=== PATIENT | female | born 1985 | race Caucasian/White ===

== ENCOUNTER 2016-06-15 10:02 | Emergency (ER) | payer OTHER ==
[~2016-06-15] VITALS: Ht 157.5 cm; Wt 77.3 kg
[~2016-06-15 10:02] MED LIST: CIPR-255 PO
[2016-06-15 10:08] VITALS: TEMP 37.1; Ht 157.5 cm; Wt 77.3 kg
[2016-06-15] MEDS ORDERED: ACET-1256 PO (10:54)
--- NOTE | 2016-06-15 11:32 | DIAGNOSTIC IMAGING REPORT ---
LEFT KNEE 1 OR 2 VIEWS ROUTINE CLINICAL HISTORY: left knee pain eval for fx COMPARISON STUDY: None. FINDINGS: No fracture or dislocation. Soft tissues are unremarkable. No knee effusion. Cartilage spaces are maintained. IMPRESSION: No fracture or dislocation within the left knee. Electronically signed by: Willy Maldonado M.D. 06/15/2016 11:31 AM Dictated Date/Time: 06/15/2016 11:29 AM
--- NOTE | 2016-06-15 12:52 | DIAGNOSTIC IMAGING REPORT ---
Venous Doppler left leg LEFT VENOUS DOPP LOWER EXT UNILAT CLINICAL HISTORY: left leg pain eval for dv pain. Edema. TECHNIQUE: Venous Doppler COMPARISON STUDY: None FINDINGS: Normal study IMPRESSION: Normal study Electronically signed by: Adi Mario M.D. 06/15/2016 12:50 PM Dictated Date/Time: 06/15/2016 12:50 PM
[2016-06-15] MEDS ORDERED: IBUPROFEN 600 MG TAB PO STA (13:03)
--- NOTE | 2016-06-15 13:51 | DIAGNOSTIC IMAGING REPORT ---
L-SPINE MIN 4 VIEWS ROUTINE CLINICAL HISTORY: Low back pain. COMPARISON STUDY: No previous studies for comparison. FINDINGS: There are postsurgical changes of a presumed gastric bypass. There is no pathologic bowel dilatation. There are surgical clips in the right upper quadrant consistent with a prior cholecystectomy. There are 5 lumbar type vertebral bodies present. No fractures subluxations or destructive lesions are evident. There are mild degenerative changes. IMPRESSION: Mild degenerative change. No fractures, subluxations, or destructive lesions are visualized Electronically signed by: Ignacio Abdi M.D. 06/15/2016 1:50 PM Dictated Date/Time: 06/15/2016 1:49 PM
[2016-06-15] MEDS ORDERED: OXYC1TAB3 PO (14:01)
[2016-06-15 14:53] VITALS: BP 137/87; PULSE 81; O2SAT 97
--- NOTE | 2016-06-15 18:14 | EMERGENCY ROOM VISIT NOTE ---
History Report prepared by Jose Armando: Vishal Joshua Under the Supervision of: Dr. Sarkis Perez M.D. First contact with patient: 10:45 Chief Complaint: KNEEPAIN Stated Complaint: LEFT KNEE PAIN History of Present Illness The patient is a 30 year old female who presents to the Emergency Room with complaints of persistent left knee pain that worsened 3 days ago. The patient notes that 4 weeks ago she had a fall where she notes her left knee just seemed to give out and she hit her knee on the ground. The patient says that the discomfort has been on and off for the past 4 weeks since the fall; however, the past 3 days the discomfort has worsened and become constant. The patient had been cleaning and lifting little things three days ago when the pain worsened. She notes that the discomfort is behind her knee and radiates up and down her leg. She describes it as a sharp pain and as a burning sensation. The discomfort is worsened by movement and weight-bearing. Last night, the discomfort kept the patient awake and she took Tylenol at 4 AM. She denies swelling, fever, chest pain, or shortness of breath. Source of History: patient Onset: 3 days ago Position: knee (left) Quality: burning, sharp Timing: constant, worsening, other (persistent) Modifying Factors (Worsening): movement, other (weight-bearing) Associated Symptoms: No SOB, No chest pain, No fevers Note: Other associated symptoms: radiation up and down left leg, Denies: swelling Review of Systems See HPI for pertinent positives & negatives. A total of 10 systems reviewed and were otherwise negative. Past Medical & Surgical Medical Problems: (1) Ovarian cyst Surgical Problems: (1) History of cholecystectomy (2) History of oophorectomy (3) Hx of appendectomy (4) Hx of gastric bypass (5) Hx of tonsillectomy Family History Diabetes mellitus FH: heart disease FHx: cancer Hypertension Social History Smoking Status: Never Smoker Drug Use: none Marital Status: Housing Status: lives with family Occupation Status: employed Current/Historical Medications Scheduled PRN Acetaminophen (Tylenol), 1,000 MG PO Q8 PRN for Pain Oxycodone Ir (Roxicodone Ir), 5 MG PO Q4H PRN for Pain Allergies Coded Allergies: Cephalosporins (Verified Allergy, Mild, ., 06/15/16) Prochlorperazine (Verified Allergy, Mild, ., 06/15/16) Sulfa Drugs (Verified Allergy, Mild, ., 06/15/16) Latex (Verified Adverse Reaction, Mild, ., 06/15/16) Uncoded Allergies: CEPHALOSPORINS (Allergy, Unknown, 09/20/02) Physical Exam Vital Signs Date Time Temp Pulse Resp B/P Pulse Ox O2 Delivery O2 Flow Rate FiO2 06/15/16 14:53 81 16 137/87 97 06/15/16 12:23 71 17 129/87 100 Room Air 06/15/16 10:08 37.1 87 18 135/83 100 Room Air Physical Exam Constitutional: Vital signs reviewed. Eyes: Pupils are equal round reactive to light. Conjunctiva are noninjected. ENT: Pharynx is clear without erythema or exudate. Mucous membranes are moist. Neck supple without meningeal signs. Respiratory: Clear to auscultation bilaterally. Breath sounds are equal bilaterally. Cardiovascular: Regular rate and rhythm. No rubs or gallops. GI: Soft, nondistended and nontender. Bowel sounds are present. Musculoskeletal: No peripheral edema. Minimal tenderness to the medial joint- line of left knee without swelling or increased warmth. Full range of motion of the joint without pain. No joint effusion or laxity. Negative anterior or posterior drawer sign. Normal distal pulses. Integumentary: No cyanosis. Neurological: The patient is awake and alert. No focal deficits. Psychiatric: Normal affect. Medical Decision & Procedures ER Provider Diagnostic Interpretation: Radiology results as stated below per my review and the radiologist's interpretation: Venous Doppler left leg LEFT VENOUS DOPP LOWER EXT UNILAT CLINICAL HISTORY: left leg pain eval for dv pain. Edema. TECHNIQUE: Venous Doppler COMPARISON STUDY: None FINDINGS: Normal study IMPRESSION: Normal study Electronically signed by: Adi Mario M.D. 06/15/2016 12:50 PM Dictated Date/Time: 06/15/2016 12:50 PM LEFT KNEE 1 OR 2 VIEWS ROUTINE CLINICAL HISTORY: left knee pain eval for fx COMPARISON STUDY: None. FINDINGS: No fracture or dislocation. Soft tissues are unremarkable. No knee effusion. Cartilage spaces are maintained. IMPRESSION: No fracture or dislocation within the left knee. Electronically signed by: Willy Maldonado M.D. 06/15/2016 11:31 AM Dictated Date/Time: 06/15/2016 11:29 AM L-SPINE MIN 4 VIEWS ROUTINE CLINICAL HISTORY: Low back pain. COMPARISON STUDY: No previous studies for comparison. FINDINGS: There are postsurgical changes of a presumed gastric bypass. There is no pathologic bowel dilatation. There are surgical clips in the right upper quadrant consistent with a prior cholecystectomy. There are 5 lumbar type vertebral bodies present. No fractures subluxations or destructive lesions are evident. There are mild degenerative changes. IMPRESSION: Mild degenerative change. No fractures, subluxations, or destructive lesions are visualized Electronically signed by: Ignacio Abdi M.D. 06/15/2016 1:50 PM Dictated Date/Time: 06/15/2016 1:49 PM Medications Administered Medications (Trade) Dose Ordered Sig/Ricky Route Start Time Stop Time Status Last Admin Dose Admin Ibuprofen (Motrin Tab) 600 mg NOW STAT PO 06/15/16 13:03 06/15/16 13:04 DC 06/15/16 14:45 600 MG ED Course 1047: The patient was evaluated in room B12. A complete history and physical exam was performed. 1303: Ordered Ibuprofen 600 mg PO. 1322: At this time, I reevaluated the patient and talked about the test results. She has been having low back pain as well, but denies any numbness or weakness in her legs or incontinence. We discussed getting an x-ray of her back. She denied any chance of . 1404: Upon reevaluation, the patient appeared to have improvement of her symptoms. I discussed demi's findings with her. She verbalized agreement of the treatment plan. The patient was discharged home. Medical Decision This is a 30-year-old female who presents with leg pain. Differential diagnosis includes DVT, superficial thrombophlebitis, strain, internal derangement, fracture, lumbar radiculopathy. I did perform a limited focused review of portions of the patient's old chart on the electronic medical record. The patient has had no recent pertinent visits to this hospital. I did evaluate the patient as noted above. She is presenting with left knee pain after falling 4 weeks ago. She states recently has become a more steady pain. On examination she does not appear to have any signs of trauma to her knee. She has full range of motion without any joint laxity. There is minimal tenderness to the medial joint line but otherwise she has no tenderness to the knee. She does state the pain travels up into her thigh. I did treat her with ibuprofen. I did order and personally review the patient's left knee x-ray as described above. There is no fracture or dislocation. I did order a Doppler ultrasound of the left leg. I did review the images myself as well as the radiology report as described above. There is no evidence of DVT. I did reassess the patient. I did discuss the test results with her. She does state that she has been having low back pain. She is neurologically intact and has no incontinence or saddle anesthesia. I did suggest that perhaps her pain is coming from her lower back and so I do not see any acute abnormality to her knee or leg. I did obtain x-rays of her lumbar spine which demonstrated some degenerative changes. I did recommend close follow up with her doctor for further evaluation and referral to physical therapy. She was discharged in good condition with a prescription for OxyIR. She was given precautions regarding this medication. [place] Drug Monitoring Program Search Results: patient reviewed within database (no prescriptions found) Impression Primary Impression: Left leg pain Additional Impression: Low back pain Scribe Attestation The scribe's documentation has been prepared under my direct and personally reviewed by me in its entirety. I confirm that the note above accurately reflects all work, treatment, procedures, and medical decision making performed by me. Departure Information Dispostion Home / Self-Care Prescriptions Oxycodone Ir (Roxicodone Ir) 5 Mg Tab 5 MG PO Q4H Y for Pain, #20 TAB Prov: Sarkis Perez M.D. 06/15/16 Referrals No Doctor, Assigned (PCP) Forms HOME CARE DOCUMENTATION FORM, IMPORTANT VISIT INFORMATION Patient Instructions ED Back Pain Acute Chronic, My [facility] Additional Instructions You have been examined and treated today on an emergency basis only. This is not a substitute for, or an effort to provide, complete comprehensive medical care. It is impossible to recognize and treat all injuries or illnesses in a single emergency department visit. It is therefore important that you follow up closely with your physician. Call as soon as possible for an appointment. Return for worsening symptoms or if you develop fever, vomiting, abdominal pain , loss of control of your bowel or bladder, numbness or weakness to your legs, numbness to your private area, difficulty urinating, chest pain, shortness of breath, leg swelling or any other concerning symptoms. Problem Qualifiers
== END 2016-06-15 14:56 | disposition home or self-care (01) ==
LOC: C.EDB 10:03
DX: M79.605 Pain in left leg (principal); M54.5 Low back pain; W19.XXXA Unspecified fall, initial encounter; Z90.49 Acquired absence of other specified parts of digestive tract; Z90.89 Acquired absence of other organs; Z98.84 Bariatric surgery status; Z88.2 Allergy status to sulfonamides; Z91.040 Latex allergy status; Z83.3 Family history of diabetes mellitus; Z82.49 Family history of ischemic heart disease and other diseases of the circulatory system; Z80.9 Family history of malignant neoplasm, unspecified

== ENCOUNTER 2016-11-25 21:22 | Emergency (ER) | payer OTHER ==
[~2016-11-25] VITALS: Ht 157.5 cm; Wt 80.7 kg
[~2016-11-25 21:22] MED LIST changes: +ACET-1256 PO; -CIPR-255 PO; +OXYC1TAB3 PO
[2016-11-25 21:25] VITALS: BP 146/90; PULSE 73; TEMP 36.9; O2SAT 98; Ht 157.5 cm; Wt 80.7 kg
[2016-11-25] MEDS ORDERED: OXYCODONE IR HOME PACK PO ONE (21:45)
--- NOTE | 2016-11-25 21:46 | EMERGENCY ROOM VISIT NOTE ---
ED Visit Note First contact with patient: 21:32 CHIEF COMPLAINT: Toothache HISTORY OF PRESENT ILLNESS: This 31 old female patient presented to the emergency department ambulatory with a progressive toothache for past few wekks. The patient believes it is coming from right lower molar that cracked 1 month ago. The pain is now steady and severe and radiates to the face. The patient does a dentist appointment set up at the end of the month. They rate their pain a 10/10 and the ibuprofen and Tylenol they have been taking has not relieved the pain. Denies facial swelling or fever. The patient denies any discharge from the mouth. REVIEW OF SYSTEMS: A 6 system review of systems was completed with positives and pertinent negatives listed in the HPI. ALLERGIES: Penicillin, cephalosporin, latex, Phenergan, sulfa MEDICATIONS: Patient denies PMH: Patient denies SOCIAL HISTORY: The patient. She does not smoke PHYSICAL EXAM: Vitals are noted on the nurse's note and reviewed by myself. Vital signs stable. Temperature 36.9C orally. GENERAL: This is a 31-year-old female, in no acute distress, nondiaphoretic, well-developed well-nourished. Mouth: The right lower tooth is very carious and the gum is swollen and tender around it, without any discharge or signs of an abscess. The remainder of the pharynx and tonsils are without erythema, edema, or exudate. The airway is patent. There is no facial swelling, cervical or submandibular lymphadenopathy. The patient appears uncomfortable and in pain. The patient has overall fair dental hygiene. ED COURSE: The patient was seen and examined. Previous visits were reviewed. The patient is afebrile. She is nontoxic in appearance. She does not have any facial swelling. The patient just finished a course of clindamycin. She complains of pain in the right lower molar that has been cracked and she believes there is an exposed nerve. I'm not certain the patient has significant infection at this time. She is allergic to penicillins, cephalosporins and sulfa drugs. She states the clindamycin upset her stomach. The patient was given dental wax. She'll be given a prescription for OxyIR. She will be given a prescription for clindamycin to start if she develops swelling, fevers, drainage of pus. Otherwise, she should contact the oral surgeon for a sooner follow-up appointment. Problem List Medical Problems: (1) Ovarian cyst Status: Chronic Surgical Problems: (1) History of cholecystectomy Status: Chronic (2) History of oophorectomy Status: Chronic (3) Hx of appendectomy Status: Chronic (4) Hx of gastric bypass Status: Resolved (5) Hx of tonsillectomy Status: Chronic Current/Historical Medications Scheduled Clindamycin Hcl (Cleocin), 300 MG PO TID Scheduled PRN Acetaminophen (Tylenol), 1,000 MG PO Q8 PRN for Pain Oxycodone Ir (Roxicodone Ir), 1-2 TAB PO Q4H PRN for Pain Allergies Coded Allergies: Cephalosporins (Verified Allergy, Mild, ., 11/25/16) Prochlorperazine (Verified Allergy, Mild, ., 11/25/16) Sulfa Drugs (Verified Allergy, Mild, ., 11/25/16) Latex (Verified Adverse Reaction, Mild, ., 11/25/16) Vital Signs Date Time Temp Pulse Resp B/P (MAP) Pulse Ox O2 Delivery O2 Flow Rate FiO2 11/25/16 21:25 36.9 73 16 146/90 98 Room Air Medications Administered Medications (Trade) Dose Ordered Sig/Ricky Route Start Time Stop Time Status Last Admin Dose Admin Oxycodone HCl (Roxicodone Immediate Rel 5MG Home Pack) 1 homepack UD ONCE PO 11/25/16 21:45 11/25/16 21:47 DC 11/25/16 21:45 1 HOMEPACK Departure Information Impression Primary Impression: Dental caries Dispostion Home / Self-Care Condition GOOD Prescriptions Clindamycin Hcl (CLEOCIN) 300 Mg Cap 300 MG PO TID for 10 Days, #30 CAP Prov: Florina Anton PA-C 11/25/16 Oxycodone Ir (Roxicodone Ir) 5 Mg Tab 1-2 TAB PO Q4H Y for Pain, #36 TAB For Initial Treatment Prov: Florina Anton PA-C 11/25/16 Referrals No Doctor, Assigned (PCP) Emil Moss M.D. Patient Instructions [facility] Additional Instructions Clindamycin 3 times daily for 10 days. Motrin 600 mg every 6-8 hours for moderate pain. Oxy IR 1-2 tablets every 4-6 hrs as needed for worse pain. No driving or alcohol use with Oxy IR. Followup with a dentist for definitive management of your tooth. Return with high fevers, worsening pain or swelling.
[2016-11-25] MEDS ORDERED: OXYC1TAB3 PO (21:51)
[2016-11-25] MEDS ORDERED: CLIN300C2 PO (21:55)
== END 2016-11-25 22:00 | disposition home or self-care (01) ==
LOC: C.EDB 21:23 → C.EDD 22:00
DX: K02.9 Dental caries, unspecified (principal); Z98.84 Bariatric surgery status; Z90.721 Acquired absence of ovaries, unilateral; Z90.49 Acquired absence of other specified parts of digestive tract; Z90.89 Acquired absence of other organs

== ENCOUNTER 2016-12-05 18:42 | Emergency (ER) | payer OTHER ==
[~2016-12-05] VITALS: Ht 157.5 cm; Wt 80.8 kg
[~2016-12-05 18:42] MED LIST changes: +CLIN300C2 PO
[2016-12-05 18:44] VITALS: Ht 157.5 cm; Wt 80.8 kg
[2016-12-05] MEDS ORDERED: HYDR-5688 PO (19:23)
[2016-12-05] MEDS ORDERED: HYDROCODONE/ACETAMOPHEN 5/325MG TAB PO STA (19:32)
[2016-12-05] MEDS ORDERED: SODIUM CHLORIDE 0.9% 1000ML 1,000 ML IV STA (19:32)
[2016-12-05 19:45] LABS: BASO % 0.2 %; BASO ABS # 0.02 K/uL (0-0.2); COMPLETE YES; EOS % 2.5 %; HEMATOCRIT 36.2 % (37-47); IG% 0.6 %; LYMPH % 29.6 %; LYMPH ABS # 3.18 K/uL (1.2-3.4); MEAN CELL VOLUME 87.7 fL (80-100); MEAN CORPUSCULAR HEMOGLOBIN 29.1 pg (25-34); MEAN CORPUSCULAR HGB CONC 33.1 g/dl (32-36); MEAN PLATELET VOLUME 9.8 fL (7.4-10.4); MONO % 6.6 %; NEUT % 60.5 %; PLATELET COUNT 282 K/uL (130-400); RED BLOOD COUNT 4.13 M/uL (4.2-5.4); WHITE BLOOD COUNT 10.75 K/uL (4.8-10.8)
[2016-12-05 19:58] LABS: PARTIAL THROMBOPLASTIN RATIO 0.9; PROTHROMBIN TIME (PATIENT) 10.3 SECONDS (9.0-12.0)
--- NOTE | 2016-12-05 19:58 | DIAGNOSTIC IMAGING REPORT ---
HEAD WITHOUT CONTRAST (CT) CT DOSE: 537.48 mGy.cm HISTORY: Trauma. Mental status change. fall eval for bleed TECHNIQUE: Multiaxial CT images of the head were performed without the use of intravenous contrast. A dose lowering technique was utilized adhering to the principles of ALARA. Comparison: 04/27/2012 Findings: The paranasal sinuses and mastoid air cells are clear. The calvarium and skull base are intact. The ventricles and sulci are within normal limits. There is no mass, hematoma, midline shift, or acute infarct. Impression: No acute intracranial abnormality. The above report was generated using voice recognition software. It may contain grammatical, syntax or spelling errors. Electronically signed by: Adi Mario M.D. 12/05/2016 7:56 PM Dictated Date/Time: 12/05/2016 7:56 PM
[2016-12-05 20:01] LABS: ALT/SGPT 58 U/L (12-78); BLOOD UREA NITROGEN 24 mg/dl (7-18); BUN/CREATININE RATIO 29.4 (10-20); CALCIUM 8.5 mg/dl (8.5-10.1); CARBON DIOXIDE 28 mmol/L (21-32); CHLORIDE 108 mmol/L (98-107); GLUCOSE 85 mg/dl (70-99); POTASSIUM 3.6 mmol/L (3.5-5.1); SODIUM 141 mmol/L (136-145)
[2016-12-05 20:04] LABS: ALKALINE PHOSPHATASE 115 U/L (45-117); AST/SGOT 22 U/L (15-37)
[2016-12-05] MEDS ORDERED: ONDANSETRON INJ 2 MG/ML 2 ML VIAL IV STA (20:28)
[2016-12-05] MEDS ORDERED: ONDANSETRON HOME PACK 4MG OD TAB PO ONE (20:30)
[2016-12-05 20:59] LABS: POINT OF CARE TROPONIN I < 0.030 ng/ml (0-0.045)
[2016-12-05 21:09] VITALS: BP 146/84; PULSE 63; TEMP 36.7; O2SAT 99
--- NOTE | 2016-12-06 01:04 | EMERGENCY ROOM VISIT NOTE ---
History Report prepared by Jose Armando: Carmel Rowley Under the Supervision of: Dr. Sarkis Perez M.D. First contact with patient: 19:22 Chief Complaint: SYNCOPE Stated Complaint: PASSED OUT, LIGHTHEADED, SHARP PAIN IN HEAD Nursing Triage Summary: Pt states she passed out today, about 30 minutes ago. Pt reports she had 2 teeth pulled this am. Pt reports she is having pain. uknown injury when she fell. reports sharp head pains and some pain to right elbow History of Present Illness The patient is a 31 year old female who presents to the Emergency Room with complaints of an episode of syncope today. The patient had 2 teeth pulled today. She was at home eating soup when some of the food got stuck in her tooth sockets. She went to the bathroom and was trying to suck the pieces of food out. She had a lot of pain and started getting hot, diaphoretic, and dizzy. She passed out in the hallway after leaving the bathroom. She is unsure if she hit her head. She has some mild right elbow pain. When she regained consciousness and was trying to get up she felt weak like someone was holding her down. She reports some heaviness in her chest and sharp pain in her head. She denies any SOB, fever, back pain, or numbness. Her menstrual period started today. She denies any chance of . She denies any history of hypertension. Source of History: patient Onset: today Position: other (global) Quality: other (syncope) Timing: other (episodic) Associated Symptoms: + headache, + diaphoresis, + chest pain, + weakness, No fevers, No SOB, No back pain, No numbness Note: Pt reports feeling dizzy, hot, right elbow pain. Review of Systems See HPI for pertinent positives & negatives. A total of 10 systems reviewed and were otherwise negative. Past Medical & Surgical Medical Problems: (1) Ovarian cyst Surgical Problems: (1) History of cholecystectomy (2) History of oophorectomy (3) Hx of appendectomy (4) Hx of gastric bypass (5) Hx of tonsillectomy Family History Diabetes mellitus FH: heart disease FHx: cancer Hypertension Social History Smoking Status: Former Smoker Drug Use: none Marital Status: Housing Status: lives with family Occupation Status: employed Current/Historical Medications Scheduled PRN Hydrocodone/Acetaminophen 5MG/325MG ([place] 5MG/325MG), 1 TABLET PO Q4-6HRS PRN for Pain Allergies Coded Allergies: Cephalosporins (Verified Allergy, Mild, ., 11/25/16) Prochlorperazine (Verified Allergy, Mild, ., 11/25/16) Sulfa Drugs (Verified Allergy, Mild, ., 11/25/16) Latex (Verified Adverse Reaction, Mild, ., 11/25/16) Physical Exam Vital Signs Date Time Temp Pulse Resp B/P (MAP) Pulse Ox O2 Delivery O2 Flow Rate FiO2 12/05/16 21:09 36.7 63 18 146/84 99 12/05/16 20:00 64 18 123/84 98 Room Air 12/05/16 19:07 65 12/05/16 18:44 36.7 82 18 148/87 98 Room Air Physical Exam Constitutional: Vital signs reviewed. Eyes: Pupils are equal round reactive to light. Conjunctiva are noninjected. ENT: Pharynx is clear without erythema or exudate. Mucous membranes are moist. Neck supple without meningeal signs. No midline tenderness to the cervical spine. Extraction site in the right mandibular molar area shows no signs of bleeding, infection, or dry socket. Respiratory: Clear to auscultation bilaterally. Breath sounds are equal bilaterally. Cardiovascular: Regular rate and rhythm. No rubs or gallops. GI: Soft, nondistended and nontender. Bowel sounds are present. Musculoskeletal: No peripheral edema. No tenderness to the extremities except some mild tenderness to the olecranon process of the right elbow. Integumentary: No cyanosis. Neurological: The patient is awake and alert. Cranial nerves II-XII are intact. Motor is 5 out of 5 all extremities. Sensation is intact to light touch all extremities. Normal speech. No pronator drift. Psychiatric: Normal affect. Medical Decision & Procedures ER Provider Diagnostic Interpretation: Radiology results as stated below per my review and the radiologist's interpretation: HEAD WITHOUT CONTRAST (CT) CT DOSE: 537.48 mGy.cm HISTORY: Trauma. Mental status change. fall eval for bleed TECHNIQUE: Multiaxial CT images of the head were performed without the use of intravenous contrast. A dose lowering technique was utilized adhering to the principles of ALARA. Comparison: 04/27/2012 Findings: The paranasal sinuses and mastoid air cells are clear. The calvarium and skull base are intact. The ventricles and sulci are within normal limits. There is no mass, hematoma, midline shift, or acute infarct. Impression: No acute intracranial abnormality. The above report was generated using voice recognition software. It may contain grammatical, syntax or spelling errors. Electronically signed by: Adi Mario M.D. 12/05/2016 7:56 PM Dictated Date/Time: 12/05/2016 7:56 PM Laboratory Results 12/05/16 19:02 Red Blood Count 4.13, Mean Corpuscular Volume 87.7, Mean Corpuscular Hemoglobin 29.1, Mean Corpuscular Hemoglobin Concent 33.1, Mean Platelet Volume 9.8, Neutrophils (%) (Auto) 60.5, Lymphocytes (%) (Auto) 29.6, Monocytes (%) (Auto) 6.6, Eosinophils (%) (Auto) 2.5, Basophils (%) (Auto) 0.2, Neutrophils # (Auto) 6.51, Lymphocytes # (Auto) 3.18, Monocytes # (Auto) 0.71, Eosinophils # (Auto) 0.27, Basophils # (Auto) 0.02 12/05/16 19:02 Test 12/05/16 19:02 12/05/16 20:40 White Blood Count 10.75 K/uL (4.8-10.8) Red Blood Count 4.13 M/uL (4.2-5.4) Hemoglobin 12.0 g/dL (12.0-16.0) Hematocrit 36.2 % (37-47) Mean Corpuscular Volume 87.7 fL (80-100) Mean Corpuscular Hemoglobin 29.1 pg (25-34) Mean Corpuscular Hemoglobin Concent 33.1 g/dl (32-36) Platelet Count 282 K/uL (130-400) Mean Platelet Volume 9.8 fL (7.4-10.4) Neutrophils (%) (Auto) 60.5 % Lymphocytes (%) (Auto) 29.6 % Monocytes (%) (Auto) 6.6 % Eosinophils (%) (Auto) 2.5 % Basophils (%) (Auto) 0.2 % Neutrophils # (Auto) 6.51 K/uL (1.4-6.5) Lymphocytes # (Auto) 3.18 K/uL (1.2-3.4) Monocytes # (Auto) 0.71 K/uL (0.11-0.59) Eosinophils # (Auto) 0.27 K/uL (0-0.5) Basophils # (Auto) 0.02 K/uL (0-0.2) RDW Standard Deviation 43.4 fL (36.4-46.3) RDW Coefficient of Variation 13.5 % (11.5-14.5) Immature Granulocyte % (Auto) 0.6 % Immature Granulocyte # (Auto) 0.06 K/uL (0.00-0.02) Prothrombin Time 10.3 SECONDS (9.0-12.0) Prothromb Time International Ratio 1.0 (0.9-1.1) Activated Partial Thromboplast Time 23.3 SECONDS (21.0-31.0) Partial Thromboplastin Ratio 0.9 Anion Gap 5.0 mmol/L (3-11) Est Creatinine Clear Calc Drug Dose 99.4 ml/min Estimated GFR () 113.1 Estimated GFR (Non- 97.6 BUN/Creatinine Ratio 29.4 (10-20) Calcium Level 8.5 mg/dl (8.5-10.1) Total Bilirubin 0.3 mg/dl (0.2-1) Direct Bilirubin < 0.1 mg/dl (0-0.2) Aspartate Amino Transf (AST/SGOT) 22 U/L (15-37) Alanine Aminotransferase (ALT/SGPT) 58 U/L (12-78) Alkaline Phosphatase 115 U/L (45-117) Total Protein 6.8 gm/dl (6.4-8.2) Albumin 3.5 gm/dl (3.4-5.0) Bedside D-Dimer 229 ng/mlFEU (0-450) Bedside Troponin I < 0.030 ng/ml (0-0.045) Laboratory results as reviewed by me. Medications Administered Medications (Trade) Dose Ordered Sig/Ricky Route Start Time Stop Time Status Last Admin Dose Admin Sodium Chloride 1,000 ml @ 999 mls/hr Q1H1M STAT IV 12/05/16 19:32 12/05/16 20:32 DC 12/05/16 19:41 999 MLS/HR Acetaminophen/ Hydrocodone Bitart ([place] 5/325 Tab) 1 tab ONE STAT PO 12/05/16 19:32 12/05/16 19:34 DC 12/05/16 19:41 1 TAB Ondansetron HCl (ZOFRAN ODT 4MG Home Pack) 1 homepack UD ONCE PO 12/05/16 20:30 12/05/16 20:31 DC 12/05/16 21:05 1 HOMEPACK Ondansetron HCl (Zofran Inj) 4 mg NOW STAT IV 12/05/16 20:28 12/05/16 20:29 DC 12/05/16 21:05 4 MG ECG Indication: syncope Rate (beats per minute): 65 Rhythm: normal sinus Findings: no acute ischemic change, no ectopy, other (no preexcitation) ED Course 1925: The patient was evaluated in room A10. A complete history and physical exam was performed. 1931: [place] 5/325 Tab 1 tab PO, NSS 1000 ml @ 999 mls/hr IV. 2026: I reevaluated the patient. She denies chest pain and SOB. She is nauseous from the medications. I discussed the test results with her. She verbalized agreement of the treatment plan. She was discharged home. 2027: Zofran Inj 4 mg IV. 2029: Ondansetron HCl 1 homepack PO. Medical Decision This is a 31-year-old female presents with headache, syncope and chest pain. Differential diagnosis includes intracranial hemorrhage, concussion, vasovagal syncope, cardiac, pulmonary embolism, metabolic derangement. I did perform a limited focused review of portions of the patient's old chart on the electronic medical record. The patient was here November 25 for toothache and discharged with oxycodone and clindamycin. I did evaluate the patient as noted above. The patient is presenting with a syncopal episode. She states that she was having a lot of pain in her tooth and felt lightheaded and passed out. Subsequently she did develop some chest discomfort which is now resolved. Her symptoms seem most consistent with vasovagal syncope. IV access was established. The patient was placed on a continuous manager monitoring. I did order and personally review the patient's 12- lead EKG as described above. I did order and review the patient's blood work as noted in the electronic medical record. Troponin and d-dimer are negative. She declined testing for and states she was absolutely sure she is not . I did order a CT of the head. I did review the images myself as well as the radiology report as described above. There is no evidence of intracranial hemorrhage. I did discuss the test results with the patient. She was given normal saline IV. She was also given [place] for toothache. She was advised follow closely with her doctor. She was discharged in good condition. She was given return instructions as outlined below. Head Trauma GCS Score: 15 Medication Reconcilliation Current Medication List: was personally reviewed by me Blood Pressure Screening Patient's blood pressure: Elevated blood pressure Blood pressure disposition: Referred to PCP Impression Primary Impression: Vasovagal syncope Additional Impressions: Acute chest pain Acute head injury Scribe Attestation The scribe's documentation has been prepared under my direct and personally reviewed by me in its entirety. I confirm that the note above accurately reflects all work, treatment, procedures, and medical decision making performed by me. Departure Information Dispostion Home / Self-Care Referrals No Doctor, Assigned (PCP) Forms HOME CARE DOCUMENTATION FORM, IMPORTANT VISIT INFORMATION Patient Instructions ED Chest Pain Atypical Unkn Cause, ED Head Injury Closed, ED Syncope Vasovagal, My [facility] Additional Instructions You have been examined and treated today on an emergency basis only. This is not a substitute for, or an effort to provide, complete comprehensive medical care. It is impossible to recognize and treat all injuries or illnesses in a single emergency department visit. It is therefore important that you follow up closely with your physician. Call as soon as possible for an appointment. Return for worsening symptoms or if you develop fever, vomiting, or any other concerning symptoms. Problem Qualifiers Additional Impressions: Acute head injury Encounter type: initial encounter Qualified Codes: S09.90XA - Unspecified injury of head, initial encounter
== END 2016-12-05 21:10 | disposition home or self-care (01) ==
LOC: C.EDB 18:42 → C.EDA 21:10
DX: R55 Syncope and collapse (principal); R07.9 Chest pain, unspecified; S09.90XA Unspecified injury of head, initial encounter; W19.XXXA Unspecified fall, initial encounter; R42 Dizziness and giddiness; Z87.891 Personal history of nicotine dependence; Z90.49 Acquired absence of other specified parts of digestive tract; Z90.721 Acquired absence of ovaries, unilateral; Z98.84 Bariatric surgery status; Z90.89 Acquired absence of other organs; Z83.3 Family history of diabetes mellitus; Z82.49 Family history of ischemic heart disease and other diseases of the circulatory system

== ENCOUNTER 2017-05-27 21:21 | Emergency (ER) | payer OTHER ==
[~2017-05-27 21:21] MED LIST changes: -ACET-1256 PO; -CLIN300C2 PO; +HYDR-5688 PO; -OXYC1TAB3 PO
[2017-05-27 21:30] VITALS: TEMP 36.9
[2017-05-27 22:45] LABS: BASO % 0.2 %; BASO ABS # 0.02 K/uL (0-0.2); EOS % 1.1 %; EOS ABS # 0.14 K/uL (0-0.5); HEMATOCRIT 39.6 % (37-47); HEMOGLOBIN 13.6 g/dL (12.0-16.0); IG# 0.06 K/uL (0.00-0.02); LYMPH % 30.7 %; MEAN CELL VOLUME 86.1 fL (80-100); MEAN CORPUSCULAR HEMOGLOBIN 29.6 pg (25-34); MEAN CORPUSCULAR HGB CONC 34.3 g/dl (32-36); MEAN PLATELET VOLUME 9.9 fL (7.4-10.4); MONO % 4.7 %; MONO ABS # 0.58 K/uL (0.11-0.59); NEUT % 62.8 %; NEUT ABS # 7.76 K/uL (1.4-6.5); PLATELET COUNT 295 K/uL (130-400); RED CELL DISTRIBUTION WIDTH CV 13.8 % (11.5-14.5); RED CELL DISTRIBUTION WIDTH SD 43.6 fL (36.4-46.3); WHITE BLOOD COUNT 12.36 K/uL (4.8-10.8)
[2017-05-27 23:04] LABS: ALBUMIN 3.7 gm/dl (3.4-5.0); ALT/SGPT 71 U/L (12-78); BLOOD UREA NITROGEN 13 mg/dl (7-18); CALCIUM 8.2 mg/dl (8.5-10.1); CARBON DIOXIDE 24 mmol/L (21-32); CREATININE 0.88 mg/dl (0.60-1.20); GLUCOSE 101 mg/dl (70-99); POTASSIUM 3.2 mmol/L (3.5-5.1); SODIUM 141 mmol/L (136-145)
[2017-05-27 23:14] LABS: ALKALINE PHOSPHATASE 135 U/L (45-117); AST/SGOT 222 U/L (15-37); TOTAL PROTEIN 7.4 gm/dl (6.4-8.2)
[2017-05-28 03:15] VITALS: BP 134/90; PULSE 86; O2SAT 100
--- NOTE | 2017-05-28 03:19 | EMERGENCY ROOM VISIT NOTE ---
History Report prepared by Maria Luisaibwally: Anupam Baez Under the Supervision of: Dr. Garett Sotelo D.O. First contact with patient: 22:00 Chief Complaint: ALCOHOL OVERDOSE Stated Complaint: ETOH History of Present Illness The patient is a 31 year old female who presents to the Emergency Room with complaints of ETOH overdose that started just prior to arrival. The patient denies ETOH or drug use and states she was at her boyfriend's house earlier today. She states that her boyfriend was at hockey practice and that he took his daughter to softball practice She maintains that she is "as sober as they come". She states that she has been living in her boyfriend's grandmother's dream. She has also stated multiple times that she doesn't give "two shits" and has unclothed herself multiple times. 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 Review of Systems See HPI for pertinent positives & negatives. A total of 10 systems reviewed and were otherwise negative. Past Medical & Surgical Medical Problems: (1) Ovarian cyst Surgical Problems: (1) History of cholecystectomy (2) History of oophorectomy (3) Hx of appendectomy (4) Hx of gastric bypass (5) Hx of tonsillectomy Family History Diabetes mellitus FH: heart disease FHx: cancer Hypertension Social History Smoking Status: Former Smoker Drug Use: none Marital Status: Housing Status: lives with family Occupation Status: employed Current/Historical Medications Scheduled PRN Hydrocodone/Acetaminophen 5MG/325MG ([place] 5MG/325MG), 1 TABLET PO Q4-6HRS PRN for Pain Allergies Coded Allergies: Cephalosporins (Verified Allergy, Mild, ., 11/25/16) Prochlorperazine (Verified Allergy, Mild, ., 11/25/16) Sulfa Drugs (Verified Allergy, Mild, ., 11/25/16) Latex (Verified Adverse Reaction, Mild, ., 11/25/16) Physical Exam Vital Signs Date Time Temp Pulse Resp B/P (MAP) Pulse Ox O2 Delivery O2 Flow Rate FiO2 05/28/17 03:15 86 20 134/90 100 05/28/17 01:12 102 05/28/17 00:30 84 20 139/87 99 Room Air 05/27/17 21:30 36.9 88 22 148/100 98 Room Air Physical Exam CONSTITUTIONAL/VITAL SIGNS: Reviewed / noted above. GENERAL: Non-toxic in appearance. INTEGUMENTARY: Warm, dry, and [place]. HEAD: Normocephalic. EYES: without scleral icterus or trauma. ENT/OROPHARYNX: clear and moist. LYMPHADENOPATHY/NECK: Is supple without lymphadenopathy or meningismus. RESPIRATORY: Lungs clear and equal. CARDIOVASCULAR: Regular rate and rhythm. GI/ABDOMEN: Soft and nontender. No organomegaly or pulsatile mass. No rebound or guarding. Normal bowel sounds. EXTREMITIES: Warm and well perfused. BACK: No CVA tenderness. NEUROLOGICAL: Intact without focal deficits. Slurring speech. Obtuse thinking pattern. Unable to remain on topic of conversation. PSYCHIATRIC: normal affect. MUSCULOSKELETAL: Normally developed with good muscle tone. Medical Decision & Procedures Laboratory Results 05/27/17 22:15 Red Blood Count 4.60, Mean Corpuscular Volume 86.1, Mean Corpuscular Hemoglobin 29.6, Mean Corpuscular Hemoglobin Concent 34.3, Mean Platelet Volume 9.9, Neutrophils (%) (Auto) 62.8, Lymphocytes (%) (Auto) 30.7, Monocytes (%) (Auto) 4.7, Eosinophils (%) (Auto) 1.1, Basophils (%) (Auto) 0.2, Neutrophils # (Auto) 7.76, Lymphocytes # (Auto) 3.80, Monocytes # (Auto) 0.58, Eosinophils # (Auto) 0.14, Basophils # (Auto) 0.02 05/27/17 22:15 Test 05/27/17 22:00 05/27/17 22:15 Urine Opiates Screen NEG (NEG) Urine Methadone, Qualitative NEG (NEG) Urine Barbiturates NEG (NEG) Urine Phencyclidine (PCP) Level NEG (NEG) Ur Amphetamine/Methamphetamine NEG (NEG) MDMA (Ecstasy) Screen NEG (NEG) Urine Benzodiazepines Screen NEG (NEG) Urine Cocaine Metabolite NEG (NEG) Urine Marijuana (THC) NEG (NEG) White Blood Count 12.36 K/uL (4.8-10.8) Red Blood Count 4.60 M/uL (4.2-5.4) Hemoglobin 13.6 g/dL (12.0-16.0) Hematocrit 39.6 % (37-47) Mean Corpuscular Volume 86.1 fL (80-100) Mean Corpuscular Hemoglobin 29.6 pg (25-34) Mean Corpuscular Hemoglobin Concent 34.3 g/dl (32-36) Platelet Count 295 K/uL (130-400) Mean Platelet Volume 9.9 fL (7.4-10.4) Neutrophils (%) (Auto) 62.8 % Lymphocytes (%) (Auto) 30.7 % Monocytes (%) (Auto) 4.7 % Eosinophils (%) (Auto) 1.1 % Basophils (%) (Auto) 0.2 % Neutrophils # (Auto) 7.76 K/uL (1.4-6.5) Lymphocytes # (Auto) 3.80 K/uL (1.2-3.4) Monocytes # (Auto) 0.58 K/uL (0.11-0.59) Eosinophils # (Auto) 0.14 K/uL (0-0.5) Basophils # (Auto) 0.02 K/uL (0-0.2) RDW Standard Deviation 43.6 fL (36.4-46.3) RDW Coefficient of Variation 13.8 % (11.5-14.5) Immature Granulocyte % (Auto) 0.5 % Immature Granulocyte # (Auto) 0.06 K/uL (0.00-0.02) Anion Gap 9.0 mmol/L (3-11) Estimated GFR () 100.8 Estimated GFR (Non- 86.9 BUN/Creatinine Ratio 14.3 (10-20) Calcium Level 8.2 mg/dl (8.5-10.1) Total Bilirubin 0.3 mg/dl (0.2-1) Aspartate Amino Transf (AST/SGOT) 222 U/L (15-37) Alanine Aminotransferase (ALT/SGPT) 71 U/L (12-78) Alkaline Phosphatase 135 U/L (45-117) Total Protein 7.4 gm/dl (6.4-8.2) Albumin 3.7 gm/dl (3.4-5.0) Globulin 3.7 gm/dl (2.5-4.0) Albumin/Globulin Ratio 1.0 (0.9-2) Thyroid Stimulating Hormone (TSH) 4.430 uIu/ml (0.300-4.500) Salicylates Level < 1.7 mg/dl (2.8-20) Acetaminophen Level < 2 ug/ml (10-30) Ethyl Alcohol mg/dL 322.4 mg/dl (0-3) Laboratory results as stated above per my review. ED Course 2199: Previous medical records were reviewed. The patient was evaluated in room A7. A complete history and physical examination was performed. Medical Decision There is no evidence of other toxic ingestions, trauma, anemia, hypoglycemia, head injury or intracranial pathology, meningitis, encephalitis, acute intrathoracic or abdominal pathology or other metabolic condition. This is a 31-year-old female who presents to the ED with a chief complaint of intoxication. Details listed above. Patient's alcohol level was 322 despite her stating that she hadn't been drinking alcohol. Oxygen was negative. Complete metabolic panel was unremarkable and an AST was 222. The patient was awake, alert during her initial evaluation although seemed to have some dysfunction with regarding to holding a normal conversation. The patient was here for about 6 hours. She was able to find a sober ride. The patient was felt to be stable for discharge. Medication Reconcilliation Current Medication List: was personally reviewed by me Blood Pressure Screening Patient's blood pressure: Elevated blood pressure Blood pressure disposition: Elevated BP felt to be situational Impression Primary Impression: Alcoholic intoxication Scribe Attestation The scribe's documentation has been prepared under my direction and personally reviewed by me in its entirety. I confirm that the note above accurately reflects all work, treatment, procedures, and medical decision making performed by me. Departure Information Dispostion Home / Self-Care Referrals No Doctor, Assigned (PCP) Patient Instructions My [facility] [address] Additional Instructions Follow-up with your doctor for further care and evaluation in 1-2 days. Return to the emergency department for worsening or new symptoms or any concerns. You have been examined and treated today on an emergency basis only. This is not a substitute for, or an effort to provide, complete comprehensive medical care. It is impossible to recognize and treat all injuries or illnesses in a single emergency department visit. It is therefore important that you follow up closely with your doctor. Call as soon as possible for an appointment.
== END 2017-05-28 03:15 | disposition home or self-care (01) ==
LOC: EDBD 21:21 → C.EDA 21:23
DX: F10.129 Alcohol abuse with intoxication, unspecified (principal); Y90.8 Blood alcohol level of 240 mg/100 ml or more; Z87.891 Personal history of nicotine dependence; Z83.3 Family history of diabetes mellitus; Z82.49 Family history of ischemic heart disease and other diseases of the circulatory system; Z80.9 Family history of malignant neoplasm, unspecified

== ENCOUNTER → 2017-07-19 | Outpatient (CLI) | payer OTHER ==
--- NOTE | 2017-07-19 10:58 | DIAGNOSTIC IMAGING REPORT ---
UPPER GI SERIES CLINICAL HISTORY: Gastric bypass. Intestinal postoperative non absorption. COMPARISON STUDY: Abdominal series March 05, 2016. FLUOROSCOPY TIME: 0.9 minutes. FINDINGS: Esophageal motility is normal. No esophageal mass or stricture is identified. There are expected findings following gastric bypass. No contrast extravasation is identified. Gastric pouch is within normal limits. No mucosal abnormalities identified although mucosal detail is mildly diminished on this exam. IMPRESSION: Expected upper GI series following gastric bypass. Electronically signed by: Donny Pace M.D. 07/19/2017 10:56 AM Dictated Date/Time: 07/19/2017 10:54 AM
== END | disposition home or self-care (01) ==
LOC: C.RAD 10:24
PROVIDERS: ATTEND Physician Assistant
DX: K91.2 Postsurgical malabsorption, not elsewhere classified (principal)

== ENCOUNTER 2017-08-25 23:02 | Emergency (ER) | payer OTHER ==
[~2017-08-25] VITALS: Ht 157.5 cm; Wt 85.0 kg
[2017-08-25 23:18] VITALS: Ht 157.5 cm; Wt 85.0 kg
[2017-08-25] MEDS ORDERED: AMOXICIL/CLAVU 875MG HOME PACK PO ONE (23:45)
[2017-08-25 23:58] LABS: BASO % 0.2 %; BASO ABS # 0.02 K/uL (0-0.2); EOS % 1.4 %; EOS ABS # 0.15 K/uL (0-0.5); HEMOGLOBIN 13.5 g/dL (12.0-16.0); IG# 0.04 K/uL (0.00-0.02); LYMPH % 32.5 %; LYMPH ABS # 3.45 K/uL (1.2-3.4); MEAN CELL VOLUME 84.6 fL (80-100); MEAN CORPUSCULAR HEMOGLOBIN 28.5 pg (25-34); MEAN CORPUSCULAR HGB CONC 33.8 g/dl (32-36); MEAN PLATELET VOLUME 9.5 fL (7.4-10.4); MONO % 5.1 %; MONO ABS # 0.54 K/uL (0.11-0.59); NEUT % 60.4 %; NEUT ABS # 6.43 K/uL (1.4-6.5); PLATELET COUNT 292 K/uL (130-400); RED CELL DISTRIBUTION WIDTH CV 13.9 % (11.5-14.5); RED CELL DISTRIBUTION WIDTH SD 43.1 fL (36.4-46.3); WHITE BLOOD COUNT 10.63 K/uL (4.8-10.8)
[2017-08-26 00:16] LABS: ALBUMIN 4.1 gm/dl (3.4-5.0); CALCIUM 8.4 mg/dl (8.5-10.1); CREATININE 0.8 mg/dl (0.60-1.20); POTASSIUM 3.4 mmol/L (3.5-5.1)
[2017-08-26 00:19] LABS: TOTAL PROTEIN 8.2 gm/dl (6.4-8.2)
[2017-08-26] MEDS ORDERED: ERGO500037 PO (00:24)
[2017-08-26] MEDS ORDERED: ESCI10TA17 PO (00:24)
[2017-08-26] MEDS ORDERED: MULT-1019 PO (00:24)
[2017-08-26] MEDS ORDERED: ACET-1256 PO (00:24)
[2017-08-26] MEDS ORDERED: VITACAP38 PO (00:24)
[2017-08-26] MEDS ORDERED: POTASSIUM CHLORIDE 10 MEQ TABCR PO STA (01:31)
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
[2017-08-26] MEDS ORDERED: AMOX875T PO (01:33)
[2017-08-26 01:39] VITALS: BP 124/75; PULSE 69; TEMP 36.5; O2SAT 100
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
== END 2017-08-26 01:40 | disposition home or self-care (01) ==
LOC: C.EDB 23:03
DX: S09.90XA Unspecified injury of head, initial encounter (principal); S00.511A Abrasion of lip, initial encounter; S09.93XA Unspecified injury of face, initial encounter; F10.129 Alcohol abuse with intoxication, unspecified; V47.5XXA Car driver injured in collision with fixed or stationary object in traffic accident, initial encounter; Y92.410 Unspecified street and highway as the place of occurrence of the external cause; Z79.899 Other long term (current) drug therapy

== ENCOUNTER 2017-12-14 07:38 | Emergency (ER) | payer OTHER ==
[~2017-12-14] VITALS: Ht 157.5 cm; Wt 85.0 kg
[~2017-12-14 07:38] MED LIST changes: +ACET-1256 PO; +ERGO500037 PO; +ESCI10TA17 PO; -HYDR-5688 PO; +MULT-1019 PO; +VITACAP38 PO
[2017-12-14 07:41] VITALS: TEMP 36.9; Ht 157.5 cm; Wt 85.0 kg
[2017-12-14] MEDS ORDERED: SODIUM CHLORIDE 0.9% 1000ML 2,000 ML IV STA (08:03)
[2017-12-14] MEDS ORDERED: ONDANSETRON INJ 2 MG/ML 2 ML VIAL IV STA ×2 (08:03→09:34)
[2017-12-14] MEDS ORDERED: MoRPHine SULFATE 4 MG/ML 1 ML CARP\\VIAL IV STA ×2 (08:03→09:34)
[2017-12-14 08:36] LABS: BASO % 0.3 %; BASO ABS # 0.03 K/uL (0-0.2); EOS % 0.5 %; EOS ABS # 0.06 K/uL (0-0.5); HEMATOCRIT 41.3 % (37-47); HEMOGLOBIN 13.5 g/dL (12.0-16.0); IG# 0.03 K/uL (0.00-0.02); LYMPH % 17.3 %; LYMPH ABS # 1.91 K/uL (1.2-3.4); MEAN CELL VOLUME 82.4 fL (80-100); MEAN CORPUSCULAR HEMOGLOBIN 26.9 pg (25-34); MEAN CORPUSCULAR HGB CONC 32.7 g/dl (32-36); MEAN PLATELET VOLUME 9.5 fL (7.4-10.4); MONO % 6.1 %; MONO ABS # 0.67 K/uL (0.11-0.59); NEUT % 75.5 %; NEUT ABS # 8.33 K/uL (1.4-6.5); PLATELET COUNT 295 K/uL (130-400); RED CELL DISTRIBUTION WIDTH CV 15.1 % (11.5-14.5); RED CELL DISTRIBUTION WIDTH SD 45.4 fL (36.4-46.3); WHITE BLOOD COUNT 11.03 K/uL (4.8-10.8)
--- NOTE | 2017-12-14 08:59 | DIAGNOSTIC IMAGING REPORT ---
ABDOMEN 2VIEW W/PA CHEST RTN CLINICAL HISTORY: Abdominal pain, vomiting, diarrhea. COMPARISON STUDY: 03/05/2016 FINDINGS: The erect chest reveals no evidence of free air. There is no evidence of focal pulmonary consolidation.] Erect and supine views of the abdomen reveal no abnormally dilated loops of large or small bowel. There are no transition zone to indicate bowel obstruction. There are postsurgical changes of a prior cholecystectomy and gastric bypass. There are multiple nonspecific pelvic basin calcifications similar to the prior study and likely representing phleboliths. IMPRESSION: No evidence of bowel obstruction. No evidence of free air. Electronically signed by: Ignacio Abdi M.D. 12/14/2017 8:58 AM Dictated Date/Time: 12/14/2017 8:56 AM
[2017-12-14 09:00] LABS: ALBUMIN 3.9 gm/dl (3.4-5.0); CALCIUM 8.8 mg/dl (8.5-10.1); CREATININE 0.78 mg/dl (0.60-1.20); POTASSIUM 3.6 mmol/L (3.5-5.1); TOTAL PROTEIN 8.1 gm/dl (6.4-8.2)
[2017-12-14] MEDS ORDERED: DICYCLOMINE HCL 10 MG/ML 2 ML AMP IM ONE (09:45)
[2017-12-14] MEDS ORDERED: HYDROmorphone INJ 1 MG/ML SYR IV STA (10:36)
[2017-12-14] MEDS ORDERED: DiphenhydrAMINE HCL 50 MG/ML VIAL IV STA (10:36)
[2017-12-14] MEDS ORDERED: METOCLOPRAMIDE HCL INJ 5 MG/ML 2 ML VIAL IV. STA (10:36)
[2017-12-14] MEDS ORDERED: ONDA4TAB10 SL (12:51)
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
[2017-12-14] MEDS ORDERED: ONDANSETRON HOME PACK 4MG OD TAB PO ONE (13:00)
[2017-12-14 13:48] VITALS: BP 145/95; PULSE 75; O2SAT 99
--- NOTE | 2017-12-16 19:34 | Pharmacy Progress Note ---
ED Pharmacist Culture FollowUp Date of Service: Dec 16, 2017. Patient seen again in ED 12/16 for persistent vomiting, diarrhea. Denied urinary symptoms. A prescription for penicillin was sent to [facility]. Called patient regarding noe-sensitive E. coli isolated from urine culture this visit. She noted she has not yet picked up penicillin prescribed today. She noted persistent diarrhea since her visit here today. Prescription for amoxicillin 875 mg po BID x5 days 0 refill, notification to cancel penicillin prescription, and acknowledgement of OK to dispense amoxicillin with cephalosporin allergy (tolerated Augmentin August 2017) called to [facility] at the patient's request. Case discussed with Dr. Martin, who is the prescribing provider.
== END 2017-12-14 13:48 | disposition home or self-care (01) ==
LOC: C.EDB 07:39
DX: R11.2 Nausea with vomiting, unspecified (principal); R19.7 Diarrhea, unspecified; R03.0 Elevated blood-pressure reading, without diagnosis of hypertension; R10.84 Generalized abdominal pain; R82.4 Acetonuria; R82.99 Other abnormal findings in urine; R50.9 Fever, unspecified; F41.9 Anxiety disorder, unspecified; Z90.49 Acquired absence of other specified parts of digestive tract; Z98.84 Bariatric surgery status; Z87.891 Personal history of nicotine dependence; Z79.899 Other long term (current) drug therapy

== ENCOUNTER 2017-12-16 11:23 | Emergency (ER) | payer OTHER ==
[~2017-12-16] VITALS: Ht 157.5 cm; Wt 84.6 kg
[~2017-12-16 11:23] MED LIST changes: +ONDA4TAB10 SL
[2017-12-16 11:29] VITALS: Ht 157.5 cm; Wt 84.6 kg
[2017-12-16] MEDS ORDERED: KETOROLAC TROMETHAMINE 30 MG/ML VIAL IV STA (12:28)
[2017-12-16] MEDS ORDERED: ONDANSETRON 8 MG/54 ML D5W IV STA (12:28)
[2017-12-16] MEDS ORDERED: SODIUM CHLORIDE 0.9% 1000ML 2,000 ML IV STA (12:28)
[2017-12-16] MEDS ORDERED: SODIUM CHLORIDE 0.9% 1000ML 1,000 ML IV STA (12:28)
[2017-12-16 13:04] LABS: BASO % 0.3 %; BASO ABS # 0.02 K/uL (0-0.2); EOS % 1.2 %; EOS ABS # 0.09 K/uL (0-0.5); HEMATOCRIT 37.8 % (37-47); HEMOGLOBIN 12.1 g/dL (12.0-16.0); IG# 0.03 K/uL (0.00-0.02); LYMPH % 28.2 %; LYMPH ABS # 2.07 K/uL (1.2-3.4); MEAN CELL VOLUME 83.8 fL (80-100); MEAN CORPUSCULAR HEMOGLOBIN 26.8 pg (25-34); MEAN PLATELET VOLUME 9.4 fL (7.4-10.4); MONO ABS # 0.15 K/uL (0.11-0.59); NEUT % 67.9 %; NEUT ABS # 4.98 K/uL (1.4-6.5); PLATELET COUNT 253 K/uL (130-400); RED CELL DISTRIBUTION WIDTH CV 15.4 % (11.5-14.5); RED CELL DISTRIBUTION WIDTH SD 47.5 fL (36.4-46.3); WHITE BLOOD COUNT 7.34 K/uL (4.8-10.8)
[2017-12-16 13:22] LABS: ALBUMIN 3.4 gm/dl (3.4-5.0); CALCIUM 8.4 mg/dl (8.5-10.1); CREATININE 0.65 mg/dl (0.60-1.20); POTASSIUM 3.8 mmol/L (3.5-5.1); TOTAL PROTEIN 7.3 gm/dl (6.4-8.2)
--- NOTE | 2017-12-16 13:34 | DIAGNOSTIC IMAGING REPORT ---
ABDOMEN 2VIEW W/PA CHEST RTN CLINICAL HISTORY: Dominant pain, nausea, vomiting, diarrhea. COMPARISON STUDY: December 14, 2017 FINDINGS: The erect chest reveals no free air. There is no evidence of focal pulmonary consolidation. Erect and supine views of the abdomen reveal left upper quadrant sutures lines, consistent with a prior gastric bypass. There are surgical clips within the right upper quadrant consistent with a prior cholecystectomy. There are no abnormally dilated loops of large or small bowel. There are no transition zones indicate bowel obstruction. There are nonspecific pelvic basin calcifications. IMPRESSION: 1. Postsurgical changes 2. No evidence of bowel obstruction. No evidence of free air. Electronically signed by: Ignacio Abdi M.D. 12/16/2017 1:33 PM Dictated Date/Time: 12/16/2017 1:31 PM
[2017-12-16 13:40] VITALS: BP 115/76; PULSE 72; TEMP 37; O2SAT 96
[2017-12-16] MEDS ORDERED: ONDANSETRON INJ 8 MG in DEXTROSE 5% 50ML 50 ML IV STA (13:45)
[2017-12-16] MEDS ORDERED: PENI-82 PO (15:36)
[2017-12-16] MEDS ORDERED: PENICILLIN V POTASSIUM 250 MG TAB PO ONE (15:45)
[2017-12-16] MEDS ORDERED: METOCLOPRAMIDE HCL INJ 5 MG/ML 2 ML VIAL IV. SCH (15:45)
--- NOTE | 2017-12-16 15:57 | Pharmacy Progress Note ---
ED Pharmacist Progress Note Date of Service: Dec 16, 2017. Received call from [facility] - penicillin prescribed and patient has a listed cephaolosporin allergy. Patient received Augmentin home pack from [facility] in August 2017 and per [place] [facility], did fill 9 day supply at that time. No reaction noted. Spoke w Dr. Martin - LETTY'd dispensing of penicillin.
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
--- NOTE | 2017-12-18 12:36 | Pharmacy Progress Note ---
ED Pharmacist Culture FollowUp Date of Service: Dec 18, 2017. Patient was initially sent home with penicillin prescription which was switched to amoxicillin 875 mg BID x 5 days, which should cover the E. coli growing from the patient's urine culture.
== END 2017-12-16 15:40 | disposition home or self-care (01) ==
LOC: C.EDB 11:24 → C.EDC 15:40
DX: N39.0 Urinary tract infection, site not specified (principal); Z90.49 Acquired absence of other specified parts of digestive tract; Z90.722 Acquired absence of ovaries, bilateral; Z98.84 Bariatric surgery status; Z83.3 Family history of diabetes mellitus; Z80.9 Family history of malignant neoplasm, unspecified; Z82.49 Family history of ischemic heart disease and other diseases of the circulatory system; Z87.891 Personal history of nicotine dependence; Z79.899 Other long term (current) drug therapy; Z88.1 Allergy status to other antibiotic agents; Z88.2 Allergy status to sulfonamides; Z91.040 Latex allergy status

== ENCOUNTER 2018-10-21 12:47 | Inpatient (IN) ==
[2018-10-21] MEDS ORDERED: VANCOMYCIN HCL 2,000 MG in SODIUM CHLORIDE 0.9% 500 ML IV ONE (13:27)
[2018-10-21] MEDS ORDERED: VANCOMYCIN CONSULT ACTIVE PRN (13:27)
[2018-10-21] MEDS ORDERED: SODIUM CHLORIDE 0.9% 1000ML 1,000 ML IV ONE ×2 (13:28→14:53)
[2018-10-21] MEDS ORDERED: ONDANSETRON INJ 2 MG/ML 2 ML VIAL IV STA (13:28)
[2018-10-21] MEDS ORDERED: ACETAMINOPHEN 1,000 MG/100 ML VIAL IV STA (13:28)
--- NOTE | 2018-10-21 13:51 | XRay Report ---
XR chest 1V portable HISTORY: Sepsis COMPARISON: Chest 12/16/2018. FINDINGS: The lungs are clear. Cardiac silhouette is normal in size. No pleural effusions. No pneumot horax. Cervical spinal fusion hardware is noted. IMPRESSION: No acute process. Electronically signed by: Willy Maldonado M.D. 10/21/2018 1:50 PM
[2018-10-21 14:08] LABS: Hematocrit (blood only) 38.1 % (37-47); Hemoglobin 12.4 g/dL (12.0-16.0); Mean Corpuscular Hgb Conc 32.5 g/dL (32-36); Mean Corpuscular Volume 83.4 fL (80-100); Mean Platelet Volume 10.7 fL (7.4-10.4); Platelet Count 440 K/uL (130-400); RDW Coefficient of Variation 17.5 % (11.5-14.5); RDW Standard Deviation 53.5 fL (36.4-46.3); Red Blood Count 4.57 M/uL (4.2-5.4); White Blood Count 26.45 K/uL (4.8-10.8)
[2018-10-21] MEDS ORDERED: PIPERACILL/TAZOBAC CONSULT ACTIVE PRN (14:12)
[2018-10-21] MEDS ORDERED: PIPERACILLIN/TAZOBACTAM 4.5 GM/120 ML BAG IV ONE (14:12)
[2018-10-21 14:23] LABS: Albumin Level 2.9 gm/dl (3.4-5.0); BUN Creatinine Ratio 22.9 (10-20); Calcium 9.6 mg/dl (8.5-10.1); Creatinine Clr Calc Pharmacy 50.1 ml/min; Est GFR (African American) 49.7; Est GFR (Non-African American) 42.9; INR 1.2 (0.9-1.1); Partial Thromboplastin Ratio 1.2; Partial Thromboplastin Time 32.7 Seconds (21.0-31.0); Potassium 4.8 mmol/L (3.5-5.1); Prothrombin Time 11.8 Seconds (9.0-12.0)
[2018-10-21 14:26] LABS: Albumin Globulin Ratio 0.6 (0.9-2); Bilirubin,Total 0.5 mg/dl (0.2-1); Globulin 4.7 gm/dl (2.5-4.0); Total Protein 7.6 gm/dl (6.4-8.2)
[2018-10-21 14:29] LABS: Appearance Urine Turbid (Clear); Bacteria Urine Automated 1+ (Negative); Bilirubin Urine Negative (Negative); Blood Urine 3+ (Negative); Color Urine Yellow; Glucose Urine UA Negative (Negative); Ketones Urine Negative (Negative); Leukocyte Esterase Urine 2+ (Negative); Nitrite Urine Negative (Negative); RBC Urine Automated >30 /hpf (0-4); Specific Gravity Urine 1.017 (1.000-1.030); Urobilinogen Urine Negative (Negative); WBC Urine Automated >30 /hpf (0-5); pH Urine >= 9.0 (4.5-7.5)
[2018-10-21 14:33] LABS: Protein Urine 3+ (Negative)
[2018-10-21 14:54] LABS: Basophils # (auto) 0.02 K/uL (0-0.2); Basophils % (auto) 0.1 %; Eosinophils # (auto) 0.01 K/uL (0-0.5); Immature Granulocytes # (auto) 0.19 K/uL (0.00-0.02); Immature Granulocytes % (auto) 0.7 %; Lymphocytes # (auto) 2.02 K/uL (1.2-3.4); Lymphocytes % (auto) 7.6 %; Monocytes # (auto) 1.22 K/uL (0.11-0.59); Monocytes % (auto) 4.6 %; Neutrophils # (auto) 22.99 K/uL (1.4-6.5)
--- NOTE | 2018-10-21 15:58 | History & Physical Report ---
Date of Service October 21, 2018 Assessment & Plan (1) Sepsis: (2) UTI (urinary tract infection): This is a 32yo F with a PMH of C5-C7 spinal cord injury in July 2018 (s/p anterior cervical disc fusion at [facility]), neurogenic bladder and depression who presents from home after developing fever and chills overnight and was found to have sepsis with UTI and transaminitis. -Febrile at 39.2, leukocytosis of 26k, procalcitonin of 1.23, normal lactate -Grossly abnormal urinalysis in setting of indwelling constantino catheter -Blood, urine cultures obtained. Given Zosyn and vanc empirically in ED -Plan to continue Zosyn. Will hold off on vanc since new literature is showing higher incidence of BENEDICT when antibiotics are given simultaneously -Constantino management. Continue IV fluids -Keep NPO for now in setting of lethargy (3) BENEDICT (acute kidney injury): Cr elevated at 1.57 in setting of constantino dysfunction and retained urine -Expect improvement with IV fluids and antibiotics -Repeat BMP daily (4) Transaminitis: Has history of gastric bypass and intermittent elevated AST in the past, usually in the setting of alcohol use, but normal at baseline -Abdomen is soft on exam but endorses some discomfort -AST of 147, ALT of 108, alk phos of 203 -CT abd/pelvis with generalized ileus/enteritis of the colon as well as small bowel with a trace amount of reactive free fluid. No evidence for drainable abscess or collection. Prominent common bile duct at 2 cm. This may be secondary to postoperative dilatation, although correlation with hepatic enzymes status is suggested. -Will monitor liver function, consider GI consult (5) Spinal cord injury, C5-C7: S/p fall in July 2018. Underwent ACDF and PCDF at [facility] and recently returned from rehab at [facility] -Passive ROM Q4H, repositioning -Will order outside records from rehab -Continue pain regimen, midodrine when more alert (6) Second degree AV block: Noted during [facility] admission -Obtaining EKG, monitor on tele (7) Depression: Continue SSRI once more alert DVT Ppx: SQ lovenox Code status:FULL PCP: Dariusz Dispo: Admitted to telemetry. Discharge planning ordered. Patient seen in collaboration with Dr. Vang. Please see addendum. History of Present Illness Chief Complaint: fever, catheter malfunction Primary Care Provider: Ashley Arzola MD This is a 32yo F with a PMH of C5-C7 spinal cord injury in July 2018 (s/p anterior cervical disc fusion at [facility]), neurogenic bladder and depression who presents from home after developing fever and chills overnight. Patient suffered C6 and C7 cervical fractures after a fall downstairs in July 2018. Underwent surgery at [facility] and then went to [facility] in [place] until this past Lane evening, when she returned home under the care of her sister. At new baseline, patient is paralyzed from armpits down with limited mobility of arms. Has loss of sensation distal to nipple line and has an indwelling constantino catheter. Patient was doing well yesterday, at new baseline and able to eat on her own. During the night, around 0100, patient started to have chills and feel hot. Sister noted that catheter seemed to be leaking and not draining appropriately and tried to notify home health nursing. By 11am, patient had a fever of 102 F and EMS was called. Found to be febrile at 39.2 C with leukocytosis of 26k. AST of 147, ALT of 108, alk phos of 203. Urinalysis with gross abnormality. Lactate wnl. Procalcitonin of 1.23. Given Zosyn, vanc and 2 L NSS in ED. Patient more lethargic than when she first arrived but responding to verbal stimuli. ROS limited to fatigue but is oriented to self and situation. Endorsing abdominal pain. Denies lightheadedness, headache, chest pain, nausea or shortness of breath. Has been having bowel movements with nightly suppository. Allergies Allergy/AdvReac Type Severity Reaction Status Date / Time Cephalosporins Allergy Mild . Verified 10/21/18 14:20 prochlorperazine Allergy Mild . Verified 10/21/18 14:20 Sulfa (Sulfonamide Allergy Mild . Verified 10/21/18 14:20 Antibiotics) latex AdvReac Mild . Verified 10/21/18 14:20 Home Medications Home Medications Medication Instructions Recorded Confirmed Type acetaminophen [Tylenol] 975 mg PO TID 10/21/18 10/21/18 History albuterol sulfate 1.25 mg INHALATION QID PRN 10/21/18 10/21/18 History baclofen 10 mg PO HS 10/21/18 10/21/18 History bisacodyl 10 mg FL HS 10/21/18 10/21/18 History calcium carbonate-vitamin D3 1 tab PO BID 10/21/18 10/21/18 History [Calcium 600 + D(3)] diazepam 5 mg PO Q6 PRN 10/21/18 10/21/18 History diazepam 5 mg PO QAM 10/21/18 10/21/18 History enoxaparin 40 mg SUBCUT QAM 10/21/18 10/21/18 History escitalopram oxalate 10 mg PO QAM 10/21/18 10/21/18 History fluticasone propionate 1 spray INTRANASAL QAM 10/21/18 10/21/18 History folic acid 1 mg PO QAM 10/21/18 10/21/18 History gabapentin 1,200 mg PO TID 10/21/18 10/21/18 History methadone 5 mg PO BID 10/21/18 10/21/18 History methyl salicylate-menthol 1 applic TOPICAL HS 10/21/18 10/21/18 History [Thera-Gesic] midodrine 10 mg PO BID 10/21/18 10/21/18 History naloxone [Narcan] 1 - 2 spray INTRANASAL UD 10/21/18 10/21/18 History nystatin 1 applic TOPICAL BID 10/21/18 10/21/18 History ondansetron HCl 4 mg PO Q8H PRN 10/21/18 10/21/18 History oxycodone 5 mg PO Q4H PRN 10/21/18 10/21/18 History pantoprazole 40 mg PO QAM 10/21/18 10/21/18 History Past Med/Surg History Medical History Second degree AV block (Chronic) Neurogenic bladder (Chronic) Depression (Chronic) Spinal cord injury, C5-C7 (Chronic) Complicated UTI (urinary tract infection) (Acute) Sepsis (Acute) Transaminitis (Acute) C6 cervical fracture (Resolved) Fracture of cervical vertebra, C7 (Resolved) Spasm of bowel (Inactive) Surgical History H/O cervical spine surgery (Chronic) S/p anterior cervical disc fusion and posterior cervical disc fusion 08/16/18 at [facility] History of Abi-en-Y gastric bypass (Chronic) performed in 2009 at [facility] History of appendectomy (Chronic) History of cholecystectomy (Chronic) Family History Other Diabetes Social History Preferred Language: Malay Communication Ability: Effective 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: No Beliefs That Will Affect Care: None Current Living Situation: Family Current Living Situation Comment: lives with sister Myriam and nephew Other Information That Helps Us Care for You: No Feels Safe at Home: Yes Safety Concerns: Feels Safe At This Time Smoking Status: Former smoker Hx Alcohol Use: No Hx Substance Use: No Review of Systems Review of Systems: Unobtainable due to cognitive status Physical Exam Physical Exam: General Appearance: WD/WN, lethargic but responsive to painful stimuli, intermittently to verbal stimuli, appears ill Head: normocephalic, atraumatic Eyes: normal inspection, PERRL, EOMI ENT: hearing grossly normal, pharynx normal (dry mucous membranes), well healed scar on anterior neck Neck: supple, no JVD, no adenopathy Respiratory/Chest: lungs clear to auscultation. No wheezes, rales or rhonci. No respiratory distress or accessory muscle use Cardiovascular: regular rate, rhythm, no murmur, normal peripheral pulses Abdomen/GI: normal bowel sounds, soft, non-tender to palpation Extremities/Musculoskelatal: normal inspection, no calf tenderness, normal capillary refill, trace BLE edema Neurologic/Psych: lethargic, normal mood/affect, oriented x 3. Functionally a quadriplegic with limited use of hands. Skin: normal color, warm/dry Results & Data Vital Signs (Past 12 Hours) Vital Signs Temp Pulse Resp BP Pulse Ox 10/21/18 14:52 37.4 C 10/21/18 14:40 75 21 97 10/21/18 14:30 76 22 124/71 97 10/21/18 14:20 77 23 96 10/21/18 14:10 82 28 H 97 10/21/18 14:00 83 27 H 120/76 97 10/21/18 13:57 85 28 H 125/78 93 10/21/18 13:50 87 24 10/21/18 13:40 92 H 29 H 10/21/18 13:30 88 26 H 10/21/18 13:27 78 20 96 10/21/18 13:20 96 H 28 H 10/21/18 13:10 88 27 H 95 10/21/18 13:00 87 26 H 88 L 10/21/18 12:57 88 27 H 94 10/21/18 12:55 39.2 C H 96 H 20 108/70 98 10/21/18 12:52 90 25 H 108/70 94 Laboratory Results Short CBC 10/21/18 Range/Units 13:56 WBC 26.45 H (4.8-10.8) K/uL Hgb 12.4 (12.0-16.0) g/dL Hct 38.1 (37-47) % Plt Count 440 H (130-400) K/uL BMP 10/21/18 13:56 Sodium 135 L Potassium 4.8 Chloride 103 Carbon Dioxide 21 BUN 36 H Creatinine 1.57 H Glucose 114 H Calcium 9.6 Liver Function 10/21/18 Range/Units 13:56 Total Bilirubin 0.5 (0.2-1) mg/dl AST 147 H (15-37) U/L ALT 108 H (12-78) U/L Alkaline Phosphatase 203 H (45-117) U/L Albumin 2.9 L (3.4-5.0) gm/dl Urine 10/21/18 Range/Units 14:15 Urine Color Yellow Urine Appearance Turbid A (Clear) Urine pH >= 9.0 H (4.5-7.5) Ur Specific Perry 1.017 (1.000-1.030) Urine Protein 3+ H (Negative) Urine Glucose (UA) Negative (Negative) Diagnostic Findings CXR: IMPRESSION: No acute process. CT abd/pelvis: IMPRESSION: 1. Small bilateral pleural effusions with minimal dependent bibasilar atelectasis. 2. Generalized ileus/enteritis of the colon as well as small bowel with a trace amount of reactive free fluid. 3. No evidence for drainable abscess or collection. 4. Prior cholecystectomy and gastric bypass. Prominent common bile duct at 2 cm. This may be secondary to postoperative dilatation, although correlation with hepatic enzymes status is suggested. Supervising Physician Co-Signing Physician Notes I have seen and examined the patient and have discussed the case with the provider above. I agree with the assessment and plan as stated with the following exceptions. On my exam Marisol is lethargic. She is able to wake up and orient but she quickly falls back asleep. 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 Paralyzed from chest down and sensory testing is limited in sleepy state, however, prior reports state numbness from the nipple line down. Constantino is in place and draining well. Not taking good deep breaths, possibly 2/2 lethargy and this also may be her baseline. Sister states she cannot form a cough now. Abdomen is soft and nondistended, no tenderness is appreciated. BP is on the low side but is improving with fluids. She is on midodrine, which was started at the rehab center, but this is currently being held while patient is NPO. Presented with sepsis with presumed urinary source. Elevated LFTs prompted CT imaging of abdomen revealing a generalized ileus vs enteritis. She has had normal BMs daily per her sister who cares for her, and she has not had any other GI symptoms. Albumin is low at 2.9. Discussed this peripherally with GI provider paediatric surgeon who suggested that these findings can be seen because of fluid shifts in the setting of low albumin that makes the bowel wall swell. Will trend LFTs in am. Cont abx and plan as above. Of note, records requested from rehab center as sister reports that during the two months she was there, she had a PICC line and was getting IV antibiotics with an unclear infection. She is not sure when this course of abx ended. DO Taj (1) UTI (urinary tract infection) Hematuria presence: without hematuria Urinary tract infection type: site unspecified Qualified Code(s): N39.0 - Urinary tract infection, site not specified (2) Sepsis Sepsis type: sepsis due to unspecified organism Qualified Code(s): A41.9 - Sepsis, unspecified organism
[2018-10-21] MEDS ORDERED: IOVERSOL 100ml IV PRN (16:21)
--- NOTE | 2018-10-21 16:34 | CT Scan Report ---
CT abd pelvis IV con only CT DOSE: 644.79 mGy.cm HISTORY: Sepsis UTI related sepsis but quadriplegic, WBC 26, fever TECHNIQUE: Multiaxial CT images of the abdomen and pelvis were performed following the use of intrave nous contrast. A dose lowering technique was utilized adhering to the principles of ALARA. COMPARISON STUDY: None. FINDINGS: Trace pleural fluid both lung bases. Focal bibasilar dependent atelectasis. Operative casey es consistent with prior gastric bypass as well as cholecystectomy. Dilatation of the intrahepatic co mmon bile duct to 2 cm. No significant intrahepatic biliary distention. This may be postoperative. Co rrelation with liver enzymes is suggested. Kidneys are considered negative for hydronephrosis. Enhancement characteristics are uniform. Gallbladder is suggested generalized nonobstructive ileus. There is a trace amount of free fluid is i n the paracolic gutters and lower pelvic regions. Possibly reactive fluid secondary to generalized en teritis is considered. IMPRESSION: 1. Small bilateral pleural effusions with minimal dependent bibasilar atelectasis. 2. Generalized ileus/enteritis of the colon as well as small bowel with a trace amount of reactive fr ee fluid. 3. No evidence for drainable abscess or collection. 4. Prior cholecystectomy and gastric bypass. Prominent common bile duct at 2 cm. This may be secondar y to postoperative dilatation, although correlation with hepatic enzymes status is suggested. The above report was generated using voice recognition software. It may contain grammatical, syntax or spelling errors. Electronically signed by: Adi Mario M.D. 10/21/2018 4:32 PM
--- NOTE | 2018-10-21 17:26 | Emergency Department Note ---
Entered by Kimberlee Manzanares acting as a scribe for Deven Elizondo MD History of Present Illness General Chief complaint: Fever Stated complaint: Not feeling well Time Seen by Provider: 10/21/18 13:03 Source: patient and friends History of Present Illness Provider complaint: fever Onset (ago): hour(s) greater than 10 Location: head Pain Consistency: + constant Maximum Pain Intensity: 8 Relieved By: + none Exacerbated By: + none Associated symptoms: + fever/chills, + nausea/vomiting and + other (-sore throat ); no cough The patient is a 32 year old female w/ PMHx neck fracture and UTI who presents to the ED w/ CC of a constant fever beginning 13 hours ago. The patients friend states that the patient had fallen 4 months ago and suffered a neck fracture that caused immobilization in her lower extremities. She states that the patient can home Saturday from rehabilitation, and she noticed today at 0115 that the patients bed was wet. She states that the patients catheter bag was not filling. She states that the patient had a fever of 102.2 at 1115 today, and was experiencing nausea, vomiting, and chills. She states that the patient did not eat anything today and has not taken her afternoon medication. The patients friend states that she has a history of a UTI. The patient denies a cough and sore throat. Home Medications Home Medications Medication Instructions Recorded Confirmed Type acetaminophen [Tylenol] 975 mg PO TID 10/21/18 10/21/18 History albuterol sulfate 1.25 mg INHALATION QID PRN 10/21/18 10/21/18 History baclofen 10 mg PO HS 10/21/18 10/21/18 History bisacodyl 10 mg KS HS 10/21/18 10/21/18 History calcium carbonate-vitamin D3 1 tab PO BID 10/21/18 10/21/18 History [Calcium 600 + D(3)] diazepam 5 mg PO Q6 PRN 10/21/18 10/21/18 History diazepam 5 mg PO QAM 10/21/18 10/21/18 History enoxaparin 40 mg SUBCUT QAM 10/21/18 10/21/18 History escitalopram oxalate 10 mg PO QAM 10/21/18 10/21/18 History fluticasone propionate 1 spray INTRANASAL QAM 10/21/18 10/21/18 History folic acid 1 mg PO QAM 10/21/18 10/21/18 History gabapentin 1,200 mg PO TID 10/21/18 10/21/18 History methadone 5 mg PO BID 10/21/18 10/21/18 History methyl salicylate-menthol 1 applic TOPICAL HS 10/21/18 10/21/18 History [Thera-Gesic] midodrine 10 mg PO BID 10/21/18 10/21/18 History naloxone [Narcan] 1 - 2 spray INTRANASAL UD 10/21/18 10/21/18 History nystatin 1 applic TOPICAL BID 10/21/18 10/21/18 History ondansetron HCl 4 mg PO Q8H PRN 10/21/18 10/21/18 History oxycodone 5 mg PO Q4H PRN 10/21/18 10/21/18 History pantoprazole 40 mg PO QAM 10/21/18 10/21/18 History Allergies Allergy/AdvReac Type Severity Reaction Status Date / Time Cephalosporins Allergy Mild . Verified 10/21/18 14:20 prochlorperazine Allergy Mild . Verified 10/21/18 14:20 Sulfa (Sulfonamide Allergy Mild . Verified 10/21/18 14:20 Antibiotics) latex AdvReac Mild . Verified 10/21/18 14:20 Past Med/Surg History Medical History Second degree AV block (Chronic) Neurogenic bladder (Chronic) Depression (Chronic) Spinal cord injury, C5-C7 (Chronic) Complicated UTI (urinary tract infection) (Acute) Sepsis (Acute) Transaminitis (Acute) C6 cervical fracture (Resolved) Fracture of cervical vertebra, C7 (Resolved) Spasm of bowel (Inactive) Surgical History H/O cervical spine surgery (Chronic) [place] cervical disc [place] [facility] [place] Abi-en-Y gastric bypass (Chronic) [place] [facility] [place] of appendectomy (Chronic) History of cholecystectomy (Chronic) Family History Other Diabetes Social History Preferred Language: Malay Current Living Situation: Family Feels Safe at Home: Yes Smoking Status: Former smoker Hx Alcohol Use: Yes (heavy use in the past ) Review of Systems See HPI for pertinent positives & negatives. and A total of 10 systems reviewed and were otherwise negative Physical Exam Vital Signs Vital Signs - 24 hr 10/21/18 12:52 10/21/18 12:55 10/21/18 12:57 Temperature 39.2 C H Temperature Source Oral Sepsis Recent Fever Within 48 Hours Yes Sepsis New/Unexplained Change in Mental Status No Sepsis Action Taken by Nursing No Action Required Pulse Rate 90 96 H 88 Pulse Rate from SpO2 Sensor 89 88 Pulse Rhythm Regular Pulse Strength Normal Respiratory Rate 25 H 20 27 H Respiratory Effort / Characteristics Non-Labored Spontaneous Respiratory Depth Normal Respiratory Pattern Regular Blood Pressure 108/70 108/70 Blood Pressure Mean 82 82 Blood Pressure Position Sitting Pulse Oximetry 94 98 94 Oxygen Delivery Method Room Air 10/21/18 13:00 10/21/18 13:10 10/21/18 13:20 Temperature Temperature Source Sepsis Recent Fever Within 48 Hours Sepsis New/Unexplained Change in Mental Status Sepsis Action Taken by Nursing Pulse Rate 87 88 96 H Pulse Rate from SpO2 Sensor 86 88 Pulse Rhythm Pulse Strength Respiratory Rate 26 H 27 H 28 H Respiratory Effort / Characteristics Respiratory Depth Respiratory Pattern Blood Pressure Blood Pressure Mean Blood Pressure Position Pulse Oximetry 88 L 95 Oxygen Delivery Method 10/21/18 13:27 10/21/18 13:30 10/21/18 13:40 Temperature Temperature Source Sepsis Recent Fever Within 48 Hours Sepsis New/Unexplained Change in Mental Status Sepsis Action Taken by Nursing Pulse Rate 78 88 92 H Pulse Rate from SpO2 Sensor Pulse Rhythm Regular Pulse Strength Respiratory Rate 20 26 H 29 H Respiratory Effort / Characteristics Respiratory Depth Respiratory Pattern Blood Pressure Blood Pressure Mean Blood Pressure Position Pulse Oximetry 96 Oxygen Delivery Method Room Air 10/21/18 13:50 10/21/18 13:57 10/21/18 14:00 Temperature Temperature Source Sepsis Recent Fever Within 48 Hours Sepsis New/Unexplained Change in Mental Status Sepsis Action Taken by Nursing Pulse Rate 87 85 83 Pulse Rate from SpO2 Sensor 85 83 Pulse Rhythm Pulse Strength Respiratory Rate 24 28 H 27 H Respiratory Effort / Characteristics Respiratory Depth Respiratory Pattern Blood Pressure 125/78 120/76 Blood Pressure Mean 93 90 Blood Pressure Position Pulse Oximetry 93 97 Oxygen Delivery Method 10/21/18 14:10 10/21/18 14:20 10/21/18 14:30 Temperature Temperature Source Sepsis Recent Fever Within 48 Hours Sepsis New/Unexplained Change in Mental Status Sepsis Action Taken by Nursing Pulse Rate 82 77 76 Pulse Rate from SpO2 Sensor 81 77 76 Pulse Rhythm Pulse Strength Respiratory Rate 28 H 23 22 Respiratory Effort / Characteristics Respiratory Depth Respiratory Pattern Blood Pressure 124/71 Blood Pressure Mean 88 Blood Pressure Position Pulse Oximetry 97 96 97 Oxygen Delivery Method 10/21/18 14:40 10/21/18 14:50 10/21/18 14:52 Temperature 37.4 C Temperature Source Oral Sepsis Recent Fever Within 48 Hours Sepsis New/Unexplained Change in Mental Status Sepsis Action Taken by Nursing Pulse Rate 75 71 Pulse Rate from SpO2 Sensor 74 71 Pulse Rhythm Pulse Strength Respiratory Rate 21 21 Respiratory Effort / Characteristics Respiratory Depth Respiratory Pattern Blood Pressure Blood Pressure Mean Blood Pressure Position Pulse Oximetry 97 97 Oxygen Delivery Method 10/21/18 15:00 10/21/18 15:10 10/21/18 15:20 Temperature Temperature Source Sepsis Recent Fever Within 48 Hours Sepsis New/Unexplained Change in Mental Status Sepsis Action Taken by Nursing Pulse Rate 70 71 71 Pulse Rate from SpO2 Sensor 70 71 72 Pulse Rhythm Pulse Strength Respiratory Rate 19 19 20 Respiratory Effort / Characteristics Respiratory Depth Respiratory Pattern Blood Pressure 114/68 Blood Pressure Mean 83 Blood Pressure Position Pulse Oximetry 97 97 97 Oxygen Delivery Method 10/21/18 15:30 10/21/18 15:40 10/21/18 15:50 Temperature Temperature Source Sepsis Recent Fever Within 48 Hours Sepsis New/Unexplained Change in Mental Status Sepsis Action Taken by Nursing Pulse Rate 73 75 75 Pulse Rate from SpO2 Sensor 73 75 75 Pulse Rhythm Pulse Strength Respiratory Rate 19 21 19 Respiratory Effort / Characteristics Respiratory Depth Respiratory Pattern Blood Pressure 113/67 Blood Pressure Mean 82 Blood Pressure Position Pulse Oximetry 95 95 96 Oxygen Delivery Method GENERAL: Ill-appearing, well nourished. EYE EXAM: Normal conjunctiva. PERRL, no anisocoria and EOM's grossly intact w/o pain. OROPHARYNX: Dry mucous membranes. Grossly normal dentition. NECK: Supple, no nuchal rigidity, no adenopathy, non-tender. No signs of meningismus. Well healing scar over L lower neck, no stridulous. LUNGS: Clear to auscultation. Normal chest wall mechanics. HEART: NSR, no MRG. ABDOMEN: Abdomen soft, non-tender, normo-active bowel sounds, no masses, no rebound or guarding. : Castillo catheter in place w/ sediment and straw colored fluid draining. SKIN: No rashes and no bruising. UPPER EXTREMITIES: Upper extremities are grossly normal. LOWER EXTREMITIES: No pitting edema. No calf pain. NEURO EXAM: Opens eyes to voice, follows basic commands, virtual quadriplegic with limited use of upper extremities, spontaneous breaths noted. Course 1320: The patient was evaluated in room C8, and a complete history and physical examination were performed. 1439: I reviewed the patient's case with Yue Ruggiero. Dr. Sina Ruggiero Hospitalist, will evaluate the patient for further management. 1602: I discussed the patient's case with Yue Ruggiero, and they cancelled the CT scan of the chest. Consultations Consultation #1: Dr. Sina Ruggiero Hospitalist Time: 14:39 Administered Medications Ioversol (Optiray 320 100ml) 90 ml IV ONCE PRN PRN Reason: Interaction Checking Stop: 10/25/18 16:20 Last Admin: 10/21/18 16:21 Dose: 90 ml Documented by: [id number] Discontinued Medications Acetaminophen (Ofirmev) 1,000 mg in 100 mls @ 400 mls/hr IV NOW STA Stop: 10/21/18 13:42 Last Infusion: 10/21/18 14:15 Dose: 0 mls/hr Documented by: [id number] Admin: 10/21/18 13:57 Dose: 400 mls/hr Documented by: [id number] Sodium Chloride (Nss 1000ml) 1,000 mls @ 999 mls/hr IV .Q1H1M ONE Stop: 10/21/18 14:28 Last Infusion: 10/21/18 15:00 Dose: 0 mls/hr Documented by: [id number] Admin: 10/21/18 13:57 Dose: 999 mls/hr Documented by: [id number] Vancomycin HCl 2,000 mg/ (Sodium Chloride) 540 mls @ 200 mls/hr IV NOW ONE; Protocol Stop: 10/21/18 16:08 Last Admin: 10/21/18 14:21 Dose: 200 mls/hr Documented by: [id number] Piperacillin Sod/Tazobactam Sod (Zosyn) 4.5 gm in 120 mls @ 240 mls/hr IV NOW ONE Stop: 10/21/18 14:41 Last Infusion: 10/21/18 15:29 Dose: 0 mls/hr Documented by: [id number] Admin: 10/21/18 14:26 Dose: 240 mls/hr Documented by: [id number] Sodium Chloride (Nss 1000ml) 1,000 mls @ 999 mls/hr IV .Q1H1M ONE Stop: 10/21/18 15:53 Last Infusion: 10/21/18 16:30 Dose: 0 mls/hr Documented by: [id number] Admin: 10/21/18 15:28 Dose: 999 mls/hr Documented by: [id number] Ondansetron HCl (Zofran) 4 mg IV NOW STA Stop: 10/21/18 13:29 Last Admin: 10/21/18 13:58 Dose: 4 mg Documented by: [id number] Medical Decision Making Medical Records Attestation: I reviewed the patient's medical records. Home Medications Current Medication List: was personally reviewed by me Laboratory Data Attestation: I reviewed the patient's lab results. Result diagrams: 10/21/18 13:56 10/21/18 13:56 Lab Results 10/21/18 10/21/18 10/21/18 Range/Units 13:56 13:56 13:56 WBC 26.45 H (4.8-10.8) K/uL RBC 4.57 (4.2-5.4) M/uL Hgb 12.4 (12.0-16.0) g/dL Hct 38.1 (37-47) % MCV 83.4 (80-100) fL MCH 27.1 (25-34) pg MCHC 32.5 (32-36) g/dL RDW Std Deviation 53.5 H (36.4-46.3) fL RDW Coeff of Van 17.5 H (11.5-14.5) % Plt Count 440 H (130-400) K/uL MPV 10.7 H (7.4-10.4) fL Immature Gran % (Auto) 0.7 % Neut % (Auto) 87.0 % Lymph % (Auto) 7.6 % [place] % (Auto) 4.6 % Eos % (Auto) 0.0 % Baso % (Auto) 0.1 % Immature Gran # (Auto) 0.19 H (0.00-0.02) K/uL Neut # (Auto) 22.99 H (1.4-6.5) K/uL Lymph # (Auto) 2.02 (1.2-3.4) K/uL [place] # (Auto) 1.22 H (0.11-0.59) K/uL Eos # (Auto) 0.01 (0-0.5) K/uL Baso # (Auto) 0.02 (0-0.2) K/uL PT 11.8 (9.0-12.0) Seconds INR 1.2 H (0.9-1.1) APTT 32.7 H (21.0-31.0) Seconds PTT Ratio 1.2 Sodium 135 L (136-145) mmol/L Potassium 4.8 (3.5-5.1) mmol/L Chloride 103 (98-107) mmol/L Carbon Dioxide 21 (21-32) mmol/L Anion Gap 12.0 H (3-11) BUN 36 H (7-18) mg/dl Creatinine 1.57 H (0.6-1.2) mg/dl Est Cr Clr Drug Dosing 50.1 ml/min Est GFR ( Amer) 49.7 Est GFR (Non-Af Amer) 42.9 BUN/Creatinine Ratio 22.9 H (10-20) Glucose 114 H (70-99) mg/dl Lactate (0.4-2.0) mmol/L Calcium 9.6 (8.5-10.1) mg/dl Total Bilirubin 0.5 (0.2-1) mg/dl AST 147 H (15-37) U/L ALT 108 H (12-78) U/L Alkaline Phosphatase 203 H (45-117) U/L Total Protein 7.6 (6.4-8.2) gm/dl Albumin 2.9 L (3.4-5.0) gm/dl Globulin 4.7 H (2.5-4.0) gm/dl Albumin/Globulin Ratio 0.6 L (0.9-2) Procalcitonin (0-0.5) ng/ml Urine Color Urine Appearance (Clear) Urine pH (4.5-7.5) Ur Specific Holt (1.000-1.030) Urine Protein (Negative) Urine Glucose (UA) (Negative) Urine Ketones (Negative) Urine Blood (Negative) Urine Nitrite (Negative) Urine Bilirubin (Negative) Urine Urobilinogen (Negative) Ur Leukocyte Esterase (Negative) Urine WBC (Auto) (0-5) /hpf Urine RBC (Auto) (0-4) /hpf U Hyaline Cast (Auto) (0-5) /lpf U Epithel Cells (Auto) (0-5) /lpf Urine Bacteria (Auto) (Negative) 10/21/18 10/21/18 10/21/18 Range/Units 13:56 13:56 14:15 WBC (4.8-10.8) K/uL RBC (4.2-5.4) M/uL Hgb (12.0-16.0) g/dL Hct (37-47) % MCV (80-100) fL MCH (25-34) pg MCHC (32-36) g/dL RDW Std Deviation (36.4-46.3) fL RDW Coeff of Van (11.5-14.5) % Plt Count (130-400) K/uL MPV (7.4-10.4) fL Immature Gran % (Auto) % Neut % (Auto) % Lymph % (Auto) % [place] % (Auto) % Eos % (Auto) % Baso % (Auto) % Immature Gran # (Auto) (0.00-0.02) K/uL Neut # (Auto) (1.4-6.5) K/uL Lymph # (Auto) (1.2-3.4) K/uL [place] # (Auto) (0.11-0.59) K/uL Eos # (Auto) (0-0.5) K/uL Baso # (Auto) (0-0.2) K/uL PT (9.0-12.0) Seconds INR (0.9-1.1) APTT (21.0-31.0) Seconds PTT Ratio Sodium (136-145) mmol/L Potassium (3.5-5.1) mmol/L Chloride (98-107) mmol/L Carbon Dioxide (21-32) mmol/L Anion Gap (3-11) BUN (7-18) mg/dl Creatinine (0.6-1.2) mg/dl Est Cr Clr Drug Dosing ml/min Est GFR ( Amer) Est GFR (Non-Af Amer) BUN/Creatinine Ratio (10-20) Glucose (70-99) mg/dl Lactate 1.4 (0.4-2.0) mmol/L Calcium (8.5-10.1) mg/dl Total Bilirubin (0.2-1) mg/dl AST (15-37) U/L ALT (12-78) U/L Alkaline Phosphatase (45-117) U/L Total Protein (6.4-8.2) gm/dl Albumin (3.4-5.0) gm/dl Globulin (2.5-4.0) gm/dl Albumin/Globulin Ratio (0.9-2) Procalcitonin 1.23 H (0-0.5) ng/ml Urine Color Yellow Urine Appearance Turbid A (Clear) Urine pH >= 9.0 H (4.5-7.5) Ur Specific Holt 1.017 (1.000-1.030) Urine Protein 3+ H (Negative) Urine Glucose (UA) Negative (Negative) Urine Ketones Negative (Negative) Urine Blood 3+ H (Negative) Urine Nitrite Negative (Negative) Urine Bilirubin Negative (Negative) Urine Urobilinogen Negative (Negative) Ur Leukocyte Esterase 2+ H (Negative) Urine WBC (Auto) >30 H (0-5) /hpf Urine RBC (Auto) >30 H (0-4) /hpf U Hyaline Cast (Auto) 10-30 H (0-5) /lpf U Epithel Cells (Auto) 10-20 H (0-5) /lpf Urine Bacteria (Auto) 1+ H (Negative) Imaging Data Radiologist's Impression: Radiology results as stated below per my review and the radiologist's interpretation: XR chest 1V portable HISTORY: Sepsis COMPARISON: Chest 12/16/2018. FINDINGS: The lungs are clear. Cardiac silhouette is normal in size. No pleural effusions. No pneumothorax. Cervical spinal fusion hardware is noted. IMPRESSION: No acute process. Electronically signed by: Willy Maldonado M.D. 10/21/2018 1:[address] abd pelvis IV con only CT DOSE: 644.79 mGy.cm HISTORY: Sepsis UTI related sepsis but quadriplegic, WBC 26, fever TECHNIQUE: Multiaxial CT images of the abdomen and pelvis were performed fol lowing the use of intravenous contrast. A dose lowering technique was utilized adhering to the principles of ALARA. COMPARISON STUDY: None. FINDINGS: Trace pleural fluid both lung bases. Focal bibasilar dependent atelectasis. Operative changes consistent with prior gastric bypass as well as cholecystectomy. Dilatation of the intrahepatic common bile duct to 2 cm. No significant intrahepatic biliary distention. This may be postoperative. Correlation with liver enzymes is suggested. Kidneys are considered negative for hydronephrosis. Enhancement characteristics are uniform. Gallbladder is suggested generalized nonobstructive ileus. There is a trace amount of free fluid is in the paracolic gutters and lower pelvic regions. Possibly reactive fluid secondary to generalized enteritis is considered. IMPRESSION: 1. Small bilateral pleural effusions with minimal dependent bibasilar ate lectasis. 2. Generalized ileus/enteritis of the colon as well as small bowel with a trace amount of reactive free fluid. 3. No evidence for drainable abscess or collection. 4. Prior cholecystectomy and gastric bypass. Prominent common bile duct at 2 cm. This may be secondary to postoperative dilatation, although correlation with hepatic enzymes status is suggested. The above report was generated using voice recognition software. It may contain grammatical, syntax or spelling errors. Electronically signed by: Adi Mario M.D. 10/21/2018 4:32 PM Blood Pressure Blood Pressure Findings: Normal blood pressure Blood Pressure Disposition: did not require urgent referral MDM Narrative The patient is a 32 year old female w/ PMHx neck fracture and UTI who presents to the ED w/ CC of a constant fever beginning 13 hours ago. Differential diagnosis: Etiologies such as viral syndrome, otitis, pharyngitis, pneumonia, influenza, meningitis, urinary tract infection, sepsis, bacteremia, as well as others were entertained. Patient was seen and evaluated the bedside. The patient reportedly does have a known history of a cervical spine fracture which is resulted in the patient being virtually quadriplegic with only limited use of her bilateral upper extremities. Patient did have a stabilization surgery and was subsequently discharged to rehab in [place]. The patient reportedly had fever today. The patient sister at bedside who provides most of the history. The patient has had fever and does have a urine catheter in place. Patient did a blood work completed along with blood and urine cultures. No obvious rashes noted. The patient's urine was sent for culture along with blood cultures and the patient started on empiric antibiotics. The patient does have a white blood cell count of 26 with a bandemia. The patient also does have some mild kidney dysfunction and BENEDICT. The patient had been given IV fluids and was ordered additional per the inpatient team. The patient does have mild elevations in LFTs but this may be chronic as the alk phos has been elevated. The patient does have an elevated procalcitonin. The patient's urine does leona ear to be infected. I did discuss the case with the on-call hospitalist and to discuss additional imaging given the patient's essential quadriplegia and looking for other sources of infection initially a CT of the chest and abdomen pelvis were ordered but with a negative chest x-ray the inpatient team decided to obtain the abdomen pelvis only. The patient's abdomen pelvis CT shows a possible ileus. Patient also does have mild CBD dilatation at 2 cm. He did state that this could be postoperative in nature but also could be congestive. Patient's bilirubin is not elevated. Patient was admitted to the medicine service. Impression & Plan UTI (urinary tract infection), Sepsis, History of cervical fracture, BENEDICT (acute kidney injury) Critical Care Time Critical Care Time: Yes Total Critical Care Time: 63 I have personally spent greater than 63 minutes of critical care time in direct management of this patient. This includes bedside care, interpretation of diagnostic studies, and testing, discussion with consultants, patient, and famil y members, and other require inpatient management activities. This 63 minutes is in excess of all separately billable procedures. Discharge Plan Visit Data Chief Complaint: Fever Stated Complaint: Not feeling well ED Provider: Deven lEizondo Discharge Problem: UTI (urinary tract infection), Sepsis, History of cervical fracture, BENEDICT (acute kidney injury) Patient Disposition: Being Evaluated by Hospitalist Discharge Instructions Interventions: ED Discharge Assessment Last Done: 10/21/18 17:00 Discharge Problem: UTI (urinary tract infection) Qualifiers: Urinary tract infection type: site unspecified Hematuria presence: without hematuria Qualified Code(s): N39.0 - Urinary tract infection, site not specified Sepsis Qualifiers: Sepsis type: sepsis due to unspecified organism Qualified Code(s): A41.9 - Sepsis, unspecified organism The scribe's documentation has been prepared under my direction and personally reviewed by me in its entirety. I confirm that the note above accurately reflects all work, treatment, procedures, and medical decision making performed by me.
[2018-10-21] MEDS ORDERED: diazePAM 5 MG TABLET PO PRN (17:29)
[2018-10-21] MEDS ORDERED: ALBUTEROL 0.083% NEBU SOLN 3 ML VIAL INH PRN (17:29)
[2018-10-21] MEDS ORDERED: ONDANSETRON INJ 2 MG/ML 2 ML VIAL IV PRN (17:29)
[2018-10-21] MEDS: SODIUM CHLORIDE 0.9% 1000ML 1,000 ML IV SCH ×2 (18:02→22:55)
[2018-10-21] MEDS: GABAPENTIN 600 MG TAB PO SCH (18:26)
[2018-10-21] MEDS: PIPERACILLIN/TAZOBACTAM 3.375 GM in DEXTROSE 5% 100 ML IV SCH (20:00)
[2018-10-21] MEDS: NYSTATIN POWDER 15GM BTL EXT SCH (20:13)
[2018-10-21] MEDS: CALCIUM 600MG + VIT D 400 IU TAB PO SCH (20:32)
[2018-10-21] MEDS: ACETAMINOPHEN 325 MG TAB PO SCH (20:33)
[2018-10-21] MEDS: BISACODYL 10 MG SUPP PR SCH (20:33)
[2018-10-21] MEDS ORDERED: SODIUM CHLORIDE 0.9% 1000ML 500 ML IV ONE (20:39)
[2018-10-21] MEDS: METHADONE HCL 10 MG TAB PO SCH (20:53)
[2018-10-21] MEDS: OXYCODONE HCL IR 5 MG TAB (IMMEDIATE RELEASE) PO PRN (22:54)
[2018-10-22] MEDS: PIPERACILLIN/TAZOBACTAM 3.375 GM in DEXTROSE 5% 100 ML IV SCH ×3 (03:20→20:57)
[2018-10-22] MEDS: OXYCODONE HCL IR 5 MG TAB (IMMEDIATE RELEASE) PO PRN ×4 (03:26→22:51)
[2018-10-22 05:51] LABS: Basophils # (auto) 0.02 K/uL (0-0.2); Basophils % (auto) 0.1 %; Eosinophils % (auto) 1.9 %; Hematocrit (blood only) 27.9 % (37-47); Hemoglobin 8.8 g/dL (12.0-16.0); Immature Granulocytes # (auto) 0.09 K/uL (0.00-0.02); Immature Granulocytes % (auto) 0.6 %; Lymphocytes # (auto) 2.03 K/uL (1.2-3.4); Lymphocytes % (auto) 12.9 %; Mean Corpuscular Hgb Conc 31.5 g/dL (32-36); Mean Corpuscular Volume 85.8 fL (80-100); Monocytes % (auto) 4.5 %; Neutrophils # (auto) 12.54 K/uL (1.4-6.5); Platelet Count 258 K/uL (130-400); RDW Coefficient of Variation 17.6 % (11.5-14.5); RDW Standard Deviation 56.2 fL (36.4-46.3); Red Blood Count 3.25 M/uL (4.2-5.4); White Blood Count 15.68 K/uL (4.8-10.8)
[2018-10-22 06:01] LABS: Alanine Aminotransferase 55 U/L (12-78); Albumin Level 1.9 gm/dl (3.4-5.0); Alkaline Phosphatase 121 U/L (45-117); Aspartate Aminotransferase 36 U/L (15-37); BUN Creatinine Ratio 33.9 (10-20); Bilirubin Direct < 0.1 mg/dl (0-0.2); Bilirubin,Total 0.3 mg/dl (0.2-1); Blood Urea Nitrogen 17 mg/dl (7-18); Calcium 8.1 mg/dl (8.5-10.1); Carbon Dioxide 22 mmol/L (21-32); Chloride 113 mmol/L (98-107); Creatinine Clr Calc Pharmacy 157.5 ml/min; Est GFR (African American) 146.4; Est GFR (Non-African American) 126.3; Glucose 85 mg/dl (70-99); Magnesium 1.7 mg/dl (1.8-2.4); Potassium 3.3 mmol/L (3.5-5.1); Sodium 142 mmol/L (136-145); Total Protein 5.3 gm/dl (6.4-8.2)
[2018-10-22] MEDS: SODIUM CHLORIDE 0.9% 1000ML 1,000 ML IV SCH (06:20)
[2018-10-22] MEDS: FOLIC ACID 1 MG TAB PO SCH (07:53)
[2018-10-22] MEDS: ESCITALOPRAM OXALATE 10 MG TAB PO SCH (07:53)
[2018-10-22] MEDS: METHADONE HCL 10 MG TAB PO SCH ×2 (07:54→20:50)
[2018-10-22] MEDS: GABAPENTIN 600 MG TAB PO SCH ×3 (07:54→20:52)
[2018-10-22] MEDS: PANTOprazole 40 MG TAB PO SCH (07:54)
[2018-10-22] MEDS: CALCIUM 600MG + VIT D 400 IU TAB PO SCH ×2 (07:54→20:52)
[2018-10-22] MEDS: MIDODRINE HCL 10 MG TAB PO SCH ×2 (07:54→13:10)
[2018-10-22] MEDS: FLUTICASONE PROPIONATE NA SPR 16 GM BTL NAE SCH (07:56)
[2018-10-22] MEDS: diazePAM 5 MG TABLET PO SCH (07:56)
[2018-10-22] MEDS: ACETAMINOPHEN 325 MG TAB PO SCH ×3 (07:56→20:51)
[2018-10-22] MEDS: ENOXAPARIN INJ 40 MG/0.4 ML SYR SQ SCH (07:57)
[2018-10-22] MEDS: NYSTATIN POWDER 15GM BTL EXT SCH ×2 (07:57→20:59)
[2018-10-22] MEDS ORDERED: POTASSIUM CHLORIDE 20 MEQ TABCR PO STA (08:38)
[2018-10-22] MEDS: MAGNESIUM SULFATE / D5W 1 GM/100 ML BAG IV SCH ×3 (09:59→13:05)
[2018-10-22] MEDS ORDERED: BACLOFEN 10 MG TAB PO ONE (10:06)
--- NOTE | 2018-10-22 12:39 | Hospitalist Progress Note ---
Date of Service October 22, 2018 Assessment & Plan (1) Sepsis: Resuscitated. Cont Zosyn pending urine culture results. (2) UTI (urinary tract infection): CAUTI as patient presented with chronic indwelling Castillo. Castillo was changed at admission in the ER. Cont Zosyn pending culture results. (3) BENEDICT (acute kidney injury): Likely 2/2 dehydration in setting of sepsis. Resolved with IVF overnight. (4) Transaminitis: Resolved. Likely related to infection in setting of GLYNN. No further workup at this time. (5) Spinal cord injury, C5-C7: S/p fall in July 2018. Underwent ACDF and PCDF at [facility] and recently returned from rehab at [facility] in [place] -Passive ROM Q4H, repositioning -Will order outside records from rehab -Continue gabapentin, oxy IR PRN, methadone TARIQ, midodrine, bowel regimen, cont diazepam and baclofen with increase to BID for spasms. -PT formally to help with directed passive therapy. (6) Hypomagnesemia: Replace and recheck in am. (7) Anemia: Possibly 2/2 dilution in setting of sepsis resuscitation. No active bleeding present. (8) Second degree AV block: related to spinal cord injury, resolved. (9) Depression: Cont Lexapro per home regimen. (10) DVT prophylaxis: DVT Ppx: SQ lovenox Code status:FULL PCP: Dariusz Dispo: Transfer to Med/Surg. Poss DC in am to home with continued HH support. Minimal response by HH for patient issues; sister may want to change companies. Kiki Vang DO [facility] Hospitalist Subjective 32 yo F with recent traumatic C5 paralysis in July s/p prolonged rehabilitation stay presented with sepsis yesterday likely 2/2 a urinary source. She has an indwelilng Castillo, which is draining well. She is more alert today and feeling better with resolution of fever. Although she felt hot overnight, she had alot of blankets on and was better when these were removed. She is suffering from spasms in her GI tract that come on with movement such as PT. Baclofen has been very helpful for these and she is requesting these BID. Tolerating regular diet. Sister is at bedside and all questions were answered. Review of Systems Review of Systems: All systems reviewed & are unremarkable except as noted in HPI & below Physical Exam Physical Exam: CONSTITUTIONAL: WNWD, vitals as above, generally well- appearing, paralyzed from mid-chest down, moves arms somewhat EYES: normal conjunctivae, no scleral icterus ENT: MMM RESPIRATORY: clear to auscultation bilaterally, no crackles, rales or wheezes, normal respiratory effort CARDIOVASCULAR: regular rate and rhythm, S1 and 2 heard without murmurs, gallops or rubs, no JVD, no peripheral edema GASTROINTESTINAL: normal bowel sounds, soft, nontender (no sensation), nondistended MUSCULOSKELETAL: cannot form a fist but some strength 2/5 in upper extremities bilaterally, LE paralysis present, head is normocephalic and atraumatic SKIN: warm and dry, no rashes, no skin breakdown NEUROLOGIC: CN 2-12 grossly intact, sensation loss somewhat in hands R>L and from mid chest down, normal cognition, normal speech PSYCHIATRIC: alert cooperative and oriented to person, place and time. Euthymic mood, makes good eye contact, language grossly intact, recent and remote memory grossly intact. Results & Data Vital Signs (Past 12 Hours) Vital Signs Temp Pulse Pulse Resp BP BP Pulse Ox 10/22/18 10:57 36.8 C 74 21 115/55 L 95 10/22/18 07:30 37.1 C 84 14 115/63 95 10/22/18 02:43 36.9 C 75 17 99/52 L 96 Laboratory Results Short CBC 10/21/18 10/22/18 Range/Units 13:56 05:16 WBC 26.45 H 15.68 H D (4.8-10.8) K/uL Hgb 12.4 8.8 L D (12.0-16.0) g/dL Hct 38.1 27.9 L (37-47) % Plt Count 440 H 258 (130-400) K/uL BMP 10/21/18 10/22/18 13:56 05:16 Sodium 135 L 142 D Potassium 4.8 3.3 L D Chloride 103 113 H Carbon Dioxide 21 22 BUN 36 H 17 D Creatinine 1.57 H 0.51 L D Glucose 114 H 85 Calcium 9.6 8.1 L D Liver Function 10/21/18 10/22/18 10/22/18 Range/Units 13:56 05:16 05:16 Total Bilirubin 0.5 Cancelled 0.3 (0.2-1) mg/dl Direct Bilirubin Cancelled < 0.1 AST 147 H Cancelled 36 (15-37) U/L ALT 108 H Cancelled 55 (12-78) U/L Alkaline Phosphatase 203 H Cancelled 121 H (45-117) U/L Albumin 2.9 L Cancelled 1.9 L (3.4-5.0) gm/dl Urine 10/21/18 Range/Units 14:15 Urine Color Yellow Urine Appearance Turbid A (Clear) Urine pH >= 9.0 H (4.5-7.5) Ur Specific [place] 1.017 (1.000-1.030) Urine Protein 3+ H (Negative) Urine Glucose (UA) Negative (Negative) Medications Administered Current Inpatient Medications Acetaminophen (Tylenol) 975 mg PO TID [facility] Stop: 11/20/18 20:59 Last Admin: 10/22/18 07:56 Dose: 975 mg Documented by: Albuterol (Ventolin 0.083% 2.5mg/3ml) 1.25 mg INH QID PRN PRN Reason: Shortness Of Breath Stop: 11/20/18 17:28 Baclofen (Lioresal) 10 mg PO [facility] Stop: 11/21/18 20:59 Bisacodyl (Dulcolax) 10 mg OH [facility] Stop: 11/20/18 20:59 Last Admin: 10/21/18 20:33 Dose: 10 mg Documented by: Diazepam (Valium) 5 mg PO Q6 PRN PRN Reason: Muscle Spasm Stop: 11/20/18 17:28 Diazepam (Valium) 5 mg PO [facility] Stop: 11/21/18 08:59 Last Admin: 10/22/18 07:56 Dose: 5 mg Documented by: Enoxaparin Sodium (Lovenox) 40 mg SQ [facility] Stop: 11/21/18 08:59 Last Admin: 10/22/18 07:57 Dose: 40 mg Documented by: Escitalopram Oxalate (Lexapro Tab) 10 mg PO [facility] Stop: 11/21/18 08:59 Last Admin: 10/22/18 07:53 Dose: 10 mg Documented by: Fluticasone Propionate (Flonase) 1 sprays [facility] Stop: 11/21/18 08:59 Last Admin: 10/22/18 07:56 Dose: 1 sprays Documented by: Folic Acid (Folvite) 1 mg PO QAM [facility] Stop: 11/21/18 08:59 Last Admin: 10/22/18 07:53 Dose: 1 mg Documented by: Gabapentin (Neurontin) 1,200 mg PO TID@0800,1300,1999 [facility] Stop: 11/20/18 17:59 Last Admin: 10/22/18 07:54 Dose: 1,200 mg Documented by: Piperacillin Sod/Tazobactam (Sod 3.375 gm/ Dextrose) 115 mls @ 28.75 mls/hr IV Q8H [facility]; Protocol Stop: 10/31/18 19:59 Last Admin: 10/22/18 11:27 Dose: 30 mls/hr Documented by: Ioversol (Optiray 320 100ml) 90 ml IV ONCE PRN PRN Reason: Interaction Checking Stop: 10/25/18 16:20 Last Admin: 10/21/18 16:21 Dose: 90 ml Documented by: Methadone HCl (Dolophine) 5 mg PO BID@ [facility] Stop: 11/04/18 19:59 Last Admin: 10/22/18 07:54 Dose: 5 mg Documented by: Midodrine (Proamatine) 10 mg PO BID@0800,1300 [facility] Stop: 11/21/18 07:59 Last Admin: 10/22/18 07:54 Dose: 10 mg Documented by: Miscellaneous (Order Awaiting Action) 1 ea N/A QS [facility] Stop: 11/21/18 00:00 Last Admin: 10/22/18 10:02 Dose: 1 ea Documented by: Miscellaneous Information (Consult) 1 ea N/A UD PRN PRN Reason: Consult Stop: 11/20/18 14:11 Multivitamins/Minerals (Caltrate Plus) 1 tab PO BID [facility] Stop: 11/20/18 20:59 Last Admin: 10/22/18 07:54 Dose: 1 tab Documented by: Nystatin (Mycostatin) 1 appln EXT BID@799,1999 [facility] Stop: 11/20/18 19:59 Last Admin: 10/22/18 07:57 Dose: 1 appln Documented by: Ondansetron HCl (Zofran) 4 mg IV Q6H PRN PRN Reason: Nausea Stop: 11/20/18 17:28 Oxycodone HCl (Roxicodone Immediate Rel) 5 mg PO Q4H PRN PRN Reason: Pain Stop: 11/04/18 17:28 Last Admin: 10/22/18 10:07 Dose: 5 mg Documented by: Pantoprazole Sodium (Protonix) 40 mg PO QAM [facility] Stop: 11/21/18 08:59 Last Admin: 10/22/18 07:54 Dose: 40 mg Documented by: (1) UTI (urinary tract infection) Hematuria presence: without hematuria Urinary tract infection type: site unspecified Qualified Code(s): N39.0 - Urinary tract infection, site not specified (2) Sepsis Sepsis type: sepsis due to unspecified organism Qualified Code(s): A41.9 - Sepsis, unspecified organism
[2018-10-22] MEDS: BACLOFEN 10 MG TAB PO SCH (20:51)
[2018-10-22] MEDS ORDERED: BACLOFEN 10 MG TAB PO SCH (21:00)
[2018-10-22] MEDS: BISACODYL 10 MG SUPP PR SCH (21:54)
[2018-10-23] MEDS: PIPERACILLIN/TAZOBACTAM 3.375 GM in DEXTROSE 5% 100 ML IV SCH (03:56)
[2018-10-23] MEDS: OXYCODONE HCL IR 5 MG TAB (IMMEDIATE RELEASE) PO PRN (06:36)
[2018-10-23 07:04] LABS: Basophils # (auto) 0.02 K/uL (0-0.2); Basophils % (auto) 0.2 %; Eosinophils # (auto) 0.35 K/uL (0-0.5); Eosinophils % (auto) 3.4 %; Hematocrit (blood only) 26.9 % (37-47); Hemoglobin 8.5 g/dL (12.0-16.0); Immature Granulocytes # (auto) 0.03 K/uL (0.00-0.02); Immature Granulocytes % (auto) 0.3 %; Lymphocytes # (auto) 2.48 K/uL (1.2-3.4); Mean Corpuscular Hgb Conc 31.6 g/dL (32-36); Mean Corpuscular Volume 85.1 fL (80-100); Mean Platelet Volume 10.6 fL (7.4-10.4); Monocytes # (auto) 0.46 K/uL (0.11-0.59); Monocytes % (auto) 4.4 %; Neutrophils # (auto) 7.01 K/uL (1.4-6.5); Neutrophils % (auto) 67.7 %; Platelet Count 276 K/uL (130-400); RDW Coefficient of Variation 17.1 % (11.5-14.5); RDW Standard Deviation 53.7 fL (36.4-46.3); Red Blood Count 3.16 M/uL (4.2-5.4); White Blood Count 10.35 K/uL (4.8-10.8)
[2018-10-23 07:45] LABS: Alanine Aminotransferase 37 U/L (12-78); Albumin Globulin Ratio 0.5 (0.9-2); Alkaline Phosphatase 123 U/L (45-117); Aspartate Aminotransferase 23 U/L (15-37); BUN Creatinine Ratio 15.9 (10-20); Bilirubin,Total 0.1 mg/dl (0.2-1); Blood Urea Nitrogen 6 mg/dl (7-18); Calcium 8.3 mg/dl (8.5-10.1); Carbon Dioxide 24 mmol/L (21-32); Chloride 111 mmol/L (98-107); Creatinine Clr Calc Pharmacy 229.5 ml/min; Est GFR (African American) > 150.0; Globulin 3.8 gm/dl (2.5-4.0); Glucose 82 mg/dl (70-99); Magnesium 1.9 mg/dl (1.8-2.4); Potassium 3.7 mmol/L (3.5-5.1); Sodium 142 mmol/L (136-145); Total Protein 5.8 gm/dl (6.4-8.2)
[2018-10-23] MEDS: METHADONE HCL 10 MG TAB PO SCH (07:48)
[2018-10-23] MEDS: ESCITALOPRAM OXALATE 10 MG TAB PO SCH (07:49)
[2018-10-23] MEDS: diazePAM 5 MG TABLET PO SCH (07:49)
[2018-10-23] MEDS: CALCIUM 600MG + VIT D 400 IU TAB PO SCH (07:49)
[2018-10-23] MEDS: FOLIC ACID 1 MG TAB PO SCH (07:50)
[2018-10-23] MEDS: PANTOprazole 40 MG TAB PO SCH (07:50)
[2018-10-23] MEDS: BACLOFEN 10 MG TAB PO SCH (07:50)
[2018-10-23] MEDS: GABAPENTIN 600 MG TAB PO SCH ×2 (07:50→13:20)
[2018-10-23] MEDS: MIDODRINE HCL 10 MG TAB PO SCH ×2 (07:51→13:20)
[2018-10-23] MEDS: FLUTICASONE PROPIONATE NA SPR 16 GM BTL NAE SCH (07:51)
[2018-10-23] MEDS: ENOXAPARIN INJ 40 MG/0.4 ML SYR SQ SCH (07:51)
[2018-10-23] MEDS: NYSTATIN POWDER 15GM BTL EXT SCH (07:52)
[2018-10-23] MEDS ORDERED: CIPROFLOXACIN 500 MG TAB PO SCH ×2 (09:30)
[2018-10-23] MEDS: ACETAMINOPHEN 325 MG TAB PO SCH ×2 (09:41→13:19)
[2018-10-23 10:01] LABS: Ferritin 97.7 ng/ml (8-388)
--- NOTE | 2018-10-23 14:28 | Discharge Summary ---
Date of Service October 23, 2018 Admission HPI Per Admitting Provider This is a 32yo F with a PMH of C5-C7 spinal cord injury in July 2018 (s/p anterior cervical disc fusion at [facility]), neurogenic bladder and depression who presents from home after developing fever and chills overnight. Patient suffered C6 and C7 cervical fractures after a fall downstairs in July 2018. Underwent surgery at [place] and then went to [facility] in [place] until this past [address] evening, when she returned home under the care of her sister. At new baseline, patient is paralyzed from armpits down with limited mobility of arms. Has loss of sensation distal to nipple line and has an i ndwelling constantino catheter. Patient was doing well yesterday, at new baseline and able to eat on her own. During the night, around 0100, patient started to have chills and feel hot. Sister noted that catheter seemed to be leaking and not draining appropriately and tried to notify home health nursing. By 11am, patient had a fever of 102 F and EMS was called. Found to be febrile at 39.2 C with leukocytosis of 26k. AST of 147, ALT of 108, alk phos of 203. Urinalysis with gross abnormality. Lactate wnl. Procalcitonin of 1.23. Given Zosyn, vanc and 2 L NSS in ED. Patient more lethargic than when she first arrived but responding to verbal stimuli. ROS limited to fatigue but is oriented to self and situation. Endorsing abdominal pain. Denies lightheadedness, headache, chest pain, nausea or shortness of breath. Has been having bowel movements with nightly suppository. Admission Exam Per Admitting Provider General Appearance: WD/WN, lethargic but responsive to painful stimuli, intermittently to verbal stimuli, appears ill Head: normocephalic, atraumatic Eyes: normal inspection, PERRL, EOMI ENT: hearing grossly normal, pharynx normal (dry mucous membranes), well healed scar on anterior neck Neck: supple, no JVD, no adenopathy Respiratory/Chest: lungs clear to auscultation. No wheezes, rales or rhonci. No respiratory distress or accessory muscle use Cardiovascular: regular rate, rhythm, no murmur, normal peripheral pulses Abdomen/GI: normal bowel sounds, soft, non-tender to palpation Extremities/Musculoskelatal: normal inspection, no calf tenderness, normal capillary refill, trace BLE edema Neurologic/Psych: lethargic, normal mood/affect, oriented x 3. Functionally a quadriplegic with limited use of hands. Skin: normal color, warm/dry Principal Diagnosis sepsis 2/2 Proteus CAUTI Transaminitis-resolved Discharge Data Allergies Allergy/AdvReac Type Severity Reaction Status Date / Time Cephalosporins Allergy Mild . Verified 10/21/18 14:20 prochlorperazine Allergy Mild . Verified 10/21/18 14:20 Sulfa (Sulfonamide Allergy Mild . Verified 10/21/18 14:20 Antibiotics) latex AdvReac Mild . Verified 10/21/18 14:20 Consultations 10/21/18 14:54 ED Decision to Admit Stat 10/21/18 17:29 Consult Case Management - Discharge Planning Routine Ordered Studies 10/21/18 14:53 CT abd pelvis IV con only Stat Hospital Course (1) Sepsis: (2) UTI (urinary tract infection): (3) BENEDICT (acute kidney injury): (4) Transaminitis: (5) Spinal cord injury, C5-C7: (6) Hypomagnesemia: (7) Anemia: (8) Second degree AV block: (9) Depression: The patient is a 32-year-old female paraplegic as of 2 months ago who presents with an indwelling Constantino and sepsis secondary to Proteus UTI. Initial IV fluid resuscitation was started and she was placed on broad-spectrum antibiotics. She was admitted to the hospitalist service and was initially very fatigued but perked up on hospital day 1 towards the end of the day. IV Zosyn was continued and oral medications were able to be restarted at the end of her first day in the hospital. She remained hemodynamically stable and afebrile after initial resuscitation. She was unable to feel the bladder area or comment on malpositioning of the Constantino or dysuria secondary to her spinal cord injury, however, she clinically was improved tolerating p.o. and mentating well. At time of discharge a [id number] interview was conducted revealing a hemodynamically stable and afebrile patient who was clinically improved to baseline. Heart and lung exams were normal. Abdomen was soft and nondistended. Exam revealed paraplegia with some motor and sensory involvement with her upper extremities. A new Constantino was in place, changed in the ER on admission. It was working well. She was transitioned to ciprofloxacin and was sent home in stable condition with a short course of antibiotics. Close primary care follow-up was recommended. Of note she had an initial elevation in transaminases thought secondary to her sepsis which was but resolved the following day after resuscitation. She also had hypomagnesemia which was corrected with replacement. She was noted to have had second-degree AV block thought secondary to her spinal cord injury which was not present on baseline admission EKG. She was in sinus rhythm. Anemia was noted on hospital day 2 after aggressive IV fluid resuscitation (12.4/38-->8.8/20). This is thought secondary to a combination of phlebotomy, IV fluid resuscitation and anemia of chronic disease. Iron studies reflect anemia of chronic disease. Iron supplementation was not started as this may cause her additional constipation which is already an issue for her. She is also on calcium which can cause constipation so we will defer any of this to her primary care doctor. A repeat CBC was recommended in 1 week's time. Review of the records reveal an H/H in this range two months ago. Total Time Total Time Spent Total Time Spent (In Minutes): 60 Total Time Includes: Examination of the Patient, Discharge Planning, Medication Reconciliation and Communication With Other Providers Discharge Plan Discharge Items Patient Disposition: Home - Home Health Services Reason For Visit: SEPSIS 2/2 UTI,TRANSAMINITIS Discharge Diagnosis: sepsis 2/2 Proteus UTI Transminitis-resolved Condition: Good Discharge Goals: Improve disease control and Improve function Activity: Resume your previous activity Non-emergency contact: Primary Care Provider Call non-emergency contact if: you have any medication questions, your symptoms worsen, your pain is not controlled and you have a fever Follow-up/Referrals: Ashley Arzola MD [Primary Care Provider] - Diet: Regular Addtl Provider Instructions: Please take all medications as instructed on discharge list below. You will need 5 days of CIPROFLOXACIN, and were given one day to take home with you because of pharmacy closure on the holiday. A prescription for the remaining 4 days was electronically sent to your pharmacy on file. It is recommended that you follow-up with your primary care physician in the next week to ensure you are still doing well post-discharge from the hospital. Of note, you were found to have anemia. Please have your primary care physician get a repeat CBC (complete blood count, non-fasting) in one week. It was a pleasure taking care of you! Please call if you have any questions or problems. You can reach a [facility] hospitalist on duty at [facility] 24 hours a day by calling [phone]. Take care of yourself. Kiki aVng, DO [facility] Hospitalist Prescriptions: New ciprofloxacin HCl 500 mg Tablet 500 mg PO Q12 4 Days Qty: 8 RF: 0 baclofen 10 mg Tablet 10 mg PO BID Qty: 60 RF: 0 Continued acetaminophen [Tylenol] 325 mg Tablet 975 mg PO TID RF: 0 gabapentin 600 mg tablet 1,200 mg PO TID RF: 0 ondansetron HCl 4 mg tablet 4 mg PO Q8H PRN (Reason: Nausea And Vomiting) RF: 0 bisacodyl 10 mg Suppository 10 mg UT HS RF: 0 pantoprazole 40 mg tablet,delayed release (DR/EC) 40 mg PO QAM RF: 0 folic acid 1 mg Tablet 1 mg PO QAM RF: 0 nystatin 100,000 unit/gram powder 1 applic topical BID RF: 0 methadone 5 mg tablet 5 mg PO BID RF: 0 fluticasone propionate 50 mcg/actuation spray,suspension 1 spray intranasal QAM RF: 0 diazepam 5 mg tablet 5 mg PO QAM RF: 0 diazepam 5 mg tablet 5 mg PO Q6 PRN (Reason: Muscle Spasm) RF: 0 oxycodone 5 mg tablet 5 mg PO Q4H PRN (Reason: Pain) RF: 0 enoxaparin 40 mg/0.4 mL syringe 40 mg subcut QAM RF: 0 midodrine 10 mg tablet 10 mg PO BID RF: 0 escitalopram oxalate 10 mg tablet 10 mg PO QAM RF: 0 calcium carbonate-vitamin D3 [Calcium 600 + D(3)] 600 mg(1,500mg) -400 unit Tablet 1 tab PO BID RF: 0 Thera-Gesic 15-1 % Cream 1 applic TOPICAL HS RF: 0 Narcan 4 mg/actuation spray,non-aerosol 1 - 2 spray intranasal UD RF: 0 albuterol sulfate 2.5 mg /3 mL (0.083 %) Solution For Nebulization 1.25 mg INHALATION QID PRN (Reason: Shortness Of Breath) RF: 0 Discontinued baclofen 10 mg tablet 10 mg PO HS RF: 0 Stand-Alone Forms: [facility] Discharge Orders: Discharge Order (Routine); Ordered 10/23/18 Ordered By: Kiki Vang Admission Data Admit Date/Time: 10/21/18 15:58 Attending Provider: Kiki Vang Admit Provider: Kiki Vang Primary Care Provider: Ashley Arzola Other Providers: Kiki Vang Service: Medical Other Interventions: Discharge Summary Assessment (RN) Last Done: 10/23/18 14:05 DC Date/Time DO NOT enter until pt leaves facility: 10/23/18 15:09
== END 2018-10-23 15:09 | disposition home health service (06) | DRG 872 ==
LOC: ED 12:47 → 2E 15:58 → 4E 10-22 12:33

== ENCOUNTER 2019-03-19 07:00 | Inpatient (IN) ==
[2019-03-19] MEDS ORDERED: SODIUM CHLORIDE 0.9% 1000ML 2,000 ML IV ONE (07:10)
[2019-03-19 07:28] LABS: Hematocrit (blood only) 39.5 % (37-47); Hemoglobin 13.5 g/dL (12.0-16.0); Immature Granulocytes # (auto) 0.03 K/uL (0.00-0.02); Immature Granulocytes % (auto) 0.7 %; Lymphocytes # (auto) 1.22 K/uL (1.2-3.4); Lymphocytes % (auto) 26.6 %; Mean Corpuscular Hemoglobin 32.3 pg (25-34); Mean Corpuscular Hgb Conc 34.2 g/dL (32-36); Mean Corpuscular Volume 94.5 fL (80-100); Mean Platelet Volume 9.8 fL (7.4-10.4); Monocytes # (auto) 0.11 K/uL (0.11-0.59); Monocytes % (auto) 2.4 %; Neutrophils # (auto) 3.23 K/uL (1.4-6.5); Neutrophils % (auto) 70.3 %; Platelet Count 216 K/uL (130-400); RDW Standard Deviation 52.1 fL (36.4-46.3); Red Blood Count 4.18 M/uL (4.2-5.4); White Blood Count 4.59 K/uL (4.8-10.8)
[2019-03-19] MEDS ORDERED: LEVOFLOXACIN/D5W 750 MG/150 ML BAG IV SCH (07:30)
--- NOTE | 2019-03-19 07:35 | XRay Report ---
XR chest 1V portable CLINICAL HISTORY: 33 years-old Female presenting with weak abd pain. TECHNIQUE: Portable semiupright AP view of the chest was obtained. COMPARISON: 10/21/2018. FINDINGS: Cardiomediastinal silhouette normal. No focal opacity. No large effusion or pneumothorax. Anterior an d posterior cervical fusion hardware. Suture margin is may project over the epigastrium related to Ro ux-en-Y gastric bypass. IMPRESSION: 1. No acute cardiopulmonary disease. Electronically signed by: Josias Gorman M.D. 03/19/2019 7:33 AM
[2019-03-19 07:37] LABS: INR 1.2 (0.9-1.1); Prothrombin Time 11.9 Seconds (9.0-12.0)
[2019-03-19 07:42] LABS: Appearance Urine Cloudy (Clear); Bacteria Urine Automated Negative (Negative); Bilirubin Urine Negative (Negative); Blood Urine Trace (Negative); Color Urine Yellow; Epithelial Cell Urine Auto >30 /lpf (0-5); Glucose Urine UA Negative (Negative); Leukocyte Esterase Urine 2+ (Negative); Nitrite Urine Negative (Negative); Protein Urine Negative (Negative); RBC Urine Automated 0-4 /hpf (0-4); Specific Gravity Urine 1.022 (1.000-1.030); Urobilinogen Urine Negative (Negative); WBC Urine Automated >30 /hpf (0-5); pH Urine 5.5 (4.5-7.5)
[2019-03-19 07:49] LABS: Alanine Aminotransferase 11 U/L (12-78); Albumin Globulin Ratio 0.8 (0.9-2); Albumin Level 2.9 gm/dl (3.4-5.0); Alkaline Phosphatase 104 U/L (45-117); Aspartate Aminotransferase 12 U/L (15-37); BUN Creatinine Ratio 11.3 (10-20); Bilirubin,Total 0.5 mg/dl (0.2-1); Blood Urea Nitrogen 5 mg/dl (7-18); Calcium 8.7 mg/dl (8.5-10.1); Carbon Dioxide 20 mmol/L (21-32); Chloride 97 mmol/L (98-107); Creatinine Clr Calc Pharmacy 215.7 ml/min; Est GFR (African American) > 150.0; Est GFR (Non-African American) 135.9; Globulin 3.5 gm/dl (2.5-4.0); Glucose 89 mg/dl (70-99); Lipase 319 U/L (73-393); Potassium 3.6 mmol/L (3.5-5.1); Sodium 131 mmol/L (136-145); Total Protein 6.4 gm/dl (6.4-8.2)
[2019-03-19 07:51] LABS: Ketones Urine 4+ (Negative)
[2019-03-19 08:01] LABS: Mucus Urine Present (None Prsent)
--- NOTE | 2019-03-19 08:12 | Emergency Department Note ---
Entered by Rachel Hackett acting as a scribe for History of Present Illness General Chief complaint: Abdominal Pain Time Seen by Provider: 03/19/19 07:00 Source: patient Mode of arrival: EMS Limitations: no limitations History of Present Illness Onset (ago): hour(s) 8 Location: abdomen Radiation: non-radiation Pain Consistency: + constant Relieved By: + none Exacerbated By: + none Associated symptoms: + other (-rhinorrhea); no chest pain, no cough and no shortness of breath Treatments prior to arrival: none The patient is a 33 year old female who presents to the ED with complaints of abdominal pain that started at 2200 last night. She was nauseous earlier this morning but states she is not nauseous currently. She denies any recent trauma or falls. She is paralyzed from C5 down secondary to a previous fall. Her last BM was yesterday. She denies any recent cough, rhinorrhea, chest pain or difficulty breathing. She was taken off her Gabapentin 4 days ago, and report she last took Oxycodone yesterday at 1530. She states her max dose is 1 pill of Oxycodone a day. The patient was seen here in the ED on 03/17/2019 for a Castillo catheter malfunction. She had a CT of abdomen/pelvis, which showed likely questionable pyelonephritis. She is growing out e-coli greater than 100,000, and noe- sensitive. She was placed on Levaquin at that time and has been taking it. Home Medications Home Medications Medication Instructions Recorded Confirmed Type Narcan 1 - 2 spray INTRANASAL UD PRN 10/21/18 03/19/19 History acetaminophen [Tylenol] 975 mg PO TID 10/21/18 03/19/19 History diazepam 5 mg PO Q8H PRN 10/21/18 03/19/19 History escitalopram oxalate 10 mg PO QAM 10/21/18 03/19/19 History fluticasone propionate 1 spray INTRANASAL QAM 10/21/18 03/19/19 History folic acid 1 mg PO QAM 10/21/18 03/19/19 History methadone 5 mg PO BID 10/21/18 03/19/19 History midodrine 10 mg PO BID 10/21/18 03/19/19 History nystatin 1 applic TOPICAL BID PRN 10/21/18 03/19/19 History ondansetron HCl 4 mg PO Q8H PRN 10/21/18 03/19/19 History oxycodone 5 mg PO Q4H PRN 10/21/18 03/19/19 History bupropion HCl 150 mg PO BID 03/17/19 03/19/19 History levofloxacin [Levaquin] 500 mg PO DAILY 10 Days #10 tab 03/17/19 03/19/19 Rx oxybutynin chloride 10 mg PO DAILY 03/17/19 03/19/19 History pregabalin 50 mg PO TID 03/17/19 03/19/19 History sennosides [Senokot] 17.2 mg PO QAM 03/17/19 03/19/19 History tizanidine 4 mg PO BID 03/17/19 03/19/19 History Allergies Allergy/AdvReac Type Severity Reaction Status Date / Time Cephalosporins Allergy Mild . Verified 03/19/19 07:41 prochlorperazine Allergy Mild . Verified 03/19/19 07:41 Sulfa (Sulfonamide Allergy Mild . Verified 03/19/19 07:41 Antibiotics) latex AdvReac Mild . 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) Neurogenic bladder (Chronic) Neuropathic pain (Acute) Post-traumatic spasticity (Acute) Recurrent major depressive disorder (Acute) Second degree AV block (Chronic) Sepsis (Acute) Spasm of bowel (Inactive) Spinal cord injury, C5-C7 (Chronic) Tetraplegia (Acute) Transaminitis (Acute) Transaminitis (Acute) Wheelchair dependence (Acute) Surgical History (Updated 03/19/19 @ 07:43 by Rachel Hackett) H/O cervical spine surgery (Chronic) S/p anterior cervical disc fusion and posterior cervical disc fusion 08/16/18 at [facility] History of appendectomy (Chronic) History of cholecystectomy (Chronic) History of oophorectomy History of Abi-en-Y gastric bypass (Chronic) performed in 2009 at [facility] Family History Other Diabetes Social History Preferred Language: Guyanese Communication Ability: Effective 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 and A total of 10 systems reviewed and were otherwise negative Physical Exam Vital Signs Vital Signs - 24 hr 03/19/19 07:05 03/19/19 07:48 03/19/19 07:58 Temperature 37.9 C H Temperature Source Oral Pulse Rate 107 H Pulse Rate [Apical] 102 H Pulse Rhythm [Apical] Regular Respiratory Rate 24 20 Respiratory Effort / Characteristics Non-Labored Respiratory Depth Normal Normal Blood Pressure 107/80 Blood Pressure Mean 89 Blood Pressure Position Lying Pulse Oximetry 98 99 99 Oxygen Delivery Method Room Air Room Air Room Air Sepsis Recent Fever Within 48 Hours Yes Sepsis New/Unexplained Change in Mental Status No Sepsis Action Taken by Nursing No Action Required GENERAL: Patient is laying in bed, disheveled, chronic ill-appearing, unable to move legs EYE EXAM: normal conjunctiva, PERRL and EOM's intact OROPHARYNX: no exudate, no erythema, lips, buccal mucosa, and tongue normal and mucous membranes are dry NECK: supple, no nuchal rigidity, no adenopathy, non-tender LUNGS: Clear to auscultation. Normal chest wall mechanics HEART: Tachycardic heart rate, S1 normal and S2 normal ABDOMEN: abdomen soft, non-tender, normo-active bowel sounds, no masses, no rebound or guarding. BACK: Back is symmetrical on inspection and there is no deformity or skin breakdown. Large amount of ointment around the lower coccyx/sacrum SKIN: no rashes and no bruising UPPER EXTREMITIES: upper extremities are grossly normal. LOWER EXTREMITIES: No pitting edema. NEURO EXAM: Patient is awake, alert and oriented, following commands, minimal movement of upper extremities, no movement of lower extremities, at baseline. Course Course ED COURSE: Vital signs were reviewed and showed the patient is febrile and tachycardic The patients medical record was reviewed The above diagnostic studies were performed and reviewed. ED treatments and interventions as stated above. 0701: The patient was evaluated in room B2. A complete history and physical examination was performed. 0806: I discussed the patients case with Dr. Irvin, [facility] Hospitalist. The patient will be further evaluated. 0815: Upon reevaluation, the patient is resting comfortably. I discussed my findings with the patient and she understands and agrees with the treatment plan. Based on the patients age, coexisting illnesses, exam and lab findings the decision to treat as an inpatient was made. The patient remained stable while under my care. The patient will be evaluated for further management. Administered Medications Levofloxacin/Dextrose (Levaquin/D5w) 750 mg in 150 mls @ 100 mls/hr IV Q24H TARIQ Stop: 04/30/19 07:29 Last Admin: 03/19/19 07:52 Dose: 100 mls/hr Documented by: [id number] Discontinued Medications Sodium Chloride (Nss 1000ml) 2,000 mls @ 999 mls/hr IV .Q2H1M ONE Stop: 03/19/19 09:10 Last Admin: 03/19/19 07:52 Dose: 999 mls/hr Documented by: [id number] Medical Decision Making Differential Diagnosis Differential diagnosis includes etiologies such as sepsis, UTI, pneumonia, metabolic, electrolyte abnormalities, cardiac sources, intracerebral event, toxicologic, neurologic, as well as others were entertained. Medical Records Attestation: I reviewed the patient's medical records. Home Medications Current Medication List: was personally reviewed by me Laboratory Data Attestation: I reviewed the patient's lab results. Result diagrams: 03/19/19 07:18 03/19/19 07:18 Lab Results 03/19/19 03/19/19 03/19/19 Range/Units 07:18 07:18 07:18 WBC 4.59 L (4.8-10.8) K/uL RBC 4.18 L (4.2-5.4) M/uL Hgb 13.5 (12.0-16.0) g/dL Hct 39.5 (37-47) % MCV 94.5 (80-100) fL MCH 32.3 (25-34) pg MCHC 34.2 (32-36) g/dL RDW Std Deviation 52.1 H (36.4-46.3) fL RDW Coeff of Van 15.0 H (11.5-14.5) % Plt Count 216 (130-400) K/uL MPV 9.8 (7.4-10.4) fL Immature Gran % (Auto) 0.7 % Neut % (Auto) 70.3 % Lymph % (Auto) 26.6 % Cooper % (Auto) 2.4 % Eos % (Auto) 0.0 % Baso % (Auto) 0.0 % Immature Gran # (Auto) 0.03 H (0.00-0.02) K/uL Neut # (Auto) 3.23 (1.4-6.5) K/uL Lymph # (Auto) 1.22 (1.2-3.4) K/uL Cooper # (Auto) 0.11 (0.11-0.59) K/uL Eos # (Auto) 0.00 (0-0.5) K/uL Baso # (Auto) 0.00 (0-0.2) K/uL PT 11.9 (9.0-12.0) Seconds INR 1.2 H (0.9-1.1) Sodium 131 L (136-145) mmol/L Potassium 3.6 (3.5-5.1) mmol/L Chloride 97 L (98-107) mmol/L Carbon Dioxide 20 L (21-32) mmol/L Anion Gap 14.0 H (3-11) BUN 5 L D (7-18) mg/dl Creatinine 0.40 L (0.6-1.2) mg/dl Est Cr Clr Drug Dosing 215.7 ml/min Est GFR ( Amer) > 150.0 Est GFR (Non-Af Amer) 135.9 BUN/Creatinine Ratio 11.3 (10-20) Glucose 89 (70-99) mg/dl Lactate (0.4-2.0) mmol/L Calcium 8.7 (8.5-10.1) mg/dl Total Bilirubin 0.5 (0.2-1) mg/dl AST 12 L (15-37) U/L ALT 11 L (12-78) U/L Alkaline Phosphatase 104 (45-117) U/L Total Protein 6.4 (6.4-8.2) gm/dl Albumin 2.9 L (3.4-5.0) gm/dl Globulin 3.5 (2.5-4.0) gm/dl Albumin/Globulin Ratio 0.8 L (0.9-2) Lipase 319 (73-393) U/L Urine Color Urine Appearance (Clear) Urine pH (4.5-7.5) Ur Specific [place] (1.000-1.030) Urine Protein (Negative) Urine Glucose (UA) (Negative) Urine Ketones (Negative) Urine Blood (Negative) Urine Nitrite (Negative) Urine Bilirubin (Negative) Urine Urobilinogen (Negative) Ur Leukocyte Esterase (Negative) Urine WBC (Auto) (0-5) /hpf Urine RBC (Auto) (0-4) /hpf U Hyaline Cast (Auto) (0-5) /lpf U Epithel Cells (Auto) (0-5) /lpf Urine Bacteria (Auto) (Negative) Other Crystals (None Prsent) Urine Mucus (None Prsent) Urine Yeast Urine Opiates Screen (Neg) Ur Methadone, Qual (Neg) Urine Barbiturates (Neg) Ur Phencyclidine (PCP) (Neg) U Amphetamin/Meth Scrn (Neg) MDMA (Ecstasy) Screen (Neg) U Benzodiazepines Scrn (Neg) Ur Cocaine Metabolite (Neg) U Marijuana (THC) Screen (Neg) 03/19/19 03/19/19 03/19/19 Range/Units 07:18 07:30 07:30 WBC (4.8-10.8) K/uL RBC (4.2-5.4) M/uL Hgb (12.0-16.0) g/dL Hct (37-47) % MCV (80-100) fL MCH (25-34) pg MCHC (32-36) g/dL RDW Std Deviation (36.4-46.3) fL RDW Coeff of Van (11.5-14.5) % Plt Count (130-400) K/uL MPV (7.4-10.4) fL Immature Gran % (Auto) % Neut % (Auto) % Lymph % (Auto) % Cooper % (Auto) % Eos % (Auto) % Baso % (Auto) % Immature Gran # (Auto) (0.00-0.02) K/uL Neut # (Auto) (1.4-6.5) K/uL Lymph # (Auto) (1.2-3.4) K/uL Cooper # (Auto) (0.11-0.59) K/uL Eos # (Auto) (0-0.5) K/uL Baso # (Auto) (0-0.2) K/uL PT (9.0-12.0) Seconds INR (0.9-1.1) Sodium (136-145) mmol/L Potassium (3.5-5.1) mmol/L Chloride (98-107) mmol/L Carbon Dioxide (21-32) mmol/L Anion Gap (3-11) BUN (7-18) mg/dl Creatinine (0.6-1.2) mg/dl Est Cr Clr Drug Dosing ml/min Est GFR ( Amer) Est GFR (Non-Af Amer) BUN/Creatinine Ratio (10-20) Glucose (70-99) mg/dl Lactate 1.0 (0.4-2.0) mmol/L Calcium (8.5-10.1) mg/dl Total Bilirubin (0.2-1) mg/dl AST (15-37) U/L ALT (12-78) U/L Alkaline Phosphatase (45-117) U/L Total Protein (6.4-8.2) gm/dl Albumin (3.4-5.0) gm/dl Globulin (2.5-4.0) gm/dl Albumin/Globulin Ratio (0.9-2) Lipase (73-393) U/L Urine Color Yellow Urine Appearance Cloudy A (Clear) Urine pH 5.5 (4.5-7.5) Ur Specific [place] 1.022 (1.000-1.030) Urine Protein Negative (Negative) Urine Glucose (UA) Negative (Negative) Urine Ketones 4+ H (Negative) Urine Blood Trace H (Negative) Urine Nitrite Negative (Negative) Urine Bilirubin Negative (Negative) Urine Urobilinogen Negative (Negative) Ur Leukocyte Esterase 2+ H (Negative) Urine WBC (Auto) >30 H (0-5) /hpf Urine RBC (Auto) 0-4 (0-4) /hpf U Hyaline Cast (Auto) 5-10 H (0-5) /lpf U Epithel Cells (Auto) >30 H (0-5) /lpf Urine Bacteria (Auto) Negative (Negative) Other Crystals Tyrosine A (None Prsent) Urine Mucus Present A (None Prsent) Urine Yeast Not Reportable Urine Opiates Screen Pos H (Neg) Ur Methadone, Qual Pos H (Neg) Urine Barbiturates Neg (Neg) Ur Phencyclidine (PCP) Neg (Neg) U Amphetamin/Meth Scrn Neg (Neg) MDMA (Ecstasy) Screen Pos H (Neg) U Benzodiazepines Scrn Pos H (Neg) Ur Cocaine Metabolite Neg (Neg) U Marijuana (THC) Screen Neg (Neg) Imaging Data Radiologist's Impression: Radiology results as stated below per my review and the radiologist's interpretation: XR chest 1V portable CLINICAL HISTORY: 33 years-old Female presenting with weak abd pain. TECHNIQUE: Portable semiupright AP view of the chest was obtained. COMPARISON: 10/21/2018. FINDINGS: Cardiomediastinal silhouette normal. No focal opacity. No large effusion or pneumothorax. Anterior and posterior cervical fusion hardware. Suture margin is may project over the epigastrium related to Abi-en-Y gastric bypass. IMPRESSION: 1. No acute cardiopulmonary disease. Electronically signed by: Josias Gorman M.D. 03/19/2019 7:33 AM ECG Data Attestation: I personally reviewed and interpreted this ECG as follows: Indication: + abdominal pain Rate (beats per minute): 101 Rhythm: + sinus tachycardia ECG Intervals/blocks: + Normal QT ECG Findings: + Other (Non-specific ST wave changes inferior, anterior and lateral leads) Blood Pressure Blood Pressure Findings: Normal blood pressure Blood Pressure Disposition: did not require urgent referral MDM Narrative Patient is a 33-year-old female paraplegic status post fall down steps in July C6-C7 surgery at [facility] who presented here 2 days ago for abdominal pain and urinary symptoms per the chart. At that time she had blood work done and a CT of the abdomen pelvis. CT abdomen pelvis questioned a Bairon as there is some stranding around the kidney and UA eventually grew out greater than 100,000 E. coli which is pansensitive. She was sent home on Levaquin secondary to allergies. She presents today for worsening belly cramping. She has a history of appendectomy, cholecystectomy and oophorectomy. Last bowel movement was within the past 24 hours. Abdominal exam is fairly benign. Bladder scan was negative. She was found to be febrile and tachycardic. CBC with a leukopenia at 4. INR was unremarkable. BMP with mild hyponatremia at 131 chloride s lightly low along with a low CO2. Creatinine was 0.4. LFTs were unremarkable. Lipase normal. UA was improving but still had leukocytes. Urine tox was pending. Patient was given IV fluids and IV Levaquin. She was given a dose of IV narcotics. Belly had no distention. With the recent CT performed within the past 48 hours and a previous appendectomy, oophorectomy and cholecystectomy elected to perform an obstruction series instead of repeat imaging. Obstruction series was unremarkable as there is no clear areas of air-fluid levels to indicate obstruction per my interpretation. Case was discussed with the hospitalist patient will be observed for pyelonephritis and a UTI secondary to E. coli which is pansensitive as she is febrile and tachycardic Impression & Plan Sepsis, Pyelonephritis, Spinal cord injury, C5-C7, Neurogenic bladder, Abdominal pain Discharge Plan Visit Data Chief Complaint: Abdominal Pain ED Provider: Tres Martin Discharge Problem: Sepsis, Pyelonephritis, Spinal cord injury, C5-C7, Neurogenic bladder, Abdominal pain Patient Disposition: Being Evaluated by Hospitalist Forms Stand Alone Forms: Call Back Authorization, [facility] Prescriptions Prescriptions: No Action bupropion HCl 150 mg tablet sustained-release 12 hr 150 mg PO BID RF: 0 sennosides [Senokot] 8.6 mg Tablet 17.2 mg PO QAM RF: 0 oxybutynin chloride 10 mg tablet extended release 24hr 10 mg PO DAILY RF: 0 tizanidine 4 mg tablet 4 mg PO BID RF: 0 pregabalin 50 mg capsule 50 mg PO TID RF: 0 levofloxacin [Levaquin] 500 mg tablet 500 mg PO DAILY 10 Days Qty: 10 RF: 0 acetaminophen [Tylenol] 325 mg Tablet 975 mg PO TID RF: 0 ondansetron HCl 4 mg tablet 4 mg PO Q8H PRN (Reason: Nausea And Vomiting) RF: 0 folic acid 1 mg Tablet 1 mg PO QAM RF: 0 nystatin 100,000 unit/gram powder 1 applic topical BID PRN (Reason: Skin Irritation) RF: 0 methadone 5 mg tablet 5 mg PO BID RF: 0 fluticasone propionate 50 mcg/actuation spray,suspension 1 spray intranasal QAM RF: 0 diazepam 5 mg tablet 5 mg PO Q8H PRN (Reason: Anxiety) RF: 0 oxycodone 5 mg tablet 5 mg PO Q4H PRN (Reason: Pain) RF: 0 midodrine 10 mg tablet 10 mg PO BID RF: 0 escitalopram oxalate 10 mg tablet 10 mg PO QAM RF: 0 Narcan 4 mg/actuation spray,non-aerosol 1 - 2 spray intranasal UD PRN (Reason: Opioid Reversal) RF: 0 Referrals Referrals: Ashley Arzola MD [Primary Care Provider] - Discharge Problem: Sepsis Qualifiers: Sepsis type: sepsis due to unspecified organism Sepsis acute organ dysfunction status: unspecified Qualified Code(s): A41.9 - Sepsis, unspecified organism Spinal cord injury, C5-C7 Qualifiers: Encounter type: sequela Qualified Code(s): S14.105S - Unspecified injury at C5 level of cervical spinal cord, sequela Abdominal pain Qualifiers: Abdominal location: unspecified location Qualified Code(s): R10.9 - Unspecified abdominal pain The scribe's documentation has been prepared under my direction and personally reviewed by me in its entirety. I confirm that the note above accurately reflects all work, treatment, procedures, and medical decision making performed by me.
[2019-03-19 08:16] LABS: Amphetamines+Metham, Urine Neg (Neg); Barbiturates, Urine Neg (Neg); Benzodiazepine, Urine Pos (Neg); Cocaine, Urine Neg (Neg); MDMA (Ecstacy), Urine Pos (Neg); Methadone, Urine Pos (Neg); Opiate, Urine Pos (Neg); Phencyclidine, Urine Neg (Neg)
--- NOTE | 2019-03-19 08:30 | XRay Report ---
XR abdomen min 2V CLINICAL HISTORY: 33 years-old Female presenting with generalized abdominal pain, concern for obstruc tion. TECHNIQUE: Left lateral decubitus and supine views of the abdomen were obtained. COMPARISON: 12/16/[address] from 03/17/2019. FINDINGS: Cholecystectomy clips noted. A rectal tube may be in place. Nonobstructive bowel gas pattern. Mild ga seous distention of small and large bowel. Suture margin is projected over the epigastrium and left m id abdomen consistent with Abi-en-Y gastric bypass. No gross pneumoperitoneum. Allowing for bowel gas and stool, no calcifications to suggest nephrolithiasis. Osseous structures normal. Lung bases clear. IMPRESSION: 1. Mild gaseous distention of large and small bowel likely ileus. 2. No convincing evidence of obstruction. No free air. Electronically signed by: Josias Gorman M.D. 03/19/2019 8:27 AM
--- NOTE | 2019-03-19 09:22 | History & Physical Report ---
Date of Service March 19, 2019 Assessment & Plan (1) Complicated UTI (urinary tract infection): Has neurogenic bladder with Castillo catheter in situ Noted to have UTI secondary to E. coli on Saturday and has been on oral Levaquin Urine examination is seems to be improving We will continue Levaquin intravenously for now and await further culture and sensitivity We will continue cautious amount of intravenous fluid (2) Abdominal pain: Has been complaining of more abdominal pain for the last 2 days Questionable interaction with Zanaflex and quinolones No evidence of intestinal obstruction but has ileus We will hold Zanaflex Clears orally (3) Spinal cord injury, C5-C7: History of spinal cord injury following a fall in July of this year Quadriplegic since then Requires help in ADL S (4) Tetraplegia: As above (5) Depression: Has significant depression Has been on multiple medications for that Possible gabapentin withdrawal She was on high-dose of gabapentin before which was discontinued recently and was started with light Lyrica 50 mg 3 times daily We will continue Lyrica for now She was on baclofen 10 mg 3 times daily before which has been changed to Zanaflex 4 mg twice daily Zanaflex has an interaction with quinolones Will hold Zanaflex as long as she will be on quinolones for UTI Continue with benzodiazepines as muscle relaxant DVT prophylaxis Subcu heparin CODE STATUS Full History of Present Illness Chief Complaint: Increasing abdominal pain with nausea and fever Primary Care Provider: Ashley Arzola MD She is a 33-year-old female with significant past medical history of spinal cord injury, C5-C7 following a fall in July of this year and having quadriplegia since then, history of mitral valve prolapse and depression, neurogenic bladder with in situ Castillo, hypothyroidism and history of migraine apparently was in the ER on Saturday last with abdominal discomfort and noted to have UTI. She was given oral Levaquin and was sent home. Apparently she was seen by the neurologist and was given Zanaflex in place of baclofen and Lyrica in place of gabapentin for her chronic condition requiring those medications. She has recently started taking these medications and feels that she has been having more abdominal discomfort and pain with nausea since she has been taking the new medications. She denies any vomiting and she feels feverish with chills at times. She denies any distention of the abdomen. She denies any new symptoms regarding her quadriplegia and/or any new neurological symptoms. CT scan of the abdomen and pelvis on Saturday showed possible cystitis and UA was suggestive of infection which grew E. coli which is pansensitive. Chest x-ray negative and x-ray of the abdomen did show possible ileus but no obstruction. She was noted to be tachycardic with fever in the emergency room. She has started with intravenous Levaquin and she will be admitted to medical floor for continuation of care. Allergies Allergy/AdvReac Type Severity Reaction Status Date / Time Cephalosporins Allergy Mild . Verified 03/19/19 07:41 prochlorperazine Allergy Mild . Verified 03/19/19 07:41 Sulfa (Sulfonamide Allergy Mild . Verified 03/19/19 07:41 Antibiotics) latex AdvReac Mild . Verified 03/19/19 07:41 Home Medications Home Medications Medication Instructions Recorded Confirmed Type Narcan 1 - 2 spray INTRANASAL UD PRN 10/21/18 03/19/19 History acetaminophen [Tylenol] 975 mg PO TID 10/21/18 03/19/19 History diazepam 5 mg PO Q8H PRN 10/21/18 03/19/19 History escitalopram oxalate 10 mg PO QAM 10/21/18 03/19/19 History fluticasone propionate 1 spray INTRANASAL QAM 10/21/18 03/19/19 History folic acid 1 mg PO QAM 10/21/18 03/19/19 History methadone 5 mg PO BID 10/21/18 03/19/19 History midodrine 10 mg PO BID 10/21/18 03/19/19 History nystatin 1 applic TOPICAL BID PRN 10/21/18 03/19/19 History ondansetron HCl 4 mg PO Q8H PRN 10/21/18 03/19/19 History oxycodone 5 mg PO Q4H PRN 10/21/18 03/19/19 History bupropion HCl 150 mg PO BID 03/17/19 03/19/19 History levofloxacin [Levaquin] 500 mg PO DAILY 10 Days #10 tab 03/17/19 03/19/19 Rx oxybutynin chloride 10 mg PO DAILY 03/17/19 03/19/19 History pregabalin 50 mg PO TID 03/17/19 03/19/19 History sennosides [Senokot] 17.2 mg PO QAM 03/17/19 03/19/19 History tizanidine 4 mg PO BID 03/17/19 03/19/19 History Past Med/Surg History Medical History (Updated 03/19/19 @ 09:16 by Kim Irvin MD) Adjustment disorder with depressed mood (Acute) BENEDICT (acute kidney injury) (Acute) Anemia C6 cervical fracture (Resolved) Complicated UTI (urinary tract infection) (Acute) Depression (Chronic) DVT prophylaxis Castillo catheter in place (Acute) Fracture of cervical vertebra, C7 (Resolved) Hypomagnesemia Multi-system degeneration of autonomic nervous system (Acute) Neurogenic bladder (Chronic) Neuropathic pain (Acute) Post-traumatic spasticity (Acute) Recurrent major depressive disorder (Acute) Second degree AV block (Chronic) Sepsis (Acute) Spasm of bowel (Inactive) Spinal cord injury, C5-C7 (Chronic) Tetraplegia (Acute) Transaminitis (Acute) Transaminitis (Acute) Wheelchair dependence (Acute) Surgical History (Updated 03/19/19 @ 07:43 by Rachel Hackett) H/O cervical spine surgery (Chronic) S/p anterior cervical disc fusion and posterior cervical disc fusion 08/16/18 at [facility] History of appendectomy (Chronic) History of cholecystectomy (Chronic) History of oophorectomy History of Abi-en-Y gastric bypass (Chronic) performed in 2009 at [facility] Family History Other Diabetes Social History Preferred Language: Burkinan Communication Ability: Effective Media Liaison Officer Required: No Beliefs That Will Affect Care: None Current Living Situation: Family Current Living Situation Comment: lives with sister Myriam and nephew Feels Safe at Home: Yes Smoking Status: Never smoker Hx Alcohol Use: No Hx Substance Use: No Review of Systems Review of Systems: All systems reviewed & are unremarkable except as noted in HPI & below Gastrointestinal: + abdominal pain, + bloating and + nausea; no vomiting Genitourinary: + pelvic pain Physical Exam Physical Exam: Lying in bed with distress due to abdominal discomfort Constitutional: + acute distress, + ill appearing and + thin Eyes: PERRL, conjunctivae normal, anicteric sclerae ENMT: external ear and nose normal, oropharynx normal Neck: trachea midline, no thyromegaly Respiratory: normal respiratory effort; no respiratory distress Auscultation: lungs clear to auscultation bilaterally Cardiovascular: Rate/Rhythm: regular rate and regular rhythm Heart Sounds: + murmur (2/6 systolic murmur in precordium) Gastrointestinal (Abdomen): Inspection/Auscultation: abdomen normal to inspection and normal bowel sounds; abdomen not distended Percussion/Palpation: + abdomen tender (Mildly tender) and abdomen soft; no guarding and abdomen not rigid Musculoskeletal: No acute arthritis in any of the joints Neurologic: Alert, awake and oriented x3. She is quadriplegic. No sensation and/or power in lower extremities. Minimal power in the upper extremities no problem with swallowing. And her speech Lymphatic: no cervical or axillary lymphadenopathy Results & Data Vital Signs (Past 12 Hours) Vital Signs Temp Pulse Pulse Resp BP Pulse Ox 03/19/19 07:58 102 H 20 99 03/19/19 07:48 99 03/19/19 07:05 37.9 C H 107 H 24 107/80 98 Laboratory Results Short CBC 03/19/19 Range/Units 07:18 WBC 4.59 L (4.8-10.8) K/uL Hgb 13.5 (12.0-16.0) g/dL Hct 39.5 (37-47) % Plt Count 216 (130-400) K/uL BMP 03/19/19 07:18 Sodium 131 L Potassium 3.6 Chloride 97 L Carbon Dioxide 20 L BUN 5 L D Creatinine 0.40 L Glucose 89 Calcium 8.7 Liver Function 03/19/19 Range/Units 07:18 Total Bilirubin 0.5 (0.2-1) mg/dl AST 12 L (15-37) U/L ALT 11 L (12-78) U/L Alkaline Phosphatase 104 (45-117) U/L Albumin 2.9 L (3.4-5.0) gm/dl Urine 03/19/19 Range/Units 07:30 Urine Color Yellow Urine Appearance Cloudy A (Clear) Urine pH 5.5 (4.5-7.5) Ur Specific Peel 1.022 (1.000-1.030) Urine Protein Negative (Negative) Urine Glucose (UA) Negative (Negative) Medications Administered Current Inpatient Medications Heparin Sodium (Porcine) (Heparin Sodium (Porcine)) 5,000 units SQ Q12 [facility] Stop: 04/18/19 08:59 Levofloxacin/Dextrose (Levaquin/D5w) 750 mg in 150 mls @ 100 mls/hr IV Q24H [facility] Stop: 04/30/19 07:29 Last Admin: 03/19/19 07:52 Dose: 100 mls/hr Documented by: Code Status & VTE Plan VTE Prophylaxis Plan VTE Prophylaxis will be ordered: Yes (1) Abdominal pain Abdominal location: unspecified location Qualified Code(s): R10.9 - Unspecified abdominal pain (2) Spinal cord injury, C5-C7 Encounter type: sequela Qualified Code(s): S14.105S - Unspecified injury at C5 level of cervical spinal cord, sequela
[2019-03-19] MEDS ORDERED: SENNA 8.6 MG TAB PO SCH (10:44)
[2019-03-19] MEDS ORDERED: NYSTATIN POWDER 15GM BTL EXT PRN (10:44)
[2019-03-19] MEDS ORDERED: NALOXONE INTNAS PRN (10:44)
[2019-03-19] MEDS: HYDROmorphone INJ 0.5 MG/0.5 ML SYR IV PRN (11:06)
[2019-03-19] MEDS ORDERED: NALOXONE HCL 0.4 MG/1 ML VIAL/CARP IV PRN (11:11)
[2019-03-19] MEDS: FLUTICASONE PROPIONATE NA SPR 16 GM BTL SCH (11:27)
[2019-03-19] MEDS: PREGABALIN 50 MG CAP PO SCH ×3 (11:31→21:14)
[2019-03-19] MEDS: diazePAM 5 MG TABLET PO PRN ×2 (11:32→20:07)
[2019-03-19] MEDS: NSS + 20MEQ KCL 20 MEQ/1,000 ML BAG IV SCH ×2 (11:36→23:42)
[2019-03-19] MEDS: OXYCODONE HCL IR 5 MG TAB (IMMEDIATE RELEASE) PO PRN ×2 (11:38→15:45)
[2019-03-19] MEDS: HEPARIN SOD 5,000 UNIT/0.5 ML VIAL SQ SCH ×2 (13:07→21:14)
[2019-03-19] MEDS: OXYBUTYNIN CHLORIDE XL 5 MG TABCR PO SCH (13:07)
[2019-03-19] MEDS: FOLIC ACID 1 MG TAB PO SCH (13:07)
[2019-03-19] MEDS: BuPROPion SR 150 MG TABCR PO SCH ×2 (13:08→21:14)
[2019-03-19] MEDS: MIDODRINE HCL 10 MG TAB PO SCH ×2 (13:08→21:14)
[2019-03-19] MEDS: ESCITALOPRAM OXALATE 10 MG TAB PO SCH (13:08)
[2019-03-19] MEDS: PHENAZOPYRIDINE HCL 100 MG TAB PO PRN (15:49)
[2019-03-19] MEDS: METHADONE HCL 10 MG TAB PO SCH (21:13)
[2019-03-19] MEDS: ACETAMINOPHEN 325 MG TAB PO PRN (21:59)
[2019-03-19] MEDS: PROMETHAZINE HCL 12.5 MG in SODIUM CHLORIDE 0.9% 50 ML IV PRN (22:29)
[2019-03-20] MEDS ORDERED: SODIUM CHLORIDE 0.9% 500 ML IV ONE (00:14)
[2019-03-20] MEDS ORDERED: AZTREONAM 2,000 MG in DEXTROSE 5% 100 ML IV STA (00:14)
[2019-03-20] MEDS ORDERED: ACETAMINOPHEN 325 MG TAB PO STA (00:16)
--- NOTE | 2019-03-20 00:18 | Communication Note ---
Date of Service: March 20, 2019 Made aware by RN of recurrent fever spikes on Levaquin Rx. AP Sepsis secondary to complicated UTI Change Levaquin to Azactam for broader gram-negative coverage. Will relay to AM provider.
[2019-03-20] MEDS ORDERED: AZTREONAM CONSULT ACTIVE PRN (00:22)
[2019-03-20 02:46] LABS: Basophils # (auto) 0.01 K/uL (0-0.2); Basophils % (auto) 0.2 %; Eosinophils # (auto) 0.01 K/uL (0-0.5); Eosinophils % (auto) 0.2 %; Hemoglobin 10.9 g/dL (12.0-16.0); Immature Granulocytes # (auto) 0.05 K/uL (0.00-0.02); Immature Granulocytes % (auto) 0.8 %; Lymphocytes # (auto) 2.33 K/uL (1.2-3.4); Lymphocytes % (auto) 38.5 %; Mean Corpuscular Hemoglobin 32.4 pg (25-34); Mean Corpuscular Hgb Conc 34.1 g/dL (32-36); Mean Corpuscular Volume 95.2 fL (80-100); Mean Platelet Volume 9.1 fL (7.4-10.4); Monocytes # (auto) 0.59 K/uL (0.11-0.59); Monocytes % (auto) 9.8 %; Neutrophils # (auto) 3.06 K/uL (1.4-6.5); Neutrophils % (auto) 50.5 %; Platelet Count 212 K/uL (130-400); RDW Coefficient of Variation 15.1 % (11.5-14.5); Red Blood Count 3.36 M/uL (4.2-5.4); White Blood Count 6.05 K/uL (4.8-10.8)
[2019-03-20 03:16] LABS: Alanine Aminotransferase 9 U/L (12-78); Albumin Level 2.5 gm/dl (3.4-5.0); Aspartate Aminotransferase 13 U/L (15-37); BUN Creatinine Ratio 10.6 (10-20); Blood Urea Nitrogen 4 mg/dl (7-18); Calcium 7.4 mg/dl (8.5-10.1); Carbon Dioxide 22 mmol/L (21-32); Chloride 107 mmol/L (98-107); Creatinine Clr Calc Pharmacy 239.6 ml/min; Est GFR (African American) > 150.0; Est GFR (Non-African American) 140.7; Glucose 104 mg/dl (70-99); Magnesium 1.4 mg/dl (1.8-2.4); Potassium 3.6 mmol/L (3.5-5.1); Sodium 137 mmol/L (136-145)
[2019-03-20] MEDS ORDERED: POLYETHYLENE (MIRALAX) 17 GM PACK PO PRN (03:25)
[2019-03-20 03:27] LABS: Albumin Globulin Ratio 0.9 (0.9-2); Alkaline Phosphatase 75 U/L (45-117); Bilirubin,Total 0.3 mg/dl (0.2-1); Globulin 2.9 gm/dl (2.5-4.0); Phosphorus 2.3 mg/dl (2.5-4.9); Total Protein 5.4 gm/dl (6.4-8.2)
[2019-03-20] MEDS: MAGNESIUM SULFATE / D5W 1 GM/100 ML BAG IV SCH ×3 (04:01→05:52)
[2019-03-20] MEDS ORDERED: LEVOFLOXACIN/D5W 750 MG/150 ML BAG IV SCH (07:00)
[2019-03-20] MEDS ORDERED: AZTREONAM 2,000 MG in DEXTROSE 5% 100 ML IV SCH (08:00)
[2019-03-20] MEDS: OXYBUTYNIN CHLORIDE XL 5 MG TABCR PO SCH (09:06)
[2019-03-20] MEDS: METHADONE HCL 10 MG TAB PO SCH ×2 (09:06→20:30)
[2019-03-20] MEDS: FOLIC ACID 1 MG TAB PO SCH (09:07)
[2019-03-20] MEDS: HEPARIN SOD 5,000 UNIT/0.5 ML VIAL SQ SCH ×2 (09:08→20:35)
[2019-03-20] MEDS: PREGABALIN 50 MG CAP PO SCH ×3 (09:08→20:31)
[2019-03-20] MEDS: BuPROPion SR 150 MG TABCR PO SCH ×2 (09:08→20:30)
[2019-03-20] MEDS: ESCITALOPRAM OXALATE 10 MG TAB PO SCH (09:08)
[2019-03-20] MEDS: DOCUSATE SODIUM/SENNA 50/8.6MG TAB PO SCH (09:08)
[2019-03-20] MEDS: MIDODRINE HCL 10 MG TAB PO SCH ×2 (09:08→20:29)
[2019-03-20] MEDS: FLUTICASONE PROPIONATE NA SPR 16 GM BTL SCH (10:59)
[2019-03-20] MEDS: LEVOFLOXACIN/D5W 750 MG/150 ML BAG IV SCH (11:00)
[2019-03-20] MEDS: PROMETHAZINE HCL 12.5 MG in SODIUM CHLORIDE 0.9% 50 ML IV PRN (11:53)
[2019-03-20] MEDS: PHENAZOPYRIDINE HCL 100 MG TAB PO PRN (12:01)
[2019-03-20] MEDS: NSS + 20MEQ KCL 20 MEQ/1,000 ML BAG IV SCH (12:17)
--- NOTE | 2019-03-20 13:42 | Hospitalist Progress Note ---
Date of Service March 20, 2019 Assessment & Plan (1) Complicated UTI (urinary tract infection): Has neurogenic bladder with Castillo catheter in situ Noted to have UTI secondary to E. coli on Saturday and has been on oral Levaquin Urine examination is seems to be improving We will continue Levaquin intravenously for now and await further culture and sensitivity We will continue cautious amount of intravenous fluid Blood cultures have been negative Urine culture is growing pansensitive E. coli We will continue Levaquin intravenously and on discharge oral Levaquin to continue for about 7 to 10 days in total (2) Abdominal pain: Has been complaining of more abdominal pain for the last 2 days Questionable interaction with Zanaflex and quinolones No evidence of intestinal obstruction but has ileus We will hold Zanaflex Clears orally Denies any more abdominal pain and will advance the diet as tolerated (3) Spinal cord injury, C5-C7: History of spinal cord injury following a fall in July of this year Quadriplegic since then Requires help in ADL S (4) Tetraplegia: As above (5) Depression: Has significant depression Has been on multiple medications for that Possible gabapentin withdrawal She was on high-dose of gabapentin before which was discontinued recently and was started with light Lyrica 50 mg 3 times daily We will continue Lyrica for now She was on baclofen 10 mg 3 times daily before which has been changed to Zanaflex 4 mg twice daily Zanaflex has an interaction with quinolones Will hold Zanaflex as long as she will be on quinolones for UTI Continue with benzodiazepines as muscle relaxant DVT prophylaxis Subcu heparin CODE STATUS Full Clinically much better today We will continue current medications and physical therapy Subjective 03/20 The patient was seen and examined in medical telemetry unit She has had some fever last night but since then remains afebrile She has been feeling little bit better Denies any significant symptoms this morning Review of Systems Gastrointestinal: + abdominal pain, + bloating and + nausea; no vomiting Genitourinary: + pelvic pain Physical Exam Physical Exam: Lying in bed comfortably Constitutional: + ill appearing and + thin; no acute distress Eyes: PERRL, conjunctivae normal, anicteric sclerae ENMT: external ear and nose normal, oropharynx normal Neck: trachea midline, no thyromegaly Respiratory: normal respiratory effort; no respiratory distress Auscultation: lungs clear to auscultation bilaterally Cardiovascular: Rate/Rhythm: regular rate and regular rhythm Heart Sounds: + murmur (2/6 systolic murmur in precordium) Gastrointestinal (Abdomen): Inspection/Auscultation: abdomen normal to inspection and normal bowel sounds; abdomen not distended Percussion/Palpation: + abdomen tender (Mildly tender) and abdomen soft; no gua rding and abdomen not rigid Neurologic: Has quadriplegia secondary to cervical cord injury in July of last this year Lymphatic: no cervical or axillary lymphadenopathy Results & Data Vital Signs (Past 12 Hours) Vital Signs Temp Pulse Pulse Pulse Resp BP BP 03/20/19 11:18 36.6 C 66 18 133/83 03/20/19 08:17 36.6 C 74 16 81/53 L 03/20/19 08:00 72 03/20/19 04:20 37.3 C 82 22 99/63 L 03/20/19 03:25 37.7 C H Pulse Ox 03/20/19 11:18 98 03/20/19 08:17 98 03/20/19 08:00 03/20/19 04:20 99 03/20/19 03:25 Laboratory Results Short CBC 03/20/19 Range/Units 02:34 WBC 6.05 (4.8-10.8) K/uL Hgb 10.9 L (12.0-16.0) g/dL Hct 32.0 L (37-47) % Plt Count 212 (130-400) K/uL BMP 03/20/19 02:34 Sodium 137 Potassium 3.6 Chloride 107 Carbon Dioxide 22 BUN 4 L Creatinine 0.36 L Glucose 104 H Calcium 7.4 L Liver Function 03/20/19 Range/Units 02:34 Total Bilirubin 0.3 (0.2-1) mg/dl AST 13 L (15-37) U/L ALT 9 L (12-78) U/L Alkaline Phosphatase 75 (45-117) U/L Albumin 2.5 L (3.4-5.0) gm/dl Medications Administered Current Inpatient Medications Acetaminophen (Tylenol) 650 mg PO Q6H PRN PRN Reason: Fever Stop: 04/18/19 21:40 Last Admin: 03/19/19 21:59 Dose: 650 mg Documented by: Bupropion HCl (Wellbutrin-Sr) 150 mg PO BID [facility] Stop: 04/18/19 10:43 Last Admin: 03/20/19 09:08 Dose: 150 mg Documented by: Diazepam (Valium) 5 mg PO Q8H PRN PRN Reason: Anxiety Stop: 04/18/19 10:43 Last Admin: 03/19/19 20:07 Dose: 5 mg Documented by: Escitalopram Oxalate (Lexapro Tab) 10 mg PO [facility] Stop: 04/18/19 10:43 Last Admin: 03/20/19 09:08 Dose: 10 mg Documented by: Fluticasone Propionate (Flonase) 1 sprays NA [facility] Stop: 04/18/19 10:43 Last Admin: 03/20/19 10:59 Dose: 1 sprays Documented by: Folic Acid (Folvite) 1 mg PO [facility] Stop: 04/18/19 10:43 Last Admin: 03/20/19 09:07 Dose: 1 mg Documented by: Heparin Sodium (Porcine) (Heparin Sodium (Porcine)) 5,000 units SQ Q12 [facility] Stop: 04/18/19 11:59 Last Admin: 03/20/19 09:08 Dose: 5,000 units Documented by: Hydromorphone HCl (Dilaudid) 0.5 mg IV Q6H PRN PRN Reason: Pain Stop: 04/02/19 09:32 Last Admin: 03/19/19 11:06 Dose: 0.5 mg Documented by: Potassium Chloride/Sodium Chloride (Normal Saline W/20 Meq Kcl) 20 meq in 1,000 mls @ 80 mls/hr IV .[id number] [facility] Stop: 03/21/19 00:14 Last Admin: 03/20/19 12:17 Dose: 80 mls/hr Documented by: Promethazine HCl 12.5 mg/ (Sodium Chloride) 50.5 mls @ 202 mls/hr IV Q6H PRN PRN Reason: Nausea And Vomiting Stop: 04/18/19 22:10 Last Infusion: 03/20/19 12:15 Dose: Infused Documented by: Levofloxacin/Dextrose (Levaquin/D5w) 750 mg in 150 mls @ 100 mls/hr IV Q24H [facility]; Protocol Stop: 03/28/19 10:29 Last Infusion: 03/20/19 12:58 Dose: Infused Documented by: Methadone HCl (Dolophine) 10 mg PO BID [facility] Stop: 04/02/19 20:59 Last Admin: 03/20/19 09:06 Dose: 10 mg Documented by: Midodrine (Proamatine) 10 mg PO BID [facility] Stop: 04/18/19 10:43 Last Admin: 03/20/19 09:08 Dose: 10 mg Documented by: Naloxone HCl (Narcan) 0.1 mg IV Q5M PRN; Protocol PRN Reason: Oversedation/Resp Depression Stop: 04/02/19 11:10 Nystatin (Mycostatin) 1 appln EXT BID PRN PRN Reason: Skin Irritation Stop: 04/18/19 10:43 Oxybutynin Chloride (Ditropan Xl) 10 mg PO DAILY [facility] Stop: 04/18/19 10:43 Last Admin: 03/20/19 09:06 Dose: 10 mg Documented by: Oxycodone HCl (Roxicodone Immediate Rel) 5 mg PO Q4H PRN PRN Reason: Pain Stop: 04/02/19 11:16 Last Admin: 03/19/19 15:45 Dose: 5 mg Documented by: Phenazopyridine HCl (Pyridium) 100 mg PO TID PRN PRN Reason: Bladder pain Stop: 04/18/19 14:28 Last Admin: 03/20/19 12:01 Dose: 100 mg Documented by: Polyethylene Glycol (Miralax Powder Packet) 17 gm PO DAILY PRN PRN Reason: Constipation Stop: 04/19/19 03:24 Last Admin: 03/20/19 04:34 Dose: 17 gm Documented by: Pregabalin (Lyrica) 50 mg PO TID [facility] Stop: 04/18/19 10:43 Last Admin: 03/20/19 09:08 Dose: 50 mg Documented by: Senna/Docusate Sodium (Senokot S) 1 tab PO QAM [facility] Stop: 04/19/19 08:59 Last Admin: 03/20/19 09:08 Dose: 1 tab Documented by: (1) Abdominal pain Abdominal location: unspecified location Qualified Code(s): R10.9 - Unspecified abdominal pain (2) Spinal cord injury, C5-C7 Encounter type: sequela Qualified Code(s): S14.105S - Unspecified injury at C5 level of cervical spinal cord, sequela
[2019-03-20] MEDS ORDERED: SODIUM CHLORIDE 0.9% 500 ML IV SCH ×2 (16:30→20:30)
[2019-03-20] MEDS: OXYCODONE HCL IR 5 MG TAB (IMMEDIATE RELEASE) PO PRN (20:30)
[2019-03-20] MEDS ORDERED: SOD PHOSPHATE/SOD BIPHOSPHATE ENEMA 132 ML BTL PR ONE (20:36)
[2019-03-21] MEDS: BuPROPion SR 150 MG TABCR PO SCH ×2 (08:25→21:10)
[2019-03-21] MEDS: FOLIC ACID 1 MG TAB PO SCH (08:25)
[2019-03-21] MEDS: MIDODRINE HCL 10 MG TAB PO SCH ×2 (08:25→21:10)
[2019-03-21] MEDS: DOCUSATE SODIUM/SENNA 50/8.6MG TAB PO SCH (08:26)
[2019-03-21] MEDS: FLUTICASONE PROPIONATE NA SPR 16 GM BTL SCH (08:26)
[2019-03-21] MEDS: OXYBUTYNIN CHLORIDE XL 5 MG TABCR PO SCH (08:26)
[2019-03-21] MEDS: ESCITALOPRAM OXALATE 10 MG TAB PO SCH (08:26)
[2019-03-21] MEDS: METHADONE HCL 10 MG TAB PO SCH ×2 (08:28→21:07)
[2019-03-21] MEDS: HEPARIN SOD 5,000 UNIT/0.5 ML VIAL SQ SCH ×2 (08:28→21:07)
[2019-03-21] MEDS: PREGABALIN 50 MG CAP PO SCH ×3 (08:29→21:09)
[2019-03-21] MEDS: LEVOFLOXACIN/D5W 750 MG/150 ML BAG IV SCH (08:35)
[2019-03-21] MEDS: HYDROmorphone INJ 0.5 MG/0.5 ML SYR IV PRN ×2 (08:46→22:04)
[2019-03-21] MEDS: PROMETHAZINE HCL 12.5 MG in SODIUM CHLORIDE 0.9% 50 ML IV PRN ×2 (09:04)
[2019-03-21] MEDS: OXYCODONE HCL IR 5 MG TAB (IMMEDIATE RELEASE) PO PRN ×2 (09:53→17:28)
[2019-03-21] MEDS: diazePAM 5 MG TABLET PO PRN (10:31)
--- NOTE | 2019-03-21 15:59 | Hospitalist Progress Note ---
Date of Service March 21, 2019 Assessment & Plan (1) Complicated UTI (urinary tract infection): Has neurogenic bladder with Castillo catheter in situ Noted to have UTI secondary to E. coli on Saturday and has been on oral Levaquin Urine examination is seems to be improving We will continue Levaquin intravenously for now and await further culture and sensitivity We will continue cautious amount of intravenous fluid Blood cultures have been negative Urine culture is growing pansensitive E. coli We will continue Levaquin intravenously and on discharge oral Levaquin to continue for about 7 to 10 days in total No more symptoms of infection Remains afebrile and white count remains normal We will continue current antibiotic (2) Abdominal pain: Has been complaining of more abdominal pain for the last 2 days Questionable interaction with Zanaflex and quinolones No evidence of intestinal obstruction but has ileus We will hold Zanaflex Clears orally Denies any more abdominal pain and will advance the diet as tolerated No acute tenderness/rebound tenderness or guarding (3) Spinal cord injury, C5-C7: History of spinal cord injury following a fall in July of this year Quadriplegic since then Requires help in ADL S (4) Tetraplegia: As above (5) Depression: Has significant depression Has been on multiple medications for that Possible gabapentin withdrawal She was on high-dose of gabapentin before which was discontinued recently and was started with light Lyrica 50 mg 3 times daily We will continue Lyrica for now She was on baclofen 10 mg 3 times daily before which has been changed to Zanaflex 4 mg twice daily Zanaflex has an interaction with quinolones Will hold Zanaflex as long as she will be on quinolones for UTI Continue with benzodiazepines as muscle relaxant DVT prophylaxis Subcu heparin CODE STATUS Full Clinically much better today We will continue current medications and physical therapy Likely be discharged on Saturday Physical therapy is not going to be helpful Subjective 03/20 The patient was seen and examined in medical telemetry unit She has had some fever last night but since then remains afebrile She has been feeling little bit better Denies any significant symptoms this morning 03/21 The patient was seen and examined in the medical telemetry unit She has been stable without any acute symptoms She has quadriplegia Any acute distress Review of Systems Gastrointestinal: + abdominal pain (Lower quadrant and hypogastrium), + bloating and + nausea; no vomiting Genitourinary: + pelvic pain Physical Exam Physical Exam: Lying in bed comfortably Constitutional: + ill appearing and + thin; no acute distress Eyes: PERRL, conjunctivae normal, anicteric sclerae ENMT: external ear and nose normal, oropharynx normal Neck: trachea midline, no thyromegaly Respiratory: normal respiratory effort; no respiratory distress Auscultation: lungs clear to auscultation bilaterally Cardiovascular: Rate/Rhythm: regular rate and regular rhythm Heart Sounds: + murmur (2/6 systolic murmur in precordium) Gastrointestinal (Abdomen): Inspection/Auscultation: abdomen normal to inspection and normal bowel sounds; abdomen not distended Percussion/Palpation: + abdomen tender (Mildly tender) and abdomen soft; no guarding and abdomen not rigid Neurologic: Has quadriplegia. Some movement of the upper extremities especially the forearm but no movement at [place] in the lower extremities. Bedbound Lymphatic: no cervical or axillary lymphadenopathy Results & Data Vital Signs (Past 12 Hours) Vital Signs Temp Pulse Pulse Resp BP Pulse Ox 03/21/19 15:34 36.9 C 79 18 89/60 L 97 03/21/19 15:08 77 03/21/19 11:37 36.4 C L 77 16 96/66 L 97 03/21/19 09:00 67 03/21/19 07:16 36.4 C L 71 16 104/69 98 Medications Administered Current Inpatient Medications Acetaminophen (Tylenol) 650 mg PO Q6H PRN PRN Reason: Fever Stop: 04/18/19 21:40 Last Admin: 03/19/19 21:59 Dose: 650 mg Documented by: Bupropion HCl (Wellbutrin-Sr) 150 mg PO BID [facility] Stop: 04/18/19 10:43 Last Admin: 03/21/19 08:25 Dose: 150 mg Documented by: Diazepam (Valium) 5 mg PO Q8H PRN PRN Reason: Anxiety Stop: 04/18/19 10:43 Last Admin: 03/21/19 10:31 Dose: 5 mg Documented by: Escitalopram Oxalate (Lexapro Tab) 10 mg PO QAM [facility] Stop: 04/18/19 10:43 Last Admin: 03/21/19 08:26 Dose: 10 mg Documented by: Fluticasone Propionate (Flonase) 1 sprays NA QAM [facility] Stop: 04/18/19 10:43 Last Admin: 03/21/19 08:26 Dose: 1 sprays Documented by: Folic Acid (Folvite) 1 mg PO QAM [facility] Stop: 04/18/19 10:43 Last Admin: 03/21/19 08:25 Dose: 1 mg Documented by: Heparin Sodium (Porcine) (Heparin Sodium (Porcine)) 5,000 units SQ Q12 [facility] Stop: 04/18/19 11:59 Last Admin: 03/21/19 08:28 Dose: 5,000 units Documented by: Hydromorphone HCl (Dilaudid) 0.5 mg IV Q6H PRN PRN Reason: Pain Stop: 04/02/19 09:32 Last Admin: 03/21/19 08:46 Dose: 0.5 mg Documented by: Promethazine HCl 12.5 mg/ (Sodium Chloride) 50.5 mls @ 202 mls/hr IV Q6H PRN PRN Reason: Nausea And Vomiting Stop: 04/18/19 22:10 Last Infusion: 03/21/19 09:35 Dose: Infused Documented by: Levofloxacin/Dextrose (Levaquin/D5w) 750 mg in 150 mls @ 100 mls/hr IV Q24H [facility]; Protocol Stop: 03/28/19 10:29 Last Infusion: 03/21/19 10:07 Dose: Infused Documented by: Methadone HCl (Dolophine) 10 mg PO BID [facility] Stop: 04/02/19 20:59 Last Admin: 03/21/19 08:28 Dose: 10 mg Documented by: Midodrine (Proamatine) 10 mg PO BID [facility] Stop: 04/18/19 10:43 Last Admin: 03/21/19 08:25 Dose: 10 mg Documented by: Naloxone HCl (Narcan) 0.1 mg IV Q5M PRN; Protocol PRN Reason: Oversedation/Resp Depression Stop: 04/02/19 11:10 Nystatin (Mycostatin) 1 appln EXT BID PRN PRN Reason: Skin Irritation Stop: 04/18/19 10:43 Oxybutynin Chloride (Ditropan Xl) 10 mg PO DAILY [facility] Stop: 04/18/19 10:43 Last Admin: 03/21/19 08:26 Dose: 10 mg Documented by: Oxycodone HCl (Roxicodone Immediate Rel) 5 mg PO Q4H PRN PRN Reason: Pain Stop: 04/02/19 11:16 Last Admin: 03/21/19 09:53 Dose: 5 mg Documented by: Phenazopyridine HCl (Pyridium) 100 mg PO TID PRN PRN Reason: Bladder pain Stop: 04/18/19 14:28 Last Admin: 03/20/19 12:01 Dose: 100 mg Documented by: Polyethylene Glycol (Miralax Powder Packet) 17 gm PO DAILY PRN PRN Reason: Constipation Stop: 04/19/19 03:24 Last Admin: 03/20/19 04:34 Dose: 17 gm Documented by: Pregabalin (Lyrica) 50 mg PO TID [facility] Stop: 04/18/19 10:43 Last Admin: 03/21/19 13:07 Dose: 50 mg Documented by: Senna/Docusate Sodium (Senokot S) 1 tab PO QAM [facility] Stop: 04/19/19 08:59 Last Admin: 03/21/19 08:26 Dose: 1 tab Documented by: (1) Abdominal pain Abdominal location: unspecified location Qualified Code(s): R10.9 - Unspecified abdominal pain (2) Spinal cord injury, C5-C7 Encounter type: sequela Qualified Code(s): S14.105S - Unspecified injury at C5 level of cervical spinal cord, sequela
[2019-03-21] MEDS: DICYCLOMINE HCL 10 MG CAP PO PRN (17:43)
[2019-03-22] MEDS ORDERED: SOD PHOSPHATE/SOD BIPHOSPHATE ENEMA 132 ML BTL PR STA (00:02)
[2019-03-22] MEDS: DICYCLOMINE HCL 10 MG CAP PO PRN ×2 (01:05→07:52)
[2019-03-22] MEDS: PROMETHAZINE HCL 12.5 MG in SODIUM CHLORIDE 0.9% 50 ML IV PRN ×2 (01:05→19:25)
[2019-03-22] MEDS: OXYCODONE HCL IR 5 MG TAB (IMMEDIATE RELEASE) PO PRN (02:53)
[2019-03-22 07:42] LABS: Hematocrit (blood only) 29.8 % (37-47); Hemoglobin 9.7 g/dL (12.0-16.0); Mean Corpuscular Hemoglobin 32.4 pg (25-34); Mean Corpuscular Hgb Conc 32.6 g/dL (32-36); Mean Corpuscular Volume 99.7 fL (80-100); Mean Platelet Volume 9.8 fL (7.4-10.4); Platelet Count 174 K/uL (130-400); RDW Coefficient of Variation 15.6 % (11.5-14.5); RDW Standard Deviation 57.1 fL (36.4-46.3); Red Blood Count 2.99 M/uL (4.2-5.4); White Blood Count 6.88 K/uL (4.8-10.8)
[2019-03-22] MEDS: FOLIC ACID 1 MG TAB PO SCH (07:49)
[2019-03-22] MEDS: BuPROPion SR 150 MG TABCR PO SCH ×2 (07:49→20:57)
[2019-03-22] MEDS: OXYBUTYNIN CHLORIDE XL 5 MG TABCR PO SCH (07:50)
[2019-03-22] MEDS: ESCITALOPRAM OXALATE 10 MG TAB PO SCH (07:50)
[2019-03-22] MEDS: HEPARIN SOD 5,000 UNIT/0.5 ML VIAL SQ SCH ×2 (07:50→21:00)
[2019-03-22] MEDS: PREGABALIN 50 MG CAP PO SCH ×3 (07:50→20:57)
[2019-03-22] MEDS: MIDODRINE HCL 10 MG TAB PO SCH ×2 (07:51→20:57)
[2019-03-22] MEDS: DOCUSATE SODIUM/SENNA 50/8.6MG TAB PO SCH (07:51)
[2019-03-22] MEDS: ACETAMINOPHEN 325 MG TAB PO PRN (07:52)
[2019-03-22] MEDS: FLUTICASONE PROPIONATE NA SPR 16 GM BTL SCH (07:52)
[2019-03-22] MEDS: HYDROmorphone INJ 0.5 MG/0.5 ML SYR IV PRN ×2 (07:57→18:00)
[2019-03-22] MEDS: METHADONE HCL 10 MG TAB PO SCH ×2 (07:57→20:57)
[2019-03-22] MEDS: LEVOFLOXACIN/D5W 750 MG/150 ML BAG IV SCH (08:02)
--- NOTE | 2019-03-22 11:58 | Hospitalist Progress Note ---
Date of Service March 22, 2019 Assessment & Plan (1) Complicated UTI (urinary tract infection): Has neurogenic bladder with Castillo catheter in situ Noted to have UTI secondary to E. coli on Saturday and has been on oral Levaquin Urine examination is seems to be improving We will continue Levaquin intravenously for now and await further culture and sensitivity We will continue cautious amount of intravenous fluid Blood cultures have been negative Urine culture is growing pansensitive E. coli We will continue Levaquin intravenously and on discharge oral Levaquin to continue for about 7 to 10 days in total No more symptoms of infection Remains afebrile and white count remains normal Back to her baseline without any symptoms (2) Abdominal pain: Has been complaining of more abdominal pain for the last 2 days Questionable interaction with Zanaflex and quinolones No evidence of intestinal obstruction but has ileus We will hold Zanaflex Clears orally Denies any more abdominal pain and will advance the diet as tolerated No acute tenderness/rebound tenderness or guarding Abdominal pain is reasonably controlled with use of pain tail (3) Spinal cord injury, C5-C7: History of spinal cord injury following a fall in July of this year Quadriplegic since then Requires help in ADL S (4) Tetraplegia: As above (5) Depression: Has significant depression Has been on multiple medications for that Possible gabapentin withdrawal She was on high-dose of gabapentin before which was discontinued recently and was started with light Lyrica 50 mg 3 times daily We will continue Lyrica for now She was on baclofen 10 mg 3 times daily before which has been changed to Zanaflex 4 mg twice daily Zanaflex has an interaction with quinolones Will hold Zanaflex as long as she will be on quinolones for UTI Continue with benzodiazepines as muscle relaxant DVT prophylaxis Subcu heparin CODE STATUS Full Clinically much better today We will continue current medications and physical therapy Likely be discharged on Saturday Physical therapy is not going to be helpful Likely discharge tomorrow Subjective 03/20 The patient was seen and examined in medical telemetry unit She has had some fever last night but since then remains afebrile She has been feeling little bit better Denies any significant symptoms this morning 03/21 The patient was seen and examined in the medical telemetry unit She has been stable without any acute symptoms She has quadriplegia Any acute distress 03/22 The patient was seen and examined in medical telemetry unit Her abdominal pain is much better with the use of Bentyl She is quadriplegic and denies any other symptoms No fever and/or chills Review of Systems Review of Systems: All systems reviewed and are unremarkable except as noted below Gastrointestinal: no abdominal pain, no bloating, no nausea and no vomiting Genitourinary: + pelvic pain Physical Exam Physical Exam: Lying in bed comfortably Constitutional: + thin; no acute distress Eyes: PERRL, conjunctivae normal, anicteric sclerae ENMT: external ear and nose normal, oropharynx normal Neck: trachea midline, no thyromegaly Respiratory: normal respiratory effort; no respiratory distress Auscultation: lungs clear to auscultation bilaterally Cardiovascular: Rate/Rhythm: regular rate and regular rhythm Heart Sounds: + murmur (2/6 systolic murmur in precordium) Gastrointestinal (Abdomen): Inspection/Auscultation: abdomen normal to inspection and normal bowel sounds; abdomen not distended Percussion/Palpation: + abdomen tender (Mildly tender) and abdomen soft; no guarding and abdomen not rigid Musculoskeletal: No acute arthritis involving any of the joints Neurologic: She is quadriplegic. No movements at all in the lower extremities and soft movement in the upper extremities Lymphatic: no cervical or axillary lymphadenopathy Results & Data Vital Signs (Past 12 Hours) Vital Signs Temp Pulse Pulse Resp BP BP Pulse Ox 03/22/19 09:48 37.3 C 86 03/22/19 07:47 38.5 C H 90 18 96/62 L 96 03/22/19 03:20 37.2 C 90 19 91/58 L 96 03/22/19 01:34 77 Laboratory Results Short CBC 03/22/19 Range/Units 07:17 WBC 6.88 (4.8-10.8) K/uL Hgb 9.7 L (12.0-16.0) g/dL Hct 29.8 L (37-47) % Plt Count 174 (130-400) K/uL Medications Administered Current Inpatient Medications Acetaminophen (Tylenol) 650 mg PO Q6H PRN PRN Reason: Fever Stop: 04/18/19 21:40 Last Admin: 03/22/19 07:52 Dose: 650 mg Documented by: Bupropion HCl (Wellbutrin-Sr) 150 mg PO BID [facility]AR[facility] Stop: 04/18/19 10:43 Last Admin: 03/22/19 07:49 Dose: 150 mg Documented by: Diazepam (Valium) 5 mg PO Q8H PRN PRN Reason: Anxiety Stop: 04/18/19 10:43 Last Admin: 03/21/19 10:31 Dose: 5 mg Documented by: Dicyclomine HCl (Bentyl) 10 mg PO Q6H PRN PRN Reason: Cramping Stop: 04/20/19 17:29 Last Admin: 03/22/19 07:52 Dose: 10 mg Documented by: Escitalopram Oxalate (Lexapro Tab) 10 mg PO [facility] Stop: 04/18/19 10:43 Last Admin: 03/22/19 07:50 Dose: 10 mg Documented by: Fluticasone Propionate (Flonase) 1 sprays NA [facility] Stop: 04/18/19 10:43 Last Admin: 03/22/19 07:52 Dose: 1 sprays Documented by: Folic Acid (Folvite) 1 mg PO [facility] Stop: 04/18/19 10:43 Last Admin: 03/22/19 07:49 Dose: 1 mg Documented by: Heparin Sodium (Porcine) (Heparin Sodium (Porcine)) 5,000 units SQ Q12 [facility] Stop: 04/18/19 11:59 Last Admin: 03/22/19 07:50 Dose: 5,000 units Documented by: Hydromorphone HCl (Dilaudid) 0.5 mg IV Q6H PRN PRN Reason: Pain Stop: 04/02/19 09:32 Last Admin: 03/22/19 07:57 Dose: 0.5 mg Documented by: Promethazine HCl 12.5 mg/ (Sodium Chloride) 50.5 mls @ 202 mls/hr IV Q6H PRN PRN Reason: Nausea And Vomiting Stop: 04/18/19 22:10 Last Infusion: 03/22/19 01:27 Dose: Infused Documented by: Levofloxacin/Dextrose (Levaquin/D5w) 750 mg in 150 mls @ 100 mls/hr IV Q24H [facility]; Protocol Stop: 03/28/19 10:29 Last Infusion: 03/22/19 09:45 Dose: Infused Documented by: Methadone HCl (Dolophine) 10 mg PO BID [facility] Stop: 04/02/19 20:59 Last Admin: 03/22/19 07:57 Dose: 10 mg Documented by: Midodrine (Proamatine) 10 mg PO BID [facility] Stop: 04/18/19 10:43 Last Admin: 03/22/19 07:51 Dose: 10 mg Documented by: Naloxone HCl (Narcan) 0.1 mg IV Q5M PRN; Protocol PRN Reason: Oversedation/Resp Depression Stop: 04/02/19 11:10 Nystatin (Mycostatin) 1 appln EXT BID PRN PRN Reason: Skin Irritation Stop: 04/18/19 10:43 Oxybutynin Chloride (Ditropan Xl) 10 mg PO DAILY [facility] Stop: 04/18/19 10:43 Last Admin: 03/22/19 07:50 Dose: 10 mg Documented by: Oxycodone HCl (Roxicodone Immediate Rel) 5 mg PO Q4H PRN PRN Reason: Pain Stop: 04/02/19 11:16 Last Admin: 03/22/19 02:53 Dose: 5 mg Documented by: Phenazopyridine HCl (Pyridium) 100 mg PO TID PRN PRN Reason: Bladder pain Stop: 04/18/19 14:28 Last Admin: 03/20/19 12:01 Dose: 100 mg Documented by: Polyethylene Glycol (Miralax Powder Packet) 17 gm PO DAILY PRN PRN Reason: Constipation Stop: 04/19/19 03:24 Last Admin: 03/20/19 04:34 Dose: 17 gm Documented by: Pregabalin (Lyrica) 50 mg PO TID [facility] Stop: 04/18/19 10:43 Last Admin: 03/22/19 07:50 Dose: 50 mg Documented by: Senna/Docusate Sodium (Senokot S) 1 tab PO QAM [facility] Stop: 04/19/19 08:59 Last Admin: 03/22/19 07:51 Dose: 1 tab Documented by: (1) Abdominal pain Abdominal location: unspecified location Qualified Code(s): R10.9 - Unspecified abdominal pain (2) Spinal cord injury, C5-C7 Encounter type: sequela Qualified Code(s): S14.105S - Unspecified injury at C5 level of cervical spinal cord, sequela
[2019-03-23] MEDS: HYDROmorphone INJ 0.5 MG/0.5 ML SYR IV PRN (06:49)
[2019-03-23 06:59] LABS: Basophils # (auto) 0.01 K/uL (0-0.2); Basophils % (auto) 0.2 %; Eosinophils # (auto) 0.12 K/uL (0-0.5); Eosinophils % (auto) 2.1 %; Hematocrit (blood only) 30.7 % (37-47); Hemoglobin 10.1 g/dL (12.0-16.0); Immature Granulocytes # (auto) 0.03 K/uL (0.00-0.02); Immature Granulocytes % (auto) 0.5 %; Lymphocytes % (auto) 49.5 %; Mean Corpuscular Hemoglobin 32.5 pg (25-34); Mean Corpuscular Hgb Conc 32.9 g/dL (32-36); Mean Corpuscular Volume 98.7 fL (80-100); Mean Platelet Volume 9.8 fL (7.4-10.4); Monocytes # (auto) 0.29 K/uL (0.11-0.59); Monocytes % (auto) 5.1 %; Neutrophils # (auto) 2.41 K/uL (1.4-6.5); Neutrophils % (auto) 42.6 %; Platelet Count 158 K/uL (130-400); RDW Coefficient of Variation 15.4 % (11.5-14.5); RDW Standard Deviation 55.5 fL (36.4-46.3); Red Blood Count 3.11 M/uL (4.2-5.4); White Blood Count 5.66 K/uL (4.8-10.8)
[2019-03-23 07:44] LABS: BUN Creatinine Ratio 15.9 (10-20); Blood Urea Nitrogen 4 mg/dl (7-18); Calcium 7.9 mg/dl (8.5-10.1); Carbon Dioxide 26 mmol/L (21-32); Chloride 110 mmol/L (98-107); Creatinine Clr Calc Pharmacy 309.2 ml/min; Est GFR (African American) > 150.0; Est GFR (Non-African American) > 150.0; Glucose 81 mg/dl (70-99); Potassium 3.1 mmol/L (3.5-5.1); Sodium 140 mmol/L (136-145)
[2019-03-23] MEDS ORDERED: POTASSIUM CHLORIDE 20 MEQ TABCR PO STA (08:10)
[2019-03-23] MEDS: PREGABALIN 50 MG CAP PO SCH ×2 (08:50→14:19)
[2019-03-23] MEDS: FOLIC ACID 1 MG TAB PO SCH (08:51)
[2019-03-23] MEDS: DOCUSATE SODIUM/SENNA 50/8.6MG TAB PO SCH (08:51)
[2019-03-23] MEDS: OXYBUTYNIN CHLORIDE XL 5 MG TABCR PO SCH (08:51)
[2019-03-23] MEDS: ESCITALOPRAM OXALATE 10 MG TAB PO SCH (08:51)
[2019-03-23] MEDS: MIDODRINE HCL 10 MG TAB PO SCH (08:51)
[2019-03-23] MEDS: BuPROPion SR 150 MG TABCR PO SCH (08:51)
[2019-03-23] MEDS: DICYCLOMINE HCL 10 MG CAP PO PRN ×2 (08:52→15:46)
[2019-03-23] MEDS: HEPARIN SOD 5,000 UNIT/0.5 ML VIAL SQ SCH (08:52)
[2019-03-23] MEDS: FLUTICASONE PROPIONATE NA SPR 16 GM BTL SCH (08:53)
[2019-03-23] MEDS: LEVOFLOXACIN/D5W 750 MG/150 ML BAG IV SCH (08:53)
[2019-03-23] MEDS: METHADONE HCL 10 MG TAB PO SCH (08:58)
--- NOTE | 2019-03-23 11:48 | Hospitalist Progress Note ---
Date of Service March 23, 2019 Assessment & Plan (1) Complicated UTI (urinary tract infection): Has neurogenic bladder with Castillo catheter in situ Noted to have UTI secondary to E. coli on Saturday and has been on oral Levaquin Urine examination is seems to be improving We will continue Levaquin intravenously for now and await further culture and sensitivity We will continue cautious amount of intravenous fluid Blood cultures have been negative Urine culture is growing pansensitive E. coli We will continue Levaquin intravenously and on discharge oral Levaquin to continue for about 7 to 10 days in total No more symptoms of infection Remains afebrile and white count remains normal Back to her baseline without any symptoms Presented with the suspected sepsis and noted to have UTI secondary to indwelling Castillo catheter POA Blood cultures were negative Urine culture grew E. coli which was pansensitive Patient will be discharged home on oral Levaquin. (2) Abdominal pain: Has been complaining of more abdominal pain for the last 2 days Questionable interaction with Zanaflex and quinolones No evidence of intestinal obstruction but has ileus We will hold Zanaflex Clears orally Denies any more abdominal pain and will advance the diet as tolerated No acute tenderness/rebound tenderness or guarding Abdominal pain is reasonably controlled with use of pain Abdominal pain is controlled with oral Bentyl (3) Spinal cord injury, C5-C7: History of spinal cord injury following a fall in July of this year Quadriplegic since then Requires help in ADL S (4) Tetraplegia: As above (5) Depression: Has significant depression Has been on multiple medications for that Possible gabapentin withdrawal She was on high-dose of gabapentin before which was discontinued recently and was started with light Lyrica 50 mg 3 times daily We will continue Lyrica for now She was on baclofen 10 mg 3 times daily before which has been changed to Zanaflex 4 mg twice daily Zanaflex has an interaction with quinolones Will hold Zanaflex as long as she will be on quinolones for UTI Continue with benzodiazepines as muscle relaxant Zanaflex will be discontinued DVT prophylaxis Subcu heparin CODE STATUS Full Clinically much better today Discussed with sister Patient has been stable Will be discharged home this afternoon Review of Systems Review of Systems: All systems reviewed and are unremarkable except as noted below Genitourinary: + pelvic pain Physical Exam Constitutional: + thin; no acute distress Eyes: PERRL, conjunctivae normal, anicteric sclerae ENMT: external ear and nose normal, oropharynx normal Neck: trachea midline, no thyromegaly Respiratory: normal respiratory effort; no respiratory distress Auscultation: lungs clear to auscultation bilaterally Cardiovascular: Rate/Rhythm: regular rate and regular rhythm Heart Sounds: + murmur (2/6 systolic murmur in precordium) Gastrointestinal (Abdomen): Inspection/Auscultation: abdomen normal to inspection and normal bowel sounds; abdomen not distended Percussion/Palpation: + abdomen tender (Mildly tender) and abdomen soft; no guarding and abdomen not rigid Lymphatic: no cervical or axillary lymphadenopathy Results & Data Vital Signs (Past 12 Hours) Vital Signs Temp Pulse Pulse Resp BP BP Pulse Ox 03/23/19 07:40 36.5 C 69 18 93/61 L 95 03/23/19 07:27 64 03/23/19 03:22 36.8 C 80 18 120/83 97 03/22/19 23:58 67 (1) Abdominal pain Abdominal location: unspecified location Qualified Code(s): R10.9 - Unspecified abdominal pain (2) Spinal cord injury, C5-C7 Encounter type: sequela Qualified Code(s): S14.105S - Unspecified injury at C5 level of cervical spinal cord, sequela
[2019-03-23] MEDS: OXYCODONE HCL IR 5 MG TAB (IMMEDIATE RELEASE) PO PRN (12:22)
[2019-03-23] MEDS: diazePAM 5 MG TABLET PO PRN (15:46)
[2019-03-23 15:52] LABS: 7-Aminoclonaz, Confirm NEGATIVE NG/ML (CUTOFF=25); Codeine Urine NEGATIVE NG/ML (CUTOFF=50); Hydro-Alp Ur, GC/MS NEGATIVE NG/ML (CUTOFF=25); Hydrocodone Urine NEGATIVE NG/ML (CUTOFF=50); Hydromor Urine 79 NG/ML (CUTOFF=50); Hydroxyethylflurazepam, Conf NEGATIVE NG/ML (CUTOFF=50); Hydroxytriazolam NEGATIVE NG/ML (CUTOFF=50); Lorazepam, Ur GC/MS NEGATIVE NG/ML (CUTOFF=50); Methadone, Ur Metabolite 801 NG/ML (CUTOFF=100); Morphine Urine NEGATIVE NG/ML (CUTOFF=50); Nordiazepam, Confirm 427 NG/ML (CUTOFF=50); Norhydrocodone Conf Ur NEGATIVE NG/ML (CUTOFF=50); Noroxycodone Urine 1540 NG/ML (CUTOFF=50); Oxazepam Ur, GC/MS 267 NG/ML (CUTOFF=50); Oxycodone Urine 377 NG/ML (CUTOFF=50); Oxymorph Urine NEGATIVE NG/ML (CUTOFF=50); Temazepam, Confirm 371 NG/ML (CUTOFF=50)
--- NOTE | 2019-03-23 18:28 | Discharge Summary ---
Date of Service March 23, 2019 Admission HPI Per Admitting Provider She is a 33-year-old female with significant past medical history of spinal cord injury, C5-C7 following a fall in July of this year and having quadriplegia since then, history of mitral valve prolapse and depression, neurogenic bladder with in situ Castillo, hypothyroidism and history of migraine apparently was in the ER on Saturday last with abdominal discomfort and noted to have UTI. She was given oral Levaquin and was sent home. Apparently she was seen by the neurologist and was given Zanaflex in place of baclofen and Lyrica in place of gabapentin for her chronic condition requiring those medications. She has recently started taking these medications and feels that she has been having more abdominal discomfort and pain with nausea since she has been taking the new medications. She denies any vomiting and she feels feverish with chills at times. She denies any distention of the abdomen. She denies any new symptoms regarding her quadriplegia and/or any new neurological symptoms. CT scan of the abdomen and pelvis on Saturday showed possible cystitis and UA was suggestive of infection which grew E. coli which is pansensitive. Chest x-ray negative and x-ray of the abdomen did show possible ileus but no obstruction. She was noted to be tachycardic with fever in the emergency room. She has started with intravenous Levaquin and she will be admitted to medical floor for continuation of care. Admission Exam Per Admitting Provider Physical Exam: Lying in bed with distress due to abdominal discomfort Constitutional: + acute distress, + ill appearing and + thin Eyes: PERRL, conjunctivae normal, anicteric sclerae ENMT: external ear and nose normal, oropharynx normal Neck: trachea midline, no thyromegaly Respiratory: normal respiratory effort; no respiratory distress Auscultation: lungs clear to auscultation bilaterally Cardiovascular: Rate/Rhythm: regular rate and regular rhythm Heart Sounds: + murmur (2/6 systolic murmur in precordium) Gastrointestinal (Abdomen): Inspection/Auscultation: abdomen normal to inspection and normal bowel sounds; abdomen not distended Percussion/Palpation: + abdomen tender (Mildly tender) and abdomen soft; no guarding and abdomen not rigid Musculoskeletal: No acute arthritis in any of the joints Neurologic: Alert, awake and oriented x3. She is quadriplegic. No sensation and/or power in lower extremities. Minimal power in the upper extremities no problem with swallowing. And her speech Lymphatic: no cervical or axillary lymphadenopathy Principal Diagnosis Complicated UTI, quadriplegia secondary to spinal cord injury C5-C7 Discharge Exam Constitutional + thin; no acute distress Eyes PERRL, conjunctivae normal, anicteric sclerae ENMT external ear and nose normal, oropharynx normal Neck trachea midline, no thyromegaly Respiratory normal respiratory effort; no respiratory distress Auscultation: lungs clear to auscultation bilaterally Cardiovascular Rate/Rhythm: regular rate and regular rhythm Heart Sounds: + murmur (2/6 systolic murmur in precordium) Gastrointestinal (Abdomen) Inspection/Auscultation: abdomen normal to inspection and normal bowel sounds; abdomen not distended Percussion/Palpation: + abdomen tender (Mildly tender) and abdomen soft; no guarding and abdomen not rigid Lymphatic no cervical or axillary lymphadenopathy Discharge Data Allergies Allergy/AdvReac Type Severity Reaction Status Date / Time Cephalosporins Allergy Mild . Verified 03/19/19 07:41 prochlorperazine Allergy Mild . Verified 03/19/19 07:41 Sulfa (Sulfonamide Allergy Mild . Verified 03/19/19 07:41 Antibiotics) latex AdvReac Mild . Verified 03/19/19 07:41 Hospital Course (1) Complicated UTI (urinary tract infection): Has neurogenic bladder with Castillo catheter in situ Noted to have UTI secondary to E. coli on Saturday and has been on oral Levaquin Urine examination is seems to be improving We will continue Levaquin intravenously for now and await further culture and sensitivity We will continue cautious amount of intravenous fluid Blood cultures have been negative Urine culture is growing pansensitive E. coli We will continue Levaquin intravenously and on discharge oral Levaquin to continue for about 7 to 10 days in total No more symptoms of infection Remains afebrile and white count remains normal Back to her baseline without any symptoms Presented with the suspected sepsis and noted to have UTI secondary to indwelling Castillo catheter POA Blood cultures were negative Urine culture grew E. coli which was pansensitive Patient will be discharged home on oral Levaquin. (2) Abdominal pain: Has been complaining of more abdominal pain for the last 2 days Questionable interaction with Zanaflex and quinolones No evidence of intestinal obstruction but has ileus We will hold Zanaflex Clears orally Denies any more abdominal pain and will advance the diet as tolerated No acute tenderness/rebound tenderness or guarding Abdominal pain is reasonably controlled with use of pain Abdominal pain is controlled with oral Bentyl (3) Spinal cord injury, C5-C7: History of spinal cord injury following a fall in July of this year Quadriplegic since then Requires help in ADL S (4) Tetraplegia: As above (5) Depression: Has significant depression Has been on multiple medications for that Possible gabapentin withdrawal She was on high-dose of gabapentin before which was discontinued recently and was started with light Lyrica 50 mg 3 times daily We will continue Lyrica for now She was on baclofen 10 mg 3 times daily before which has been changed to Zanaflex 4 mg twice daily Zanaflex has an interaction with quinolones Will hold Zanaflex as long as she will be on quinolones for UTI Continue with benzodiazepines as muscle relaxant Zanaflex will be discontinued DVT prophylaxis Subcu heparin CODE STATUS Full Clinically much better today Discussed with sister Patient has been stable Will be discharged home this afternoon Total Time Total Time Spent Total Time Spent (In Minutes): 40 minutes Total Time Includes: Examination of the Patient, Discharge Planning, Medication Reconciliation and Communication With Other Providers Discharge Plan Discharge Items Patient Disposition: Home - Home Health Services Reason For Visit: COMPLICATED UTI-FAILED OP THERAPY Discharge Diagnosis: Complicated UTI, quadriplegia secondary to spinal cord injury C5-C7 Condition on Discharge: Fair Activity: Resume your previous activity Non-emergency contact: Primary Care Provider Call non-emergency contact if: you have any medication questions and your symptoms worsen Follow-up/Referrals: Ashley Arzola MD [Primary Care Provider] - 03/27/19 11:40 am Diet: Regular Addtl Attending Provider Instructions: Please take all the precaution to avoid falls. Pending Studies at Discharge: No Stand-Alone Forms: Call Back Authorization, [facility] [employer], Smoking Cessation Medications and DC Order Prescriptions: New dicyclomine 10 mg Capsule 10 mg PO Q6H PRN (Reason: spasms) 30 Days Qty: 60 RF: 0 phenazopyridine [Pyridium] 100 mg Tablet 100 mg PO TID PRN (Reason: pain) 3 Days Qty: 9 RF: 0 promethazine 12.5 mg tablet 12.5 mg PO Q6H PRN (Reason: allergy symptoms) Qty: 30 RF: 0 Continued bupropion HCl 150 mg tablet sustained-release 12 hr 150 mg PO BID RF: 0 sennosides [Senokot] 8.6 mg Tablet 17.2 mg PO QAM RF: 0 oxybutynin chloride 10 mg tablet extended release 24hr 10 mg PO DAILY RF: 0 pregabalin 50 mg capsule 50 mg PO TID RF: 0 levofloxacin [Levaquin] 500 mg tablet 500 mg PO DAILY 10 Days Qty: 10 RF: 0 acetaminophen [Tylenol] 325 mg Tablet 975 mg PO TID RF: 0 ondansetron HCl 4 mg tablet 4 mg PO Q8H PRN (Reason: Nausea And Vomiting) RF: 0 folic acid 1 mg Tablet 1 mg PO QAM RF: 0 nystatin 100,000 unit/gram powder 1 applic topical BID PRN (Reason: Skin Irritation) RF: 0 methadone 5 mg tablet 5 mg PO BID RF: 0 fluticasone propionate 50 mcg/actuation spray,suspension 1 spray intranasal QAM RF: 0 diazepam 5 mg tablet 5 mg PO Q8H PRN (Reason: Anxiety) RF: 0 oxycodone 5 mg tablet 5 mg PO Q4H PRN (Reason: Pain) RF: 0 midodrine 10 mg tablet 10 mg PO BID RF: 0 escitalopram oxalate 10 mg tablet 10 mg PO QAM RF: 0 Narcan 4 mg/actuation spray,non-aerosol 1 - 2 spray intranasal UD PRN (Reason: Opioid Reversal) RF: 0 Discontinued tizanidine 4 mg tablet 4 mg PO BID RF: 0 Discharge Orders: Discharge Order (Routine); Ordered 03/23/19 Ordered By: Kim Irvin Admission Data Admit Date/Time: 03/19/19 08:59 Attending Provider: Kim Irvin Admit Provider: Kim Irvin Primary Care Provider: Ashley Arzola Other Interventions: Discharge Summary Assessment (RN) Last Done: 03/23/19 14:30 DC Date/Time DO NOT enter until pt leaves facility: 03/23/19 16:47
== END 2019-03-23 16:47 | disposition home health service (06) | DRG 698 ==
LOC: ED 07:00 → 2N 08:59

== ENCOUNTER 2019-07-24 11:20 | Inpatient (IN) ==
--- NOTE | 2019-07-24 11:50 | Emergency Department Note ---
Impression & Plan Pneumonia, Rhinovirus infection, Electrolyte abnormality ED Provider Note CHIEF COMPLAINT: Cough, fever, hypoxia HISTORY OF PRESENTING ILLNESS: This is a 33-year-old female with past medical h istory significant for quadriplegia who presents to the emergency department via EMS with complaint of cough, fever, and hypoxia. Patient states that she started with a runny nose 1 week ago that progressed to a dry mouth and cough. She states that the cough is mostly nonproductive although she has coughed up some clear mucus. She has home health nursing and caregivers coming into her home daily to help care for her. She states that she was started on Augmentin 2 days ago for suspected pneumonia, she has had 4 doses so far. She states yesterday and today she has had low-grade fevers with a temperature up to 99.7. Today she was found to have hypoxia with pulse ox ranging 84-88%, and was sent to the emergency department for further evaluation. She denies shortness of breath. Patient denies any recent travel and has not left her home in the past 3 months. She denies any known contact with any sick persons or anyone confirmed to have COVID-19. She denies any history of lung disease or previous pneumonia. She is a former smoker, noting that she quit 7 months ago. She denies any chest pain. She complains of some pain in her neck and shoulders which she states she has often, she rates this a 7/10. She denies any headaches or body aches. She does note a history of urinary tract infections, but does not feel that her urine has been different than normal. She has an indwelling catheter. Denies any nausea, vomiting, diarrhea. Denies any unusual rash. She does note some bedsores on her sacral area for the past few weeks. REVIEW OF SYSTEMS: A complete 10 point review of systems was reviewed with the patient with pertinent positives and negatives as per history of present illness. All else were negative. PAST MEDICAL HISTORY: Quadriplegia, history of oophorectomy SOCIAL HISTORY: Lives at home, she is a former smoker ALLERGIES: Reviewed in chart and with the patient PHYSICAL EXAM: CONSTITUTIONAL: Pleasant and cooperative. Nontoxic-appearing and in no acute distress. Mildly dehydrated, but otherwise well appearing and well nourished. HEENT: Normocephalic, atraumatic. PERRL, EOMI. Tacky mucous membranes. NECK: Supple, full active range of motion without discomfort. No cervical adenopathy. RESPIRATORY: Diminished throughout with bilateral rhonchi and crackles, no wheezing or stridor. No tachypnea or accessory muscle use. Equal expansion bilaterally. CARDIOVASCULAR: Regular rate and rhythm with no murmurs, rubs or gallops. Normal peripheral perfusion, 2+ distal pulses in all 4 extremities. No edema. GASTROINTESTINAL: Soft, nontender, nondistended. No palpable masses or HSM. Bowel sounds present in all quadrants. MUSCULOSKELETAL: Full range of motion of all joints without discomfort. INTEGUMENTARY: No rash or other significant dermatologic conditions noted. NEUROLOGIC: Alert and oriented X 4 with normal affect. Bilateral upper extremit ies with contractures at the elbows and wrists, slight tremor. Some sensation in the upper extremities. Bilateral lower extremities are flaccid and insensate. ED COURSE AND MEDICAL DECISION MAKING: CC: Patient presenting with complaint of cough, fever, hypoxia DIFFERENTIAL DIAGNOSIS: Includes, but not limited to viral URI, bronchitis, pneumonia, influenza, COVID-19, COPD, pulmonary embolism, pneumothorax, ACS, bacteremia/sepsis, among others. INTERPRETATION OF LABS: No leukocytosis, but mildly elevated neutrophils, anemia, normal platelets, mild hyponatremia and hypokalemia, normal renal function, mildly elevated liver enzymes. Serum negative. Mildly elevated coagulation factors. Lactate within normal limits. Negative troponin. Significantly elevated pro calcitonin. UA appears negative for infection. Influenza A/B negative. Bio fire respiratory panel positive for entero- rhinovirus, otherwise negative. IMAGING: XR chest 1V portable CLINICAL HISTORY: Dyspnea, cough, fever cough COMPARISON STUDY: 03/09/2018 FINDINGS: Interval development of bibasilar parenchymal infiltrates. Mild consolidative change medial aspect left base. Pulmonary apices are clear. IMPRESSION: Infiltrates at both lung bases. EKG: Shows normal sinus rhythm with a rate of 76 bpm, poor quality due to muscle tremors, nonspecific T waves in the inferior and lateral leads which appears to be new when compared to previous EKG from 03/19/2019 by my interpretation. MEDICATION RECONCILIATION: I attest that I have personally reviewed the patient's current medication list. INITIAL VITAL SIGNS REVIEW: I reviewed the patient's initial vital signs and interpret them as follows: T: Afebrile; BP: Normotensive; HR: Within normal limits; RR: Within normal limits; Pulse Ox: Within normal limits on 2 L nasal cannula. Blood pressure screening: The patient was found to have normal blood pressure on screening and does not require follow-up for repeat blood pressure check. MDM SUMMARY: Patient was evaluated at bedside, history and physical exam performed. The patient was evaluated in room C5, which is a negative pressure room. The patient was placed on 5 L of oxygen by EMS, she is noted to be 100%, and was weaned to 2 L while I was at bedside, maintaining sats above 95%. Patient denies any shortness of breath or chest pain. Lungs are rhonchitic throughout with crackles, no wheezes or stridor heard. No signs of increased work of breathing. Patient has low-grade fever and cough, but denies shortness of breath. She does not have any travel or known exposure to anyone who has been sick or with confirmed case of COVID-19. Orders were placed at bedside for labs, UA, blood cultures x2, lactate, influenza and bio fire respiratory panel, EKG, chest x-ray to evaluate for cardiopulmonary disease. EKG was reviewed at bedside, noting normal sinus rhythm with nonspecific T wave changes, but no acute ischemia appreciated. 1 L normal saline fluid bolus was ordered for hydration. IV Levaquin was ordered empirically to cover for suspected pneumonia. PO Tylenol was ordered for the patient's neck pain. Patient discussed with Dr. Martin, who agrees with my assessment, plan, and disposition. Labs and imaging reviewed as above, labs are notable for a mild neutrophilia, though no overt leukocytosis or leukopenia. Mildly decreased sodium and potassium levels. Lactate is within normal limits. Procalcitonin is significantly elevated. Negative troponin. Given the patient's complaints of cough and URI symptoms with some low-grade fevers, I suspect this is most likely infectious. I do not have a high suspicion for acute coronary syndrome or PE at this time. Chest x-ray notes bilateral basilar infiltrates. Given the patient's new onset of hypoxia with oxygen requirement in the setting of her cough and low-grade fevers, I did feel that she warranted admission to the hospital. I spoke on the phone with [facility], who agrees to evaluate the patient for admission. Cha joy did request me to speak with Dr. Chance regarding COVID-19 criteria. I spoke with Dr. Chance on the phone, he did not feel the patient warranted testing or isolation for COVID-19 at this time. [facility] Patient reassessed multiple times throughout ED stay, she has remained hemodynamically stable and afebrile, but continues to require oxygen. The patient was updated on all results and plan for admission, she verbalized understanding and was agreeable to this plan. The patient was stable at time of admission. The chart was completed utilizing [employer] voice recognition software. Grammatical errors, random word insertions, pronoun errors, and incomplete se ntences are an occasional consequence of this system due to software limitations, ambient noise, and hardware issues. Any formal questions or concerns about the content, text, or information contained within the body of this dictation should be directly addressed to the nurse practitioner for [place]. 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) Neurogenic bladder (Chronic) Neuropathic pain (Acute) Post-traumatic spasticity (Acute) Recurrent major depressive disorder (Acute) Second degree AV block (Chronic) Sepsis (Acute) Spasm of bowel (Inactive) Spinal cord injury, C5-C7 (Chronic) Tetraplegia (Acute) Transaminitis (Acute) Transaminitis (Acute) Wheelchair dependence (Acute) Surgical History H/O cervical spine surgery (Chronic) [place] [facility] [place] of appendectomy (Chronic) History of cholecystectomy (Chronic) History of oophorectomy History of Abi-en-Y gastric bypass (Chronic) [place] [facility] [place] History Other Diabetes Social History Preferred Language: [place] Communication Ability: Effective 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 Verified 07/24/19 12:47 prochlorperazine Allergy Mild . Verified 07/24/19 12:47 Sulfa (Sulfonamide Allergy Mild . Verified 07/24/19 12:47 Antibiotics) latex AdvReac Mild . Verified 07/24/19 12:47 Home Meds Home Medications Medication Instructions Recorded Confirmed Narcan 1 - 2 spray INTRANASAL UD PRN 10/21/18 07/24/19 acetaminophen [Tylenol] 325 - 650 mg PO TID 10/21/18 07/24/19 diazepam [Valium] 5 mg PO Q8H PRN 10/21/18 07/24/19 escitalopram oxalate 10 mg PO QAM 10/21/18 07/24/19 fluticasone propionate 1 spray INTRANASAL QAM 10/21/18 07/24/19 folic acid 1 mg PO QAM 10/21/18 07/24/19 nystatin 1 applic TOPICAL BID PRN 10/21/18 07/24/19 ondansetron HCl 4 mg PO Q8H PRN 10/21/18 07/24/19 oxycodone 5 mg PO Q4H PRN 10/21/18 07/24/19 bupropion HCl [Wellbutrin SR] 150 mg PO BID 03/17/19 07/24/19 pregabalin [Lyrica] 50 mg PO TID 03/17/19 07/24/19 sennosides [Senokot] 17.2 mg PO QAM 03/17/19 07/24/19 baclofen 10 mg PO TID 04/23/19 07/24/19 cyanocobalamin (vitamin B-12) See Rx Instructions .ROUTE .COMPLEX 04/23/1907/09 levothyroxine [Synthroid] 25 mcg PO DAILY 04/23/19 07/24/19 oxybutynin chloride [Ditropan XL] 10 mg PO DAILY 04/23/19 07/24/19 hydroxyzine HCl 25 mg PO UD PRN 07/24/19 07/24/19 methadone 10 mg PO BID 07/24/19 07/24/19 Results & Data (ED) Vital Signs Vital Signs - 24 hr 07/24/19 11:20 07/24/19 12:00 07/24/19 12:18 Temperature 37.5 C Temperature Source Oral Pulse Rate 80 80 Pulse Rate from SpO2 Sensor Pulse Rhythm Regular Regular Respiratory Rate 18 18 Respiratory Effort / Characteristics Non-Labored Spontaneous Respiratory Depth Normal Respiratory Pattern Regular Blood Pressure 117/93 Blood Pressure Mean 101 Pulse Oximetry 98 98 98 Oxygen Delivery Method Nasal Cannula Nasal Cannula Room Air Oxygen Flow Rate 2 2 2 Sepsis Recent Fever Within 48 Hours No Sepsis New/Unexplained Change in Mental Status No Sepsis Action Taken by Nursing No Action Required 07/24/19 13:00 07/24/19 13:30 07/24/19 14:00 Temperature Temperature Source Pulse Rate 75 72 72 Pulse Rate from SpO2 Sensor 75 72 72 Pulse Rhythm Respiratory Rate 18 19 22 Respiratory Effort / Characteristics Respiratory Depth Respiratory Pattern Blood Pressure 103/62 113/75 120/81 Blood Pressure Mean 81 80 90 Pulse Oximetry 98 100 100 Oxygen Delivery Method Room Air Room Air Nasal Cannula Oxygen Flow Rate 2 Sepsis Recent Fever Within 48 Hours Sepsis New/Unexplained Change in Mental Status Sepsis Action Taken by Nursing Laboratory Data Result diagrams: 07/24/19 12:53 07/24/19 14:21 Lab Results 07/24/19 07/24/19 07/24/19 Range/Units 12:10 12:47 12:53 WBC 10.55 (4.8-10.8) K/uL RBC 3.01 L (4.2-5.4) M/uL Hgb 9.5 L (12.0-16.0) g/dL Hct 29.5 L (37-47) % MCV 98.0 (80-100) fL MCH 31.6 (25-34) pg MCHC 32.2 (32-36) g/dL RDW Std Deviation 44.8 (36.4-46.3) fL RDW Coeff of Van 12.5 (11.5-14.5) % Plt Count 386 (130-400) K/uL MPV 9.2 (7.4-10.4) fL Immature Gran % (Auto) 6.7 % Neut % (Auto) 72.5 % Lymph % (Auto) 14.9 % [place] % (Auto) 5.0 % Eos % (Auto) 0.7 % Baso % (Auto) 0.2 % Immature Gran # (Auto) 0.71 H (0.00-0.02) K/uL Neut # (Auto) 7.65 H (1.4-6.5) K/uL Lymph # (Auto) 1.57 (1.2-3.4) K/uL [place] # (Auto) 0.53 (0.11-0.59) K/uL Eos # (Auto) 0.07 (0-0.5) K/uL Baso # (Auto) 0.02 (0-0.2) K/uL PT INR APTT PTT Ratio Sodium (136-145) mmol/L Potassium (3.5-5.1) mmol/L Chloride (98-107) mmol/L Carbon Dioxide (21-32) mmol/L Anion Gap (3-11) BUN (7-18) mg/dl Creatinine (0.6-1.2) mg/dl Est Cr Clr Drug Dosing ml/min Est GFR ( Amer) Est GFR (Non-Af Amer) BUN/Creatinine Ratio (10-20) Glucose (70-99) mg/dl Lactate Calcium (8.5-10.1) mg/dl Total Bilirubin (0.2-1) mg/dl AST (15-37) U/L ALT (12-78) U/L Alkaline Phosphatase (45-117) U/L Troponin I (0-0.045) ng/ml Total Protein (6.4-8.2) gm/dl Albumin (3.4-5.0) gm/dl Globulin (2.5-4.0) gm/dl Albumin/Globulin Ratio (0.9-2) HCG, Qual Adenovirus (PCR) Not Detected (NotDetected) B. pertussis DNA (PCR) Not Detected (NotDetected) B.parapertussis DNA PCR Not Detected (NotDetected) C. pneumoniae DNA (PCR) Not Detected (NotDetected) Coronavirus OC43 (PCR) Not Detected (NotDetected) Coronavirus HKU1 (PCR) Not Detected (NotDetected) Coronavirus 229E (PCR) Not Detected (NotDetected) Coronavirus NL63 (PCR) Not Detected (NotDetected) Human Metapneumovir PCR Not Detected (NotDetected) Influenza Type A (PCR) Neg for Influ A Not Detected (Neg) Influenza Type B (PCR) Neg for Influ B Not Detected (Neg) M. pneumoniae (PCR) Not Detected (NotDetected) Parainfluenza 1 (PCR) Not Detected (NotDetected) Parainfluenza 2 (PCR) Not Detected (NotDetected) Parainfluenza 3 (PCR) Not Detected (NotDetected) Parainfluenza 4 (PCR) Not Detected (NotDetected) RSV (PCR) Not Detected (NotDetected) Entero/Rhino (PCR) DETECTED A* (NotDetected) 07/24/19 07/24/19 07/24/19 Range/Units 12:53 12:53 12:53 WBC (4.8-10.8) K/uL RBC (4.2-5.4) M/uL Hgb (12.0-16.0) g/dL Hct (37-47) % MCV (80-100) fL MCH (25-34) pg MCHC (32-36) g/dL RDW Std Deviation (36.4-46.3) fL RDW Coeff of Van (11.5-14.5) % Plt Count (130-400) K/uL MPV (7.4-10.4) fL Immature Gran % (Auto) % Neut % (Auto) % Lymph % (Auto) % [place] % (Auto) % Eos % (Auto) % Baso % (Auto) % Immature Gran # (Auto) (0.00-0.02) K/uL Neut # (Auto) (1.4-6.5) K/uL Lymph # (Auto) (1.2-3.4) K/uL [place] # (Auto) (0.11-0.59) K/uL Eos # (Auto) (0-0.5) K/uL Baso # (Auto) (0-0.2) K/uL PT Cancelled INR Cancelled APTT Cancelled PTT Ratio Cancelled Sodium 135 L (136-145) mmol/L Potassium (3.5-5.1) mmol/L Chloride 102 (98-107) mmol/L Carbon Dioxide 31 (21-32) mmol/L Anion Gap 2.0 L (3-11) BUN 6 L (7-18) mg/dl Creatinine 0.22 L (0.6-1.2) mg/dl Est Cr Clr Drug Dosing 314.8 ml/min Est GFR ( Amer) > 150.0 Est GFR (Non-Af Amer) > 150.0 BUN/Creatinine Ratio 25.9 H (10-20) Glucose 75 (70-99) mg/dl Lactate Calcium 7.9 L (8.5-10.1) mg/dl Total Bilirubin 0.3 (0.2-1) mg/dl AST (15-37) U/L ALT 25 (12-78) U/L Alkaline Phosphatase 141 H (45-117) U/L Troponin I < 0.015 (0-0.045) ng/ml Total Protein 5.9 L (6.4-8.2) gm/dl Albumin 1.6 L (3.4-5.0) gm/dl Globulin 4.3 H (2.5-4.0) gm/dl Albumin/Globulin Ratio 0.4 L (0.9-2) HCG, Qual Cancelled Adenovirus (PCR) (NotDetected) B. pertussis DNA (PCR) (NotDetected) B.parapertussis DNA PCR (NotDetected) C. pneumoniae DNA (PCR) (NotDetected) Coronavirus OC43 (PCR) (NotDetected) Coronavirus HKU1 (PCR) (NotDetected) Coronavirus 229E (PCR) (NotDetected) Coronavirus NL63 (PCR) (NotDetected) Human Metapneumovir PCR (NotDetected) Influenza Type A (PCR) (Neg) Influenza Type B (PCR) (Neg) M. pneumoniae (PCR) (NotDetected) Parainfluenza 1 (PCR) (NotDetected) Parainfluenza 2 (PCR) (NotDetected) Parainfluenza 3 (PCR) (NotDetected) Parainfluenza 4 (PCR) (NotDetected) RSV (PCR) (NotDetected) Entero/Rhino (PCR) (NotDetected) 07/24/19 Range/Units 12:53 WBC (4.8-10.8) K/uL RBC (4.2-5.4) M/uL Hgb (12.0-16.0) g/dL Hct (37-47) % MCV (80-100) fL MCH (25-34) pg MCHC (32-36) g/dL RDW Std Deviation (36.4-46.3) fL RDW Coeff of Van (11.5-14.5) % Plt Count (130-400) K/uL MPV (7.4-10.4) fL Immature Gran % (Auto) % Neut % (Auto) % Lymph % (Auto) % [place] % (Auto) % Eos % (Auto) % Baso % (Auto) % Immature Gran # (Auto) (0.00-0.02) K/uL Neut # (Auto) (1.4-6.5) K/uL Lymph # (Auto) (1.2-3.4) K/uL [place] # (Auto) (0.11-0.59) K/uL Eos # (Auto) (0-0.5) K/uL Baso # (Auto) (0-0.2) K/uL PT INR APTT PTT Ratio Sodium (136-145) mmol/L Potassium (3.5-5.1) mmol/L Chloride (98-107) mmol/L Carbon Dioxide (21-32) mmol/L Anion Gap (3-11) BUN (7-18) mg/dl Creatinine (0.6-1.2) mg/dl Est Cr Clr Drug Dosing ml/min Est GFR ( Amer) Est GFR (Non-Af Amer) BUN/Creatinine Ratio (10-20) Glucose (70-99) mg/dl Lactate Cancelled Calcium (8.5-10.1) mg/dl Total Bilirubin (0.2-1) mg/dl AST (15-37) U/L ALT (12-78) U/L Alkaline Phosphatase (45-117) U/L Troponin I (0-0.045) ng/ml Total Protein (6.4-8.2) gm/dl Albumin (3.4-5.0) gm/dl Globulin (2.5-4.0) gm/dl Albumin/Globulin Ratio (0.9-2) HCG, Qual Adenovirus (PCR) (NotDetected) B. pertussis DNA (PCR) (NotDetected) B.parapertussis DNA PCR (NotDetected) C. pneumoniae DNA (PCR) (NotDetected) Coronavirus OC43 (PCR) (NotDetected) Coronavirus HKU1 (PCR) (NotDetected) Coronavirus 229E (PCR) (NotDetected) Coronavirus NL63 (PCR) (NotDetected) Human Metapneumovir PCR (NotDetected) Influenza Type A (PCR) (Neg) Influenza Type B (PCR) (Neg) M. pneumoniae (PCR) (NotDetected) Parainfluenza 1 (PCR) (NotDetected) Parainfluenza 2 (PCR) (NotDetected) Parainfluenza 3 (PCR) (NotDetected) Parainfluenza 4 (PCR) (NotDetected) RSV (PCR) (NotDetected) Entero/Rhino (PCR) (NotDetected) Administered Medications Discontinued Medications Acetaminophen (Tylenol) 650 mg PO NOW STA Stop: 07/24/19 12:22 Last Admin: 07/24/19 12:45 Dose: 650 mg Documented by: [id number] Sodium Chloride (Nss 1000ml) 1,000 mls @ 999 mls/hr IV .[id number] Stop: 07/24/19 13:00 Last Infusion: 07/24/19 14:43 Dose: 0 mls/hr Documented by: [id number] Admin: 07/24/19 12:56 Dose: 999 mls/hr Documented by: [id number] Levofloxacin/Dextrose (Levaquin/D5w) 750 mg in 150 mls @ 100 mls/hr IV NOW STA Stop: 07/24/19 13:51 Last Infusion: 07/24/19 14:43 Dose: 0 mls/hr Documented by: [id number] Admin: 07/24/19 12:57 Dose: 100 mls/hr Documented by: [id number] Discharge Plan Visit Data *Final* Discharge Date/Time: 07/24/19 14:52 Chief Complaint: Shortness of Breath/Dyspnea ED Provider: Tres Martin ED Midlevel Provider: Fernanda Osei Discharge Problem: Pneumonia, Rhinovirus infection, Electrolyte abnormality Patient Disposition: Admitted As Inpatient Discharge Instructions Interventions: ED Discharge Assessment Last Done: 07/24/19 14:52 Discharge Problem: Pneumonia Qualifiers: Pneumonia type: due to unspecified organism Laterality: bilateral Lung location: lower lobe of lung Qualified Code(s): J18.9 - Pneumonia, unspecified organism
[2019-07-24] MEDS ORDERED: SODIUM CHLORIDE 0.9% 1000ML 1,000 ML IV SCH (12:00)
[2019-07-24] MEDS ORDERED: ACETAMINOPHEN 325 MG TAB PO STA (12:21)
[2019-07-24] MEDS ORDERED: LEVOFLOXACIN/D5W 750 MG/150 ML BAG IV STA (12:22)
--- NOTE | 2019-07-24 12:52 | XRay Report ---
XR chest 1V portable CLINICAL HISTORY: Dyspnea, cough, fever cough COMPARISON STUDY: 03/09/2018 FINDINGS: Interval development of bibasilar parenchymal infiltrates. Mild consolidative change medial aspect left base. Pulmonary apices are clear. IMPRESSION: Infiltrates at both lung bases. ACT 112: Negative or not required by law. The above report was generated using voice recognition software. It may contain grammatical, syntax or spelling errors. Electronically signed by: Adi Mario M.D. 07/24/2019 12:51 PM
[2019-07-24 12:57] LABS: Influenza A virus by PCR Neg for Influ A (Neg); Influenza B virus by PCR Neg for Influ B (Neg)
[2019-07-24 13:12] LABS: Hematocrit (blood only) 29.5 % (37-47); Hemoglobin 9.5 g/dL (12.0-16.0); Mean Corpuscular Hemoglobin 31.6 pg (25-34); Mean Corpuscular Hgb Conc 32.2 g/dL (32-36); Mean Platelet Volume 9.2 fL (7.4-10.4); Platelet Count 386 K/uL (130-400); RDW Coefficient of Variation 12.5 % (11.5-14.5); RDW Standard Deviation 44.8 fL (36.4-46.3); Red Blood Count 3.01 M/uL (4.2-5.4); White Blood Count 10.55 K/uL (4.8-10.8)
[2019-07-24 13:31] LABS: Alanine Aminotransferase 25 U/L (12-78); Albumin Level 1.6 gm/dl (3.4-5.0); BUN Creatinine Ratio 25.9 (10-20); Blood Urea Nitrogen 6 mg/dl (7-18); Calcium 7.9 mg/dl (8.5-10.1); Carbon Dioxide 31 mmol/L (21-32); Chloride 102 mmol/L (98-107); Creatinine Clr Calc Pharmacy 314.8 ml/min; Est GFR (African American) > 150.0; Est GFR (Non-African American) > 150.0; Glucose 75 mg/dl (70-99); Sodium 135 mmol/L (136-145)
[2019-07-24 13:32] LABS: Albumin Globulin Ratio 0.4 (0.9-2); Alkaline Phosphatase 141 U/L (45-117); Bilirubin,Total 0.3 mg/dl (0.2-1); Globulin 4.3 gm/dl (2.5-4.0); Total Protein 5.9 gm/dl (6.4-8.2); Troponin I < 0.015 ng/ml (0-0.045)
[2019-07-24 13:33] LABS: Basophils # (auto) 0.02 K/uL (0-0.2); Basophils % (auto) 0.2 %; Eosinophils # (auto) 0.07 K/uL (0-0.5); Eosinophils % (auto) 0.7 %; Immature Granulocytes # (auto) 0.71 K/uL (0.00-0.02); Immature Granulocytes % (auto) 6.7 %; Lymphocytes # (auto) 1.57 K/uL (1.2-3.4); Lymphocytes % (auto) 14.9 %; Monocytes # (auto) 0.53 K/uL (0.11-0.59); Neutrophils # (auto) 7.65 K/uL (1.4-6.5); Neutrophils % (auto) 72.5 %
[2019-07-24 14:10] LABS: Adenovirus PCR Not Detected (NotDetected); Coronavirus 229E PCR Not Detected (NotDetected); Coronavirus HKU1 PCR Not Detected (NotDetected); Coronavirus NL63 PCR Not Detected (NotDetected); Coronavirus OC43PCR Not Detected (NotDetected); Human Metapneumovirus PCR Not Detected (NotDetected); Influenza A PCR Not Detected (NotDetected); Rhinovirus/Enterovirus PCR DETECTED (NotDetected)
[2019-07-24 14:11] LABS: Bordetella parapertussis PCR Not Detected (NotDetected); Bordetella pertussis PCR Not Detected (NotDetected); Chlamydia pneumoniae PCR Not Detected (NotDetected); Influenza B PCR Not Detected (NotDetected); Mycoplasma pneumoniae PCR Not Detected (NotDetected); Parainfluenza Virus 1 PCR Not Detected (NotDetected); Parainfluenza Virus 2 PCR Not Detected (NotDetected); Parainfluenza Virus 3 PCR Not Detected (NotDetected); Parainfluenza Virus 4 PCR Not Detected (NotDetected); Respiratory Syncytial VirusPCR Not Detected (NotDetected)
[2019-07-24 14:46] LABS: INR 1.2 (0.9-1.1); Partial Thromboplastin Ratio 1.4; Prothrombin Time 12.7 Seconds (9.0-12.0)
--- NOTE | 2019-07-24 14:54 | Electrocardiogram Report ---
Test Reason : Blood Pressure : / mmHG Vent. Rate : 076 BPM Atrial Rate : 076 BPM P-R Int : 158 ms QRS Dur : 088 ms QT Int : 396 ms P-R-T Axes : 071 072 020 degrees QTc Int : 445 ms Poor data quality, interpretation may be adversely affected Normal sinus rhythm Nonspecific T wave abnormality Abnormal ECG When compared with ECG of 19-MAR-2019 07:19, Nonspecific T wave abnormality now evident in Inferior leads Nonspecific T wave abnormality now evident in Lateral leads Confirmed by Emil Solis ([id number]) on 07/24/2019 2:54:06 PM Referred By: ER Confirmed By:Emil Solis
[2019-07-24 14:56] LABS: Potassium 3.2 mmol/L (3.5-5.1)
[2019-07-24 14:57] LABS: Pregnancy Test, Serum Negative (Negative)
[2019-07-24] MEDS ORDERED: POTASSIUM CHLORIDE 20 MEQ TABCR PO STA (15:03)
[2019-07-24 15:04] LABS: Appearance Urine Clear (Clear); Bacteria Urine Automated Negative (Negative); Bilirubin Urine Negative (Negative); Blood Urine Negative (Negative); Color Urine Yellow; Epithelial Cell Urine Auto 20-30 /lpf (0-5); Glucose Urine UA Negative (Negative); Ketones Urine 1+ (Negative); Leukocyte Esterase Urine Trace (Negative); Nitrite Urine Negative (Negative); Protein Urine Negative (Negative); RBC Urine Automated 0-4 /hpf (0-4); Specific Gravity Urine 1.014 (1.000-1.030); Urobilinogen Urine Negative (Negative)
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
[2019-07-24 16:27] LABS: Magnesium 1.8 mg/dl (1.8-2.4); Phosphorus 3.5 mg/dl (2.5-4.9)
[2019-07-24] MEDS ORDERED: MAGNESIUM HYDROXIDE SUSP 30 ML UDC PO PRN (16:29)
[2019-07-24] MEDS ORDERED: ALUMINUM/MAGNESIUM SUSP 30 ML UDC PO PRN (16:29)
[2019-07-24] MEDS ORDERED: diazePAM 5 MG TABLET PO PRN (16:29)
[2019-07-24] MEDS ORDERED: ACETAMINOPHEN 325 MG TAB PO PRN (16:29)
[2019-07-24] MEDS ORDERED: GUAIFENESIN/DEXTROM SYRUP 200MG/20MG 10ML UDC PO PRN (16:29)
[2019-07-24] MEDS ORDERED: POLYETHYLENE (MIRALAX) 17 GM PACK PO PRN (16:29)
[2019-07-24] MEDS: BACLOFEN 10 MG TAB PO SCH ×2 (18:27→19:50)
[2019-07-24] MEDS: SODIUM CHLORIDE 0.9% 1000ML 1,000 ML IV SCH (18:27)
[2019-07-24] MEDS ORDERED: ALBUTEROL 0.083% NEBU SOLN 3 ML VIAL NEB SCH (19:00)
[2019-07-24] MEDS: BuPROPion SR 150 MG TABCR PO SCH (19:50)
[2019-07-24] MEDS: ENOXAPARIN INJ 40 MG/0.4 ML SYR SQ SCH (19:50)
[2019-07-24] MEDS ORDERED: ALBUTEROL 0.083% NEBU SOLN 3 ML VIAL NEB PRN (19:53)
[2019-07-24] MEDS: METHADONE HCL 10 MG TAB PO SCH (20:08)
[2019-07-24] MEDS: PREGABALIN 25 MG CAP PO SCH (20:09)
[2019-07-24] MEDS ORDERED: PREGABALIN 50 MG CAP PO SCH (21:00)
[2019-07-25] MEDS: SODIUM CHLORIDE 0.9% 1000ML 1,000 ML IV SCH (06:14)
[2019-07-25] MEDS: LEVOTHYROXINE SODIUM 25 MCG TABLET PO SCH (06:15)
[2019-07-25 06:24] LABS: Hematocrit (blood only) 29.2 % (37-47); Hemoglobin 9.2 g/dL (12.0-16.0); Mean Corpuscular Hemoglobin 31.1 pg (25-34); Mean Corpuscular Hgb Conc 31.5 g/dL (32-36); Mean Corpuscular Volume 98.6 fL (80-100); Mean Platelet Volume 9.2 fL (7.4-10.4); Platelet Count 381 K/uL (130-400); RDW Coefficient of Variation 12.5 % (11.5-14.5); RDW Standard Deviation 45.4 fL (36.4-46.3); Red Blood Count 2.96 M/uL (4.2-5.4); White Blood Count 8.83 K/uL (4.8-10.8)
[2019-07-25 07:03] LABS: Blood Urea Nitrogen 3 mg/dl (7-18); Calcium 7.8 mg/dl (8.5-10.1); Carbon Dioxide 25 mmol/L (21-32); Chloride 103 mmol/L (98-107); Creatinine Clr Calc Pharmacy 459.4 ml/min; Est GFR (African American) > 150.0; Est GFR (Non-African American) > 150.0; Glucose 64 mg/dl (70-99); Potassium 3.9 mmol/L (3.5-5.1); Sodium 135 mmol/L (136-145)
[2019-07-25 07:04] LABS: ALC (manual) 1.92 K/uL (1.2-3.4); ANC (manual) 6.08 K/uL (1.4-6.5); Eosinophils # (manual) 0.15 K/uL (0-0.5); Eosinophils % (manual) 1.7 %; Lymphocytes # (manual) 1.92 K/uL (1.2-3.4); Lymphocytes % (manual) 21.7 %; Metamyelocytes # (manual) 0.15 K/uL (0-0); Metamyelocytes % (manual) 1.7 %; Monocytes # (manual) 0.54 K/uL (0.11-0.59); Monocytes % (manual) 6.1 %; Neutrophils # (manual) 6.08 K/uL (1.4-6.5); Neutrophils % (manual) 68.8 %; RBC Morphology Unremarkable
[2019-07-25] MEDS: ESCITALOPRAM OXALATE 10 MG TAB PO SCH (09:25)
[2019-07-25] MEDS: FLUTICASONE PROPIONATE NA SPR 16 GM BTL SCH (09:25)
[2019-07-25] MEDS: OXYBUTYNIN CHLORIDE XL 5 MG TABCR PO SCH (09:25)
[2019-07-25] MEDS: BuPROPion SR 150 MG TABCR PO SCH ×2 (09:26→21:04)
[2019-07-25] MEDS: BACLOFEN 10 MG TAB PO SCH ×3 (09:26→21:05)
[2019-07-25] MEDS: FOLIC ACID 1 MG TAB PO SCH (09:26)
[2019-07-25] MEDS: SENNA 8.6 MG TAB PO SCH (09:27)
[2019-07-25] MEDS: METHADONE HCL 10 MG TAB PO SCH ×2 (09:29→21:03)
[2019-07-25] MEDS: PREGABALIN 25 MG CAP PO SCH ×3 (09:31→21:04)
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
--- NOTE | 2019-07-25 10:19 | Electrocardiogram Report ---
Test Reason : Blood Pressure : / mmHG Vent. Rate : 083 BPM Atrial Rate : 083 BPM P-R Int : 166 ms QRS Dur : 094 ms QT Int : 392 ms P-R-T Axes : 069 072 000 degrees QTc Int : 460 ms Normal sinus rhythm Nonspecific T wave abnormality Prolonged QT Abnormal ECG When compared with ECG of 24-JUL-2019 12:01, No significant change was found Confirmed by John Bernabe ([id number]) on 07/25/2019 10:18:52 AM Referred By: REFERRED SELF Confirmed By:John Bernabe
[2019-07-25] MEDS ORDERED: Nursing to Pharmacy Communication ONE (10:38)
[2019-07-25] MEDS: LEVOFLOXACIN/D5W 750 MG/150 ML BAG IV SCH (11:24)
[2019-07-25] MEDS: ENOXAPARIN INJ 40 MG/0.4 ML SYR SQ SCH (21:05)
[2019-07-26] MEDS: OXYCODONE HCL IR 5 MG TAB (IMMEDIATE RELEASE) PO PRN ×2 (01:28→11:01)
[2019-07-26] MEDS: LEVOTHYROXINE SODIUM 25 MCG TABLET PO SCH (05:57)
[2019-07-26] MEDS: PROMETHAZINE HCL 12.5 MG in SODIUM CHLORIDE 0.9% 50 ML IV PRN (08:04)
--- NOTE | 2019-07-26 08:53 | XRay Report ---
XR chest 1V portable CLINICAL HISTORY: Pneumonia. COMPARISON STUDY: Chest radiograph July 24, 2019. FINDINGS: Incidental note is made of postoperative findings within the cervical spine. There is no pn eumothorax or pleural effusion. Cardiac size is normal. There is no evidence for pulmonary edema. Med iastinal contours are unremarkable. Bibasilar consolidation persists. Left lower lobe aeration has sl ightly improved. IMPRESSION: Bibasilar consolidation suggestive of pneumonia. Left lower lung pneumonia has slightly improved since exam of July 24, 2019. ACT 112: Negative or not required by law. Electronically signed by: Donny Pace M.D. 07/26/2019 8:52 AM
[2019-07-26] MEDS: BuPROPion SR 150 MG TABCR PO SCH ×2 (09:14→22:04)
[2019-07-26] MEDS: FOLIC ACID 1 MG TAB PO SCH (09:15)
[2019-07-26] MEDS: OXYBUTYNIN CHLORIDE XL 5 MG TABCR PO SCH (09:15)
[2019-07-26] MEDS: ESCITALOPRAM OXALATE 10 MG TAB PO SCH (09:16)
[2019-07-26] MEDS: FLUTICASONE PROPIONATE NA SPR 16 GM BTL SCH (09:16)
[2019-07-26] MEDS: BACLOFEN 10 MG TAB PO SCH ×3 (09:16→22:17)
[2019-07-26] MEDS: SENNA 8.6 MG TAB PO SCH (09:16)
[2019-07-26] MEDS: METHADONE HCL 10 MG TAB PO SCH ×2 (09:18→21:59)
[2019-07-26] MEDS: PREGABALIN 25 MG CAP PO SCH ×3 (09:24→22:02)
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
--- NOTE | 2019-07-26 10:18 | Electrocardiogram Report ---
Test Reason : Blood Pressure : / mmHG Vent. Rate : 073 BPM Atrial Rate : 073 BPM P-R Int : 172 ms QRS Dur : 098 ms QT Int : 400 ms P-R-T Axes : 039 083 000 degrees QTc Int : 440 ms Normal sinus rhythm Nonspecific T wave abnormality Abnormal ECG When compared with ECG of 25-JUL-2019 06:48, No significant change was found Confirmed by John Bernabe ([id number]) on 07/26/2019 10:18:00 AM Referred By: REFERRED SELF Confirmed By:John Bernabe
[2019-07-26] MEDS: LEVOFLOXACIN/D5W 750 MG/150 ML BAG IV SCH (10:47)
[2019-07-26 16:29] LABS: Base Excess ABG 0.3 mEq/L (-9-1.8); HCO3 ABG 24 mmol/L (19-24); Oxygen Saturation ABG 88.8 % (90-95); PCO2 ABG 36 mmHg (35-46); PO2 ABG 61 mmHg (80-95); pH ABG 7.45 (7.35-7.45)
[2019-07-26 16:30] LABS: Allen Test POS (Pos)
[2019-07-26] MEDS ORDERED: FUROSEMIDE 20 MG in SYRINGE 0 ML IV ONE (16:45)
[2019-07-26] MEDS ORDERED: ALBUTEROL 0.083% NEBU SOLN 3 ML VIAL NEB SCH (19:00)
[2019-07-26] MEDS: ALBUT/IPRATROP 3MG/0.5MG NEB 3 ML VIAL NEB SCH ×2 (19:22→23:34)
[2019-07-26] MEDS: ENOXAPARIN INJ 40 MG/0.4 ML SYR SQ SCH (22:03)
[2019-07-26] MEDS ORDERED: SODIUM CHLORIDE 0.9% 500 ML IV SCH (23:30)
[2019-07-27] MEDS: ALBUT/IPRATROP 3MG/0.5MG NEB 3 ML VIAL NEB SCH ×4 (03:48→15:22)
[2019-07-27] MEDS: LEVOTHYROXINE SODIUM 25 MCG TABLET PO SCH (05:44)
[2019-07-27 06:07] LABS: Hematocrit (blood only) 30.4 % (37-47); Hemoglobin 9.9 g/dL (12.0-16.0); Mean Corpuscular Hemoglobin 31.5 pg (25-34); Mean Corpuscular Hgb Conc 32.6 g/dL (32-36); Mean Corpuscular Volume 96.8 fL (80-100); Mean Platelet Volume 8.8 fL (7.4-10.4); Platelet Count 336 K/uL (130-400); RDW Coefficient of Variation 12.8 % (11.5-14.5); RDW Standard Deviation 44.8 fL (36.4-46.3); Red Blood Count 3.14 M/uL (4.2-5.4); White Blood Count 10.76 K/uL (4.8-10.8)
[2019-07-27 06:27] LABS: Lymphocytes % (manual) 32.5 %; Metamyelocytes # (manual) 0.47 K/uL (0-0); Metamyelocytes % (manual) 4.4 %; Monocytes # (manual) 0.19 K/uL (0.11-0.59); Monocytes % (manual) 1.8 %; Myelocytes # (manual) 0.19 K/uL (0-0); Myelocytes % (manual) 1.8 %; Neutrophils % (manual) 59.5 %; RBC Morphology Unremarkable
[2019-07-27 06:37] LABS: BUN Creatinine Ratio 7.7 (10-20); Blood Urea Nitrogen 2 mg/dl (7-18); Calcium 7.6 mg/dl (8.5-10.1); Carbon Dioxide 28 mmol/L (21-32); Chloride 106 mmol/L (98-107); Creatinine Clr Calc Pharmacy 344.5 ml/min; Est GFR (African American) > 150.0; Est GFR (Non-African American) > 150.0; Glucose 82 mg/dl (70-99); Magnesium 1.6 mg/dl (1.8-2.4); Phosphorus 3.6 mg/dl (2.5-4.9); Potassium 3.6 mmol/L (3.5-5.1); Sodium 140 mmol/L (136-145)
[2019-07-27] MEDS: SENNA 8.6 MG TAB PO SCH (09:17)
[2019-07-27] MEDS: FLUTICASONE PROPIONATE NA SPR 16 GM BTL SCH (09:17)
[2019-07-27] MEDS: METHADONE HCL 10 MG TAB PO SCH ×2 (09:18→21:28)
[2019-07-27] MEDS: PREGABALIN 25 MG CAP PO SCH ×3 (09:19→21:29)
[2019-07-27] MEDS: BuPROPion SR 150 MG TABCR PO SCH ×2 (09:20→21:31)
[2019-07-27] MEDS: BACLOFEN 10 MG TAB PO SCH ×3 (09:20→21:39)
[2019-07-27] MEDS: ESCITALOPRAM OXALATE 10 MG TAB PO SCH (09:20)
[2019-07-27] MEDS: FOLIC ACID 1 MG TAB PO SCH (09:20)
[2019-07-27] MEDS: OXYBUTYNIN CHLORIDE XL 5 MG TABCR PO SCH (09:20)
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
--- NOTE | 2019-07-27 10:07 | XRay Report ---
XR chest 1V portable CLINICAL HISTORY: pneumonia COMPARISON STUDY: 07/26/2019 FINDINGS: The cardiac and mediastinal contours remain stable. Postsurgical changes are present within the cervical spine. There is no pneumothorax. There are bilateral lower lobe airspace opacities, con sistent with pneumonia. Minimal improvement at the right lung base is suspected.[There are no signifi cant pleural effusions. IMPRESSION: 1. Persistent bilateral lower lobe airspace opacities consistent with pneumonia. Minimal improvement at the right lung base. ACT 112: Negative or not required by law. Electronically signed by: Ignacio Abdi M.D. 07/27/2019 10:06 AM
[2019-07-27] MEDS: OXYCODONE HCL IR 5 MG TAB (IMMEDIATE RELEASE) PO PRN ×3 (10:52→23:55)
[2019-07-27] MEDS: LEVOFLOXACIN/D5W 750 MG/150 ML BAG IV SCH (10:53)
[2019-07-27] MEDS ORDERED: CLINDAMYCIN HCL 150 MG CAP PO ONE (14:00)
[2019-07-27] MEDS: CLINDAMYCIN HCL 150 MG CAP PO SCH (17:49)
[2019-07-27] MEDS: LACTOBACILLUS ACIDOPHILUS (FLORANEX) TAB PO SCH (17:49)
[2019-07-27] MEDS ORDERED: SODIUM CHLORIDE 0.9% 500 ML IV SCH (18:15)
[2019-07-27] MEDS ORDERED: ALBUT/IPRATROP 3MG/0.5MG NEB 3 ML VIAL NEB PRN (19:00)
[2019-07-27] MEDS: ENOXAPARIN INJ 40 MG/0.4 ML SYR SQ SCH (21:29)
[2019-07-27] MEDS: PROMETHAZINE HCL 12.5 MG in SODIUM CHLORIDE 0.9% 50 ML IV PRN (23:53)
[2019-07-28] MEDS: CLINDAMYCIN HCL 150 MG CAP PO SCH ×3 (01:12→12:12)
[2019-07-28] MEDS: LEVOTHYROXINE SODIUM 25 MCG TABLET PO SCH (05:36)
[2019-07-28] MEDS: BACLOFEN 10 MG TAB PO SCH ×2 (07:35→12:12)
[2019-07-28] MEDS: FLUTICASONE PROPIONATE NA SPR 16 GM BTL SCH (07:35)
[2019-07-28] MEDS: METHADONE HCL 10 MG TAB PO SCH (07:35)
[2019-07-28] MEDS: SENNA 8.6 MG TAB PO SCH (07:36)
[2019-07-28] MEDS: BuPROPion SR 150 MG TABCR PO SCH (07:36)
[2019-07-28] MEDS: PREGABALIN 25 MG CAP PO SCH ×2 (07:36→12:12)
[2019-07-28] MEDS: ESCITALOPRAM OXALATE 10 MG TAB PO SCH (07:36)
[2019-07-28] MEDS: FOLIC ACID 1 MG TAB PO SCH (07:37)
[2019-07-28] MEDS: OXYBUTYNIN CHLORIDE XL 5 MG TABCR PO SCH (07:37)
[2019-07-28] MEDS: LACTOBACILLUS ACIDOPHILUS (FLORANEX) TAB PO SCH ×2 (07:37→12:11)
[2019-07-28] MEDS: LEVOFLOXACIN/D5W 750 MG/150 ML BAG IV SCH (10:54)
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
[2019-07-29] MEDS ORDERED: levoFLOXacin 500 MG TAB PO SCH (11:00)
== END 2019-07-28 15:58 | disposition home health service (06) | DRG 177 ==
LOC: ED 11:20 → 2E 14:17 → 2N 07-25 13:05

== ENCOUNTER 2019-07-30 05:52 | Inpatient (IN) ==
[2019-07-30] MEDS ORDERED: ALBUT/IPRATROP 3MG/0.5MG NEB 3 ML VIAL INH STA (06:45)
[2019-07-30] MEDS ORDERED: SODIUM CHLORIDE 0.9% 500 ML IV SCH (06:45)
--- NOTE | 2019-07-30 06:51 | Emergency Department Note ---
Impression & Plan Pneumonia, SOB (shortness of breath), Hypoxia, Hypocalcemia ED Provider Note NAME: GAL DELUNA AGE: 33 SEX: F : 1985 ARRIVES VIA: Ambulance INFORMANT: Patient, ED PROVIDER(S): Deven Elizondo MD Chief Complaint: Shortness of breath HPI: Patient has been having associated shortness of breath of several days. The patient states it is worse with lying down compared to sitting up. The patient did have a recent admission for a pneumonia and was discharged within the last several days. Patient did have recent coronavirus testing which was negative. Patient has had a cough. Feels as though she cannot bring it up. No recent sick contacts fevers or chills. The patient has tried nebulizer treatments at home which has not improved much of her symptoms. The patient is a non-smoker. EMS reported that the patient's oxygen saturation was in the 70s upon arrival. ROS: See HPI for pertinent positives and negatives. A total of 10 systems were reviewed and otherwise negative. Past medical history: See below Surgical history: See below Social history: See below Physical Exam: GENERAL: NAD, non-toxic. Wearing a mask. EYE EXAM: Normal conjunctiva. PERRL, no anisocoria and EOM's grossly intact w/o pain. NECK: Supple, no nuchal rigidity, no adenopathy, non-tender. No signs of meningismus. LUNGS: Coarse sounds in left chest, greater than right. Normal chest wall mechanics. HEART: NSR, no MRG. ABDOMEN: Abdomen soft, non-tender, normo-active bowel sounds, no masses, no rebound or guarding. BACK: No CVA TTP. SKIN: No rashes and no bruising. UPPER EXTREMITIES: Upper extremities and contractures. LOWER EXTREMITIES: Grossly normal, no edema. NEURO EXAM: A&O x3, cranial nerves II-XII grossly intact, normal speech, decreased movement of bilateral upper extremities and virtually no movement of bilateral lower extremities. Differential diagnoses: Reactive airway disease, pneumonia, pneumothorax, COPD, CHF, infections, cardiac ischemia, pulmonary embolism, musculoskeletal, gastrointestinal, as well as other pathologies. Course: Patient was seen and evaluated the bedside. A full history and physical exam was performed. Patient was reassessed. The patient does have some mild improvement. I did discuss the results. I did speak with the on-call hospitalist Rachel Desir PA-C, who agreed to further evaluate and treat the patient. Patient is to be admitted to Dr. Whatley with [facility]. EKG: Indication: Shortness of breath Normal sinus rhythm, rate of 66, normal intervals, normal axis, possible T WI in lead III. There is T wave inversion in V2. Imaging Studies: Radiology results as stated below per my review in the radiologist's interpretation: Cardiac monitoring: An order was placed for continuous cardiac monitoring. The monitor shows a rate of 68 with sinus rhythm. MDM: Patient was seen and evaluated the bedside. The patient was presented with worsening shortness of breath. The patient has had an associated cough. Patient did have blood work completed along with a nebulizer treatment chest x- ray was given IV fluids. Patient's chest x-ray does show some worsening disease in the left chest. The patient does have a questionable left parapneumonic effusion. Given the patient's history of hypoxia per EMS and her current clinical status as well as her difficulty with likely coughing and expectorating I believe she would benefit from inpatient treatment for further pulmonary care. Patient was ordered antibiotics. I did speak the on-call hospitalist who agreed to further evaluate treat the patient. Patient was admitted to the medicine service. 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) Neurogenic bladder (Chronic) Neuropathic pain (Acute) Post-traumatic spasticity (Acute) Recurrent major depressive disorder (Acute) Second degree AV block (Chronic) Sepsis (Acute) Spasm of bowel (Inactive) Spinal cord injury, C5-C7 (Chronic) Tetraplegia (Acute) Transaminitis (Acute) Transaminitis (Acute) Wheelchair dependence (Acute) Surgical History H/O cervical spine surgery (Chronic) [place] cervical [place] [facility] [place] of appendectomy (Chronic) History of cholecystectomy (Chronic) History of oophorectomy History of Abi-en-Y gastric bypass (Chronic) [place] [facility] [place] History Other Diabetes Social History Preferred Language: Mohawk Communication Ability: Effective Safety Assistant Required: No Beliefs That Will Affect Care: None Current Living Situation: Family Current Living Situation Comment: Lives with siter, has 24 hour care at [facility] Feels Safe at Home: Yes Smoking Status: Never smoker Second Hand Exposure: Yes ; Hx Alcohol Use: No Hx Substance Use: No Allergies Allergies Allergy/AdvReac Type Severity Reaction Status Date / Time Cephalosporins Allergy Mild . Verified 07/30/19 06:43 prochlorperazine Allergy Mild . Verified 07/30/19 06:43 Sulfa (Sulfonamide Allergy Mild . Verified 07/30/19 06:43 Antibiotics) latex AdvReac Mild . Verified 07/30/19 06:43 Home Meds Home Medications Medication Instructions Recorded Confirmed Narcan 1 - 2 spray INTRANASAL UD PRN 10/21/18 07/30/19 diazepam [Valium] 5 mg PO Q8H PRN 10/21/18 07/30/19 escitalopram oxalate 10 mg PO QAM 10/21/18 07/30/19 fluticasone propionate 1 spray INTRANASAL QAM 10/21/18 07/30/19 folic acid 1 mg PO QAM 10/21/18 07/30/19 nystatin 1 applic TOPICAL BID PRN 10/21/18 07/30/19 ondansetron HCl 4 mg PO Q8H PRN 10/21/18 07/30/19 oxycodone 5 mg PO Q4H PRN 10/21/18 07/30/19 bupropion HCl [Wellbutrin SR] 150 mg PO BID 03/17/19 07/30/19 pregabalin [Lyrica] 50 mg PO TID 03/17/19 07/30/19 sennosides [Senokot] 17.2 mg PO QAM 03/17/19 07/30/19 baclofen 10 mg PO TID 04/23/19 07/30/19 cyanocobalamin (vitamin B-12) See Rx Instructions .ROUTE .COMPLEX 04/23/19 07/30/19 levothyroxine [Synthroid] 25 mcg PO DAILY 04/23/19 07/30/19 oxybutynin chloride [Ditropan XL] 10 mg PO DAILY 04/23/19 07/30/19 hydroxyzine HCl 25 mg PO UD PRN 07/24/19 07/30/19 methadone 10 mg PO BID 07/24/19 07/30/19 Previous Rx's Medication Instructions Recorded Lactobacillus acidoph-L.bulgar 4 tab PO TIDM 10 Days #40 tab 07/28/19 [Floranex] clindamycin HCl 150 mg PO Q6 #20 cap 07/28/19 ipratropium-albuterol [Combivent 1 puffs INH Q6H PRN #4 gm 07/28/19 Respimat] levofloxacin 500 mg PO DAILY@1100 #3 tab 07/28/19 Results & Data (ED) Vital Signs Vital Signs - 24 hr 07/30/19 05:59 07/30/19 06:00 07/30/19 06:03 Temperature 36.5 C Temperature Source Oral Pulse Rate 67 71 68 Pulse Rate [Right Radial] Pulse Rate from SpO2 Sensor 70 71 Respiratory Rate 16 17 20 Respiratory Effort / Characteristics Non-Labored Spontaneous Respiratory Depth Normal Respiratory Pattern Regular Blood Pressure 114/59 L 106/71 114/59 L Blood Pressure Mean 85 76 77 Pulse Oximetry 96 93 94 Oxygen Delivery Method Room Air Sepsis Recent Fever Within 48 Hours No Sepsis Action Taken by Nursing No Action Required 07/30/19 06:09 07/30/19 06:15 07/30/19 06:30 Temperature Temperature Source Pulse Rate 62 64 Pulse Rate [Right Radial] Pulse Rate from SpO2 Sensor 62 64 Respiratory Rate 15 18 Respiratory Effort / Characteristics Respiratory Depth Respiratory Pattern Blood Pressure 121/77 Blood Pressure Mean 86 Pulse Oximetry 94 94 94 Oxygen Delivery Method Room Air Sepsis Recent Fever Within 48 Hours Sepsis Action Taken by Nursing 07/30/19 06:31 07/30/19 06:45 07/30/19 07:00 Temperature Temperature Source Pulse Rate 65 72 Pulse Rate [Right Radial] Pulse Rate from SpO2 Sensor 66 72 71 Respiratory Rate 21 18 18 Respiratory Effort / Characteristics Respiratory Depth Respiratory Pattern Blood Pressure 113/76 Blood Pressure Mean 81 Pulse Oximetry 95 94 93 Oxygen Delivery Method Sepsis Recent Fever Within 48 Hours Sepsis Action Taken by Nursing 07/30/19 07:01 07/30/19 07:13 07/30/19 07:15 Temperature Temperature Source Pulse Rate Pulse Rate [Right Radial] 70 Pulse Rate from SpO2 Sensor 73 70 Respiratory Rate 18 18 16 Respiratory Effort / Characteristics Non-Labored Spontaneous Respiratory Depth Respiratory Pattern Blood Pressure Blood Pressure Mean Pulse Oximetry 92 94 95 Oxygen Delivery Method Room Air Sepsis Recent Fever Within 48 Hours Sepsis Action Taken by Nursing 07/30/19 07:30 07/30/19 07:31 07/30/19 07:45 Temperature Temperature Source Pulse Rate 69 70 70 Pulse Rate [Right Radial] Pulse Rate from SpO2 Sensor 69 70 72 Respiratory Rate 18 16 19 Respiratory Effort / Characteristics Respiratory Depth Respiratory Pattern Blood Pressure 121/75 Blood Pressure Mean 94 Pulse Oximetry 95 94 92 Oxygen Delivery Method Sepsis Recent Fever Within 48 Hours Sepsis Action Taken by Nursing 07/30/19 08:00 07/30/19 08:01 07/30/19 08:15 Temperature Temperature Source Pulse Rate 66 63 93 H Pulse Rate [Right Radial] Pulse Rate from SpO2 Sensor 66 66 91 H Respiratory Rate 19 22 40 H Respiratory Effort / Characteristics Respiratory Depth Respiratory Pattern Blood Pressure 121/80 Blood Pressure Mean 85 Pulse Oximetry 94 92 91 Oxygen Delivery Method Sepsis Recent Fever Within 48 Hours Sepsis Action Taken by [facility] Medications Current Medication List: was personally reviewed by me Laboratory Data Attestation: I reviewed the patient's lab results. Result diagrams: 07/30/19 07:02 07/30/19 07:02 Lab Results 07/30/19 07/30/19 07/30/19 Range/Units 07:02 07:02 07:02 WBC 10.05 (4.8-10.8) K/uL RBC 2.92 L (4.2-5.4) M/uL Hgb 9.1 L (12.0-16.0) g/dL Hct 28.2 L (37-47) % MCV 96.6 (80-100) fL MCH 31.2 (25-34) pg MCHC 32.3 (32-36) g/dL RDW Std Deviation 46.1 (36.4-46.3) fL RDW Coeff of Van 13.0 (11.5-14.5) % Plt Count 326 (130-400) K/uL MPV 8.6 (7.4-10.4) fL Immature Gran % (Auto) 6.8 % Neut % (Auto) 56.3 % Lymph % (Auto) 32.0 % [place] % (Auto) 3.9 % Eos % (Auto) 0.8 % Baso % (Auto) 0.2 % Immature Gran # (Auto) 0.68 H (0.00-0.02) K/uL Neut # (Auto) 5.66 (1.4-6.5) K/uL Lymph # (Auto) 3.22 (1.2-3.4) K/uL [place] # (Auto) 0.39 (0.11-0.59) K/uL Eos # (Auto) 0.08 (0-0.5) K/uL Baso # (Auto) 0.02 (0-0.2) K/uL Hypersegmented Neuts 1+ Tear Drop Cells 1+ PT 12.4 H (9.0-12.0) Seconds INR 1.2 H (0.9-1.1) APTT 31.6 H (21.0-31.0) Seconds PTT Ratio 1.1 Sodium 140 (136-145) mmol/L Potassium 3.5 (3.5-5.1) mmol/L Chloride 106 (98-107) mmol/L Carbon Dioxide 29 (21-32) mmol/L Anion Gap 5.0 (3-11) BUN 6 L (7-18) mg/dl Creatinine 0.29 L (0.6-1.2) mg/dl Est Cr Clr Drug Dosing 250.1 ml/min Est GFR ( Amer) > 150.0 Est GFR (Non-Af Amer) > 150.0 BUN/Creatinine Ratio 20.7 H (10-20) Glucose 80 (70-99) mg/dl Calcium 8.1 L (8.5-10.1) mg/dl Magnesium 1.8 (1.8-2.4) mg/dl Total Bilirubin 0.2 (0.2-1) mg/dl AST 16 (15-37) U/L ALT 10 L (12-78) U/L Alkaline Phosphatase 97 (45-117) U/L Troponin I < 0.015 (0-0.045) ng/ml Total Protein 5.1 L (6.4-8.2) gm/dl Albumin 1.7 L (3.4-5.0) gm/dl Globulin 3.4 (2.5-4.0) gm/dl Albumin/Globulin Ratio 0.5 L (0.9-2) Urine Color Urine Appearance (Clear) Urine pH (4.5-7.5) Ur Specific [place] (1.000-1.030) Urine Protein (Negative) Urine Glucose (UA) (Negative) Urine Ketones (Negative) Urine Blood (Negative) Urine Nitrite (Negative) Urine Bilirubin (Negative) Urine Urobilinogen (Negative) Ur Leukocyte Esterase (Negative) Urine WBC (Auto) (0-5) /hpf Urine RBC (Auto) (0-4) /hpf U Hyaline Cast (Auto) (0-5) /lpf U Epithel Cells (Auto) (0-5) /lpf Urine Bacteria (Auto) (Negative) Ur Renal Epithelial Cell (0-5) /lpf Urine Yeast (None Prsent) 07/30/19 Range/Units 07:15 WBC (4.8-10.8) K/uL RBC (4.2-5.4) M/uL Hgb (12.0-16.0) g/dL Hct (37-47) % MCV (80-100) fL MCH (25-34) pg MCHC (32-36) g/dL RDW Std Deviation (36.4-46.3) fL RDW Coeff of Van (11.5-14.5) % Plt Count (130-400) K/uL MPV (7.4-10.4) fL Immature Gran % (Auto) % Neut % (Auto) % Lymph % (Auto) % [place] % (Auto) % Eos % (Auto) % Baso % (Auto) % Immature Gran # (Auto) (0.00-0.02) K/uL Neut # (Auto) (1.4-6.5) K/uL Lymph # (Auto) (1.2-3.4) K/uL [place] # (Auto) (0.11-0.59) K/uL Eos # (Auto) (0-0.5) K/uL Baso # (Auto) (0-0.2) K/uL Hypersegmented Neuts Tear Drop Cells PT (9.0-12.0) Seconds INR (0.9-1.1) APTT (21.0-31.0) Seconds PTT Ratio Sodium (136-145) mmol/L Potassium (3.5-5.1) mmol/L Chloride (98-107) mmol/L Carbon Dioxide (21-32) mmol/L Anion Gap (3-11) BUN (7-18) mg/dl Creatinine (0.6-1.2) mg/dl Est Cr Clr Drug Dosing ml/min Est GFR ( Amer) Est GFR (Non-Af Amer) BUN/Creatinine Ratio (10-20) Glucose (70-99) mg/dl Calcium (8.5-10.1) mg/dl Magnesium (1.8-2.4) mg/dl Total Bilirubin (0.2-1) mg/dl AST (15-37) U/L ALT (12-78) U/L Alkaline Phosphatase (45-117) U/L Troponin I (0-0.045) ng/ml Total Protein (6.4-8.2) gm/dl Albumin (3.4-5.0) gm/dl Globulin (2.5-4.0) gm/dl Albumin/Globulin Ratio (0.9-2) Urine Color Yellow Urine Appearance Clear (Clear) Urine pH 6.5 (4.5-7.5) Ur Specific [place] 1.006 (1.000-1.030) Urine Protein Negative (Negative) Urine Glucose (UA) Negative (Negative) Urine Ketones Negative (Negative) Urine Blood Negative (Negative) Urine Nitrite Negative (Negative) Urine Bilirubin Negative (Negative) Urine Urobilinogen Negative (Negative) Ur Leukocyte Esterase 2+ H (Negative) Urine WBC (Auto) >30 H (0-5) /hpf Urine RBC (Auto) 0-4 (0-4) /hpf U Hyaline Cast (Auto) 0 (0-5) /lpf U Epithel Cells (Auto) >30 H (0-5) /lpf Urine Bacteria (Auto) Negative (Negative) Ur Renal Epithelial Cell 10-20 H (0-5) /lpf Urine Yeast Budding w/ Hyphae A (None Prsent) Administered Medications Vancomycin HCl 1,250 mg/ (Sodium Chloride) 525 mls @ 200 mls/hr IV NOW ONE Stop: 07/30/19 10:15 Last Admin: 07/30/19 07:55 Dose: 200 mls/hr Documented by: [id number] Discontinued Medications Albuterol (Duoneb) 6 ml INH NOW STA Stop: 07/30/19 06:46 Last Admin: 07/30/19 07:13 Dose: 6 ml Documented by: [id number] Calcium Gluconate (Calcium Gluconate 10%) 2,000 mg IV NOW STA Stop: 07/30/19 07:39 Last Admin: 07/30/19 08:06 Dose: 2,000 mg Documented by: [id number] Sodium Chloride (Nss) 500 mls @ 999 mls/hr IV .Q31M TARIQ Stop: 07/30/19 07:15 Last Admin: 07/30/19 07:08 Dose: 999 mls/hr Documented by: [id number] Discharge Plan Visit Data Chief Complaint: Respiratory Problems Stated Complaint: BREATHING DIFFICULTY ED Provider: Deven Elizondo Discharge Problem: Pneumonia, SOB (shortness of breath), Hypoxia, Hypocalcemia Forms Stand Alone Forms: [facility] [place] [employer] Prescriptions Prescriptions: No Action bupropion HCl [Wellbutrin SR] 150 mg tablet sustained-release 12 hr 150 mg PO BID RF: 0 sennosides [Senokot] 8.6 mg Tablet 17.2 mg PO QAM RF: 0 pregabalin [Lyrica] 50 mg capsule 50 mg PO TID RF: 0 hydroxyzine HCl 25 mg tablet 25 mg PO UD PRN (Reason: Anxiety) RF: 0 methadone 10 mg Tablet 10 mg PO BID RF: 0 clindamycin HCl 150 mg Capsule 150 mg PO Q6 Qty: 20 RF: 0 levofloxacin 500 mg Tablet 500 mg PO DAILY@1100 Qty: 3 RF: 0 Lactobacillus acidoph-L.bulgar [Floranex] 1 million cell Tablet 4 tab PO TIDM 10 Days Qty: 40 RF: 0 Combivent Respimat 20-100 mcg/actuation mist 1 puffs INH Q6H PRN (Reason: wheezing) Qty: 4 RF: 0 ondansetron HCl 4 mg tablet 4 mg PO Q8H PRN (Reason: Nausea And Vomiting) RF: 0 folic acid 1 mg Tablet 1 mg PO QAM RF: 0 nystatin 100,000 unit/gram powder 1 applic topical BID PRN (Reason: Skin Irritation) RF: 0 fluticasone propionate 50 mcg/actuation spray,suspension 1 spray intranasal QAM RF: 0 diazepam [Valium] 5 mg tablet 5 mg PO Q8H PRN (Reason: Anxiety) RF: 0 oxycodone 5 mg tablet 5 mg PO Q4H PRN (Reason: Pain) RF: 0 escitalopram oxalate 10 mg tablet 10 mg PO QAM RF: 0 Narcan 4 mg/actuation spray,non-aerosol 1 - 2 spray intranasal UD PRN (Reason: Opioid Reversal) RF: 0 oxybutynin chloride [Ditropan XL] 10 mg Tablet Extended Release 24hr 10 mg PO DAILY RF: 0 levothyroxine [Synthroid] 25 mcg Tablet 25 mcg PO DAILY RF: 0 baclofen 10 mg Tablet 10 mg PO TID RF: 0 cyanocobalamin (vitamin B-12) 1,000 mcg Tablet See Rx Instructions .ROUTE .COMPLEX RF: 0 Discharge Problem: Pneumonia Qualifiers: Pneumonia type: due to unspecified organism Laterality: bilateral Lung locat ion: lower lobe of lung Qualified Code(s): J18.9 - Pneumonia, unspecified organism
[2019-07-30 07:12] LABS: Hematocrit (blood only) 28.2 % (37-47); Hemoglobin 9.1 g/dL (12.0-16.0); Mean Corpuscular Hemoglobin 31.2 pg (25-34); Mean Corpuscular Hgb Conc 32.3 g/dL (32-36); Mean Corpuscular Volume 96.6 fL (80-100); Mean Platelet Volume 8.6 fL (7.4-10.4); Platelet Count 326 K/uL (130-400); RDW Standard Deviation 46.1 fL (36.4-46.3); Red Blood Count 2.92 M/uL (4.2-5.4); White Blood Count 10.05 K/uL (4.8-10.8)
[2019-07-30 07:22] LABS: INR 1.2 (0.9-1.1); Partial Thromboplastin Ratio 1.1; Partial Thromboplastin Time 31.6 Seconds (21.0-31.0); Prothrombin Time 12.4 Seconds (9.0-12.0)
--- NOTE | 2019-07-30 07:27 | XRay Report ---
XR chest 1V portable HISTORY: 33 years-old Female Dyspnea acute shortness of breath COMPARISON: Chest radiograph 07/27/2019 TECHNIQUE: PA and lateral views of the chest FINDINGS: Cardiac silhouette is normal. No pneumothorax. Trace left pleural effusion. Mildly progressed alveola r opacities of the left lung base with unchanged airspace opacities of the right lung base. Fusion henry rdware of the cervical spine. The bones appear grossly intact. IMPRESSION: 1. Persistent bibasilar airspace opacities, mildly worsened on the left compatible with ongoing pneum onia. Continued follow-up recommended. 2. Trace left parapneumonic effusion. ACT 112: Negative or not required by law. The above report was generated using voice recognition software. It may contain grammatical, syntax o r spelling errors. Electronically signed by: Raf Tucker M.D. 07/30/2019 7:26 AM
[2019-07-30 07:29] LABS: Appearance Urine Clear (Clear); Bacteria Urine Automated Negative (Negative); Bilirubin Urine Negative (Negative); Blood Urine Negative (Negative); Cast Urine Automated 0 /lpf (0-5); Color Urine Yellow; Epithelial Cell Urine Auto >30 /lpf (0-5); Glucose Urine UA Negative (Negative); Ketones Urine Negative (Negative); Leukocyte Esterase Urine 2+ (Negative); Nitrite Urine Negative (Negative); Protein Urine Negative (Negative); RBC Urine Automated 0-4 /hpf (0-4); Specific Gravity Urine 1.006 (1.000-1.030); Urobilinogen Urine Negative (Negative); WBC Urine Automated >30 /hpf (0-5); pH Urine 6.5 (4.5-7.5)
[2019-07-30 07:29] LABS: Alanine Aminotransferase 10 U/L (12-78); Albumin Level 1.7 gm/dl (3.4-5.0); Aspartate Aminotransferase 16 U/L (15-37); BUN Creatinine Ratio 20.7 (10-20); Blood Urea Nitrogen 6 mg/dl (7-18); Calcium 8.1 mg/dl (8.5-10.1); Carbon Dioxide 29 mmol/L (21-32); Chloride 106 mmol/L (98-107); Creatinine Clr Calc Pharmacy 250.1 ml/min; Est GFR (African American) > 150.0; Est GFR (Non-African American) > 150.0; Glucose 80 mg/dl (70-99); Magnesium 1.8 mg/dl (1.8-2.4); Potassium 3.5 mmol/L (3.5-5.1); Sodium 140 mmol/L (136-145)
[2019-07-30 07:34] LABS: Albumin Globulin Ratio 0.5 (0.9-2); Alkaline Phosphatase 97 U/L (45-117); Bilirubin,Total 0.2 mg/dl (0.2-1); Globulin 3.4 gm/dl (2.5-4.0); Total Protein 5.1 gm/dl (6.4-8.2); Troponin I < 0.015 ng/ml (0-0.045)
[2019-07-30] MEDS ORDERED: VANCOMYCIN CONSULT ACTIVE PRN ×2 (07:38→13:27)
[2019-07-30] MEDS ORDERED: LEVOFLOXACIN/D5W 750 MG/150 ML BAG IV STA (07:38)
[2019-07-30] MEDS ORDERED: CALCIUM GLUCONATE 10% 10 ML VIAL IV STA (07:38)
[2019-07-30] MEDS ORDERED: VANCOMYCIN HCL 1,250 MG in SODIUM CHLORIDE 0.9% 500 ML IV ONE (07:38)
[2019-07-30] MEDS ORDERED: SODIUM CHLORIDE 0.9% 1000ML 500 ML IV ONE (07:40)
[2019-07-30 07:41] LABS: Basophils # (auto) 0.02 K/uL (0-0.2); Basophils % (auto) 0.2 %; Eosinophils # (auto) 0.08 K/uL (0-0.5); Eosinophils % (auto) 0.8 %; Immature Granulocytes # (auto) 0.68 K/uL (0.00-0.02); Immature Granulocytes % (auto) 6.8 %; Lymphocytes # (auto) 3.22 K/uL (1.2-3.4); Monocytes # (auto) 0.39 K/uL (0.11-0.59); Monocytes % (auto) 3.9 %; Neutrophils # (auto) 5.66 K/uL (1.4-6.5); Neutrophils % (auto) 56.3 %; Tear Drop Cells 1+
[2019-07-30] MEDS ORDERED: PIPERACILL/TAZOBAC CONSULT ACTIVE PRN (09:06)
--- NOTE | 2019-07-30 09:26 | History & Physical Report ---
Date of Service July 30, 2019 Assessment & Plan (1) Pneumonia: (2) Rhinovirus infection: This is a 33-year-old female who has significant PMH of quadriplegia secondary to cervical spine injury July 2018, neurogenic bladder with chronic indwelling Constantino, chronic pain, depression with anxiety, Herrera, history of gastric bypass 2009, history of diabetes resolved after gastric bypass, history of complicated UTI who presents to ED secondary to worsening SOB and cough x 1 day. Patient hospitalized 07/23 to 07/27 secondary to bibasilar pneumonia. Start on IV Levaquin 750 mg daily on 07/23, IV clindamycin started on 07/26. She was discharged home on 07/27 with oral Levaquin and clindamycin. Shortness of breath and cough worsening so he presented back to ED. During initial evaluation on 07/23 Flu negative; Biofire: + for entero/rhinovirus, procalcitonin 11. Patient now returns with worsening bibasilar pneumonia and worsening clinical status. Chest CT performed reveals Small left greater than right pleural effusions are present in conjunction with dense dependent consolidation of the lower lobes. 2. Subtle scattered groundglass opacities of the right upper lobe are suggestive of an infectious or inflammatory pneumonitis. admit to PCU must rule out co infection with covid 19 - pt bed bound and mostly at home but risk factors include care givers coming to home; although no known +covid contacts airborne precautions IV vanco and zosyn for asp coverage MRSA swab, sputum culture incentive spirometry, chest PT, flutter valve alb neb tx, mucomyst consult pulmonology - appreciate their input may need central line placement due to poor venous access - staff unable to obtain blood cultures downstairs (3) Dehydration: bun/cr 6 and 0.29 with ratio 20.7 pre renal azotemia in setting of poor intake due to pneumonia IVF with KCL 100cc/hr monitor labs (4) Anemia: H/H stable at 9.1 and 28.2 normocytic normochromic no s/sx of bleeding (5) Tetraplegia: 2/2 to C spine fx s/p cspine surgery 07/2018 continue methadone, prn oxycodone, baclofen, lyrica encourage passive ROM q4h while awake (6) Neurogenic bladder: chronic constantino catheter hx of complicated UTI urine culture ordered, initial urine looks contaminated (7) Hypoalbuminemia: Albumin 1.7 chief passenger ship steward/stewardess consulted last hospitalization implement boost vanilla bid along with high protein diet add vit C and zinc sulfate per chief passenger ship steward/stewardess recommendations at last admission (8) Sacral wound: turn and reposition q2h wound care ordered (9) Depression: depression with anxiety continue citalopram, wellbutrin, hydroxyzine avoid qtc prolonging medications, current qtc 465 (10) DVT prophylaxis: SQ Lovenox Disposition: admit to PCU Follow up: PCP Dr. Arzola upon discharge Please refer to Dr. Kaufman addendum for further details regarding Subjective HPI/ROS and plan. History of Present Illness Chief Complaint: Worsening SOB and cough x 1 day. Primary Care Provider: Ashley Arzola MD This is a 33-year-old female who has significant PMH of quadriplegia secondary to cervical spine injury July 2018, neurogenic bladder with chronic indwelling Constantino, chronic pain, depression with anxiety, Herrera, history of gastric bypass 2009, history of diabetes resolved after gastric bypass, history of complicated UTI who presents to ED secondary to worsening SOB and cough x 1 day. Of significance patient was recently hospitalized on 07/23 to 07/27 secondary to bibasilar pneumonia. Of significance at time of work-up for influenza but was negative, but bio fire was positive for entero-/rhinovirus. PNA felt secondary to viral infection with possible superimposed bacterial component and/or aspiration. Her hospital course was complicated for dehydration in which she required IV fluid resuscitation. She also had episode of significant hypoxia felt likely due to mucous plugging due to inability to expectorate secondary to quadriplegic status. She initially was started on IV Levaquin on 07/23 and IV clindamycin was added on 07/26 to cover for possible aspiration component. At discharge chest x-ray showed minimal improvement of bibasilar pneumonia. Unfortunately patient returns today with worsening pneumonia and respiratory status. Please refer to Dr. Kaufman addendum for further subjective HPI and ROS. In ED patient was maintaining O2 saturations at 91% on room air. She was otherwise hemodynamically stable with blood pressure 121/80, mildly tachycardic heart rate 93. Lab work noted for WBC 10.05, H&H 9.1 and 28.2, platelet 326, BUN 6, creatinine 0.29, BUN/creatinine ratio 20.7, albumin 1.7, urinalysis positive for leukocyte esterase, WBC, epithelial cells CXR shows persistent bibasilar opacities with worsening on left and possible parapneumonic effusion. According to nursing staff patient has very poor vein status. Allergies Allergy/AdvReac Type Severity Reaction Status Date / Time Cephalosporins Allergy Mild . Verified 07/30/19 06:43 prochlorperazine Allergy Mild . Verified 07/30/19 06:43 Sulfa (Sulfonamide Allergy Mild . Verified 07/30/19 06:43 Antibiotics) latex AdvReac Mild . Verified 07/30/19 06:43 Home Medications Home Medications Medication Instructions Recorded Confirmed Type Narcan 1 - 2 spray INTRANASAL UD PRN 10/21/18 07/30/19 History diazepam [Valium] 5 mg PO Q8H PRN 10/21/18 07/30/19 History escitalopram oxalate 10 mg PO QAM 10/21/18 07/30/19 History fluticasone propionate 1 spray INTRANASAL QAM 10/21/18 07/30/19 History folic acid 1 mg PO QAM 10/21/18 07/30/19 History nystatin 1 applic TOPICAL BID PRN 10/21/18 07/30/19 History ondansetron HCl 4 mg PO Q8H PRN 10/21/18 07/30/19 History oxycodone 5 mg PO Q4H PRN 10/21/18 07/30/19 History bupropion HCl [Wellbutrin SR] 150 mg PO BID 03/17/19 07/30/19 History pregabalin [Lyrica] 50 mg PO TID 03/17/19 07/30/19 History sennosides [Senokot] 17.2 mg PO QAM 03/17/19 07/30/19 History baclofen 10 mg PO TID 04/23/19 07/30/19 History cyanocobalamin (vitamin B-12) See Rx Instructions .ROUTE .COMPLEX 04/23/19 07/30/19 History levothyroxine [Synthroid] 25 mcg PO DAILY 04/23/19 07/30/19 History oxybutynin chloride [Ditropan XL] 10 mg PO DAILY 04/23/19 07/30/19 History hydroxyzine HCl 25 mg PO UD PRN 07/24/19 07/30/19 History methadone 10 mg PO BID 07/24/19 07/30/19 History Lactobacillus acidoph-L.bulgar 4 tab PO TIDM 10 Days #40 tab 07/28/19 07/30/19 Rx [Floranex] clindamycin HCl 150 mg PO Q6 #20 cap 07/28/19 07/30/19 Rx ipratropium-albuterol [Combivent 1 puffs INH Q6H PRN #4 gm 07/28/19 07/30/19 Rx Respimat] levofloxacin 500 mg PO DAILY@1100 #3 tab 07/28/19 07/30/19 Rx Past Med/Surg History Medical History Adjustment disorder with depressed mood (Acute) BENEDICT (acute kidney injury) (Acute) Anemia C6 cervical fracture (Resolved) Complicated UTI (urinary tract infection) (Acute) Depression (Chronic) DVT prophylaxis Constantino catheter in place (Acute) Fracture of cervical vertebra, C7 (Resolved) Hypomagnesemia Multi-system degeneration of autonomic nervous system (Acute) Neurogenic bladder (Chronic) Neuropathic pain (Acute) Post-traumatic spasticity (Acute) Recurrent major depressive disorder (Acute) Second degree AV block (Chronic) Sepsis (Acute) Spasm of bowel (Inactive) Spinal cord injury, C5-C7 (Chronic) Tetraplegia (Acute) Transaminitis (Acute) Transaminitis (Acute) Wheelchair dependence (Acute) Surgical History H/O cervical spine surgery (Chronic) [place] [facility] [place] of appendectomy (Chronic) History of cholecystectomy (Chronic) History of oophorectomy History of Abi-en-Y gastric bypass (Chronic) [place] [facility] [place] Family History Other Diabetes Social History Preferred Language: Latvian Communication Ability: Effective Hospitality Intern Required: No Beliefs That Will Affect Care: None Current Living Situation: Family Current Living Situation Comment: lives with sister, 24 hour caregivers Other Information That Helps Us Care for You: No Feels Safe at Home: Yes Safety Concerns: Feels Safe At This Time Smoking Status: Former smoker Tobacco Type: cigarettes ; Cigarettes Per Day: 20 ; Do You Dip or Chew Tobacco: No ; Smoking End Date: ; Second Hand Exposure: Yes ; Tobacco Cessation Education Requested by Patient: No Hx Alcohol Use: No Hx Substance Use: Yes substance use type: prescription drug and other Substance Use Type Other:: valium, lyrica Last Used Substance: Unknown Review of Systems Review of Systems: All systems reviewed & are unremarkable except as noted in HPI & below Physical Exam Physical Exam: Please refer to Dr. Kaufman addendum for further details regarding Physical Exam. Results & Data Results & Data ([facility]) Vital Signs (Past 12 Hours) Vital Signs Temp Pulse Pulse Resp BP Pulse Ox 07/30/19 08:15 93 H 40 H 91 07/30/19 08:01 63 22 92 07/30/19 08:00 66 19 121/80 94 07/30/19 07:45 70 19 92 07/30/19 07:31 70 16 94 07/30/19 07:30 69 18 121/75 95 07/30/19 07:15 16 95 07/30/19 07:13 70 18 94 07/30/19 07:01 18 92 07/30/19 07:00 18 113/76 93 07/30/19 06:45 72 18 94 07/30/19 06:31 65 21 95 07/30/19 06:30 64 18 121/77 94 07/30/19 06:15 62 15 94 07/30/19 06:09 94 07/30/19 06:03 36.5 C 68 20 114/59 L 94 07/30/19 06:00 71 17 106/71 93 07/30/19 05:59 67 16 114/59 L 96 Laboratory Results Short CBC 07/30/19 Range/Units 07:02 WBC 10.05 (4.8-10.8) K/uL Hgb 9.1 L (12.0-16.0) g/dL Hct 28.2 L (37-47) % Plt Count 326 (130-400) K/uL BMP 07/30/19 07:02 Sodium 140 Potassium 3.5 Chloride 106 Carbon Dioxide 29 BUN 6 L Creatinine 0.29 L Glucose 80 Calcium 8.1 L Cardiac Enzymes 07/30/19 Range/Units 07:02 Troponin I < 0.015 (0-0.045) ng/ml Liver Function 07/30/19 Range/Units 07:02 Total Bilirubin 0.2 (0.2-1) mg/dl AST 16 (15-37) U/L ALT 10 L (12-78) U/L Alkaline Phosphatase 97 (45-117) U/L Albumin 1.7 L (3.4-5.0) gm/dl Urine 07/30/19 Range/Units 07:15 Urine Color Yellow Urine Appearance Clear (Clear) Urine pH 6.5 (4.5-7.5) Ur Specific Martinez 1.006 (1.000-1.030) Urine Protein Negative (Negative) Urine Glucose (UA) Negative (Negative) Diagnostic Findings CXR: IMPRESSION: 1. Persistent bibasilar airspace opacities, mildly worsened on the left compatible with ongoing pneumonia. Continued follow-up recommended. 2. Trace left parapneumonic effusion. Chest CT: 1. Small left greater than right pleural effusions are present in conjunction with dense dependent consolidation of the lower lobes. These findings may reflect aspiration pneumonitis, pneumonia or atelectasis. 2. Subtle scattered groundglass opacities of the right upper lobe are suggestive of an infectious or inflammatory pneumonitis. 3. Mildly prominent mediastinal lymph nodes, likely reactive. 4. Mild layering tracheobronchial secretions. 5. Prior gastric bypass and cholecystectomy. Medications Administered Vancomycin HCl 1,250 mg/ (Sodium Chloride) 525 mls @ 200 mls/hr IV NOW ONE Stop: 07/30/19 10:15 Last Admin: 07/30/19 07:55 Dose: 200 mls/hr Documented by: [id number] Discontinued Medications Albuterol (Duoneb) 6 ml INH NOW STA Stop: 07/30/19 06:46 Last Admin: 07/30/19 07:13 Dose: 6 ml Documented by: [id number] Calcium Gluconate (Calcium Gluconate 10%) 2,000 mg IV NOW STA Stop: 07/30/19 07:39 Last Admin: 07/30/19 08:06 Dose: 2,000 mg Documented by: [id number] Sodium Chloride (Nss) 500 mls @ 999 mls/hr IV .Q31M TARIQ Stop: 07/30/19 07:15 Last Admin: 07/30/19 07:08 Dose: 999 mls/hr Documented by: [id number] ECG Rate (beats per minute): 66 Rhythm: normal sinus Findings: + prolonged QT (465ms) Code Status & VTE Plan Code Status Full Code VTE Prophylaxis Plan VTE Prophylaxis will be ordered: Yes Supervising Physician Co-Signing Physician Notes Attending Note: Patient states having worsening non-expectorant cough associated with intermittent shortness of breath since last few days. She reports having difficulty bringing up any expectoration. Denies any history of fever,chills, chest pain, nausea, vomiting, dizziness, abdominal pain, diarrhea, headache. She admits to using her nebulizer treatments at home which did not improve her symptoms. She was found to be hypoxic when evaluated by EMS. CT chest s uggestive of bilateral pleural effusions, dense dependent consolidation of lower lobes--findings suggestive of pneumonitis/pneumonia. Normal Procalcitonin. Lactate levels pending. Physical Exam: Vitals signs as noted above General Appearance:Thin, frail, chronic ill appearing, no apparent distress Head: normocephalic, Atraumatic Eyes: normal inspection, EOMI Neck: supple, Trachea midline Respiratory/Chest: Decreased coarse breath sounds, B/L rhonchi Cardiovascular: S1, S2, No murmur Abdomen/GI:Soft, Non tender, Bowel sounds present Extremities/Musculoskelatal:normal inspection, no edema Neurologic/Psych:AAOX3, Quadriplegia, Complete neuro exam limited due to quadriplegia Skin:normal color,warm Assessment and Plan: Pneumonitis Possible Pneumonia B/L pleural Effusion ? Secondary to Aspiration --CT chest:Small left greater than right pleural effusions are present in conjunction with dense dependent consolidation of the lower lobes. These findings may reflect aspiration pneumonitis, pneumonia or atelectasis. Subtle scattered groundglass opacities of the right upper lobe are suggestive of an infectious or inflammatory pneumonitis. Mildly prominent mediastinal lymph nodes, likely reactive. Mild layering tracheobronchial secretions. Prior gastric bypass and cholecystectomy. --Recent Rhinovirus infection --R/O COVID --Repeat Influenza, Biofire Screen --Empirically start with Broad spectrum antibiotics --Isolation precautions --Obtain Cultures --Pulmonary Hygiene, Mucomyst --May benefit for corticosteroids but will wait for Pulm Input given R/O COVID --Aspiration precautions --Pulmnology Consult --Speech therapy Eval --Supplemental Oxygen as needed R/O UTI Urine Cx:pending Continue Empiric Abx as above H/O chronic Constantino Catheter I personally reviewed the record. Patient is interviewed and examined at bedside. Patient's care is coordinated with Rachel Desir PA-C. Please refer to the documentation above for details of patient's presentation and for discussion of other issues. (1) Pneumonia Laterality: bilateral Lung location: lower lobe of lung Pneumonia type: due to unspecified organism Qualified Code(s): J18.9 - Pneumonia, unspecified organism
--- NOTE | 2019-07-30 09:43 | CT Scan Report ---
CT chest wo con CT DOSE: 662.99 mGycm CLINICAL HISTORY: 33 years-old Female with persistent bibasilar opacities. Follow-up study in a kylie ent with bibasilar opacities and shortness of breath TECHNIQUE: Multiaxial CT images of the chest were performed without contrast. A dose lowering techni que was utilized adhering to the principles of ALARA. COMPARISON: Chest radiograph of same day, CT abdomen and pelvis 03/17/2019 FINDINGS: Limited exam secondary to positioning of the patient. The patient's upper extremities across the ante rior chest. Study is also limited without the use of IV contrast. Mildly heterogeneous appearance of the thyroid. Prominent paratracheal and subcarinal lymph nodes gabe sure up to 8 mm in short axis. Small pericardial effusion. Heart is normal in size. No thoracic aorti c aneurysm. Small left greater than right pleural effusions. No pneumothorax. Ill-defined 11 mm groun dglass opacity of the right lung apex, image 82 of series 4 with additional scattered ill-defined dada undglass densities noted within the posterior segment right upper lobe. There is dense consolidation present within the bilateral basal lower lobes extending into the superior segments. Mild linear nond ependent consolidative opacity of the superior segment lingula on image 133 series 4 suggests scarrin g or atelectasis. Layering secretions are noted within the tracheobronchial tree. Air bronchograms of the lung bases. Nonspecific distal esophageal wall thickening. Postoperative changes of prior gastric bypass. Intrahe patic biliary ductal dilation redemonstrated with cholecystectomy. Spleen appears prominent in size. Soft tissues are unremarkable. Fusion hardware of the lower cervical spine is partially imaged. No ac chhaya fracture or suspicious bone lesion identified. IMPRESSION: 1. Small left greater than right pleural effusions are present in conjunction with dense dependent co nsolidation of the lower lobes. These findings may reflect aspiration pneumonitis, pneumonia or atele ctasis. 2. Subtle scattered groundglass opacities of the right upper lobe are suggestive of an infectious or inflammatory pneumonitis. 3. Mildly prominent mediastinal lymph nodes, likely reactive. 4. Mild layering tracheobronchial secretions. 5. Prior gastric bypass and cholecystectomy. ACT 112: Negative or not required by law. Electronically signed by: Raf Tucker M.D. 07/30/2019 9:42 AM
[2019-07-30] MEDS: ACETYLCYSTEINE 10% INHAL SOLN 4 ML **DISPENSED BY RESP. INH SCH ×2 (10:31→20:07)
[2019-07-30 11:01] LABS: Adenovirus PCR Not Detected (NotDetected); Bordetella parapertussis PCR Not Detected (NotDetected); Bordetella pertussis PCR Not Detected (NotDetected); Coronavirus 229E PCR Not Detected (NotDetected); Coronavirus HKU1 PCR Not Detected (NotDetected); Coronavirus NL63 PCR Not Detected (NotDetected); Coronavirus OC43PCR Not Detected (NotDetected); Human Metapneumovirus PCR Not Detected (NotDetected); Influenza A PCR Not Detected (NotDetected); Influenza B PCR Not Detected (NotDetected); Parainfluenza Virus 1 PCR Not Detected (NotDetected); Parainfluenza Virus 2 PCR Not Detected (NotDetected); Parainfluenza Virus 3 PCR Not Detected (NotDetected); Parainfluenza Virus 4 PCR Not Detected (NotDetected); Respiratory Syncytial VirusPCR Not Detected (NotDetected)
[2019-07-30 11:02] LABS: Chlamydia pneumoniae PCR Not Detected (NotDetected); Mycoplasma pneumoniae PCR Not Detected (NotDetected)
[2019-07-30 11:04] LABS: Rhinovirus/Enterovirus PCR DETECTED (NotDetected)
[2019-07-30] MEDS ORDERED: diazePAM 5 MG TABLET ONE (11:29)
--- NOTE | 2019-07-30 12:36 | Electrocardiogram Report ---
Test Reason : Blood Pressure : / mmHG Vent. Rate : 066 BPM Atrial Rate : 066 BPM P-R Int : 188 ms QRS Dur : 088 ms QT Int : 444 ms P-R-T Axes : 073 059 044 degrees QTc Int : 465 ms Poor data quality, interpretation may be adversely affected Normal sinus rhythm Diffuse Nonspecific T wave abnormality Abnormal ECG When compared with ECG of 26-JUL-2019 08:48, No significant change was found Confirmed by Pavel Andrade ([id number]) on 07/30/2019 12:35:50 PM Referred By: REFERRED SELF Confirmed By:Pavel Andrade
[2019-07-30] MEDS ORDERED: MAGNESIUM HYDROXIDE SUSP 30 ML UDC PO PRN (13:27)
[2019-07-30] MEDS ORDERED: diazePAM 5 MG TABLET PO PRN (13:27)
[2019-07-30] MEDS ORDERED: IPRATROPIUM BROMIDE/ALBUTEROL respimat INH INH PRN (13:27)
[2019-07-30] MEDS ORDERED: POLYETHYLENE (MIRALAX) 17 GM PACK PO PRN (13:27)
[2019-07-30] MEDS ORDERED: ALUMINUM/MAGNESIUM SUSP 30 ML UDC PO PRN (13:27)
[2019-07-30] MEDS ORDERED: NSS + 20MEQ KCL 20 MEQ/1,000 ML BAG IV SCH (14:00)
[2019-07-30] MEDS ORDERED: PIPERACILLIN/TAZOBACTAM 4.5 GM in DEXTROSE 5% 100 ML IV ONE (14:30)
[2019-07-30] MEDS: BACLOFEN 10 MG TAB PO SCH ×2 (14:32→20:49)
[2019-07-30] MEDS: LACTOBACILLUS ACIDOPHILUS (FLORANEX) TAB PO SCH ×2 (14:32→16:08)
[2019-07-30] MEDS: ASCORBIC ACID 500 MG TAB PO SCH (14:33)
[2019-07-30] MEDS: PREGABALIN 50 MG CAP PO SCH ×2 (14:33→20:49)
[2019-07-30] MEDS: ZINC SULFATE 220 MG CAPSULE PO SCH (14:33)
--- NOTE | 2019-07-30 14:57 | Pharmacy Report ---
Pharmacy Abx Dose Short Note - Date of Service July 30, 2019 - Assessment & Plan Assessment * Ms Humphries is a 33 year old F receiving Vanc/Zosyn for treatment of B/L pneumonia. * Patient was hospitalized from 07/23 - 07/28/2019 for pneumonia, for which she received LVQ/clinda and was discharged home on the same. * Pt presents back to ED with worsening SOB/cough. * Biofire positive for entero/rhinovirus, procalcitonin elevated. * Pt initiated on broad spectrum antibiotics and will r/o co-infection with COVID-19. * Other PMH is significant for quadriplegia, gastric bypass in 2009, DM, chronic indwelling catheter, GLYNN * Urine cx pending, MRSA swab negative Plan Vancomycin * Vancomycin 1250mg IV x1 dose given in ED, then * Vancomycin 1250mg IV q8h * Trough level ordered prior to the 4th maintenance dose. Zosyn 4.5gm IV x1 dose, then 3.375gm IV q8h Pharmacy will continue to follow and will adjust dose/frequency as necessary. Thank you.
[2019-07-30] MEDS ORDERED: FUROSEMIDE 40 MG in SYRINGE 0 ML IV ONE (15:45)
[2019-07-30] MEDS: VANCOMYCIN HCL 1,250 MG in SODIUM CHLORIDE 0.9% 250 ML IV SCH (16:07)
--- NOTE | 2019-07-30 16:17 | Pulmonary Consultation ---
Date of Consultation July 30, 2019 Assessment & Plan (1) Pneumonia: Patient recently admitted and discharged with entero-rhino virus This appears to be aspiration with some atelectasis and possible coinfection to the viral etiology There is layering appearance with tracheobronchial secretions * Chest percussion with a vest * Flutter valve with assistance * HOB > 30 degrees * Mucomyst Nebs Day #1 Levofloxacin, Zosyn, and Vancomycin Previous MRSA screening was negative Titrate O2 to > 90% Laterality: bilateral Lung location: lower lobe of lung Pneumonia type: due to unspecified organism Qualified Code(s): J18.9 - Pneumonia, unspecified organism (2) Hypoxia: Secondary to pneumonia, viral pneumonitis, and atelectasis Continue treatment as above Incentive spirometry with assistance Titrate O2> 90% (3) Rhinovirus infection: First diagnosed on Bio Fire 07/24/2019 Repeat Bio Fire also positive for Entero/Rhino virus Continue droplet precautions (4) Bilateral pleural effusion: Most likely secondary to pneumonitis Patient received Furosemide 40mg for diuresis No prior history of pleural effusion Follow clinically No plans for thoracentesis at this time (5) DVT prophylaxis: Quadraplegia since traumatic fall 07/2018 Continue Lovenox 40 mg daily per discretion of the primary team Thank you for including us in the care of this patient. We will follow along with you. Please refer to Dr. Gar's addendum for further recommendations. Supervising Physician Co-Signing Physician Notes I saw and evaluated the patient with Lucas bhatt, and agree with findings and plan as documented in the note. Patient seen and examined at bedside. Patient is quadriplegic since unfortunate accident in July 2018. Patient is able to move little bit of her arms. Patient has poor cough since the accident. She has been complaining of shortness of breath since early July which he came to the hospital and was discharged on p.o. antibiotics. She still complaining of shortness of breath which has been getting progressively worse. No fever or chills. No chest pain, patient does not know any contact of anybody with symptoms. No Covid-19 positive contacts that she knows of. Patient denies any difficulty swallowing. Denies that her cough is worse when she eats. No odynophagia no dysphagia. CT chest without contrast personally reviewed: Patient has bilateral lower lobe consolidation. Especially of the left lower lobe. Patient has some groundglass opacities as well in the right upper lobe. Mediastinal lymphadenopathy is appreciated. There is some debris appreciated in the trachea as well. Bilateral pleural effusions also appreciated. I think patient's for cough is playing a role in her underlying pneumonia. Aspiration is very high on differential. Recommend swallow eval. NT BNP of the patient is elevated. Would recommend diuresis and get an official 2D echo. Continue with Mucomyst as well as chest percussion vest to help bring up the phlegm. Continue with antibiotics. Follow-up septic work-up CAT scan findings do not go with Covid-19. Patient has no significant risk f actors for Covid-19. Would recommend discontinuing the test. And take of the isolation. History of Present Illness Attending Physician: Luisito Kaufman MD History of Present Illness Attending: Dr. Gar This is a 33-year-old female that had a traumatic fall in July 2018 resulting in quadriplegia. Since that time the patient has had difficulty with developing a cough and has significant difficulty with expectorating sputum. The patient was recently admitted for shortness of breath and viral type symptoms. A bio fire respiratory panel was completed and was positive for rhinovirus. Patient seemed to show improvement and was discharged home. Over the last 2 to 3 days, the patient states that she has had progressive shortness of breath and more difficulty expectorating sputum. She denies any fever, sweats, chills, rigors. Cough is typical to what she has had in the past secondary to her accident. She does state that she goes through periods where she has shortness of breath due to positioning or difficulty coughing but usually resolves. While this is similar it seems to be more persistent. Patient denies any travel. She lives at her sister's home where she has 24-hour care. For approximately 12 hours/day the patient has caregivers coming to the home. For the remainder of the time her sister is her primary caregiver. The patient states that no one is known to be positive for COVID-19. She is unaware of any contact between her caregivers and other possible carriers. The patient denies nausea or vomiting. She has no unusual pain. She has no chest pain or tightness. She denies home oxygen use. She does have a nebulizer at home with DuoNeb. She also has an albuterol HFA inhaler. For pulmonary toileting she uses acetylcysteine nebulizer treatment every 12 hours scheduled. She also uses Flonase once daily in each nostril. The patient states that she has never seen a beauty shop manager. She is not aware of having pulmonary function testing completed. She does not have a [id number]. The patient has a previous smoking history but quit smoking about two years ago. She denies THC use or vaping. She has no EToH abuse history. The patient has no other acute complaints. Allergies Allergy/AdvReac Type Severity Reaction Status Date / Time Cephalosporins Allergy Mild . Verified 07/30/19 06:43 prochlorperazine Allergy Mild . Verified 07/30/19 06:43 Sulfa (Sulfonamide Allergy Mild . Verified 07/30/19 06:43 Antibiotics) latex AdvReac Mild . Verified 07/30/19 06:43 Home Medications Home Medications Medication Instructions Recorded Confirmed Type Narcan 1 - 2 spray INTRANASAL UD PRN 10/21/18 07/30/19 History diazepam [Valium] 5 mg PO Q8H PRN 10/21/18 07/30/19 History escitalopram oxalate 10 mg PO QAM 10/21/18 07/30/19 History fluticasone propionate 1 spray INTRANASAL QAM 10/21/18 07/30/19 History folic acid 1 mg PO QAM 10/21/18 07/30/19 History nystatin 1 applic TOPICAL BID PRN 10/21/18 07/30/19 History ondansetron HCl 4 mg PO Q8H PRN 10/21/18 07/30/19 History oxycodone 5 mg PO Q4H PRN 10/21/18 07/30/19 History bupropion HCl [Wellbutrin SR] 150 mg PO BID 03/17/19 07/30/19 History pregabalin [Lyrica] 50 mg PO TID 03/17/19 07/30/19 History sennosides [Senokot] 17.2 mg PO QAM 03/17/19 07/30/19 History baclofen 10 mg PO TID 04/23/19 07/30/19 History cyanocobalamin (vitamin B-12) See Rx Instructions .ROUTE .COMPLEX 04/23/19 07/30/19 History levothyroxine [Synthroid] 25 mcg PO DAILY 04/23/19 07/30/19 History oxybutynin chloride [Ditropan XL] 10 mg PO DAILY 04/23/19 07/30/19 History hydroxyzine HCl 25 mg PO UD PRN 07/24/19 07/30/19 History methadone 10 mg PO BID 07/24/19 07/30/19 History Lactobacillus acidoph-L.bulgar 4 tab PO TIDM 10 Days #40 tab 07/28/19 07/30/19 Rx [Floranex] clindamycin HCl 150 mg PO Q6 #20 cap 07/28/19 07/30/19 Rx ipratropium-albuterol [Combivent 1 puffs INH Q6H PRN #4 gm 07/28/19 07/30/19 Rx Respimat] levofloxacin 500 mg PO DAILY@1100 #3 tab 07/28/19 07/30/19 Rx Patient History Medical History Adjustment disorder with depressed mood (Acute) BENEDICT (acute kidney injury) (Acute) Anemia C6 cervical fracture (Resolved) Complicated UTI (urinary tract infection) (Acute) Depression (Chronic) DVT prophylaxis Castillo catheter in place (Acute) Fracture of cervical vertebra, C7 (Resolved) Hypomagnesemia Multi-system degeneration of autonomic nervous system (Acute) Neurogenic bladder (Chronic) Neuropathic pain (Acute) Post-traumatic spasticity (Acute) Recurrent major depressive disorder (Acute) Second degree AV block (Chronic) Sepsis (Acute) Spasm of bowel (Inactive) Spinal cord injury, C5-C7 (Chronic) Tetraplegia (Acute) Transaminitis (Acute) Transaminitis (Acute) Wheelchair dependence (Acute) Surgical History H/O cervical spine surgery (Chronic) S/p anterior cervical disc fusion and posterior cervical disc fusion 08/16/18 at [facility] History of appendectomy (Chronic) History of cholecystectomy (Chronic) History of oophorectomy History of Abi-en-Y gastric bypass (Chronic) performed in 2009 at [facility] Family History Other Diabetes Social History Preferred Language: Citizen Of [place] Communication Ability: Effective Sports Internship Required: No Beliefs That Will Affect Care: None Current Living Situation: Family Current Living Situation Comment: lives with sister, 24 hour caregivers Other Information That Helps Us Care for You: No Feels Safe at Home: Yes Safety Concerns: Feels Safe At This Time Smoking Status: Former smoker Tobacco Type: cigarettes ; Cigarettes Per Day: 20 ; Do You Dip or Chew Tobacco: No ; Smoking End Date: ; Second Hand Exposure: Yes ; Tobacco Cessation Education Requested by Patient: No Hx Alcohol Use: No Hx Substance Use: Yes substance use type: prescription drug and other Substance Use Type Other:: valium, lyrica Last Used Substance: Unknown Review of Systems Review of Systems: All systems reviewed & are unremarkable except as noted in HPI & below Physical Exam Physical Exam: GENERAL : No acute distress. EYES: No icterus, gaze conjugate. Pupils equal round and reactive to light NOSE: No evidence of epistaxis. Oxymask in place MOUTH: No lesions or candidiasis. Mucosa is dry NECK: Supple. No appreciation of carotid bruits LUNGS: Lung sounds are decreased at the bilateral bases. There is some fine crackles on the right. There is no evidence of bronchospasm appreciated. No rhonchi. HEART: Regular, rate controlled ABDOMEN: Soft, NT, ND, BS Present EXTREMITIES: +1 bilateral LE edema, pedal pulses intact NEURO: A&OX3. Patient has bilateral contractions of the upper extremities secondary to plegia. Patient's lower extremities are without active or passive movement. There is no sensation to touch or palpation. Patient does have lower extremity edema with good pedal pulses intact. There is good capillary refill. Patient has no evidence of facial droop or slurred speech. Short-term and long- term memory intact. Results & Data Results & Data ([facility]) Vital Signs (Past 12 Hours) Vital Signs Temp Pulse Pulse Resp BP BP Pulse Ox 07/30/19 15:54 37.3 C 95 H 19 144/91 H 98 07/30/19 14:45 36.8 C 76 22 117/81 99 07/30/19 13:19 36.9 C 94 H 21 111/77 92 07/30/19 12:45 77 29 H 94 07/30/19 12:30 80 27 H 119/83 92 07/30/19 12:15 80 33 H 91 07/30/19 12:00 82 37 H 127/70 89 L 07/30/19 11:45 87 41 H 90 07/30/19 11:31 98 H 39 H 80 L 07/30/19 11:30 91 H 54 H 136/99 80 L 07/30/19 11:15 103 H 32 H 87 L 07/30/19 11:02 75 36 H 85 L 07/30/19 11:01 77 29 H 122/75 86 L 07/30/19 11:00 72 36 H 86 L 07/30/19 10:45 77 25 H 88 L 07/30/19 10:31 102 H 29 H 160/73 H 93 07/30/19 10:30 90 31 H 94 07/30/19 10:15 68 22 93 07/30/19 10:00 69 20 153/89 H 94 07/30/19 09:46 75 24 148/94 H 95 07/30/19 09:45 72 25 H 148/94 H 91 07/30/19 09:37 70 23 92 07/30/19 09:15 64 17 93 07/30/19 09:00 66 17 93 07/30/19 08:45 68 24 94 07/30/19 08:30 78 45 H 94 07/30/19 08:15 93 H 40 H 91 07/30/19 08:01 63 22 92 07/30/19 08:00 66 19 121/80 94 07/30/19 07:45 70 19 92 07/30/19 07:31 70 16 94 07/30/19 07:30 69 18 121/75 95 07/30/19 07:15 16 95 07/30/19 07:13 70 18 94 07/30/19 07:01 18 92 07/30/19 07:00 18 113/76 93 07/30/19 06:45 72 18 94 07/30/19 06:31 65 21 95 07/30/19 06:30 64 18 121/77 94 07/30/19 06:15 62 15 94 07/30/19 06:09 94 07/30/19 06:03 36.5 C 68 20 114/59 L 94 07/30/19 06:00 71 17 106/71 93 07/30/19 05:59 67 16 114/59 L 96 Laboratory Results 07/30/19 07:02 07/30/19 07:02 Laboratory Tests 07/30/19 09:40 Influenza Type A (PCR) Not Detected Influenza Type B (PCR) Not Detected Entero/Rhino (PCR) DETECTED A* Diagnostic Findings CT chest wo con CT DOSE: 662.99 mGycm CLINICAL HISTORY: 33 years-old Female with persistent bibasilar opacities. Follow-up study in a patient with bibasilar opacities and shortness of breath TECHNIQUE: Multiaxial CT images of the chest were performed without contrast. A dose lowering technique was utilized adhering to the principles of ALARA. COMPARISON: Chest radiograph of same day, CT abdomen and pelvis 03/17/2019 FINDINGS: Limited exam secondary to positioning of the patient. The patient's upper extremities across the anterior chest. Study is also limited without the use of IV contrast. Mildly heterogeneous appearance of the thyroid. Prominent paratracheal and subcarinal lymph nodes measure up to 8 mm in short axis. Small pericardial effusion. Heart is normal in size. No thoracic aortic aneurysm. Small left greater than right pleural effusions. No pneumothorax. Ill-defined 11 mm groundglass opacity of the right lung apex, image 82 of series 4 with additional scattered ill-defined groundglass densities noted within the posterior segment right upper lobe. There is dense consolidation present within the bilateral basal lower lobes extending into the superior segments. Mild linear nondependent consolidative opacity of the superior segment lingula on image 133 series 4 suggests scarring or atelectasis. Layering secretions are noted within the tracheobronchial tree. Air bronchograms of the lung bases. Nonspecific distal esophageal wall thickening. Postoperative changes of prior gastric bypass. Intrahepatic biliary ductal dilation redemonstrated with cholec ystectomy. Spleen appears prominent in size. Soft tissues are unremarkable. Fusion hardware of the lower cervical spine is partially imaged. No acute fracture or suspicious bone lesion identified. IMPRESSION: 1. Small left greater than right pleural effusions are present in conjunction with dense dependent consolidation of the lower lobes. These findings may reflect aspiration pneumonitis, pneumonia or atelectasis. 2. Subtle scattered groundglass opacities of the right upper lobe are suggestive of an infectious or inflammatory pneumonitis. 3. Mildly prominent mediastinal lymph nodes, likely reactive. 4. Mild layering tracheobronchial secretions. 5. Prior gastric bypass and cholecystectomy. Electronically signed by: Raf Tucker M.D. 07/30/2019 9:42 AM PG Care Time/CCT Total # of Minutes Spent Total Time Spent with Patient: Total time spent is greater than 50% in coordination of care (as documented) at patient's floor/unit and/or counseling patient: 40 minutes Coding Level of Care Code 96886 Inpt Consult Level 5 Diagnoses Pneumonia J18.9 Laterality: bilateral Lung location: lower lobe of lung Pneumonia type: due to unspecified organism Hypoxia R09.02 Rhinovirus infection B34.8 Bilateral pleural effusion J90 DVT prophylaxis Z29.9
[2019-07-30] MEDS: ALBUTEROL 0.083% NEBU SOLN 3 ML VIAL NEB PRN (19:41)
[2019-07-30] MEDS: PIPERACILLIN/TAZOBACTAM 3.375 GM in DEXTROSE 5% 100 ML IV SCH (20:48)
[2019-07-30] MEDS: BuPROPion SR 150 MG TABCR PO SCH (20:49)
[2019-07-30] MEDS: METHADONE HCL 10 MG TAB PO SCH (20:49)
[2019-07-30] MEDS: ENOXAPARIN INJ 40 MG/0.4 ML SYR SQ SCH (20:50)
[2019-07-30] MEDS: OXYCODONE HCL IR 5 MG TAB (IMMEDIATE RELEASE) PO PRN (23:03)
[2019-07-30] MEDS ORDERED: ALBUMIN 25% 50 ML IV ONE (23:45)
[2019-07-31] MEDS: VANCOMYCIN HCL 1,250 MG in SODIUM CHLORIDE 0.9% 250 ML IV SCH ×2 (00:29→08:55)
[2019-07-31] MEDS: PIPERACILLIN/TAZOBACTAM 3.375 GM in DEXTROSE 5% 100 ML IV SCH ×3 (05:02→20:29)
[2019-07-31] MEDS: ACETYLCYSTEINE 10% INHAL SOLN 4 ML **DISPENSED BY RESP. INH SCH ×2 (06:51→19:07)
[2019-07-31] MEDS: ALBUTEROL 0.083% NEBU SOLN 3 ML VIAL NEB PRN ×2 (06:53→19:08)
[2019-07-31 07:14] LABS: COVID-19 Patient Symptomatic? YES; PAN-SARS Coronavirus RNA NEGATIVE (NEGATIVE); SARS CoV2 RNA (COVID-19) NEGATIVE (NEGATIVE); SARS Coronavirus RNA Source NASOPHARYNGEAL
--- NOTE | 2019-07-31 07:15 | XRay Report ---
XR chest 1V portable CLINICAL HISTORY: Difficulty breathing COMPARISON STUDY: 07/30/2019 FINDINGS: The cardiac and mediastinal contours remain stable. There are persistent bilateral lower lito ng zone airspace opacities left greater than right. There is no failure. There is no pneumothorax. Tr ravi effusions are suspected. Postsurgical changes are present within the cervical spine.[ IMPRESSION: Persistent bilateral lower lung zone airspace opacities. ACT 112: Negative or not required by law. Electronically signed by: Ignacio Abdi M.D. 07/31/2019 7:14 AM
[2019-07-31 07:42] LABS: Hematocrit (blood only) 29.1 % (37-47); Hemoglobin 9.3 g/dL (12.0-16.0); Mean Corpuscular Hemoglobin 30.9 pg (25-34); Mean Corpuscular Volume 96.7 fL (80-100); Mean Platelet Volume 8.8 fL (7.4-10.4); Platelet Count 339 K/uL (130-400); RDW Coefficient of Variation 13.1 % (11.5-14.5); RDW Standard Deviation 45.9 fL (36.4-46.3); Red Blood Count 3.01 M/uL (4.2-5.4); White Blood Count 9.45 K/uL (4.8-10.8)
--- NOTE | 2019-07-31 07:43 | Pulmonology Progress Note ---
Date of Service July 31, 2019 Assessment & Plan (1) Pneumonia: --Acute hypoxic respiratory failure secondary to bilateral lower lobe pneumonia Patient was recently in the hospital where she was positive for rhinovirus. Bio fire was again positive for rhinovirus. Continue with antibiotics for the time being given the patient has consolidate changes appreciated bilaterally more on the left side. Aspiration as well as poor cough given the patient has injury to upper level of the spine is playing a role in her pneumonia. Patient will benefit from the following * Chest percussion with a vest * Flutter valve with assistance * HOB > 30 degrees * Mucomyst Nebs Follow-up septic work-up Previous MRSA screening was negative Titrate O2 to > 90% --Bilateral pleural effusions Echo done showed good ejection fraction with no diastolic dysfunction. She has mild pericardial effusion as well. Patient's albumin is 1.7. I doubt this is playing a role in pleural effusion given she does not have edema anywhere else in the body. --Quadriplegic Continue with care Plan: Chest x-ray from today shows improvement in pleural effusion bilaterally. There is improvement in aeration in the right lower lobe. Retrocardiac opacity still persist. Given nasal MRSA is negative I would recommend to discontinue vancomycin. Continue with Zosyn for the time being. Repeat chest x-ray in the morning. Continue with chest PT and Mucomyst. Please note the above document was generated using voice recognition software. It may contain grammatical, syntax or spelling errors. Laterality: bilateral Lung location: lower lobe of lung Pneumonia type: due to unspecified organism Qualified Code(s): J18.9 - Pneumonia, unspecified organism (2) Hypoxia: (3) Rhinovirus infection: (4) Bilateral pleural effusion: (5) DVT prophylaxis: Admission and Anticipated Discharge Date Admission Date: July 30, 2019 Subjective Patient seen and examined at bedside. No acute distress, no adverse events overnight. Patient said that she is feeling better since she came to the hospital. Denies any chest pain. Still complains of weak cough. Not bringing up any phlegm. She was a bit reluctant to use the chest percussion vest device. She was explained that the movement is not that vigorous that she should not be worried about her spine surgery. At the time of examination patient was saturating 96% on 2 L nasal cannula at rest. Review of Systems Review of Systems: All systems reviewed & are unremarkable except as noted in HPI & below Physical Exam Physical Exam: Constitutional: No acute distress HEENT: EOMI, PERRLA Respiratory system: Decreased air entry bilaterally, positive crackles bilateral lower lobes, no wheeze, no rhonchi CVS: S1-S2 positive, no murmurs or gallops Abdomen: Soft, nontender, nondistended, positive bowel sounds x4 Extremities: +2 pulses bilaterally radialis/ dorsalis pedis, no cyanosis, no edema Neuro: Awake alert oriented x3, quadriplegic. Able to move upper extremities to some extent Psych: Normal mood and affect G/U: Positive Castillo Skin: no rashes, warm and dry Lymphatic: no cervical or axillary lymphadenopathy Results & Data Results & Data ([facility]) Vital Signs (Past 12 Hours) Vital Signs Temp Pulse Resp BP Pulse Ox 07/31/19 06:59 69 16 100 07/31/19 03:54 36.5 C 70 18 110/73 100 07/31/19 00:53 70 20 99/63 L 100 07/30/19 23:20 36.8 C 71 18 79/53 L 97 07/31/19 07:14 PG Care Time/CCT Total # of Minutes Spent Total Time Spent with Patient: Total time spent is greater than 50% in coordination of care (as documented) at patient's floor/unit and/or counseling patient: Coding Level of Care Code 80411 Subseq Hosp Care Lvl 3 Diagnoses Pneumonia J18.9 Laterality: bilateral Lung location: lower lobe of lung Pneumonia type: due to unspecified organism Hypoxia R09.02 Rhinovirus infection B34.8 Bilateral pleural effusion J90 DVT prophylaxis Z29.9
[2019-07-31 07:58] LABS: Blood Urea Nitrogen 4 mg/dl (7-18); Calcium 7.9 mg/dl (8.5-10.1); Carbon Dioxide 29 mmol/L (21-32); Chloride 104 mmol/L (98-107); Creatinine Clr Calc Pharmacy 265.8 ml/min; Est GFR (African American) > 150.0; Est GFR (Non-African American) > 150.0; Glucose 78 mg/dl (70-99); Magnesium 1.9 mg/dl (1.8-2.4); Potassium 3.1 mmol/L (3.5-5.1); Sodium 139 mmol/L (136-145)
[2019-07-31] MEDS ORDERED: POTASSIUM CHLORIDE 20 MEQ/15 ML UDC PO STA (08:17)
[2019-07-31] MEDS: LACTOBACILLUS ACIDOPHILUS (FLORANEX) TAB PO SCH ×3 (08:55→18:01)
[2019-07-31] MEDS: ESCITALOPRAM OXALATE 10 MG TAB PO SCH (08:55)
[2019-07-31] MEDS: ZINC SULFATE 220 MG CAPSULE PO SCH (08:56)
[2019-07-31] MEDS: OXYBUTYNIN CHLORIDE XL 5 MG TABCR PO SCH (08:57)
[2019-07-31] MEDS: FOLIC ACID 1 MG TAB PO SCH (08:57)
[2019-07-31] MEDS: BuPROPion SR 150 MG TABCR PO SCH ×2 (08:57→20:30)
[2019-07-31] MEDS: LEVOTHYROXINE SODIUM 25 MCG TABLET PO SCH (08:57)
[2019-07-31] MEDS: FLUTICASONE PROPIONATE NA SPR 16 GM BTL SCH (08:58)
[2019-07-31] MEDS: METHADONE HCL 10 MG TAB PO SCH ×2 (09:21→20:30)
[2019-07-31] MEDS: PREGABALIN 50 MG CAP PO SCH ×3 (09:22→20:30)
[2019-07-31] MEDS: SENNA 8.6 MG TAB PO SCH (09:36)
[2019-07-31] MEDS: BACLOFEN 10 MG TAB PO SCH ×3 (09:36→20:30)
[2019-07-31] MEDS: ASCORBIC ACID 500 MG TAB PO SCH (09:37)
[2019-07-31] MEDS ORDERED: VANCOMYCIN TROUGH ONE (15:30)
--- NOTE | 2019-07-31 16:25 | Hospitalist Progress Note ---
Date of Service July 31, 2019 Assessment & Plan (1) Pneumonia: (2) Rhinovirus infection: Patient is a 33 yr female with H/O Quadriplegia secondary to cervical spine injury July 2018, neurogenic bladder with chronic indwelling Constantino, chronic pain, depression with anxiety, GLYNN, H/O Gastric bypass 2009, DM II resolved after gastric bypass, H/O complicated UTI who presents to ED secondary to worsening SOB and cough x 1 day. Acute Respiratory Failure with Hypoxia B/L lower Lobe Pneumonia B/L pleural Effusion Secondary to Aspiration/Rhinovirus --CT chest:Small left greater than right pleural effusions are present in conjunction with dense dependent consolidation of the lower lobes. These findings may reflect aspiration pneumonitis, pneumonia or atelectasis. Subtle scattered groundglass opacities of the right upper lobe are suggestive of an infectious or inflammatory pneumonitis. Mildly prominent mediastinal lymph nodes, likely reactive. Mild layering tracheobronchial secretions. Prior gastric bypass and cholecystectomy. --H/O Recent Rhinovirus infection --Repeat Influenza screen: negative --Biofire Screen:Rhinovirus --SARS-CoV2 RNA: Negative --MRSA Screen: Negative --ECHO: EF 60-65%, normal diastolic function, no significant valvular pathology, small loculated, posterior pericardial effusion without hemodynamic significance. --Blood Cultures:No growth to date --DC Vancomycin --Continue Zosyn Day #2 --Pulmonary Hygiene, Mucomyst, Chest PT --Aspiration precautions --Appreciate Pulmnology Input --Speech therapy Eval --Wean off of supplemental Oxygen as able --Repeat CXR in AM (3) Dehydration: Secondary to poor oral intake monitor renal function Received IV FLUIDS (4) Anemia: Normocytic normochromic Hb at baseline Monitor (5) Tetraplegia: Secondary to C spine fx s/p cspine surgery 07/2018 Continue methadone, prn oxycodone, baclofen, lyrica Encourage passive ROM q4h while awake (6) Neurogenic bladder: chronic constantino catheter hx of complicated UTI urine culture: Jessica Will not treat as asymptomatic (7) Hypoalbuminemia: Albumin 1.7 manager call consulted last hospitalization Implement boost vanilla bid along with high protein diet Added vit C and zinc sulfate per manager call recommendations at last admission (8) Sacral wound: Reposition q2h wound care consulted (9) Depression: Depression with anxiety continue citalopram, wellbutrin, hydroxyzine Avoid qtc prolonging medications Protein-calorie malnutrition As per records (10) DVT prophylaxis: SQ Lovenox Admission and Anticipated Discharge Date Admission Date: July 30, 2019 Subjective Patient is seen and examined at bedside Feels better today Cough, Dyspnea improving Saturating well on 2 liters of NC Denies chest pain, dizziness, nausea, abd pain Offers no other complaints Review of Systems Review of Systems: All systems reviewed & are unremarkable except as noted in HPI & below Physical Exam Physical Exam: Physical Exam: Vitals signs as noted above General Appearance:Thin, frail, no apparent distress Head: normocephalic, Atraumatic Eyes: normal inspection, EOMI Neck: supple, Trachea midline Respiratory/Chest: Decreased breath sounds, basal crackles Cardiovascular: S1, S2, No murmur Abdomen/GI:Soft, Non tender, Bowel sounds present Extremities/Musculoskelatal:normal inspection, no edema Neurologic/Psych:AAOX3, Quadriplegia, Complete neuro exam limited due to quadriplegia Skin:normal color,warm Results & Data Results & Data ([facility]) Vital Signs (Past 12 Hours) Vital Signs Temp Pulse Pulse Resp BP Pulse Ox 07/31/19 15:53 36.7 C 63 16 117/78 100 07/31/19 11:46 36.8 C 77 18 109/74 100 07/31/19 09:44 79 07/31/19 08:52 36.9 C 68 18 114/77 98 07/31/19 06:59 69 16 100 Laboratory Results Short CBC 07/31/19 Range/Units 07:14 WBC 9.45 (4.8-10.8) K/uL Hgb 9.3 L (12.0-16.0) g/dL Hct 29.1 L (37-47) % Plt Count 339 (130-400) K/uL BMP 07/31/19 07:14 Sodium 139 Potassium 3.1 L Chloride 104 Carbon Dioxide 29 BUN 4 L Creatinine 0.27 L Glucose 78 Calcium 7.9 L (1) Pneumonia Laterality: bilateral Lung location: lower lobe of lung Pneumonia type: due to unspecified organism Qualified Code(s): J18.9 - Pneumonia, unspecified organism
--- NOTE | 2019-07-31 16:38 | Pharmacy Report ---
Pharmacy Abx Dose Short Note - Date of Service July 31, 2019 - Assessment & Plan Laboratory Tests 07/31/19 15:37 Vancomycin Trough 33.1 Assessment * Ms Humphries is a 33 year old F receiving Vanc/Zosyn for treatment of B/L pneumonia. * Patient was hospitalized from 07/23 - 07/28/2019 for pneumonia, for which she received Levaquin and clindamycin and was discharged home on the same. * Pt presents back to ED on 07/29 with worsening SOB/cough. * Biofire positive for entero/rhinovirus. * Afebrile, no elevation in WBC. * Pt initiated on broad spectrum antibiotics and will r/o co-infection with COVID-19. * Other PMH is significant for quadriplegia, gastric bypass in 2009, DM, chronic indwelling catheter, GLYNN * Blood and Urine cx pending, MRSA swab negative * Trough level supratherapeutic at 33.1mcg/ml Plan Vancomycin * DC Vancomycin 1250mg IV Q8H * Decrease dose to Vancomycin 1000mg IV Q12H * Trough level ordered prior to the 1000 dose on 08/01. Continue Zosyn 3.375gm IV q8h Pharmacy will continue to follow and will adjust dose/frequency as necessary. Thank you.
[2019-07-31] MEDS: ENOXAPARIN INJ 40 MG/0.4 ML SYR SQ SCH (20:29)
[2019-07-31] MEDS ORDERED: VANCOMYCIN HCL 1,000 MG in SODIUM CHLORIDE 0.9% 250 ML IV SCH (22:00)
[2019-07-31] MEDS: OXYCODONE HCL IR 5 MG TAB (IMMEDIATE RELEASE) PO PRN (22:20)
[2019-08-01] MEDS ORDERED: ALBUMIN 25% 50 ML IV ONE (00:37)
[2019-08-01] MEDS: PIPERACILLIN/TAZOBACTAM 3.375 GM in DEXTROSE 5% 100 ML IV SCH ×3 (04:15→22:03)
[2019-08-01] MEDS: OXYCODONE HCL IR 5 MG TAB (IMMEDIATE RELEASE) PO PRN ×2 (04:31→08:28)
[2019-08-01] MEDS: LEVOTHYROXINE SODIUM 25 MCG TABLET PO SCH (06:24)
[2019-08-01 06:33] LABS: Hematocrit (blood only) 26.8 % (37-47); Hemoglobin 8.4 g/dL (12.0-16.0); Mean Corpuscular Hemoglobin 30.8 pg (25-34); Mean Corpuscular Hgb Conc 31.3 g/dL (32-36); Mean Corpuscular Volume 98.2 fL (80-100); Mean Platelet Volume 8.9 fL (7.4-10.4); Platelet Count 280 K/uL (130-400); RDW Coefficient of Variation 13.2 % (11.5-14.5); RDW Standard Deviation 46.8 fL (36.4-46.3); Red Blood Count 2.73 M/uL (4.2-5.4); White Blood Count 9.39 K/uL (4.8-10.8)
[2019-08-01] MEDS: ALBUTEROL 0.083% NEBU SOLN 3 ML VIAL NEB PRN ×2 (06:57→18:56)
[2019-08-01] MEDS: ACETYLCYSTEINE 10% INHAL SOLN 4 ML **DISPENSED BY RESP. INH SCH ×2 (06:57→18:56)
--- NOTE | 2019-08-01 07:05 | XRay Report ---
XR chest 1V portable HISTORY: 33 years-old Female Pneumonia follow-up study in a patient with pneumonia COMPARISON: Chest radiograph 07/31/2019, chest CT 07/30/2019 TECHNIQUE: Portable AP view of the chest FINDINGS: Persistent bibasilar consolidative opacities with small pleural effusions. Consolidation within the r ight lung base has slightly progressed. No pneumothorax or overt pulmonary edema. Cardiomediastinal a nd hilar silhouettes are within normal limits. Fusion hardware of the lower cervical spine. IMPRESSION: 1. Persistent bibasilar consolidation, mildly progressed on the right. 2. Unchanged small pleural effusions. ACT 112: Negative or not required by law. The above report was generated using voice recognition software. It may contain grammatical, syntax o r spelling errors. Electronically signed by: Raf Tucker M.D. 08/01/2019 7:04 AM
[2019-08-01 07:08] LABS: BUN Creatinine Ratio 7.9 (10-20); Calcium 7.7 mg/dl (8.5-10.1); Creatinine Clr Calc Pharmacy 101.2 ml/min; Est GFR (African American) 131.6; Est GFR (Non-African American) 113.6; Magnesium 1.9 mg/dl (1.8-2.4)
[2019-08-01] MEDS ORDERED: POTASSIUM CHLORIDE 20 MEQ TABCR PO STA (08:23)
[2019-08-01] MEDS: LACTOBACILLUS ACIDOPHILUS (FLORANEX) TAB PO SCH ×3 (08:27→16:39)
[2019-08-01] MEDS: FLUTICASONE PROPIONATE NA SPR 16 GM BTL SCH (08:27)
[2019-08-01] MEDS: OXYBUTYNIN CHLORIDE XL 5 MG TABCR PO SCH (08:27)
[2019-08-01] MEDS: BACLOFEN 10 MG TAB PO SCH ×3 (08:27→23:09)
[2019-08-01] MEDS: ESCITALOPRAM OXALATE 10 MG TAB PO SCH (08:28)
[2019-08-01] MEDS: ASCORBIC ACID 500 MG TAB PO SCH (08:28)
[2019-08-01] MEDS: METHADONE HCL 10 MG TAB PO SCH ×2 (08:28→21:21)
[2019-08-01] MEDS: BuPROPion SR 150 MG TABCR PO SCH ×2 (08:28→21:25)
[2019-08-01] MEDS: PREGABALIN 50 MG CAP PO SCH ×3 (08:28→23:09)
[2019-08-01] MEDS: ZINC SULFATE 220 MG CAPSULE PO SCH (08:28)
[2019-08-01] MEDS: FOLIC ACID 1 MG TAB PO SCH (08:28)
[2019-08-01] MEDS: SENNA 8.6 MG TAB PO SCH (08:29)
[2019-08-01] MEDS: ACETAMINOPHEN 325 MG TAB PO PRN ×2 (10:16→14:56)
--- NOTE | 2019-08-01 10:33 | Pulmonology Progress Note ---
Date of Service August 01, 2019 Assessment & Plan (1) Pneumonia: --Acute hypoxic respiratory failure secondary to bilateral lower lobe pneumonia Patient was recently in the hospital where she was positive for rhinovirus. Bio fire was again positive for rhinovirus. Continue with antibiotics for the time being given the patient has consolidate changes appreciated bilaterally more on the left side. Poor cough given the patient has injury to upper level of the spine is playing a role in her pneumonia. Patient will benefit from the following * Chest percussion with a vest * Flutter valve with assistance * HOB > 30 degrees * Mucomyst Nebs Follow-up septic work-up: Negative to date Previous MRSA screening was negative Titrate O2 to > 90% --Bilateral pleural effusions Echo done showed good ejection fraction with no diastolic dysfunction. She has mild pericardial effusion as well. Patient's albumin is 1.7. I doubt this is playing a role in pleural effusion given she does not have edema anywhere else in the body. --Quadriplegic Continue with care Plan: Chest x-ray from today shows no significant change from yesterday. Patient is still reluctant to use chest vest physical therapy. Importance of using it explained to the patient. CT of the chest does show some bronchiectasis changes as well but bilateral lower lobes along with consolidative changes. I would continue with anti- biotics for total of 14 days. Recommend Amoxi/clav There is no indication for bronchoscopy as the airway seems to be patent. Importance of using chest vest explained to the patient. Given that the patient has mild bronchiectasis changes, history of upper spine injury which is likely playing a role in poor cough she will benefit from chest vest at home if she is willing to use it. No further recommendations from pulmonary perspective. Will sign off. Recall if needed. Please note the above document was generated using voice recognition software. It may contain grammatical, syntax or spelling errors. Laterality: bilateral Lung location: lower lobe of lung Pneumonia type: due to unspecified organism Qualified Code(s): J18.9 - Pneumo suresh, unspecified organism (2) Rhinovirus infection: (3) Bilateral pleural effusion: Admission and Anticipated Discharge Date Admission Date: July 30, 2019 Subjective Patient seen and examined at bedside. No acute distress, no adverse events overnight. States that the shortness of breath is improved. Cough is decreased in intensity. Denies any chest pain, no dizziness, no headache. No nausea or vomiting. Good appetite. Patient was saturating 96% on room air at the time of examination. Review of Systems Review of Systems: All systems reviewed & are unremarkable except as noted in HPI & below Physical Exam Physical Exam: Constitutional: No acute distress HEENT: EOMI, PERRLA Respiratory system: Decreased air entry bilaterally, positive crackles bilateral lower lobes, no wheeze, no rhonchi CVS: S1-S2 positive, no murmurs or gallops Abdomen: Soft, nontender, nondistended, positive bowel sounds x4 Extremities: +2 pulses bilaterally radialis/ dorsalis pedis, no cyanosis, no edema Neuro: Awake alert oriented x3, quadriplegic. Able to move upper extremities to some extent Psych: Normal mood and affect G/U: Positive Castillo Skin: no rashes, warm and dry Lymphatic: no cervical or axillary lymphadenopathy Results & Data Results & Data ([facility]) Vital Signs (Past 12 Hours) Vital Signs Temp Pulse Pulse Resp BP BP Pulse Ox 08/01/19 08:00 78 08/01/19 07:55 37.3 C 78 16 99/67 L 93 08/01/19 07:03 75 18 98 08/01/19 03:35 36.5 C 71 18 109/71 99 08/01/19 01:59 76 110/72 08/01/19 00:57 73 08/01/19 00:30 80/51 L 07/31/19 23:56 37.3 C 90 20 73/45 L 96 08/01/19 05:40 08/01/19 05:40 PG Care Time/CCT Total # of Minutes Spent Total Time Spent with Patient: Total time spent is greater than 50% in coordination of care (as documented) at patient's floor/unit and/or counseling patient: Coding Level of Care Code 68966 Subseq Hosp Care Lvl 3 Diagnoses Pneumonia J18.9 Laterality: bilateral Lung location: lower lobe of lung Pneumonia type: due to unspecified organism Rhinovirus infection B34.8 Bilateral pleural effusion J90
--- NOTE | 2019-08-01 11:25 | Hospitalist Progress Note ---
Date of Service August 01, 2019 Assessment & Plan (1) Pneumonia: (2) Rhinovirus infection: Patient is a 33 yr female with H/O Quadriplegia secondary to cervical spine injury July 2018, neurogenic bladder with chronic indwelling Constantino, chronic pain, depression with anxiety, GLYNN, H/O Gastric bypass 2009, DM II resolved after gastric bypass, H/O complicated UTI who presents to ED secondary to worsening SOB and cough x 1 day. Acute Respiratory Failure with Hypoxia B/L lower Lobe Pneumonia B/L pleural Effusion Secondary to Aspiration/Rhinovirus --CT chest:Small left greater than right pleural effusions are present in conjunction with dense dependent consolidation of the lower lobes. These findings may reflect aspiration pneumonitis, pneumonia or atelectasis. Subtle scattered groundglass opacities of the right upper lobe are suggestive of an infectious or inflammatory pneumonitis. Mildly prominent mediastinal lymph nodes, likely reactive. Mild layering tracheobronchial secretions. Prior gastric bypass and cholecystectomy. --H/O Recent Rhinovirus infection --Repeat Influenza screen: negative --Biofire Screen:Rhinovirus --SARS-CoV2 RNA: Negative --MRSA Screen: Negative --ECHO: EF 60-65%, normal diastolic function, no significant valvular pathology, small loculated, posterior pericardial effusion without hemodynamic significance. --Blood Cultures:No growth to date --Vancomycin discontinued --Continue Zosyn Day #3 --Pulmonary Hygiene, Mucomyst, Chest PT --Aspiration precautions --Appreciate Pulmnology Input --Speech therapy Eval: Slippery Diet --Saturating low 90s on room air Diarrhea R/O C diff Likely due to antibiotics Normal Mag Levels Monitor Hypokalemia: Likely due to GI loses Replace electrolytes as needed (3) Dehydration: Secondary to poor oral intake on presentation monitor renal function Received IV fluids (4) Anemia: Normocytic normochromic Hb at baseline Monitor i (5) Tetraplegia: Secondary to C spine fx s/p cspine surgery 07/2018 Continue methadone, prn oxycodone, baclofen, lyrica Encourage passive ROM q4h while awake (6) Neurogenic bladder: chronic constantino catheter hx of complicated UTI urine culture: Jessica albicans Will not treat as asymptomatic (7) Hypoalbuminemia: Albumin 1.7 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 Implement boost vanilla bid along with high protein diet Added vit C and zinc sulfate per snuff grinder and screener recommendations at last admission (8) Sacral wound: Reposition q2h wound care consulted (9) Depression: Depression with anxiety continue citalopram, wellbutrin, hydroxyzine Avoid qtc prolonging medications Protein-calorie malnutrition As per records (10) DVT prophylaxis: SQ Lovenox--Held due t Anemia SCDs for now Admission and Anticipated Discharge Date Admission Date: July 30, 2019 Subjective Patient is seen and examined at bedside Complains of neck discomfort Had 2 loose BMs overnight and this morning Reports nausea but no vomiting Cough, Dyspnea continues to improve Saturating low 90s on room air this morning Denies chest pain, dizziness, abd pain She is willing to try chest percussion vest today Review of Systems Review of Systems: All systems reviewed & are unremarkable except as noted in HPI & below Physical Exam Physical Exam: Physical Exam: Vitals signs as noted above General Appearance:Thin, frail, no apparent distress Head: normocephalic, Atraumatic Eyes: normal inspection, EOMI Neck: supple, Trachea midline Respiratory/Chest: Decreased breath sounds, basal crackles Cardiovascular: S1, S2, No murmur Abdomen/GI:Soft, Non tender, Bowel sounds present Extremities/Musculoskelatal:normal inspection, no edema Neurologic/Psych:AAOX3, Quadriplegia, Complete neuro exam limited due to quadriplegia Skin:normal color,warm Results & Data Results & Data ([facility]) Vital Signs (Past 12 Hours) Vital Signs Temp Pulse Pulse Resp BP BP Pulse Ox 08/01/19 08:00 78 08/01/19 07:55 37.3 C 78 16 99/67 L 93 08/01/19 07:03 75 18 98 08/01/19 03:35 36.5 C 71 18 109/71 99 08/01/19 01:59 76 110/72 08/01/19 00:57 73 08/01/19 00:30 80/51 L 07/31/19 23:56 37.3 C 90 20 73/45 L 96 Laboratory Results Short CBC 08/01/19 Range/Units 05:40 WBC 9.39 (4.8-10.8) K/uL Hgb 8.4 L (12.0-16.0) g/dL Hct 26.8 L (37-47) % Plt Count 280 (130-400) K/uL BMP 08/01/19 05:40 Sodium 142 Potassium 3.0 L Chloride 108 H Carbon Dioxide 30 BUN 5 L Creatinine 0.69 D Glucose 90 Calcium 7.7 L (1) Pneumonia Laterality: bilateral Lung location: lower lobe of lung Pneumonia type: due to unspecified organism Qualified Code(s): J18.9 - Pneumonia, unspecified organism
[2019-08-01] MEDS: ONDANSETRON INJ 2 MG/ML 2 ML VIAL IV PRN (13:33)
[2019-08-01] MEDS ORDERED: NSS + 20MEQ KCL 20 MEQ/1,000 ML BAG IV ONE (13:50)
[2019-08-01 14:53] LABS: Hematocrit (blood only) 24.3 % (37-47); Hemoglobin 7.6 g/dL (12.0-16.0)
[2019-08-01] MEDS ORDERED: SODIUM CHLORIDE 0.9% 250 ML IV PRN (15:03)
[2019-08-01] MEDS ORDERED: POTASSIUM CHLORIDE 20 MEQ TABCR PO ONE (16:00)
[2019-08-01] MEDS ORDERED: guaiFENesin 600 MG TABCR PO SCH (20:00)
[2019-08-01] MEDS: guaiFENesin 600 MG TABCR PO SCH (21:24)
[2019-08-01 23:11] LABS: Hematocrit (blood only) 31.4 % (37-47); Hemoglobin 9.9 g/dL (12.0-16.0)
[2019-08-02] MEDS: OXYCODONE HCL IR 5 MG TAB (IMMEDIATE RELEASE) PO PRN ×3 (00:14→23:02)
[2019-08-02] MEDS: PIPERACILLIN/TAZOBACTAM 3.375 GM in DEXTROSE 5% 100 ML IV SCH ×3 (04:25→20:50)
[2019-08-02] MEDS: LEVOTHYROXINE SODIUM 25 MCG TABLET PO SCH (04:26)
[2019-08-02 06:27] LABS: Hematocrit (blood only) 31.1 % (37-47)
[2019-08-02 06:49] LABS: BUN Creatinine Ratio 9.7 (10-20); Blood Urea Nitrogen 4 mg/dl (7-18); Calcium 8.1 mg/dl (8.5-10.1); Carbon Dioxide 29 mmol/L (21-32); Chloride 110 mmol/L (98-107); Creatinine Clr Calc Pharmacy 155.1 ml/min; Est GFR (African American) > 150.0; Est GFR (Non-African American) 130.7; Glucose 84 mg/dl (70-99); Potassium 3.9 mmol/L (3.5-5.1); Sodium 143 mmol/L (136-145)
[2019-08-02] MEDS: ACETYLCYSTEINE 10% INHAL SOLN 4 ML **DISPENSED BY RESP. INH SCH ×2 (07:08→19:31)
[2019-08-02] MEDS: ALBUTEROL 0.083% NEBU SOLN 3 ML VIAL NEB PRN ×2 (07:08→19:31)
[2019-08-02] MEDS: LACTOBACILLUS ACIDOPHILUS (FLORANEX) TAB PO SCH ×3 (09:11→17:50)
[2019-08-02] MEDS: ESCITALOPRAM OXALATE 10 MG TAB PO SCH (09:11)
[2019-08-02] MEDS: OXYBUTYNIN CHLORIDE XL 5 MG TABCR PO SCH (09:12)
[2019-08-02] MEDS: METHADONE HCL 10 MG TAB PO SCH ×2 (09:13→20:51)
[2019-08-02] MEDS: ASCORBIC ACID 500 MG TAB PO SCH (09:13)
[2019-08-02] MEDS: guaiFENesin 600 MG TABCR PO SCH ×2 (09:13→20:58)
[2019-08-02] MEDS: ZINC SULFATE 220 MG CAPSULE PO SCH (09:14)
[2019-08-02] MEDS: FOLIC ACID 1 MG TAB PO SCH (09:14)
[2019-08-02] MEDS: PREGABALIN 50 MG CAP PO SCH ×3 (09:14→22:10)
[2019-08-02] MEDS: FLUTICASONE PROPIONATE NA SPR 16 GM BTL SCH (09:15)
[2019-08-02] MEDS ORDERED: LOPERAMIDE HCL 2 MG CAP PO PRN (09:28)
[2019-08-02] MEDS ORDERED: VANCOMYCIN TROUGH ONE (09:30)
[2019-08-02] MEDS: ONDANSETRON INJ 2 MG/ML 2 ML VIAL IV PRN (10:24)
[2019-08-02] MEDS: BuPROPion SR 150 MG TABCR PO SCH ×2 (10:24→20:50)
[2019-08-02] MEDS: BACLOFEN 10 MG TAB PO SCH ×3 (10:25→22:10)
--- NOTE | 2019-08-02 11:24 | Hospitalist Progress Note ---
Date of Service August 02, 2019 Assessment & Plan (1) Pneumonia: (2) Rhinovirus infection: Patient is a 33 yr female with H/O Quadriplegia secondary to cervical spine injury July 2018, neurogenic bladder with chronic indwelling Constantino, chronic pain, depression with anxiety, GLYNN, H/O Gastric bypass 2009, DM II resolved after gastric bypass, H/O complicated UTI who presents to ED secondary to worsening SOB and cough x 1 day. Acute Respiratory Failure with Hypoxia B/L lower Lobe Pneumonia B/L pleural Effusion Secondary to Aspiration/Rhinovirus --CT chest:Small left greater than right pleural effusions are present in conjunction with dense dependent consolidation of the lower lobes. These findings may reflect aspiration pneumonitis, pneumonia or atelectasis. Subtle scattered groundglass opacities of the right upper lobe are suggestive of an infectious or inflammatory pneumonitis. Mildly prominent mediastinal lymph nodes, likely reactive. Mild layering tracheobronchial secretions. Prior gastric bypass and cholecystectomy. --H/O Recent Rhinovirus infection --Repeat Influenza screen: negative --Biofire Screen:Rhinovirus --SARS-CoV2 RNA: Negative --MRSA Screen: Negative --ECHO: EF 60-65%, normal diastolic function, no significant valvular pathology, small loculated, posterior pericardial effusion without hemodynamic significance. --Blood Cultures:No growth to date --Vancomycin discontinued --Continue Zosyn Day #4 --Pulmonary Hygiene, Mucomyst, Chest PT --Aspiration precautions --Appreciate Pulmonology Input --Speech therapy Eval: Slippery Diet --Weaned off of supplemental oxygen Diarrhea Stool for C diff: Negative Likely due to antibiotics Imodium PRN Hypokalemia: Likely due to GI loses Normal Mag Levels Replace electrolytes as needed (3) Dehydration: Secondary to poor oral intake on presentation monitor renal function Received IV fluids (4) Anemia: Normocytic normochromic S/P 1 unit PRBCs No obvious bleeding issues Monitor (5) Tetraplegia: Secondary to C spine fx s/p cspine surgery 07/2018 Continue methadone, prn oxycodone, baclofen, lyrica Encourage passive ROM q4h while awake (6) Neurogenic bladder: chronic constantino catheter hx of complicated UTI urine culture: Jessica albicans Will not treat as asymptomatic (7) Hypoalbuminemia: Albumin 1.7 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 hospitalization Implement boost vanilla bid along with high protein diet Added vit C and zinc sulfate per dental sales representative recommendations at last admission (8) Sacral wound: Reposition q2h wound care consulted (9) Depression: Depression with anxiety continue citalopram, wellbutrin, hydroxyzine Avoid qtc prolonging medications Protein-calorie malnutrition As per records (10) DVT prophylaxis: SQ Lovenox--Held due t Anemia SCDs for now Admission and Anticipated Discharge Date Admission Date: July 30, 2019 Subjective Patient is seen and examined at bedside No Diarrhea overnight, had 1 loose BM this morning Stool for C diff: Negative Is using Chest Percussion Vest as advised Cough, Dyspnea improved Saturating low 90s on room air Denies chest pain, dizziness, abd pain No new complaints Review of Systems Review of Systems: All systems reviewed & are unremarkable except as noted in HPI & below Physical Exam Physical Exam: Physical Exam: Vitals signs as noted above General Appearance:Thin, frail, no apparent distress Head: normocephalic, Atraumatic Eyes: normal inspection, EOMI Neck: supple, Trachea midline Respiratory/Chest: Decreased breath sounds, basal crackles Cardiovascular: S1, S2, No murmur Abdomen/GI:Soft, Non tender, Bowel sounds present Extremities/Musculoskelatal:normal inspection, no edema Neurologic/Psych:AAOX3, Quadriplegia, Complete neuro exam limited due to quadriplegia Skin:normal color,warm Results & Data Results & Data ([facility]) Vital Signs (Past 12 Hours) Vital Signs Temp Pulse Pulse Resp BP Pulse Ox 08/02/19 07:52 36.6 C 79 18 98/65 L 93 08/02/19 07:09 65 19 94 08/02/19 04:00 36.5 C 74 16 107/71 95 08/01/19 23:21 65 Laboratory Results Short CBC 08/01/19 08/01/19 08/01/19 Range/Units 14:41 22:33 22:58 Hgb 7.6 L Cancelled 9.9 L (12.0-16.0) g/dL Hct 24.3 L Cancelled 31.4 L (37-47) % 08/02/19 Range/Units 06:03 Hgb 10.0 L (12.0-16.0) g/dL Hct 31.1 L (37-47) % BMP 08/02/19 06:03 Sodium 143 Potassium 3.9 D Chloride 110 H Carbon Dioxide 29 BUN 4 L Creatinine 0.45 L Glucose 84 Calcium 8.1 L (1) Pneumonia Laterality: bilateral Lung location: lower lobe of lung Pneumonia type: due to unspecified organism Qualified Code(s): J18.9 - Pneumonia, unspecified organism
--- NOTE | 2019-08-02 11:46 | Pulmonology Progress Note ---
Date of Service August 02, 2019 Assessment & Plan (1) Pneumonia: --Acute hypoxic respiratory failure secondary to bilateral lower lobe pneumonia Patient was recently in the hospital where she was positive for rhinovirus. Bio fire was again positive for rhinovirus. Continue with antibiotics for the time being given the patient has consolidate changes appreciated bilaterally more on the left side. Poor cough given the patient has injury to upper level of the spine is playing a role in her pneumonia. Patient will benefit from the following * Chest percussion with a vest * Flutter valve with assistance * HOB > 30 degrees * Mucomyst Nebs Follow-up septic work-up: Negative to date Previous MRSA screening was negative Titrate O2 to > 90% --Bilateral pleural effusions Echo done showed good ejection fraction with no diastolic dysfunction. She has mild pericardial effusion as well. Patient's albumin is 1.7. I doubt this is playing a role in pleural effusion given she does not have edema anywhere else in the body. --Quadriplegic Continue with care Plan: Patient finally used chest with physical therapy, she liked it and is willing to use it more frequently. Continue with anti-biotics for total of 14 days. Recommend Amoxi/clav There is no indication for bronchoscopy as the airway seems to be patent. Given that the patient has mild bronchiectasis changes, history of upper spine injury which is likely playing a role in poor cough she will benefit from chest vest at home. No further recommendations from pulmonary perspective. Recall if needed. Please note the above document was generated using voice recognition software. It may contain grammatical, syntax or spelling errors. Laterality: bilateral Lung location: lower lobe of lung Pneumonia type: due to unspecified organism Qualified Code(s): J18.9 - Pneumonia, unspecified organism (2) Rhinovirus infection: (3) Bilateral pleural effusion: Admission and Anticipated Discharge Date Admission Date: July 30, 2019 Subjective Patient seen and examined at bedside. No acute distress, no adverse events overnight. Patient finally used the chest vest device. She liked it. Bringing up small amount of phlegm. Shortness of breath is improved. Denies any chest pain, no dizziness, no headache. Feeling better overall. Review of Systems Review of Systems: All systems reviewed & are unremarkable except as noted in HPI & below Physical Exam Physical Exam: Constitutional: No acute distress HEENT: EOMI, PERRLA Respiratory system: Decreased air entry bilaterally, positive crackles bilateral lower lobes, no wheeze, no rhonchi CVS: S1-S2 positive, no murmurs or gallops Abdomen: Soft, nontender, nondistended, positive bowel sounds x4 Extremities: +2 pulses bilaterally radialis/ dorsalis pedis, no cyanosis, no edema Neuro: Awake alert oriented x3, quadriplegic. Able to move upper extremities to some extent Psych: Normal mood and affect G/U: Positive Castillo Skin: no rashes, warm and dry Lymphatic: no cervical or axillary lymphadenopathy Results & Data Results & Data ([facility]) Vital Signs (Past 12 Hours) Vital Signs Temp Pulse Resp BP Pulse Ox 08/02/19 07:52 36.6 C 79 18 98/65 L 93 08/02/19 07:09 65 19 94 08/02/19 04:00 36.5 C 74 16 107/71 95 08/02/19 06:03 08/02/19 06:03 PG Care Time/CCT Total # of Minutes Spent Total Time Spent with Patient: Total time spent is greater than 50% in coordination of care (as documented) at patient's floor/unit and/or counseling patient: Coding Level of Care Code 09069 Subseq Hosp Care Lvl 2 Diagnoses Pneumonia J18.9 Laterality: bilateral Lung location: lower lobe of lung Pneumonia type: due to unspecified organism Rhinovirus infection B34.8 Bilateral pleural effusion J90
[2019-08-02] MEDS: PROMETHAZINE HCL 6.25 MG in SODIUM CHLORIDE 0.9% 50 ML IV PRN (14:37)
[2019-08-03] MEDS: PROMETHAZINE HCL 6.25 MG in SODIUM CHLORIDE 0.9% 50 ML IV PRN ×3 (02:02→18:29)
[2019-08-03] MEDS: PIPERACILLIN/TAZOBACTAM 3.375 GM in DEXTROSE 5% 100 ML IV SCH ×3 (03:46→20:01)
[2019-08-03] MEDS: LEVOTHYROXINE SODIUM 25 MCG TABLET PO SCH (05:31)
[2019-08-03 06:12] LABS: Hematocrit (blood only) 33.2 % (37-47); Hemoglobin 10.5 g/dL (12.0-16.0)
[2019-08-03 06:38] LABS: Calcium 8.2 mg/dl (8.5-10.1); Creatinine Clr Calc Pharmacy 142.8 ml/min; Est GFR (African American) 146.4; Est GFR (Non-African American) 126.3; Potassium 3.4 mmol/L (3.5-5.1)
[2019-08-03] MEDS: ALBUTEROL 0.083% NEBU SOLN 3 ML VIAL NEB PRN ×2 (07:19→19:20)
[2019-08-03] MEDS: ACETYLCYSTEINE 10% INHAL SOLN 4 ML **DISPENSED BY RESP. INH SCH ×2 (07:20→19:20)
[2019-08-03] MEDS ORDERED: POTASSIUM CHLORIDE 20 MEQ TABCR PO STA (08:04)
[2019-08-03] MEDS: PREGABALIN 50 MG CAP PO SCH ×3 (08:24→20:04)
[2019-08-03] MEDS: BuPROPion SR 150 MG TABCR PO SCH ×2 (08:25→20:04)
[2019-08-03] MEDS: ESCITALOPRAM OXALATE 10 MG TAB PO SCH (08:25)
[2019-08-03] MEDS: METHADONE HCL 10 MG TAB PO SCH ×2 (08:25→21:13)
[2019-08-03] MEDS: FOLIC ACID 1 MG TAB PO SCH (08:26)
[2019-08-03] MEDS: OXYBUTYNIN CHLORIDE XL 5 MG TABCR PO SCH (08:26)
[2019-08-03] MEDS: ASCORBIC ACID 500 MG TAB PO SCH (08:26)
[2019-08-03] MEDS: LACTOBACILLUS ACIDOPHILUS (FLORANEX) TAB PO SCH ×3 (08:27→18:16)
[2019-08-03] MEDS: ZINC SULFATE 220 MG CAPSULE PO SCH (08:27)
[2019-08-03] MEDS: guaiFENesin 600 MG TABCR PO SCH ×2 (08:28→20:07)
[2019-08-03] MEDS: FLUTICASONE PROPIONATE NA SPR 16 GM BTL SCH (08:28)
[2019-08-03] MEDS: BACLOFEN 10 MG TAB PO SCH ×3 (09:12→20:04)
[2019-08-03] MEDS: ACETAMINOPHEN 325 MG TAB PO PRN (09:12)
--- NOTE | 2019-08-03 11:05 | Hospitalist Progress Note ---
Date of Service August 03, 2019 Assessment & Plan (1) Pneumonia: (2) Rhinovirus infection: Patient is a 33 yr female with H/O Quadriplegia secondary to cervical spine injury July 2018, neurogenic bladder with chronic indwelling Constantino, chronic pain, depression with anxiety, GLYNN, H/O Gastric bypass 2009, DM II resolved after gastric bypass, H/O complicated UTI who presents to ED secondary to worsening SOB and cough x 1 day. Acute Respiratory Failure with Hypoxia B/L lower Lobe Pneumonia B/L pleural Effusion Secondary to Aspiration/Rhinovirus --CT chest:Small left greater than right pleural effusions are present in conjunction with dense dependent consolidation of the lower lobes. These findings may reflect aspiration pneumonitis, pneumonia or atelectasis. Subtle scattered groundglass opacities of the right upper lobe are suggestive of an infectious or inflammatory pneumonitis. Mildly prominent mediastinal lymph nodes, likely reactive. Mild layering tracheobronchial secretions. Prior gastric bypass and cholecystectomy. --H/O Recent Rhinovirus infection --Repeat Influenza screen: negative --Biofire Screen:Rhinovirus --SARS-CoV2 RNA: Negative --MRSA Screen: Negative --ECHO: EF 60-65%, normal diastolic function, no significant valvular pathology, small loculated, posterior pericardial effusion without hemodynamic significance. --Blood Cultures:No growth to date --Vancomycin discontinued --Continue Zosyn Day #5 --Pulmonary Hygiene, Mucomyst, Chest PT --Aspiration precautions --Appreciate Pulmonology Input --Speech therapy Eval: Slippery Diet --Plan to transition to Augmentin tomorrow to complete 14 day therapy --Improving Diarrhea Stool for C diff: Negative Likely due to antibiotics Imodium PRN Hypokalemia: Likely due to GI loses Normal Mag Levels Replace electrolytes as needed (3) Dehydration: Secondary to poor oral intake on presentation monitor renal function Received IV fluids (4) Anemia: Normocytic normochromic S/P 1 unit PRBCs No obvious bleeding issues Monitor (5) Tetraplegia: Secondary to C spine fx s/p cspine surgery 07/2018 Continue methadone, prn oxycodone, baclofen, lyrica Encourage passive ROM q4h while awake (6) Neurogenic bladder: chronic constantino catheter hx of complicated UTI urine culture: Jessica albicans Will not treat as asymptomatic (7) Hypoalbuminemia: Albumin 1.7 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 Implement boost vanilla bid along with high protein diet Added vit C and zinc sulfate per gasoline attendant recommendations at last admission (8) Sacral wound: Reposition q2h wound care consulted (9) Depression: Depression with anxiety continue citalopram, wellbutrin, hydroxyzine Avoid qtc prolonging medications Protein-calorie malnutrition As per records (10) DVT prophylaxis: SQ Lovenox--Held due to Anemia SCDs for now Admission and Anticipated Discharge Date Admission Date: July 30, 2019 Subjective Patient is seen and examined at bedside Reports frontal headache, nausea and abdominal discomfort Diarrhea improving Less Cough Denies chest pain,SOB, dizziness Review of Systems Review of Systems: All systems reviewed & are unremarkable except as noted in HPI & below Physical Exam Physical Exam: Physical Exam: Vitals signs as noted above General Appearance:Thin, frail, no apparent distress Head: normocephalic, Atraumatic Eyes: normal inspection, EOMI Neck: supple, Trachea midline Respiratory/Chest: Decreased breath sounds, CTA Cardiovascular: S1, S2, No murmur Abdomen/GI:Soft, Non tender, Bowel sounds present Extremities/Musculoskelatal:normal inspection, no edema Neurologic/Psych:AAOX3, Quadriplegia, Complete neuro exam limited due to quadriplegia Skin:normal color,warm Results & Data Results & Data ([facility]) Vital Signs (Past 12 Hours) Vital Signs Temp Pulse Pulse Resp BP Pulse Ox 08/03/19 09:43 62 08/03/19 07:27 36.8 C 67 20 118/76 94 08/03/19 07:20 68 16 92 08/03/19 03:48 36.7 C 70 16 96/62 L 93 08/03/19 00:00 72 08/02/19 23:43 37.6 C H 74 17 127/83 92 Laboratory Results Short CBC 08/03/19 Range/Units 05:25 Hgb 10.5 L (12.0-16.0) g/dL Hct 33.2 L (37-47) % BMP 08/03/19 05:25 Sodium 143 Potassium 3.4 L Chloride 108 H Carbon Dioxide 29 BUN 4 L Creatinine 0.50 L Glucose 81 Calcium 8.2 L (1) Pneumonia Laterality: bilateral Lung location: lower lobe of lung Pneumonia type: due to unspecified organism Qualified Code(s): J18.9 - Pneumonia, unspecified organism
[2019-08-04] MEDS: PIPERACILLIN/TAZOBACTAM 3.375 GM in DEXTROSE 5% 100 ML IV SCH ×2 (04:29→11:43)
[2019-08-04] MEDS: PROMETHAZINE HCL 6.25 MG in SODIUM CHLORIDE 0.9% 50 ML IV PRN ×2 (05:31→13:30)
[2019-08-04] MEDS: LEVOTHYROXINE SODIUM 25 MCG TABLET PO SCH (05:31)
[2019-08-04 06:27] LABS: Hematocrit (blood only) 35.3 % (37-47); Hemoglobin 11.1 g/dL (12.0-16.0)
[2019-08-04 07:01] LABS: BUN Creatinine Ratio 9.9 (10-20); Calcium 8.4 mg/dl (8.5-10.1); Creatinine Clr Calc Pharmacy 99.1 ml/min; Est GFR (African American) 126.6; Est GFR (Non-African American) 109.3; Magnesium 1.9 mg/dl (1.8-2.4); Potassium 3.7 mmol/L (3.5-5.1)
[2019-08-04] MEDS: ACETYLCYSTEINE 10% INHAL SOLN 4 ML **DISPENSED BY RESP. INH SCH ×2 (07:53→18:53)
[2019-08-04] MEDS: ALBUTEROL 0.083% NEBU SOLN 3 ML VIAL NEB PRN ×2 (07:53→18:53)
[2019-08-04] MEDS: BuPROPion SR 150 MG TABCR PO SCH ×2 (08:47→20:43)
[2019-08-04] MEDS: FLUTICASONE PROPIONATE NA SPR 16 GM BTL SCH (08:47)
[2019-08-04] MEDS: ASCORBIC ACID 500 MG TAB PO SCH (08:47)
[2019-08-04] MEDS: BACLOFEN 10 MG TAB PO SCH ×3 (08:47→20:43)
[2019-08-04] MEDS: LACTOBACILLUS ACIDOPHILUS (FLORANEX) TAB PO SCH ×3 (08:48→16:59)
[2019-08-04] MEDS: PREGABALIN 50 MG CAP PO SCH ×3 (09:24→20:43)
[2019-08-04] MEDS: METHADONE HCL 10 MG TAB PO SCH ×2 (09:24→20:43)
[2019-08-04] MEDS: OXYBUTYNIN CHLORIDE XL 5 MG TABCR PO SCH (09:25)
[2019-08-04] MEDS: FOLIC ACID 1 MG TAB PO SCH (09:25)
[2019-08-04] MEDS: guaiFENesin 600 MG TABCR PO SCH ×2 (09:25→20:43)
[2019-08-04] MEDS: ESCITALOPRAM OXALATE 10 MG TAB PO SCH (09:25)
[2019-08-04] MEDS: ZINC SULFATE 220 MG CAPSULE PO SCH (09:25)
[2019-08-04] MEDS: OXYCODONE HCL IR 5 MG TAB (IMMEDIATE RELEASE) PO PRN ×2 (12:02→22:15)
--- NOTE | 2019-08-04 12:28 | Hospitalist Progress Note ---
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 Acute Respiratory Failure with Hypoxia B/L lower Lobe Pneumonia B/L pleural Effusion Secondary to Aspiration/Rhinovirus --CT chest:Small left greater than right pleural effusions are present in conjunction with dense dependent consolidation of the lower lobes. These findings may reflect aspiration pneumonitis, pneumonia or atelectasis. Subtle scattered groundglass opacities of the right upper lobe are suggestive of an infectious or inflammatory pneumonitis. Mildly prominent mediastinal lymph nodes, likely reactive. Mild layering tracheobronchial secretions. Prior gastric bypass and cholecystectomy. --H/O Recent Rhinovirus infection --Repeat Influenza screen: negative --Biofire Screen:Rhinovirus --SARS-CoV2 RNA: Negative --MRSA Screen: Negative --ECHO: EF 60-65%, normal diastolic function, no significant valvular pathology, small loculated, posterior pericardial effusion without hemodynamic significance. --Blood Cultures:No growth to date --Vancomycin discontinued --Continue Zosyn Day #7>>>Transition to PO Augmentin--To complete 7 more days --Continue pulmonary Hygiene, Mucomyst, Chest PT --Aspiration precautions --Appreciate Pulmonology Input --Speech therapy Eval done --Consider discharging with chest percussion vest if approved Diarrhea Stool for C diff: Negative Likely due to antibiotics Imodium PRN Hypokalemia: Likely due to GI loses Normal Mag Levels Replace electrolytes as needed (3) Dehydration: Secondary to poor oral intake on presentation monitor renal function Received IV fluids (4) Anemia: Normocytic normochromic S/P 1 unit PRBCs No obvious bleeding issues Monitor (5) Tetraplegia: Secondary to C spine fx s/p cspine surgery 07/2018 Continue methadone, prn oxycodone, baclofen, lyrica Encourage passive ROM q4h while awake (6) Neurogenic bladder: chronic constantino catheter hx of complicated UTI urine culture: Jessica albicans Will not treat as asymptomatic (7) Hypoalbuminemia: Albumin 1.7 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 Implement boost vanilla bid along with high protein diet Added vit C and zinc sulfate per crop farmers recommendations during last admission (8) Sacral wound: Reposition frequently Continue wound care (9) Depression: Depression with anxiety continue citalopram, wellbutrin, hydroxyzine Avoid qtc prolonging medications Protein-calorie malnutrition As per records (10) DVT prophylaxis: SQ Lovenox--Held due to Anemia SCDs for now Admission and Anticipated Discharge Date Admission Date: July 30, 2019 Subjective Patient is seen and examined at bedside States having transient chest discomfort this morning which currently resolved Denies nausea, vomiting, diarrhea, SOB Cough continues to improve Willing to use chest percussion vest upon discharge if she qualifies Review of Systems Review of Systems: All systems reviewed & are unremarkable except as noted in HPI & below Physical Exam Physical Exam: Physical Exam: Vitals signs as noted above General Appearance:Thin, frail, no apparent distress Head: normocephalic, Atraumatic Eyes: normal inspection, EOMI Neck: supple, Trachea midline Respiratory/Chest: Decreased breath sounds, CTA Cardiovascular: S1, S2, No murmur Abdomen/GI:Soft, Non tender, Bowel sounds present Extremities/Musculoskelatal:normal inspection, no edema Neurologic/Psych:AAOX3, Quadriplegia, Complete neuro exam limited due to quadriplegia Skin:normal color,warm Results & Data Results & Data ([facility]) Vital Signs (Past 12 Hours) Vital Signs Temp Pulse Resp BP BP Pulse Ox 08/04/19 10:45 36.4 C L 70 18 90/60 L 99 08/04/19 08:06 36.6 C 64 19 108/74 95 08/04/19 07:56 75 18 100 08/04/19 04:32 37.3 C 75 18 114/78 93 Laboratory Results Short CBC 08/04/19 Range/Units 05:48 Hgb 11.1 L (12.0-16.0) g/dL Hct 35.3 L (37-47) % BMP 08/04/19 05:48 Sodium 141 Potassium 3.7 Chloride 109 H Carbon Dioxide 30 BUN 7 Creatinine 0.72 Glucose 88 Calcium 8.4 L (1) Pneumonia Laterality: bilateral Lung location: lower lobe of lung Pneumonia type: due to unspecified organism Qualified Code(s): J18.9 - Pneumonia, unspecified organism
[2019-08-04] MEDS: AMOXICILLIN/CLAVULANATE 875 MG TAB PO SCH (17:03)
[2019-08-05] MEDS: ACETAMINOPHEN 325 MG TAB PO PRN (00:13)
[2019-08-05] MEDS: LEVOTHYROXINE SODIUM 25 MCG TABLET PO SCH (06:20)
[2019-08-05] MEDS: ACETYLCYSTEINE 10% INHAL SOLN 4 ML **DISPENSED BY RESP. INH SCH (06:57)
[2019-08-05] MEDS: ALBUTEROL 0.083% NEBU SOLN 3 ML VIAL NEB PRN (06:57)
[2019-08-05 07:35] LABS: Hematocrit (blood only) 31.8 % (37-47)
[2019-08-05 08:08] LABS: BUN Creatinine Ratio 20.7 (10-20); Blood Urea Nitrogen 9 mg/dl (7-18); Calcium 8.5 mg/dl (8.5-10.1); Carbon Dioxide 31 mmol/L (21-32); Chloride 109 mmol/L (98-107); Creatinine Clr Calc Pharmacy 162.1 ml/min; Est GFR (African American) > 150.0; Est GFR (Non-African American) 131.7; Glucose 83 mg/dl (70-99); Potassium 3.3 mmol/L (3.5-5.1); Sodium 143 mmol/L (136-145)
[2019-08-05] MEDS: LACTOBACILLUS ACIDOPHILUS (FLORANEX) TAB PO SCH (08:58)
[2019-08-05] MEDS: ESCITALOPRAM OXALATE 10 MG TAB PO SCH (09:01)
[2019-08-05] MEDS: AMOXICILLIN/CLAVULANATE 875 MG TAB PO SCH (09:01)
[2019-08-05] MEDS: OXYBUTYNIN CHLORIDE XL 5 MG TABCR PO SCH (09:02)
[2019-08-05] MEDS: FLUTICASONE PROPIONATE NA SPR 16 GM BTL SCH (09:02)
[2019-08-05] MEDS: FOLIC ACID 1 MG TAB PO SCH (09:02)
[2019-08-05] MEDS: guaiFENesin 600 MG TABCR PO SCH (09:02)
[2019-08-05] MEDS: BACLOFEN 10 MG TAB PO SCH (09:03)
[2019-08-05] MEDS: ZINC SULFATE 220 MG CAPSULE PO SCH (09:03)
[2019-08-05] MEDS: ASCORBIC ACID 500 MG TAB PO SCH (09:03)
[2019-08-05] MEDS: BuPROPion SR 150 MG TABCR PO SCH (09:04)
[2019-08-05] MEDS: PREGABALIN 50 MG CAP PO SCH (09:09)
[2019-08-05] MEDS: METHADONE HCL 10 MG TAB PO SCH (09:09)
--- NOTE | 2019-08-05 09:25 | Hospitalist Progress Note ---
Date of Service August 05, 2019 Assessment & Plan (1) Pneumonia: (2) Rhinovirus infection: Patient is a 33 yr female with H/O Quadriplegia secondary to cervical spine injury July 2018, neurogenic bladder with chronic indwelling Constantino, chronic pain, depression with anxiety, GLYNN, H/O Gastric bypass 2009, DM II resolved after gastric bypass, H/O complicated UTI who presents to ED secondary to worsening SOB and cough of 1 day. Acute Respiratory Failure with Hypoxia secondary to Bilateral lower Lobe Pneumonia/Bilateral pleural Effusion from Aspiration and positive Rhinovirus Infection --CT chest:Small left greater than right pleural effusions are present in conjunction with dense dependent consolidation of the lower lobes. These findings may reflect aspiration pneumonitis, pneumonia or atelectasis. Subtle scattered groundglass opacities of the right upper lobe are suggestive of an infectious or inflammatory pneumonitis. Mildly prominent mediastinal lymph nodes, likely reactive. Mild layering tracheobronchial secretions. Prior gastric bypass and cholecystectomy. -H/O Recent Rhinovirus infection -Repeat Influenza screen: negative -Biofire Screen:Rhinovirus -SARS-CoV2 RNA: Negative -MRSA Screen: Negative -ECHO: EF 60-65%, normal diastolic function, no significant valvular pathology, small loculated, posterior pericardial effusion without hemodynamic significance. -Blood Cultures:No growth to date -Vancomycin discontinued -Completed Zosyn for 7 days and then transition to PO Augmentin -08/05/2019 Patient seen and examined. Breathing on room air. No cough no respiratory distress. Patient had overnight pulse oximetry test performed overnight and there were no episodes of desaturation and the O2 saturation on room air ranged from 91 % to 97%. Patient denied of having chest pain or palpitations. No new symptoms. Patient is bedbound at baseline. Augmentin BID for 7 days sent electronically to [facility] [address] [facility] [place] [address]. Patient recommended to complete Augmentin antibiotic and follow up Chest X Ray around 1 week of hospital discharge Diarrhea -Stool for C diff: Negative Hypokalemia: -treated in the hospital and will prescribe 5 days of potassium supplements as 15 meq daily (3) Dehydration: -Secondary to poor oral intake on presentation -treated with IV fluids while inpatient (4) Anemia: -Normocytic normochromic -S/P 1 unit PRBCs on this admission -No obvious bleeding issues (5) Tetraplegia: Chronic (flaccid) Tetraplegia -Secondary to C spine fx s/p cspine surgery 07/2018 -has pain medications and baclofen, Lyrica (6) Neurogenic bladder: -chronic constantino catheter -hx of complicated UTI -urine culture: Jessica albicans -is asymptomatic (7) Hypoalbuminemia: -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 -advise BOOST nuitritional supplements with meals -continue Vitamin C and Zinc supplementations, prescription sent electronically to [facility] [address] [facility] [id number] (8) Sacral wound: -patient have been treated as per nursing protocols with repositioning (9) Depression: Depression with anxiety -continue citalopram, wellbutrin, hydroxyzine Protein-calorie malnutrition -As per records (10) DVT prophylaxis: -SCDs while inpatient Principal diagnosis: Acute Respiratory Failure with Hypoxia secondary to Bilateral lower Lobe Pneumonia/Bilateral pleural Effusion from Aspiration and positive Rhinovirus Infection; Dehydration, Chronic Tetraplegia Admission and Anticipated Discharge Date Admission Date: July 30, 2019 discharge on 08/05/2019 Subjective Patient seen and examined. Breathing on room air. No cough no respiratory distress. Patient had overnight pulse oximetry test performed overnight and there were no episodes of desaturation and the O2 saturation on room air ranged from 91 % to 97%. Patient denied of having chest pain or palpitations. No new symptoms. Patient is bedbound at baseline Review of Systems Review of Systems: All systems reviewed & are unremarkable except as noted in HPI & below Physical Exam Constitutional: comfortable Eyes: PERRL, conjunctivae normal, anicteric sclerae EOM intact bilaterally ENMT: external ear and nose normal, oropharynx normal Neck: normal visual inspection Respiratory: normal respiratory effort Cardiovascular: Rate/Rhythm: regular rate and regular rhythm Gastrointestinal (Abdomen): normal bowel sounds, soft, nontender, no hepatosplenomegaly Neurologic: PERRL, EOMI, accommodation nl, no face palsy, no dysarthria (Patient is bedbound at baseline) Psychiatric: A+Ox3, euthymic affect Results & Data Results & Data ([facility]) Vital Signs (Past 12 Hours) Vital Signs Temp Pulse Pulse Pulse Resp BP Pulse Ox 08/05/19 08:56 36.7 C 65 18 116/76 90 08/05/19 07:05 68 18 94 08/05/19 05:05 59 L 08/05/19 05:00 37.0 C 70 17 109/72 93 08/05/19 04:21 54 L 08/05/19 00:56 36.5 C 54 L 17 131/84 95 08/05/19 00:40 77 08/05/19 00:00 76 08/04/19 22:00 72 Pulse Ox 08/05/19 08:56 08/05/19 07:05 08/05/19 05:05 95 08/05/19 05:00 08/05/19 04:21 95 08/05/19 00:56 08/05/19 00:40 94 08/05/19 00:00 08/04/19 22:00 94 (1) Pneumonia Laterality: bilateral Lung location: lower lobe of lung Pneumonia type: due to unspecified organism Qualified Code(s): J18.9 - Pneumonia, unspecified organism
[2019-08-05] MEDS ORDERED: POTASSIUM CHLORIDE 20 MEQ TABCR PO ONE (09:45)
--- NOTE | 2019-08-05 10:27 | Discharge Summary ---
Date of Service August 05, 2019 Admission HPI Per Admitting Provider This is a 33-year-old female who has significant PMH of quadriplegia secondary to cervical spine injury July 2018, neurogenic bladder with chronic indwelling Constantino, chronic pain, depression with anxiety, Herrera, history of gastric bypass 2009, history of diabetes resolved after gastric bypass, history of complicated UTI who presents to ED secondary to worsening SOB and cough x 1 day. Of significance patient was recently hospitalized on 07/23 to 07/27 secondary to bibasilar pneumonia. Of significance at time of work-up for influenza but was negative, but bio fire was positive for entero-/rhinovirus. PNA felt secondary to viral infection with possible superimposed bacterial component and/or aspiration. Her hospital course was complicated for dehydration in which she required IV fluid resuscitation. She also had episode of significant hypoxia felt likely due to mucous plugging due to inability to expectorate secondary to quadriplegic status. She initially was started on IV Levaquin on 07/23 and IV clindamycin was added on 07/26 to cover for possible aspiration component. At discharge chest x-ray showed minimal improvement of bibasilar pneumonia. Unfortunately patient returns today with worsening pneumonia and respiratory status. Please refer to Dr. Kaufman addendum for further subjective HPI and ROS. In ED patient was maintaining O2 saturations at 91% on room air. She was otherwise hemodynamically stable with blood pressure 121/80, mildly tachycardic heart rate 93. Lab work noted for WBC 10.05, H&H 9.1 and 28.2, platelet 326, BUN 6, creatinine 0.29, BUN/creatinine ratio 20.7, albumin 1.7, urinalysis positive for leukocyte esterase, WBC, epithelial cells CXR shows persistent bibasilar opacities with worsening on left and possible parapneumonic effusion. According to nursing staff patient has very poor vein status. Principal Diagnosis Acute Respiratory Failure with Hypoxia secondary to Bilateral lower Lobe Pneumonia/Bilateral pleural Effusion from Aspiration and positive Rhinovirus Infection; Dehydration, Chronic Tetraplegia Discharge Exam Constitutional comfortable Eyes PERRL, conjunctivae normal, anicteric sclerae EOM intact bilaterally ENMT external ear and nose normal, oropharynx normal Neck normal visual inspection Respiratory normal respiratory effort Cardiovascular Rate/Rhythm: regular rate and regular rhythm Gastrointestinal (Abdomen) normal bowel sounds, soft, nontender, no hepatosplenomegaly Neurologic PERRL, EOMI, accommodation nl, no face palsy, no dysarthria (Patient is bedbound at baseline) Psychiatric A+Ox3, euthymic affect Discharge Data Allergies Allergy/AdvReac Type Severity Reaction Status Date / Time Cephalosporins Allergy Mild . Verified 07/30/19 06:43 prochlorperazine Allergy Mild . Verified 07/30/19 06:43 Sulfa (Sulfonamide Allergy Mild . Verified 07/30/19 06:43 Antibiotics) latex AdvReac Mild . 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 Acute Respiratory Failure with Hypoxia secondary to Bilateral lower Lobe Pneumonia/Bilateral pleural Effusion from Aspiration and positive Rhinovirus Infection --CT chest:Small left greater than right pleural effusions are present in conjunction with dense dependent consolidation of the lower lobes. These findings may reflect aspiration pneumonitis, pneumonia or atelectasis. Subtle scattered groundglass opacities of the right upper lobe are suggestive of an infectious or inflammatory pneumonitis. Mildly prominent mediastinal lymph nodes, likely reactive. Mild layering tracheobronchial secretions. Prior gastric bypass and cholecystectomy. -H/O Recent Rhinovirus infection -Repeat Influenza screen: negative -Biofire Screen:Rhinovirus -SARS-CoV2 RNA: Negative -MRSA Screen: Negative -ECHO: EF 60-65%, normal diastolic function, no significant valvular pathology, small loculated, posterior pericardial effusion without hemodynamic significance. -Blood Cultures:No growth to date -Vancomycin discontinued -Completed Zosyn for 7 days and then transition to PO Augmentin -08/05/2019 Patient seen and examined. Breathing on room air. No cough no respiratory distress. Patient had overnight pulse oximetry test performed overnight and there were no episodes of desaturation and the O2 saturation on room air ranged from 91 % to 97%. Patient denied of having chest pain or palpitations. No new symptoms. Patient is bedbound at baseline. Augmentin BID for 7 days sent electronically to [facility] [address] [place] [id number]. Patient recommended to complete Augmentin antibiotic and follow up Chest X Ray around 1 week of hospital discharge Diarrhea -Stool for C diff: Negative Hypokalemia: -treated in the hospital and will prescribe 5 days of potassium supplements as 15 meq daily (3) Dehydration: -Secondary to poor oral intake on presentation -treated with IV fluids while inpatient (4) Anemia: -Normocytic normochromic -S/P 1 unit PRBCs on this admission -No obvious bleeding issues (5) Tetraplegia: Chronic (flaccid) Tetraplegia -Secondary to C spine fx s/p cspine surgery 07/2018 -has pain medications and baclofen, Lyrica (6) Neurogenic bladder: -chronic constantino catheter -hx of complicated UTI -urine culture: Jessica albicans -is asymptomatic (7) Hypoalbuminemia: -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 -advise BOOST nuitritional supplements with meals -continue Vitamin C and Zinc supplementations, prescription sent electronically to [facility] [address] [place] [phone] (8) Sacral wound: -patient have been treated as per nursing protocols with repositioning (9) Depression: Depression with anxiety -continue citalopram, wellbutrin, hydroxyzine Protein-calorie malnutrition -As per records (10) DVT prophylaxis: -SCDs while inpatient Principal diagnosis: Acute Respiratory Failure with Hypoxia secondary to Bilateral lower Lobe Pneumonia/Bilateral pleural Effusion from Aspiration and positive Rhinovirus Infection; Dehydration, Chronic Tetraplegia Total Time Total Time Spent Total Time Spent (In Minutes): 40 minutes Total Time Includes: Examination of the Patient, Discharge Planning, Medication Reconciliation and Communication With Other Providers Discharge Plan Discharge Items Patient Disposition: Home - Self-Care Reason For Visit: WORSENING BILATERAL PNEUMONIA Discharge Diagnosis: Acute Respiratory Failure with Hypoxia secondary to Bilateral lower Lobe Pneumonia/Bilateral pleural Effusion from Aspiration and positive Rhinovirus Infection; Dehydration, Chronic Tetraplegia Condition on Discharge: Good Activity: Resume your previous activity Non-emergency contact: Primary Care Provider Call non-emergency contact if: you have any medication questions Follow-up/Referrals: Ashley Arzola MD [Primary Care Provider] - 04/21/20 11:00 am ([facility] will call you to set up an appointment. ) Diet: Regular Addtl Attending Provider Instructions: Augmentin BID for 7 days sent electronically to [facility] [address] [facility] [place] [address]. Patient recommended to complete Augmentin antibiotic and follow up Chest X Ray around 1 week of hospital discharge continue Vitamin C and Zinc supplementations, prescription sent electronically to [facility] [address] [place] [address] [place] [address] advise BOOST nuitritional supplements with meals Pending Studies at Discharge: No Stand-Alone Forms: My [facility] [employer], Smoking Cessation Medications and DC Order Prescriptions: New ascorbic acid (vitamin C) [Vitamin C] 500 mg Tablet 500 mg PO QAM 10 Days Qty: 10 RF: 0 zinc sulfate [Orazinc] 220 (50) mg Capsule 220 mg PO QAM 10 Days Qty: 10 RF: 0 guaifenesin [Mucinex] 600 mg Tablet Extended Release 12hr 600 mg PO Q12H PRN (Reason: cough) 10 Days Qty: 20 RF: 0 amoxicillin-pot clavulanate [Augmentin] 875-125 mg Tablet 1 tab PO BIDM 7 Days Qty: 14 RF: 0 potassium chloride 15 mEq tablet,ER particles/crystals 15 meq PO DAILY 5 Days Qty: 5 RF: 0 Continued bupropion HCl [Wellbutrin SR] 150 mg tablet sustained-release 12 hr 150 mg PO BID RF: 0 sennosides [Senokot] 8.6 mg Tablet 17.2 mg PO QAM RF: 0 pregabalin [Lyrica] 50 mg capsule 50 mg PO TID RF: 0 hydroxyzine HCl 25 mg tablet 25 mg PO UD PRN (Reason: Anxiety) RF: 0 methadone 10 mg Tablet 10 mg PO BID RF: 0 Lactobacillus acidoph-L.bulgar [Floranex] 1 million cell Tablet 4 tab PO TIDM 10 Days Qty: 40 RF: 0 Combivent Respimat 20-100 mcg/actuation mist 1 puffs INH Q6H PRN (Reason: wheezing) Qty: 4 RF: 0 ondansetron HCl 4 mg tablet 4 mg PO Q8H PRN (Reason: Nausea And Vomiting) RF: 0 folic acid 1 mg Tablet 1 mg PO QAM RF: 0 nystatin 100,000 unit/gram powder 1 applic topical BID PRN (Reason: Skin Irritation) RF: 0 fluticasone propionate 50 mcg/actuation spray,suspension 1 spray intranasal QAM RF: 0 diazepam [Valium] 5 mg tablet 5 mg PO Q8H PRN (Reason: Anxiety) RF: 0 oxycodone 5 mg tablet 5 mg PO Q4H PRN (Reason: Pain) RF: 0 escitalopram oxalate 10 mg tablet 10 mg PO QAM RF: 0 Narcan 4 mg/actuation spray,non-aerosol 1 - 2 spray intranasal UD PRN (Reason: Opioid Reversal) RF: 0 oxybutynin chloride [Ditropan XL] 10 mg Tablet Extended Release 24hr 10 mg PO DAILY RF: 0 levothyroxine [Synthroid] 25 mcg Tablet 25 mcg PO DAILY RF: 0 baclofen 10 mg Tablet 10 mg PO TID RF: 0 cyanocobalamin (vitamin B-12) 1,000 mcg Tablet See Rx Instructions .ROUTE .COMPLEX RF: 0 Discontinued clindamycin HCl 150 mg Capsule 150 mg PO Q6 Qty: 20 RF: 0 levofloxacin 500 mg Tablet 500 mg PO DAILY@1100 Qty: 3 RF: 0 Discharge Orders: Discharge Order (Routine); Ordered 08/05/19 Ordered By: Matthew Pierson Admission Data Admit Date/Time: 07/30/19 09:06 Attending Provider: Matthew Pierson Admit Provider: Luisito Kaufman Primary Care Provider: Ashley Arzola Other Providers: Tomi Whatley ; [facility] ; Stanley Gar
--- NOTE | 2019-08-14 12:12 | Coding Query ---
CODING QUERY To promote full compliance with coding requirements relating to patient care, provider participation is requested in all cases of vocal music teacher uncertainty. Please assist us with the question(s) below: Coding Question(s): Per documentation Acute respiratory failure with hypoxia secondary to bilateral lower lobe pneumonia/bilateral pleural effusion from aspiration and positive rhinovirus infection. Please clarify if it is aspiration pneumonia or the aspiration caused just the pleural effusion. don't know the etiology of the pleural effusion Physician's Response(s): Thank you Wandy Ferguson Principal Diagnosis: "that condition established after study, to be chiefly responsible for occasioning the admission of the patient to the hospital for care." Co-Existing Principal Diagnosis: "when two or more diagnoses equally meet the criteria for principal diagnosis as determined by the circumstances of admission, diagnostic work up, and/or therapy provided, and the Alphabetic Index, Tabular List, or another coding guideline does not provide sequencing direction, any one of the diagnoses may be sequenced first." "When the physician has documented what appears to be a current diagnosis in the body of the record, but has not included the diagnosis in the final diagnostic statement, the physician should be asked whether the diagnosis should be added." (Source Coding [facility] 2 QTR90. p3-4) BRIA
== END 2019-08-05 12:07 | disposition home or self-care (01) | DRG 177 ==
LOC: ED 05:52 → SUATTDRO 09:06 → 2S 09:06